=== PATIENT | female | born 1990 | race African-American/Black ===

== ENCOUNTER 2017-08-05 19:23 | Emergency (ER) | payer OTHER, SELFPAY ==
--- OUTSIDE RECORDS SUMMARY | 2017-08-05 19:25 | XMS REPORT | Clinical Summary ---
:1990 Author Organization [facility] Address [address] [place] [address] Care Team Providers Name Role Phone Asked, No Pcp Primary Care Provider Unavailable Allergies Active Allergy Reactions Severity Noted Date Comments Citalopram Other (See Comments) 07/03/2017 migraine Risperidone Other (See Comments) 07/03/2017 "my body swell up" Current Medications Prescription Sig. Disp. Refills Start Date End Date Status OLANZapine (ZYPREXA) Take 1 tablet 30 tablet 0 07/08/2017 08/07/2017 Active 10 MG (10 mg total) by tabletIndications: mouth nightly Depression Treatment for 30 days. Adjunct FLUoxetine (PROzac) Take 1 capsule 30 capsule 0 07/09/2017 08/08/2017 Active 20 MG (20 mg total) by capsuleIndications: mouth daily for Post Traumatic Stress 30 days. Disorder nicotine (NICODERM Place 1 patch on 30 patch 0 07/08/2017 08/07/2017 Active CQ) 21 mg/24 the skin daily hrIndications: as needed Smoking Cessation (smoking cessation) for up to 30 days. 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, severe, dependence 07/03/2017 Severe protein-calorie malnutrition 07/03/2017 Encounters Date Type Specialty Care Team Description 07/02/2017 - Hospital Encounter Psychiatry Fidelia Montoya MD 07/08/2017 after 08/04/2016 Social History Tobacco Use Types Packs/Day Years Used Date Current Every Day Smoker Cigarettes 3 5 Smokeless Tobacco: Never Used Tobacco Cessation: Ready to Quit: No; Counseling Given: Yes Alcohol Use Drinks/Week oz/Week Comments Yes 4 Glasses of wine 10.2 "I binge drink" 10 Shots of liquor 3 Standard drinks or equivalent Sex Assigned at Date Recorded Not on file Last Filed Vital Signs Vital Sign Reading Time Taken Blood Pressure 105/62 07/08/2017 7:14 AM CDT Pulse 72 07/08/2017 7:14 AM CDT Temperature 36.6 C (97.9 F) 07/08/2017 7:14 AM CDT Respiratory Rate 18 07/08/2017 7:14 AM CDT Oxygen Saturation 100% 07/08/2017 7:14 AM CDT Inhaled Oxygen Concentration - - Weight 66.7 kg (147 lb 1.6 oz) 07/08/2017 7:14 AM CDT Height 166.4 cm (5' 5.5") 07/02/2017 11:41 PM CDT Body Mass Index 24.11 07/08/2017 7:14 AM CDT Plan of Treatment Health Maintenance Due Date Last Done Comments CERVICAL CANCER SCREENING 2010 INFLUENZA VACCINE 09/30/2017 Procedures Procedure Name Priority Date/Time Associated Diagnosis Comments EEG AWAKE/DROWSY Routine 07/05/2017 7:52 AM Results for this LESS THAN 41 MIN CDT procedure are in the results section. after 08/04/2016 Results Urinalysis screen and microscopy, with reflex to culture (07/06/2017 11:02 AM) Component Value Ref Range Specimen site Clean catch Color, UA Straw Appearance, UA Clear Specific gravity, UA 1.005 1.001 - 1.035 pH, UA 6.0 5.0 - 8.5 Protein, UA Negative Negative Glucose, UA Negative Negative Ketones, UA Negative Negative Bilirubin, UA Negative Negative Blood, UA Negative Negative Nitrite, UA Negative Negative Urobilinogen, UA <2.0 <2.0 Leukocyte esterase, UA Negative Negative Epithelial cells, UA 8 /HPF WBC, UA 1 0 - 4 /HPF RBC, UA 1 0 - 5 /HPF Bacteria, UA Few None seen Yeast, UA None seen Yeast with pseudohyphae, UA None seen Specimen Performing Laboratory Urine [facility] DEPARTMENT OF PATHOLOGY AND GENOMIC MEDICINE [address] [place] [id number] Urine culture (07/06/2017 11:02 AM) Component Value Ref Range Urine culture SEE COMMENTComment: Bacteriuria screen negative. Specimen Performing Laboratory [facility] DEPARTMENT OF PATHOLOGY AND GENOMIC MEDICINE [address] [place] [id number] Head Wo Contrast (07/06/2017 9:03 AM) Specimen Performing Laboratory [facility] [address] [place] [address] Narrative EXAMINATION: CT HEAD WO CONTRAST CLINICAL HISTORY: CONFUSION DELERIUMALTERED LOCUNEXPLAINED COMPARISON:None TECHNIQUE: Noncontrast enhanced images of the brain were obtained from the skull base to the vertex. Both soft tissue and bone reconstruction algorithms were performed.CT imaging was performed with iterative reconstruction technique and/or automated exposure control to reduce radiation dose. FINDINGS: No evidence of acute intracranial hemorrhage, mass, mass effect, midline shift or focal extra-axial collection. The richardson-white matter differentiation appears preserved. No evidence of a confluent area of acute transcortical ischemia. No discretely hyperdense vessel is noted. The ventricles are mildly prominent bilaterally. A variant of a cavum septum pellucidum et vergae is noted. No evidence of acute hydrocephalus. Beam hardening artifact obscures details at the level of the skull base, including portions of the supraorbital frontal lobes, inferior temporal lobes, brainstem and cerebellum. No acute soft tissue hematoma or laceration. Paranasal sinuses shows no acute air-fluid levels.Right maxillary mucosal thickening. Mastoid air cells are clear.No skull fractures or aggressive bony lesions. IMPRESSION: 1. No acute intracranial abnormality identified. 2. The ventricles are mildly prominent bilaterally. [id number] Procedure Note Interface, Radiology Results Incoming - 07/06/2017 9:19 AM CDT EXAMINATION: CT HEAD WO CONTRAST CLINICAL HISTORY: CONFUSION DELERIUM ALTERED LOC UNEXPLAINED COMPARISON: None TECHNIQUE: Noncontrast enhanced images of the brain were obtained from the skull base to the vertex. Both soft tissue and bone reconstruction algorithms were performed. CT imaging was performed with iterative reconstruction technique and/or automated exposure control to reduce radiation dose. FINDINGS: No evidence of acute intracranial hemorrhage, mass, mass effect, midline shift or focal extra-axial collection. The richardson-white matter differentiation appears preserved. No evidence of a confluent area of acute transcortical ischemia. No discretely hyperdense vessel is noted. The ventricles are mildly prominent bilaterally. A variant of a cavum septum pellucidum et vergae is noted. No evidence of acute hydrocephalus. Beam hardening artifact obscures details at the level of the skull base, including portions of the supraorbital frontal lobes, inferior temporal lobes, brainstem and cerebellum. No acute soft tissue hematoma or laceration. Paranasal sinuses shows no acute air-fluid levels. Right maxillary mucosal thickening. Mastoid air cells are clear. No skull fractures or aggressive bony lesions. IMPRESSION: 1. No acute intracranial abnormality identified. 2. The ventricles are mildly prominent bilaterally. [id number] EEG (routine) (07/05/2017 7:52 AM) Narrative EEG AWAKE AND DROWSY Date of Service: 07/05/17 Awake Recordings: The occipital dominant rhythm is 6-8 Hz and is poorly sustained. 4-5 Hz and 1.5-3 Hz activity is present in all regions. 18-22 Hz activity was present in all regions. Sleep Recording: No sleep was recorded. Hyperventilation: Was not performed. Photic Stimulation: No abnormalities elicited. Impression: The findings are consistent with a diffuse disturbance in brain function. No seizures occurred. ICD-10 Code: R569 Syphilis treponemal IgG (07/04/2017 4:00 AM) Component Value Ref Range Syphilis treponemal IgG Non-reactiveComment: Non-reactive: No Non-reactive serological evidence of Syphilis infection Specimen Performing Laboratory Serum [facility] DEPARTMENT OF PATHOLOGY AND GENOMIC MEDICINE [address] [place] [address]395 Chlamydia Ab panel, IgG and IgM (07/04/2017 4:00 AM) Component Value Ref Range Chlamydia pneumo IgM 1:20 (H) <1:20 Chlamydia trachomatis IgM <1:20 <1:20 Chlamydia psittaci IgM <1:20 <1:20 Chlamydia pneumo IgG 1:128 (H) <1:64 Chlamydia trachomatis IgG <1:64 <1:64 Chlamydia psittaci IgG <1:64 <1:64 Comment: INTERPRETIVE INFORMATION: C. psittaci IgG Titer The Chlamydia antibody test contains both species- and genus- specific antigens, and serological cross-reactions may be seen in both acute and convalescent samples (less than 1:128). A C. pneumoniae-specific reaction will exhibit titers twofold or greater than titers observed with the C. trachomatis or C. psittaci serology. Any IgG titer may indicate past exposure to that particular species. IgG titers in recently infected individuals are typically greater than or equal 1:512. The Chlamydia microimmunofluorescent assay slides utilize C. psittaci, C. pneumoniae, and nine serotypes of C. trachomatis. The LGV strains of C. trachomatis are not included in this assay. Test developed and characteristics determined by [facility]. See Compliance Statement A: [employer] Performed by [facility], [address] [place] [address] www.[employer], Rafy Maguire MD - Lab. Director Specimen Performing Laboratory Serum [facility] [address] [place] [address] Hepatitis acute panel (07/04/2017 4:00 AM) Component Value Ref Range Hepatitis A IgM Non-reactive Non-reactive Hepatitis B core IgM Non-reactive Non-reactive Hepatitis B surface Ag Non-reactive Non-reactive Hepatitis C Ab Non-reactive Non-reactive Specimen Performing Laboratory Serum [facility] DEPARTMENT OF PATHOLOGY AND GENOMIC MEDICINE [address] [place] [address] 18795 HIV 1, 2 antibody (07/04/2017 4:00 AM) Component Value Ref Range HIV 1, 2 antibody Non-reactive Non-reactive Comment: Starting from May 29 2015, 4th generation HIV screening and confirmation assays are in use at [facility], consistent with the CDC-recommended algorithm. The screening test detects antibodies to HIV-1, HIV-2 and the p24 antigen. Positive screening results will be automatically reflexed to a HIV-1/HIV-2 differentiation assay. Indeterminant HIV-1 results will be further automatically reflexed to a nucleic acid test for detection of acute infection. Western blot will no longer be performed as a confirmation test. For a quick reference guide on the testing algorithm, please refer to: http://stacks.cdc.gov/view/cdc/84784. Specimen Performing Laboratory Serum [facility] DEPARTMENT OF PATHOLOGY AND GENOMIC MEDICINE [address] [place] [id number] Thyroid stimulating hormone (07/04/2017 4:00 AM) Component Value Ref Range TSH 0.12 (L) 0.27 - 4.20 uIU/mL Specimen Performing Laboratory Plasma specimen [facility] DEPARTMENT OF PATHOLOGY AND GENOMIC MEDICINE [address] [place] [address] 35150 T4, free (07/04/2017 4:00 AM) Component Value Ref Range T4, free 1.0 0.9 - 1.7 ng/dL Specimen Performing Laboratory Plasma specimen [facility] DEPARTMENT OF PATHOLOGY AND GENOMIC MEDICINE [address] [place] [address] 36858 ECG 12 lead (07/03/2017 9:14 AM) Component Value Ref Range Ventricular rate 76 Atrial rate 76 LA interval 122 QRSD interval 102 QT interval 374 QTC interval 420 P axis 1 26 QRS axis 1 59 T wave axis 51 EKG impression Normal sinus rhythm-Normal ECG-No previous ECGs available- Specimen Performing Laboratory [facility] M[facility] [address] [place] [address] 14121 Estimated GFR (07/03/2017 5:38 AM) Component Value Ref Range GFR Non Af Amer >90 mL/min/1.73 m2 GFR Af Amer >90 mL/min/1.73 m2 Comment: Chronic kidney disease: <60 mL/min/1.73m2 Kidney failure: <15 mL/min/1.73m2 The estimated GFR is calculated from the IDMS-traceable Modification of Diet in Renal Disease Equation. The accuracy of the calculation is poor when the creatinine is normal. Calculated values >90 mL/min/1.73m2 are not reported. This equation has not been validated in children (<18 years), women, the elderly (>70 years), or ethnic groups other than Caucasians and Americans. Specimen Performing Laboratory Plasma specimen [facility] DEPARTMENT OF PATHOLOGY AND GENOMIC MEDICINE [address] [place] [address]489 CBC with platelet and differential (07/03/2017 5:38 AM) Component Value Ref Range WBC 5.34 4.50 - 11.00 k/uL RBC 3.95 (L) 4.20 - 5.50 m/uL HGB 12.0 12.0 - 16.0 g/dL HCT 36.6 (L) 37.0 - 47.0 % MCV 92.7 82.0 - 100.0 fL MCH 30.4 27.0 - 34.0 pg MCHC 32.8 31.0 - 37.0 g/dL RDW - SD 43.6 37.0 - 55.0 fL MPV 10.4 8.8 - 13.2 fL Platelet count 297 150 - 400 k/uL Nucleated RBC 0.00 /100 WBC Neutrophils 58.7 39.0 - 69.0 % Lymphocytes 31.3 25.0 - 45.0 % Monocytes 6.2 0.0 - 10.0 % Eosinophils 3.0 0.0 - 5.0 % Basophils 0.6 0.0 - 1.0 % Immature granulocytes 0.2Comment: "Immature granulocytes" 0.0 - 1.0 % (promyelocytes, myelocytes, metamyelocytes) Specimen Performing Laboratory Blood [facility] DEPARTMENT OF PATHOLOGY AND GENOMIC MEDICINE [address] [place] [address] [id number] Hemoglobin A1c (07/03/2017 5:38 AM) Component Value Ref Range Hemoglobin A1C 5.4 4.0 - 5.6 % Comment: HbA1c cutoffs for diagnosing diabetes: 4.0% - 5.6%=normal 5.7% - 6.4%=increased risk for diabetes (prediabetes) >=6.5%=diabetes Goals for glycemic control (ADA 2016) < 7.0%Target for non adults with diabetes. More or less stringent targets may be appropriate for individual patients. <7.5% Target for Children and adolescents with type 1 diabetes. Specimen Performing Laboratory Blood [facility] [address] [place] [address] 80646 Lipid panel (07/03/2017 5:38 AM) Component Value Ref Range Cholesterol 122 <200 mg/dL Triglycerides 77 <150 mg/dL HDL cholesterol 41 >40 mg/dL LDL cholesterol 72Comment: Result obtained by direct LDL <100 mg/dL measurement Lipid panel interpretation SeeBelow Comment: Total Cholesterol (mg/dL) <200 Desirable [phone]-vtyg >=240High Triglycerides (mg/dL) <150 Normal [id number] 200-499High >=500Very high HDL Cholesterol (mg/dL) <40Low (male) <40Low (female) LDL Cholesterol (mg/dL) <100 Optimal 100-129Near or above optimal [phone]-dzak 160-189High >=190Very high Risk Catergories that modify LDL goals. Risk CatergoriesLDL goal (mg/dL) CHD and CHD risk equivalent<100 (10-year risk >20%) Multiple (2+) risk factors <130 (10-year risk=<20%) 0-1 risk factors <160 (<10-year risk) Defining levels of lipids in metabolic syndrome Triglycerides>=150 mg/dL HDL Cholesterol Men<40 mg/dL Women<40 mg/dL Non-HDL cholesterol is a second target for therapy in persons with high triglycerides (>=200 mg/dL) Specimen Performing Laboratory Plasma specimen [facility] DEPARTMENT OF PATHOLOGY AND GENOMIC MEDICINE [address] [place] [address]04 Comprehensive metabolic panel (07/03/2017 5:38 AM) Component Value Ref Range Sodium 138 135 - 148 mEq/L Potassium 3.8 3.5 - 5.0 mEq/L Chloride 102 98 - 112 mEq/L CO2 24 24 - 31 mEq/L Anion gap 12 7 - 15 mEq/L Comment: Starting from May , anion gap calculation no longer incorporates potassium. Please note the change. BUN 11 6 - 20 mg/dL Creatinine 0.7 0.5 - 0.9 mg/dL Glucose 91 65 - 99 mg/dL Calcium 9.0 8.3 - 10.2 mg/dL Protein 6.7 6.3 - 8.3 g/dL Comment: 4.6-7.0 g/dL 1 week 4.4-7.6 g/dL 7 months-1year5.1-7.3 g/dL 1-2 years5.6-7.5 g/dL >3 years6.0-8.0 g/dL 18-150 6.3-8.3 g/dL Albumin 3.3 (L) 3.5 - 5.0 g/dL A/G ratio 1.0 0.7 - 3.8 Alkaline phosphatase 44 35 - 104 U/L AST 25 10 - 35 U/L ALT 16 5 - 50 U/L Total bilirubin 0.3 0.0 - 1.2 mg/dL Specimen Performing Laboratory Plasma specimen [facility] DEPARTMENT OF PATHOLOGY AND GENOMIC MEDICINE [address] [place] [address] after 08/04/2016
[2017-08-05 22:55] LABS: Absolute Lymphocytes (CBC) 2.4 K/uL (0.7-4.9); Absolute Monocytes 0.4 K/uL (0.1-1.3); Absolute Neutrophil 2.1 K/uL (1.8-8.0); Basophils % 0.7 % (0-1.3); Eosinophils % 3.9 % (0-4.4); Hematocrit 34.3 % (36.0-45.0); Lymphocytes % 46.3 % (15.3-44.8); MCH 30.6 pg (27.0-35.0); MCV 92.3 fL (80-100); MPV 8.5 fL (7.6-11.3); Monocytes % 7.7 % (3.3-12.3); RBC Red Blood Cell Count 3.72 M/uL (3.86-4.86)
[2017-08-05 23:01] LABS: Bicarbonate 26 mEq/L (21-31); Glucose Level 87 mg/dL (65-120); Potassium 3.3 mEq/L (3.6-5.0); Sodium Level 136 mEq/L (135-145)
[2017-08-05 23:07] LABS: ALT/SGPT 18 IU/L (10-60); AST/SGOT 22 IU/L (10-42); Albumin 3.8 g/dL (3.2-5.5); Alkaline Phosphatase 49 IU/L (42-121); BUN Blood Urea Nitrogen 12 mg/dL (6-20); Bilirubin Direct 0.1 mg/dL (0-0.2); Bilirubin Total 0.4 mg/dL (0.3-1.2); Creatine Phosphokinase 98 IU/L (22-269); Magnesium 2.1 mg/dL (1.8-2.5); Protein, Total 6.7 g/dL (6.0-8.3)
[2017-08-05 23:11] LABS: CKMB Creatine Kinase MB 0.9 ng/ml (0.3-4.0)
[2017-08-05 23:39] LABS: Urine Blood 2+ (NEG); Urine Glucose NEGATIVE (NEG); Urine Protein NEGATIVE (NEG); Urine pH 6.5 (5.0-7.0)
--- NOTE | 2017-08-06 00:27 | ER ---
Nurse's Notes [facility] Name: Jennifer Olivares Age: 27 yrs Sex: Female : 1990 Arrival Date: 08/05/2017 Time: 19:26 Bed 26 Private MD: Christopher Leal E Diagnosis: Pain in right hand;Pain in left hand;Other chest pain-non cardiac Presentation: 08/05 19:31 Presenting complaint: Patient states: Reports bilateral hand tingling and swelling for aj 2 days with chest pain. Also reports swelling to bilateral feet. No swelling noted in triage. Transition of care: patient was not received from another setting of care. Onset of symptoms was August 03, 2017. Risk Assessment: Do you want to hurt yourself or someone else? Patient reports no desire to harm self or others. Care prior to arrival: None. 19:31 Method Of Arrival: Ambulatory 19:31 Acuity: ANKIT 3 aj 08/06 00:51 Initial Sepsis Screen: Does the patient meet any 2 criteria? No. Patient's initial mb3 sepsis screen is negative. Does the patient have a suspected source of infection? No. Patient's initial sepsis screen is negative. Triage Assessment: 08/05 19:33 General: Appears in no apparent distress. comfortable, Behavior is calm, cooperative, aj appropriate for age. Pain: Complains of pain in chest, right hand, left hand, right foot and left foot. Cardiovascular: Reports chest pain, Capillary refill < 3 seconds in bilateral fingers Patient's skin is warm and dry. Respiratory: Airway is patent Respiratory effort is even, unlabored, Respiratory pattern is regular, symmetrical. Derm: Skin is intact, is healthy with good turgor, Skin is pink, warm \T\ dry. normal. Musculoskeletal: Reports pain in chest, right hand, left hand, right foot and left foot. 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 - Social history:: Smoking status: Patient uses tobacco products, smokes one-half pack cigarettes per day, Patient uses alcohol, street drugs, marijuana. - Ebola Screening: : Patient negative for fever greater than or equal to 101.5 degrees Fahrenheit, and additional compatible Ebola Virus Disease symptoms Patient denies exposure to infectious person Patient denies travel to an Ebola-affected area in the 21 days before illness onset No symptoms or risks identified at this time. Screenin:08 Abuse screen: Denies threats or abuse. Denies injuries from another. Nutritional kr2 screening: No deficits noted. Tuberculosis screening: No symptoms or risk factors identified. Fall Risk None identified. Assessment: 23:10 General: Appears in no apparent distress. comfortable, Behavior is calm, cooperative, mb3 appropriate for age. Pain: Complains of pain in right hand and left hand Pain does not radiate. Pain began 1 day ago. 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 Full function Weakness Gait is steady, Speech is normal, Facial symmetry appears normal, Pupils are PERRLA, Numbness in right hand and left hand. Cardiovascular: No deficits noted. Heart tones present Capillary refill < 3 seconds Patient's skin is warm and dry. Respiratory: No deficits noted. Airway is patent Respiratory effort is even, unlabored, Respiratory pattern is regular, symmetrical, Breath sounds are clear bilaterally. GI: No deficits noted. No signs and/or symptoms were reported involving the gastrointestinal system. : No deficits noted. No signs and/or symptoms were reported regarding the genitourinary system. Vital Signs: 19:33 BP 110 / 77; Pulse 92; Resp 16; Temp 98.3; Pulse Ox 99% on R/A; Weight 62.14 kg; Height aj 5 ft. 5 in. (165.10 cm); 08/06 00:49 BP 85 / 59; Pulse 59; Resp 14; Pulse Ox 99% on R/A; mb3 08/05 19:33 Body Mass Index 22.80 (62.14 kg, 165.10 cm) ED Course: 08/05 19:26 Patient arrived in ED. es 19:26 Christopher Leal MD is Private Physician. es 19:32 Triage completed. aj 19:33 Arm band placed on left wrist. Patient placed in waiting room, Patient notified of wait aj time. 20:50 engine monitor on. Pulse ox on. NIBP on. mb3 21:55 Asher Horton MD is Attending Physician. [facility] 22:28 Kris Ng, RN is Primary Nurse. mb3 22:35 Inserted saline lock: 20 gauge in right antecubital area, using aseptic technique. kr2 Blood collected. Patient maintains SpO2 saturation greater than 95% on room air. 22:41 X-ray completed. Portable x-ray completed in exam room. Patient tolerated procedure kc2 well. 22:42 XRAY Chest (1 view) In Process Unspecified. EDMS 08/06 00:26 Christopher Leal MD is Referral Physician. [facility] 00:51 Patient has correct armband on for positive identification. mb3 00:51 No provider procedures requiring assistance completed. IV discontinued, intact, mb3 bleeding controlled, No redness/swelling at site. Pressure dressing applied. Administered Medications: 08/05 23:06 Drug: NS 0.9% 1000 ml Route: IV; Rate: 1 bolus; Site: left antecubital; kr2 08/06 00:48 Follow up: Response: No adverse reaction; IV Status: Completed infusion; IV Intake: mb3 1000ml 00:40 Drug: Potassium Chloride 40 mEq Route: PO; mb3 00:48 Follow up: Response: No adverse reaction mb3 Intake: 00:48 IV: 1000ml; Total: 1000ml. mb3 Outcome: 00:26 Discharge ordered by . [facility] 00:52 Discharged to home ambulatory. mb3 00:52 Condition: stable 00:52 Discharge instructions given to patient, Instructed on discharge instructions, follow up and referral plans. medication usage, Demonstrated understanding of instructions, follow-up care, medications, Prescriptions given X 1. 00:53 Patient left the ED. mb3 Signatures: Dispatcher [employer] Susan Silveira RN RN aj Anderson, Corey, MD MD cha Salyer, Edna es Carr, Kelsie kc2 Karen Bryan RN RN kr2 Kris Ng, RN RN mb3
--- NOTE | 2017-08-06 00:27 | EDPHYS ---
Physician Documentation [facility] Name: Jennifer Olivares Age: 27 yrs Sex: Female : 1990 Arrival Date: 08/05/2017 Time: 19:26 Bed 26 Private MD: Christopher Leal E ED Physician Asher Horton HPI: 08/05 22:30 This 27 yrs old Black Female presents to ER via Ambulatory with complaints of Chest ben Pain, Hand Swelling, Feet Swelling, Numbness Of Hand. 22:30 The patient or guardian reports chest pain that is located primarily in the anterior ben chest wall, bilaterally. The pain does not radiate. 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 - Social history:: Smoking status: Patient uses tobacco products, smokes one-half pack cigarettes per day, Patient uses alcohol, street drugs, marijuana. - Ebola Screening: : Patient negative for fever greater than or equal to 101.5 degrees Fahrenheit, and additional compatible Ebola Virus Disease symptoms Patient denies exposure to infectious person Patient denies travel to an Ebola-affected area in the 21 days before illness onset No symptoms or risks identified at this time. ROS: 22:32 Constitutional: Negative for fever, chills, and weight loss, Eyes: Negative for injury, ben pain, redness, and discharge, ENT: Negative for injury, pain, and discharge, Neck: Negative for injury, pain, and swelling, Respiratory: Negative for shortness of breath, cough, wheezing, and pleuritic chest pain, Abdomen/GI: Negative for abdominal pain, nausea, vomiting, diarrhea, and constipation, Back: Negative for injury and pain, : Negative for injury, bleeding, discharge, and swelling, MS/Extremity: Negative for injury and deformity, Skin: Negative for injury, rash, and discoloration, Neuro: Negative for headache, weakness, numbness, tingling, and seizure, Psych: Negative for depression, anxiety, suicide ideation, homicidal ideation, and hallucinations, Allergy/Immunology: Negative for hives, rash, and allergies, Endocrine: Negative for neck swelling, polydipsia, polyuria, polyphagia, and marked weight changes, Hematologic/Lymphatic: Negative for swollen nodes, abnormal bleeding, and unusual bruising. 22:32 Cardiovascular: Positive for chest pain, of the chest. 22:32 MS/extremity: Positive for laceration, tenderness, of the right hand and left hand. Exam: 22:32 Constitutional: This is a well developed, well nourished patient who is awake, alert, ben and in no acute distress. Head/Face: Normocephalic, atraumatic. Eyes: Pupils equal round and reactive to light, extra-ocular motions intact. Lids and lashes normal. Conjunctiva and sclera are non-icteric and not injected. Cornea within normal limits. Periorbital areas with no swelling, redness, or edema. ENT: Nares patent. No nasal discharge, no septal abnormalities noted. Tympanic membranes are normal and external auditory canals are clear. Oropharynx with no redness, swelling, or masses, exudates, or evidence of obstruction, uvula midline. Mucous membranes moist. Neck: Trachea midline, no thyromegaly or masses palpated, and no cervical lymphadenopathy. Supple, full range of motion without nuchal rigidity, or vertebral point tenderness. No Meningismus. Chest/axilla: Normal chest wall appearance and motion. Nontender with no deformity. No lesions are appreciated. Cardiovascular: Regular rate and rhythm with a normal S1 and S2. No gallops, murmurs, or rubs. Normal PMI, no JVD. No pulse deficits. Respiratory: Lungs have equal breath sounds bilaterally, clear to auscultation and percussion. No rales, rhonchi or wheezes noted. No increased work of breathing, no retractions or nasal flaring. Abdomen/GI: Soft, non-tender, with normal bowel sounds. No distension or tympany. No guarding or rebound. No evidence of tenderness throughout. Back: No spinal tenderness. No costovertebral tenderness. Full range of motion. Skin: Warm, dry with normal turgor. Normal color with no rashes, no lesions, and no evidence of cellulitis. MS/ Extremity: Pulses equal, no cyanosis. Neurovascular intact. Full, normal range of motion. Neuro: Awake and alert, GCS 15, oriented to person, place, time, and situation. Cranial nerves II-XII grossly intact. Motor strength 5/5 in all extremities. Sensory grossly intact. Cerebellar exam normal. Normal gait. Psych: Awake, alert, with orientation to person, place and time. Behavior, mood, and affect are within normal limits. 22:38 Musculoskeletal/extremity: DVT Exam: No signs of deep vein thrombosis. no pain, no ben swelling, no tenderness, negative Homans' sign noted on exam, no appreciated bluish discoloration, no erythema, no increased warmth. Vital Signs: 19:33 BP 110 / 77; Pulse 92; Resp 16; Temp 98.3; Pulse Ox 99% on R/A; Weight 62.14 kg; Height aj 5 ft. 5 in. (165.10 cm); 08/06 00:49 BP 85 / 59; Pulse 59; Resp 14; Pulse Ox 99% on R/A; mb3 08/05 19:33 Body Mass Index 22.80 (62.14 kg, 165.10 cm) MDM: 08/05 21:55 Patient medically screened. [facility] 22:33 Data reviewed: vital signs, lab test result(s), EKG, radiologic studies, plain films. [facility] 08/05 22:30 Order name: Basic Metabolic Panel; Complete Time: 00:23 [facility] 08/05 22:30 Order name: BNP; Complete Time: 00:23 [facility] 08/05 22:30 Order name: CBC with Diff; Complete Time: 00:23 [facility] 08/05 22:30 Order name: Ckmb; Complete Time: 00:23 [facility] 08/05 22:30 Order name: CPK; Complete Time: 00:23 [facility] 08/05 22:30 Order name: LFT's; Complete Time: 00:23 [facility] 08/05 22:30 Order name: Magnesium; Complete Time: 00:23 [facility] 08/05 22:30 Order name: Troponin (emerg Dept Use Only); Complete Time: 00:23 [facility] 08/05 22:30 Order name: XRAY Chest (1 view) [facility] 08/05 22:30 Order name: EKG; Complete Time: 22:31 [facility] 08/05 23:09 Order name: Urine Dipstick--Ancillary (enter results); Complete Time: 00:23 fl 08/05 23:09 Order name: Urine --Ancillary (enter results); Complete Time: 00:23 ms 08/05 22:30 Order name: Urine Test (obtain specimen); Complete Time: 23: [facility] 08/05 22:30 Order name: Cardiac monitoring; Complete Time: 22:38 [facility] 08/05 22:30 Order name: EKG - Nurse/Tech; Complete Time: 23:07 [facility] 08/05 22:30 Order name: IV Saline Lock; Complete Time: :38 [facility] 08/05 22:30 Order name: Labs collected and sent; Complete Time: : [facility] 08/05 22:30 Order name: O2 Per Protocol; Complete Time: :38 [facility] 08/05 22:30 Order name: O2 Sat Monitoring; Complete Time: : [facility] 08/05 22:30 Order name: Urine Dipstick-Ancillary (obtain specimen); Complete Time: 23:07 [facility] Administered Medications: 23:06 Drug: NS 0.9% 1000 ml Route: IV; Rate: 1 bolus; Site: left antecubital; kr2 08/06 00:48 Follow up: Response: No adverse reaction; IV Status: Completed infusion; IV Intake: mb3 1000ml 00:40 Drug: Potassium Chloride 40 mEq Route: PO; mb3 00:48 Follow up: Response: No adverse reaction mb3 Disposition: 08/06/17 00:26 Discharged to Home. Impression: Pain in right hand, Pain in left hand, Other chest pain - non cardiac. - Condition is Stable. - Discharge Instructions: Nonspecific Chest Pain, Chest Wall Pain, Musculoskeletal Pain, Nonspecific Chest Pain, [id number]. - Prescriptions for Naprosyn 500 mg Oral Tablet - take 1 tablet by ORAL route 2 times per day take with food; 14 tablet. - Medication Reconciliation Form, Thank You Letter, Antibiotic Education, Prescription Opioid Use form. - Follow up: Christopher Leal; When: 2 - 3 days; Reason: Recheck today's complaints, Continuance of care, Re-evaluation by your physician. - Problem is new. - Symptoms have improved. Signatures: Dispatcher [employer] EDSusan Kunz RN RN aj Anderson, Corey, MD MD cha Reaves, Karey RN RN kr2 Kris Ng RN RN mb3 Corrections: (The following items were deleted from the chart) 08/05 22:34 22:33 Data reviewed: vital signs, nurses notes, lab test result(s), EKG, radiologic [facility] studies, CT scan, plain films, [facility] 08/06 00:53 00:26 08/06/2017 00:26 Discharged to Home. Impression: Pain in right hand; Pain in left mb3 hand; Other chest pain - non cardiac. Condition is Stable. Discharge Instructions: Nonspecific Chest Pain, Chest Wall Pain, Musculoskeletal Pain, Nonspecific Chest Pain, [id number]. Prescriptions for Naprosyn 500 mg Oral Tablet - take 1 tablet by ORAL route 2 times per day take with food; 14 tablet. and Forms are Medication Reconciliation Form, Thank You Letter, Antibiotic Education, Prescription Opioid Use. Follow up: Christopher Leal; When: 2 - 3 days; Reason: Recheck today's complaints, Continuance of care, Re-evaluation by your physician. Problem is new. Symptoms have improved. [facility]
[2017-08-06] MEDS ORDERED: POTASSIUM CL SA 10 MEQ TAB PO ONE (00:42)
[2017-08-06 02:17] VITALS: TEMP 98.3; O2SAT 99
[2017-08-06 02:18] VITALS: BP 85/59
--- NOTE | 2017-08-06 08:31 | RAD REPORT ---
EXAM DESCRIPTION: RAD - Chest Single View - 08/05/2017 10:44 pm CLINICAL HISTORY: Cough COMPARISON: August 2009 TECHNIQUE: AP portable chest image was obtained 2232 hours . FINDINGS: Lungs are clear. Heart and vasculature are normal. No measurable pleural effusion and no p neumothorax. No gross bony abnormality seen. No acute aortic findings suspected. IMPRESSION: No acute cardiopulmonary process. No suspicious change from comparison.
--- NOTE | 2017-08-07 07:24 | EKG ---
Test Date: 2017-08-05 Test Time: 22:47:22 Pmo Consultant: HANNA MEASUREMENT RESULTS: Intervals: Rate: 62 DC: 148 QRSD: 100 QT: 432 QTc: 438 [place]: P: 42 DC: 148 QRS: 66 T: 62 INTERPRETIVE STATEMENTS: Normal sinus rhythm with sinus arrhythmia Normal ECG Compared to ECG 09/22/2009 19:47:57 T-wave abnormality no longer present Electronically Signed On 08-07-17 07:20:13 CDT by Prince Conner
== END 2017-08-06 00:53 | disposition home or self-care (01) ==
LOC: ER 19:23
DX: M79.642 Pain in left hand (principal); M79.641 Pain in right hand; F43.10 Post-traumatic stress disorder, unspecified; F17.210 Nicotine dependence, cigarettes, uncomplicated; Z88.8 Allergy status to other drugs, medicaments and biological substances
CPT/HCPCS: 36415; 71045; 80048; 80076; 81003; 81025; 82550; 82553; 83735; 83880; 84484; 85025; 93005; 96360; 96361; 99285

== ENCOUNTER 2018-10-25 11:14 | Emergency (ER) | payer SELFPAY ==
--- OUTSIDE RECORDS SUMMARY | 2018-10-25 11:28 | XMS REPORT | Clinical Summary ---
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 Last Filed Vital Signs Not on file Plan of Treatment Health Maintenance Due Date Last Done Comments CERVICAL CANCER SCREENING 2010 INFLUENZA VACCINE 09/30/2018 Results Not on fileafter 10/24/2017 Advance Directives For more information, please contact: [phone] Type Date Recorded Patient Application Systems Administrator Explanation Advance Directives, Living Will and Medical Power of Security Solutions Architect Code Status Date Activated Date Inactivated Comments Full Code 07/03/2017 2:12 AM 07/08/2017 5:15 PM Code Status decision reached by: Patient
--- OUTSIDE RECORDS SUMMARY | 2018-10-25 11:28 | XMS REPORT ---
:1990 [facility] Address [facility] [address] [place] [id number] Care Team Providers Name Role Phone Unavailable Unavailable Unavailable Problems This patient has no known problems. Allergies, Adverse Reactions, Alerts This patient has no known allergies or adverse reactions. Medications This patient has no known medications.
--- NOTE | 2018-10-25 11:56 | ER ---
Nurse's Notes [facility] Name: Jennifer Olivares Age: 28 yrs Sex: Female : 1990 Arrival Date: 10/25/2018 Time: 11:18 Bed 23 Private MD: Diagnosis: Other follicular cysts of the skin and subcutaneous tissue Presentation: 10/25 11:30 Presenting complaint: Patient states: LEFT BROW SWELLING. Transition of care: patient bp was not received from another setting of care. Onset of symptoms is unknown. Risk Assessment: Do you want to hurt yourself or someone else? Patient reports no desire to harm self or others. Initial Sepsis Screen: Does the patient meet any 2 criteria? HR > 90 bpm. No. Patient's initial sepsis screen is negative. Does the patient have a suspected source of infection? No. Patient's initial sepsis screen is negative. Note PT POOR HISTORIAN. Care prior to arrival: None. 11:30 Method Of Arrival: Ambulatory bp 11:30 Acuity: ANKIT 3 bp Triage Assessment: 11:32 General: Appears in no apparent distress. uncomfortable, Behavior is cooperative, bp appropriate for age, anxious. Pain: Complains of pain in left eye. EENT: No deficits noted. Neuro: No deficits noted. Cardiovascular: No deficits noted. Respiratory: No deficits noted. GI: No signs and/or symptoms were reported involving the gastrointestinal system. : No signs and/or symptoms were reported regarding the genitourinary system. Derm: No deficits noted. Musculoskeletal: No deficits noted. 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 - Social history:: Smoking status: Patient/guardian denies using tobacco. - Ebola Screening: : No symptoms or risks identified at this time. Screenin:34 Abuse screen: Denies threats or abuse. Denies injuries from another. Nutritional bp screening: No deficits noted. Tuberculosis screening: No symptoms or risk factors identified. Fall Risk None identified. Assessment: 11:34 General: SEE TRIAGE NOTE. bp 12:04 Reassessment: PT D/C HOME AMBULATORY WITH FAMILY, DX WITH FOLLICULAR CYST. bp Vital Signs: 11:32 BP 112 / 81; Pulse 114; Resp 16; Temp 98; Pulse Ox 100% ; Weight 58.97 kg; Height 5 ft. bp 5 in. (165.10 cm); 12:04 BP 106 / 77; Pulse 100; Resp 18; Temp 98; Pulse Ox 100% ; bp 11:32 Body Mass Index 21.63 (58.97 kg, 165.10 cm) bp ED Course: 11:18 Patient arrived in ED. mr 11:23 Flo Mcdonough MD is Attending Physician. gs 11:24 Lakhwinder Kapoor, RN is Primary Nurse. bp 11:31 Triage completed. bp 11:32 Arm band placed on. bp 11:34 Patient has correct armband on for positive identification. Bed in low position. Call bp light in reach. Side rails up X2. 11:52 Marvel Benedict MD is Referral Physician. gs 12:05 No provider procedures requiring assistance completed. Patient did not have IV access bp during this emergency room visit. Administered Medications: No medications were administered Outcome: 11:53 Discharge ordered by . gs 12:05 Discharged to home ambulatory, with family. bp 12:05 Condition: stable 12:05 Discharge instructions given to patient, Instructed on discharge instructions, follow up and referral plans. medication usage, Demonstrated understanding of instructions, follow-up care, medications, Prescriptions given X 1. 12:05 Patient left the ED. bp Signatures: Brielle Fuentes mr Flo Mcdonough MD MD Lakhwinder Kapoor, RN RN bp
--- NOTE | 2018-10-25 11:56 | EDPHYS ---
Physician Documentation [facility] Name: Jennifer Olivares Age: 28 yrs Sex: Female : 1990 Arrival Date: 10/25/2018 Time: 11:18 Bed 23 Private MD: ED Physician Flo Mcdonough HPI: 10/25 11:48 This 28 yrs old Black Female presents to ER via Ambulatory with complaints of Eye gs Swelling. 11:48 The patient is experiencing swelling over left eyebrow. Onset: The symptoms/episode gs began/occurred 3 week(s) ago, and became persistent. Duration: the symptoms are continuous. Aggravated by rubbing. Associated signs and symptoms: Pertinent negatives: fever. Severity of symptoms: At their worst the symptoms were moderate in the emergency department the symptoms are unchanged. yes had cyst removed a year ago, seems reaccumulation of cyst. 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 - Social history:: Smoking status: Patient/guardian denies using tobacco. - Ebola Screening: : No symptoms or risks identified at this time. ROS: 11:48 All other systems are negative. gs 11:48 ENT: Positive for allergy and sinus congestion. gs Exam: 11:48 ENT: Nares patent. No nasal discharge, no septal abnormalities noted. Tympanic gs membranes are normal and external auditory canals are clear. Oropharynx with no redness, swelling, or masses, exudates, or evidence of obstruction, uvula midline. Mucous membranes moist. Neck: Trachea midline, no thyromegaly or masses palpated, and no cervical lymphadenopathy. Supple, full range of motion without nuchal rigidity, or vertebral point tenderness. No Meningismus. Chest/axilla: Normal chest wall appearance and motion. Nontender with no deformity. No lesions are appreciated. Cardiovascular: Regular rate and rhythm with a normal S1 and S2. No gallops, murmurs, or rubs. Normal PMI, no JVD. No pulse deficits. Respiratory: Lungs have equal breath sounds bilaterally, clear to auscultation and percussion. No rales, rhonchi or wheezes noted. No increased work of breathing, no retractions or nasal flaring. Abdomen/GI: Soft, non-tender, with normal bowel sounds. No distension or tympany. No guarding or rebound. No evidence of tenderness throughout. Back: No spinal tenderness. No costovertebral tenderness. Full range of motion. Skin: Warm, dry with normal turgor. Normal color with no rashes, no lesions, and no evidence of cellulitis. MS/ Extremity: Pulses equal, no cyanosis. Neurovascular intact. Full, normal range of motion. Neuro: Awake and alert, GCS 15, oriented to person, place, time, and situation. Cranial nerves II-XII grossly intact. Motor strength 5/5 in all extremities. Sensory grossly intact. Cerebellar exam normal. Normal gait. 11:48 Constitutional: The patient appears awake, comfortable. 11:48 Head/face: Sinus tenderness, is not appreciated. 11:48 Eyes: Periorbital structures: swelling, that is mild, on the inner aspect of left eyebrow, middle aspect of left eyebrow and outer aspect of left eyebrow, small cyst v abscess no cellulitis or fluctuance. 11:48 Psych: Delusions/hallucinations are present and described as paranoid, word clang. Vital Signs: 11:32 BP 112 / 81; Pulse 114; Resp 16; Temp 98; Pulse Ox 100% ; Weight 58.97 kg; Height 5 ft. bp 5 in. (165.10 cm); 12:04 BP 106 / 77; Pulse 100; Resp 18; Temp 98; Pulse Ox 100% ; bp 11:32 Body Mass Index 21.63 (58.97 kg, 165.10 cm) bp MDM: 11:43 Patient medically screened. gs 11:48 Data reviewed: vital signs, nurses notes. ED course: says needs to make [facility] appt gs needs to be discharged. Administered Medications: No medications were administered Disposition: 10/25/18 11:53 Discharged to Home. Impression: Other follicular cysts of the skin and subcutaneous tissue. - Condition is Stable. - Discharge Instructions: Excision of Skin Lesions. - Prescriptions for Keflex 500 mg Oral Capsule - take 1 capsule by ORAL route every 12 hours for 7 days; 14 capsule. - Medication Reconciliation Form, Thank You Letter, Antibiotic Education, Prescription Opioid Use form. - Follow up: Marvel Benedict MD; When: 2 - 3 days; Reason: Re-evaluation by your physician. Signatures: Flo Mcdonough MD MD gs Peltier, Brian RN RN bp Corrections: (The following items were deleted from the chart) 12:05 11:53 10/25/2018 11:53 Discharged to Home. Impression: Other follicular cysts of the bp skin and subcutaneous tissue. Condition is Stable. Forms are Medication Reconciliation Form, Thank You Letter, Antibiotic Education, Prescription Opioid Use. Follow up: Marvel Benedict; When: 2 - 3 days; Reason: Re-evaluation by your physician. gs
[2018-10-25 12:50] VITALS: TEMP 98; O2SAT 100
[2018-10-25 12:52] VITALS: BP 106/77
== END 2018-10-25 12:05 | disposition home or self-care (01) ==
LOC: ER 11:14
DX: L72.8 Other follicular cysts of the skin and subcutaneous tissue (principal); F43.10 Post-traumatic stress disorder, unspecified; Z88.8 Allergy status to other drugs, medicaments and biological substances
CPT/HCPCS: 99282

== ENCOUNTER 2019-02-27 18:48 | Emergency (ER) | payer SELFPAY ==
--- OUTSIDE RECORDS SUMMARY | 2019-02-27 18:51 | XMS REPORT | Summary of Care ---
:1990 Author Organization [facility] - [facility] Address [address] [place] [id number] Care Team Providers Name Role Phone Pcp, Patient Does Not Have A Primary Care Provider Reason for Visit Reason Comments Other bump Auth/Cert Status Reason Specialty Diagnoses / Referred By Referred To Procedures Contact Contact [facility] [address] [place] [address] [place] [address] Encounter Details Date Type Department Care Team Description 10/27/2018 Emergency [facility]-Emergency Department Sarwat Giraldo MD [address] [place] [address] [address] [facility] [id number] [place] [address] [place], [place] [id number] Allergies Active Allergy Reactions Severity Noted Date Comments Citalopram Hydrobromide Other - See comments 04/24/2016 HEADACHE/MIGRAINE Risperidone Swelling 07/02/2017 Whole body Sertraline Hcl Other - See comments 09/30/2017 Suicidal ideation documented as of this encounter (statuses as of 10/27/2018) Medications Medication Sig Dispensed Refills Start Date End Date Status FLUoxetine Take 1 capsule by 30 capsule 3 01/31/2016 Active (PROZAC) 40 mg mouth daily. capsuleIndications : Psychological disorder during vit Take 1 Packet by 30 Each 11 01/31/2016 Active #[id number] mouth daily. (SELECT-OB + DHA) 29 mg iron-1 mg -250 mg combo pack ranitidine Take 1 capsule by 120 capsule 2 01/31/2016 Active (ZANTAC) 150 mg mouth 2 (two) capsule times daily. Iron Fum & Take 1 capsule by 60 capsule 5 03/05/2016 Active P-FA-Vit B & C mouth daily. No.9 (INTEGRA PLUS) 125-1 mg CapIndications: High-risk , third trimester vitamin Take 1 tablet by 100 tablet 3 04/25/2016 Active w/FA tablet mouth daily. docusate calcium Take 1 capsule by 60 capsule 1 04/25/2016 Active 240 mg capsule mouth once daily as needed for Constipation. ferrous sulfate Take 1 tablet by 60 tablet 2 04/25/2016 Active 325 mg (65 mg mouth 2 (two) iron) tablet times daily. acetaminophen-code Take 1-2 tablets 30 tablet 0 04/25/2016 Active ine 300-30 mg by mouth every 6 tablet (six) hours as needed for Pain (scale 1-3) or Pain (scale 4-6). For patients < 12 years recommend do not exceed 5 doses or 2.6 gm in 24 hours totals for all acetaminophen containing products. For adults with normal hepatic function recommend do not exceed 3 grams in 24 hours for all acetaminophen containing products. ibuprofen 600 mg Take 1 tablet by 60 tablet 1 04/25/2016 Active tablet mouth every 6 (six) hours as needed for Pain (scale 1-3) or Pain (scale 4-6). Take with food or milk. bisacodyl Insert 1 10 Suppository 1 04/28/2016 Active (DULCOLAX, Suppository into BISACODYL,) 10 mg rectum once daily suppository as needed (For Constipation). ciprofloxacin HCl Take 1 tablet by 14 tablet 0 07/02/2017 Active 500 mg tablet mouth 2 (two) times daily. Gentamycin 1.4% Place 1 Drop in 1 Bottle 0 09/30/2017 Active ophthalmic drops both eyes every 2 (two) hours. 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 Gastroesophageal reflux during in second trimester, antepartum 12/04 Epidermal cyst of face 12/05/2015 Custody issue 12/05/2015 Overview: 1 child with FOB; 3 children with mother of pt; pt desires to maintain custody of this child; reports she has been clean since 06/2014 History of intravenous drug use in remission 12/05/2015 Overview: Last use 06/2014 History of hyperthyroidism 12/05/2015 Overview: TSH drawn at NOB visit- normal; repeat @ 28w was normal High-risk in third trimester 12/05/2015 Rh negative status during in second trimester, antepartum 12/05/2015 Overview: Antibody screen neg at 28w, Rhogam given History of abnormal cervical Papanicolaou smear 12/05/2015 Overview: ASCUS (can't exclude HSIL) in 2014; repeat negative in 2015 History of 2 sections 12/05/2015 Overview: 12/16/2011 LTCS r/t to prior traumatic vaginal delivery. 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 (statuses as of 10/27/2018) Resolved Problems Problem Noted Date Resolved Date Papanicolaou smear of cervix with atypical squamous cells of 01/15/201512/04 undetermined significance (ASC-US) Overview: Will fu pp History of section complicating 10/23/2014 12/05/2015 Rh negative state in antepartum period, second trimester, fetus 09/12/2014 4 Supervision of high-risk of young multigravida 09/30/20082014 anemia 09/30/2008 10/05/2014 Overview: ICD10 Diagnosis 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 Group B Streptococcus carrier, +RV culture, currently 09/30/200807/2014 Normal delivery 09/29/2008 10/05/2014 Herpes 09/28/2008 12/05/2015 Overview: On suppressive therapy since 36 weeks Other threatened labor, antepartum 09/28/2008 10/05/2014 Overview: Active labor Supervision of other normal 10/16/2006 10/18/2006 Carrier or suspected carrier of group B Streptococcus 10/16/2006 10/18/2006 documented as of this encounter (statuses as of 10/27/2018) Immunizations Name Administration Dates Next Due Influenza Virus Vaccine Quad IM 3+ YRS 01/03/2016 Rho (d) Immune Globulin 04/25/2016, 01/15/2015 Tdap 01/31/2016 documented as of this encounter Social History Tobacco Use Types Packs/Day Years Used Date Current Every Day Smoker Cigarettes 0.3 Smokeless Tobacco: Never Used Alcohol Use Drinks/Week oz/Week Comments No 0 Standard drinks or equivalent 0.0 Sex Assigned at Date Recorded Not on file Job Start Date Occupation Industry Not on file Not on file Not on file Travel History Travel Start Travel End No recent travel history available. documented as of this encounter Last Filed Vital Signs Vital Sign Reading Time Taken Comments Blood Pressure 116/83 10/27/2018 2:00 AM CDT Pulse - - Temperature 36.6 C (97.9 F) 10/27/2018 2:02 AM CDT Respiratory Rate 18 10/27/2018 2:02 AM CDT Oxygen Saturation 99% 10/27/2018 2:02 AM CDT Inhaled Oxygen Concentration - - Weight 62.1 kg (137 lb) 10/27/2018 2:02 AM CDT Height 165.1 cm (5' 5") 10/27/2018 2:02 AM CDT Body Mass Index 22.8 10/27/2018 2:02 AM CDT documented in this encounter Plan of Treatment Health Maintenance Due Date Last Done Comments INFLUENZA VACCINE (#1) 2018 01/03/2016 PAP SMEAR 12/04/2018 12/05/2015, 09/08/2014, 06/11/2011, Additional history exists DTaP,Tdap,and Td Vaccines 01/30/2026 01/31/2016 (2 - Td) PNEUMOCOCCAL 0-64 YEARS Aged Out No longer eligible COMBINED SERIES based on patient's age to complete this topic documented as of this encounter Procedures Procedure Name Priority Date/Time Associated Diagnosis Comments NOTICE OF PRIVACY Routine 10/27/2018 1:48 AM CDT PRACTICES CONSENT/REFUSAL FOR Routine 10/27/2018 1:47 AM CDT DIAGNOSIS AND TREATMENT documented in this encounter Results Not on filedocumented in this encounter
--- OUTSIDE RECORDS SUMMARY | 2019-02-27 18:51 | XMS REPORT ---
:1990 Author Organization [facility] Address [address] [place] [address] Dr. Carroll [address] [place] [address] Care Team Providers Name Role Phone Unavailable Unavailable Unavailable Problems This patient has no known problems. Allergies, Adverse Reactions, Alerts This patient has no known allergies or adverse reactions. Medications This patient has no known medications.
--- OUTSIDE RECORDS SUMMARY | 2019-02-27 18:51 | XMS REPORT | Summary of Care ---
:1990 Author Organization [facility] - [facility] Address [address] [place] [id number] Care Team Providers Name Role Phone Pcp, Patient Does Not Have A Primary Care Provider Reason for Visit Reason Comments Cyst Auth/Cert Status Reason Specialty Diagnoses / Referred By Referred To Procedures Contact Contact Emergency Medicine Diagnoses CYST ON LT EYE [facility] Emergency Dept [address] [place] [address] [place] [address] Encounter Details Date Type Department Care Team Description 10/28/2018 Emergency ADC-Emergency Angelia Ventura, STEPHANY Infected cyst of skin Department [address] [place] [address] (Primary Dx) [address] [place] [address] [place] [address] [place], [place] [id number] Allergies Active Allergy Reactions Severity Noted Date Comments Citalopram Hydrobromide Other - See comments 04/24/2016 HEADACHE/MIGRAINE Risperidone Swelling 07/02/2017 Whole body Sertraline Hcl Other - See comments 09/30/2017 Suicidal ideation documented as of this encounter (statuses as of 10/28/2018) Medications Medication Sig Dispensed Refills Start Date End Date Status FLUoxetine Take 1 capsule by 30 capsule 3 01/31/2016 Active (PROZAC) 40 mg mouth daily. capsuleIndications : Psychological disorder during vit Take 1 Packet by 30 Each 11 01/31/2016 Active #[id number] mouth daily. (SELECT-OB + DHA) 29 mg [...] as of this encounter (statuses as of 10/28/2018) Active Problems Problem Noted Date 40 weeks [...] exclude HSIL) in 2014; repeat negative in 2016 History of 2 sections 12/05/2015 Overview: 12/16/2011 LTCS r/t to prior traumatic vaginal delivery. 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 documented as of this encounter (statuses as of 10/28/2018) Resolved Problems Problem Noted Date Resolved Date Papanicolaou smear of cervix with atypical squamous cells of 01/15/201512/04 undetermined significance (ASC-US) Overview: Will fu pp History of section complicating 10/23/2014 12/05/2015 Rh negative state in antepartum period, second trimester, fetus 09/12/2014 4 Supervision of high-risk of young multigravida 09/30/20082014 anemia 09/30/2008 10/05/2014 Overview: ICD10 Diagnosis 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 Group B Streptococcus carrier, +RV culture, currently 09/30/200807/2014 Normal delivery 09/29/2008 10/05/2014 Herpes 09/28/2008 12/05/2015 Overview: On suppressive therapy since 36 weeks Other threatened labor, antepartum 09/28/2008 10/05/2014 Overview: Active labor Supervision of other normal 10/16/2006 10/18/2006 Carrier or suspected carrier of group B Streptococcus 10/16/2006 10/18/2006 documented as of this encounter (statuses as of 10/28/2018) Immunizations Name Administration Dates Next Due Influenza [...] Sign Reading Time Taken Comments Blood Pressure 109/67 10/28/2018 11:40 AM CDT Pulse 102 10/28/2018 11:40 AM CDT Temperature 36.6 C (97.8 F) 10/28/2018 11:40 AM CDT Respiratory Rate 18 10/28/2018 11:40 AM CDT Oxygen Saturation 100% 10/28/2018 11:40 AM CDT Inhaled Oxygen Concentration - - Weight 63.5 kg (140 lb) 10/28/2018 11:40 AM CDT Height 165.1 cm (5' 5") 10/28/2018 11:40 AM CDT Body Mass Index 23.3 10/28/2018 11:40 AM CDT documented in this encounter Plan of Treatment Name Type Priority Associated Diagnoses Date/Time WOUND/ASPIRATE OR ABSCESS LAB MYKE Infected cyst of skin 10/28/2018 12:43 PM CDT CULTURE WOUND CULTURE LAB STAT Infected cyst of skin 10/28/2018 12:43 PM CDT Name Type Priority Associated Diagnoses Order Schedule WOUND/ASPIRATE OR LAB MYKE Infected cyst of skin ONCE for 1 Occurrences ABSCESS CULTURE starting 10/28/2018 until 10/28/2018 WOUND CULTURE LAB MYKE Infected cyst of skin Once for 1 Occurrences starting 10/28/2018 until 10/28/2018 Health Maintenance Due Date Last Done Comments [...] Associated Diagnosis Comments NOTICE OF PRIVACY Routine 10/28/2018 11:40 AM CDT PRACTICES documented in this encounter Results Not on filedocumented in this encounter Visit Diagnoses Diagnosis Infected cyst of skin - Primary Sebaceous cyst documented in this encounter
--- OUTSIDE RECORDS SUMMARY | 2019-02-27 18:51 | XMS REPORT | Summary of Care ---
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 Screen for STD (sexually transmitted disease); [address] BMI 22.0-22.9, adult; [place], [place] Delfino A S/P tubal ligation; [id number] [place] [address] History of intravenous drug use in remission; [phone] Psychiatric disorder; History of abnormal cervical Papanicolaou smear; Bacterial vaginosis; Candidiasis of vulva and vagina; Tobacco use disorder Allergies Active Allergy Reactions Severity Noted Date Comments Citalopram Hydrobromide Other - See comments 04/24/2016 HEADACHE/MIGRAINE Risperidone Swelling 07/02/2017 Whole body Sertraline Hcl Other - See comments 09/30/2017 Suicidal ideation documented as of this encounter (statuses as of 11/04/2018) Medications Medication Sig Dispensed Refills Start End Status Date Date metroNIDAZOLE Take 1 tablet by 14 tablet 0 11/05/19 Active (FLAGYL) 500 mg mouth 2 (two) 19 019 tabletIndications times daily for 7 : Bacterial days. vaginosis fluconazole Take 1 tablet by 1 tablet 0 11/05/19 Active (DIFLUCAN) 150 mg mouth once now 19 019 tabletIndications for 1 dose. : Candidiasis of vulva and vagina FLUoxetine Take 1 capsule by 30 capsule 3 01/31/20 Discontinued (PROZAC) 40 mg mouth daily. 16 019 capsuleIndication s: Psychological disorder during vit Take 1 Packet by 30 Each 11 01/31/20 Discontinued #[id number] mouth daily. 16 019 (SELECT-OB + DHA) 29 mg iron-1 mg -250 mg combo pack ranitidine Take 1 capsule by 120 capsule 2 01/31/20 Discontinued (ZANTAC) 150 mg mouth 2 (two) 16 019 capsule times daily. Iron Fum & Take 1 capsule by 60 capsule 5 03/05/19 Discontinued P-FA-Vit B & C mouth daily. 17 019 No.9 (INTEGRA PLUS) 125-1 mg CapIndications: High-risk , third trimester vitamin Take 1 tablet by 100 tablet 3 04/25/19 Discontinued w/FA tablet mouth daily. 17 019 docusate calcium Take 1 capsule by 60 capsule 1 04/25/19 Discontinued 240 mg capsule mouth once daily 17 019 as needed for Constipation. ferrous sulfate Take 1 tablet by 60 tablet 2 04/25/19 Discontinued 325 mg (65 mg mouth 2 (two) 17 019 iron) tablet times daily. acetaminophen-cod Take 1-2 tablets 30 tablet 0 04/25/19 Discontinued eine 300-30 mg by mouth every 6 17 019 tablet (six) hours as needed for Pain [...] Take 1 tablet by 60 tablet 1 04/25/19 Discontinued tablet mouth every 6 17 019 (six) hours as needed for Pain (scale 1-3) or Pain (scale 4-6). Take with food or milk. bisacodyl Insert 1 10 Suppository 1 04/28/19 Discontinued (DULCOLAX, Suppository into 17 019 BISACODYL,) 10 mg rectum once daily suppository as needed (For Constipation). ciprofloxacin HCl Take 1 tablet by 14 tablet 0 07/03/19 Discontinued 500 mg tablet mouth 2 (two) 18 019 times daily. Gentamycin 1.4% Place 1 Drop in 1 Bottle 0 10/01/19 Discontinued ophthalmic drops both eyes every 2 18 019 (two) hours. cephALEXin 500 mg TAKE 1 CAPSULE BY 0 10/26/19 Discontinued capsule MOUTH EVERY 12 19 019 HOURS FOR 7 DAYS documented as of this encounter (statuses as of 11/04/2018) Active Problems Problem Noted Date Psychiatric disorder 11/04/2018 S/P tubal ligation 04/24/2016 Epidermal cyst of face 12/05/2015 Custody issue 12/05/2015 Overview: 1 child with FOB; 3 children with mother of pt; pt desires to maintain custody of this child; reports she has been clean since 06/2014 History of intravenous drug use in remission 12/05/2015 Overview: Last use 06/2014 History of hyperthyroidism 12/05/2015 Overview: TSH drawn at NOB visit- normal; repeat @ 28w was normal History of abnormal cervical Papanicolaou smear 12/05/2015 Overview: ASCUS (can't exclude HSIL) in 2014; repeat negative in 2015 History of herpes genitalis 12/05/2015 Overweight (BMI 25.0-29.9) 10/23/2014 documented as of this encounter (statuses as of 11/04/2018) Resolved Problems Problem Noted Date Resolved Date 40 weeks gestation of 04/24/2016 11/04/2018 04/24/2016 11/04/2018 GBS (group B Streptococcus carrier), +RV culture, currently 04/24/20162018 Status post repeat low transverse section 04/24/2016 11/04/2018 Liveborn , of [place] , born in hospital by 04/24/201611/04 delivery Insufficient care in third trimester 04/22/2016 11/04/2018 Tubal ligation status 01/31/2016 11/04/2018 Overview: Consent 01/31/16 Psychological disorder during 01/31/2016 11/04/2018 Overview: Taking Prozac 40mg daily Gastroesophageal reflux during in second trimester, 12/05/201506/2018 antepartum High-risk in third trimester 12/05/2015 11/04/2018 Rh negative status during in second trimester, 12/05/20152018 antepartum Overview: Antibody screen neg at 28w, Rhogam given History of 2 sections 12/05/2015 11/04/2018 Overview: 12/16/2011 LTCS r/t to prior traumatic vaginal delivery. 03/12/2015 repeat LTCS Papanicolaou smear of cervix with atypical squamous cells of 01/15/201512/04 undetermined significance (ASC-US) Overview: Will fu pp History of section complicating 10/23/2014 12/05/2015 History of miscarriage, currently , second trimester 10/23/201411/04 Rh negative state in antepartum period, second trimester, fetus 09/12/2014 4 Supervision of high-risk of young multigravida 09/30/20082014 anemia 09/30/2008 10/05/2014 Overview: ICD10 Diagnosis Term [employer] B Streptococcus carrier, +RV culture, currently 09/30/200807/2014 Antepartum anemia 09/29/2008 11/04/2018 Overview: ICD10 Diagnosis Term [employer] Normal delivery 09/29/2008 10/05/2014 Herpes 09/28/2008 12/05/2015 Overview: On suppressive therapy since 36 weeks Other threatened labor, antepartum 09/28/2008 10/05/2014 Overview: Active labor Supervision of other normal 10/16/2006 10/18/2006 Carrier or suspected carrier of group B Streptococcus 10/16/2006 10/18/2006 documented as of this encounter (statuses as of 11/04/2018) Immunizations Name Administration Dates Next Due Influenza Virus Vaccine Quad IM 3+ YRS 01/03/2016 Rho (d) Immune Globulin 04/25/2016, 01/15/2015 Tdap 01/31/2016 documented as of this encounter Social History Tobacco Use Types Packs/Day Years Used Date Current Every Day Smoker Cigarettes Started: 11/04/2001 Smokeless Tobacco: Never Used Tobacco Cessation: Ready to Quit: Yes; Counseling Given: Yes Alcohol Use Drinks/Week oz/Week Comments Yes 0 Standard drinks or equivalent 0.0 occasional Sex Assigned at Date Recorded Not on file Job Start Date Occupation Industry Not on file Not on file Not on file Travel History Travel Start Travel End No recent travel history available. documented as of this encounter Last Filed Vital Signs Vital Sign Reading Time Taken Comments Blood Pressure 110/70 11/04/2018 1:56 PM CDT Pulse 102 11/04/2018 1:56 PM CDT Temperature 36.4 C (97.6 F) 11/04/2018 1:56 PM CDT Respiratory Rate 16 11/04/2018 1:56 PM CDT Oxygen Saturation - - Inhaled Oxygen Concentration - - Weight 61.5 kg (135 lb 8 oz) 11/04/2018 1:56 PM CDT Height 166.4 cm (5' 5.5") 11/04/2018 1:56 PM CDT Body Mass Index 22.21 11/04/2018 1:56 PM CDT documented in this encounter Patient Instructions Patient InstructionsJessica Peres LVN - 11/04/2018 3:45 PM CDT Clinical Breast Exam Many health organizations recommend a yearly clinical breast exam. This exam may be done by a farmer vegetable, family healthcare provider, nurse practitioner, nurse legal editor, or specially trained nurse. Yearly breast exams help tomake surethat breast conditions are found early. Your healthcare providers role A healthcare professional knows the tests and follow-up care needed if a problem is found. Your clinical exam is also a great time to ask questions about breast self-exams. You can find out if yourechecking your breasts in the best way. Or you may want to ask how , breast implants, or breast reduction surgery affect the way you should check your breasts. Diagnostic tests If a clinical exam reveals a breast change, you may have other tests to find out more. These tests may include: Mammography. A low-dose X-ray of your breast tissue. Ultrasound. An imaging test that uses sound waves to create images of your breast. Biopsy. A small amount of breast tissue is removed by needle or by a cut ( incision). The tissue is then checked under a microscope. Guidelines for having clinical breast exams The [employer] College of Obstetricians and Gynecologists recommends that starting at age 29, you should have a clinical breast exam every 1 to 3 years. After age 40, have a clinical breast exam each year. If youre at higher risk for breast cancer, you may need exams more often. Risk factors for breast cancer may include: Being over 50 or postmenopausal Having a family history of breast cancer Having the BRCA1 or BRCA2 gene mutation or certain other gene mutations Having more menstrual periods due to starting menstruation early(before age 12) or having a late menopause (after age 55) Having no pregnancies Having a first after age 30 Being obese Having a history of radiation treatment to your chest area Exposure to POOL during your mother's Not being active Drinking too much alcohol Having dense breast tissue Taking hormone therapy after menopause Other health organizations have different recommendations. Talk with your healthcare provider about what is best for you. Date Last Reviewed: 09/30/201619990120-[address] [employer] [place] [address]. All rights reserved. This information is not intended as a substitute for professional medical care. Always follow your healthcare professional's instructions. Breast Health: Breast Self-Awareness What is breast self-awareness? Breast self-awareness is knowing how your breasts normally look and feel. Your breasts change as yougo through different stages of your life. So its important to learn what is normal for your breasts. Breast self-awareness helps you notice any changes in your breasts right away. Report any changesto your healthcare provider. Why is breast self-awareness important? Many experts now say that women should focus on breast self-awareness instead of doing a breast self-examination (BSE). These experts include the [employer] Cancer Society, the U.S. Preventive Services Task Force, and the [place] [employer] of Obstetricians and Gynecologists. Some experts even advise notteaching women to do a BSE. Thats because research hasnt shown a clear benefit to doing BSEs. Breast self-awareness is different than a BSE. Breast self-awareness isnt about following a certain method and schedule. Its about knowing what's normal for your breasts. That way you can notice even small changes right away. If you see any changes, report them to your healthcare provider. Changes to look for Call your healthcare provider if you find any changes in your breasts that concern you. These changes may include: A lump Nipple discharge other than breastmilk, especially a bloody discharge Swelling A change in size or shape Skin irritation, such as redness, thickening, or dimpling of the skin Swollen lymph nodes in the armpit Nipple problems, such as pain or redness If you find a lump Contact your provider if you find lumpiness in one breast, feel something different in the tissue, or feel a definite lump. Sometimes lumpiness may be due to menstrual changes. But there may be reason for concern. Your provider may want to see you right away if you have: Nipple discharge that is bloody Skin changes on your breast, such as dimpling or puckering Its normal to be upset if you find a lump. But its important to contact your provider right away. Remember that most breast lumps are benign. This means they are not cancer. Date Last Reviewed: 09/30/201619997271-7131 [employer]. [address] [place] [address]. All rights reserved. This information is not intended as a substitute for professional medical care. Always follow your healthcare professional's instructions. Prevention Guidelines,Women Ages 18 to 39 Screening tests and vaccines are an important part of managing your health. A screening test is doneto find possible disorders or diseases in people who don' t have any symptoms. The goal is to find a disease early so lifestyle changes can be made and you can be watched more closely to reduce the riskof disease, or to detect it early enough to treat it most effectively. Screening tests are not considered diagnostic, but are used to determine if more testing is needed. Health counseling is essential, too. Below are guidelines for these, for women ages 18 to 39. Talk with your healthcare provider tomake sure youre up-to- date on what you need. Screening Who needs it How often Alcohol misuse All women in this age group At routine exams Blood pressure All women in this age group Yearly checkup if your blood pressure is normal Normal blood pressure is less than 120/80 mm Hg If your blood pressure reading is higher than normal, follow the advice of your healthcare provider Breast cancer All women in this age group should talk with their healthcare providers about the needfor clinical breast exams (CBE)1 Clinical breast exam every 3 years1 Cervical cancer Women ages 21 and older Women between ages 21 and 29 should have a Pap test every 3 years; women between ages 30 and 65 are advised to have a Pap test plus an HPV test every 5 years Chlamydia Sexually active women ages 25 and younger, and women at increased risk for infection (suchas having multiple sex partners) Every year if you're at risk or have symptoms Depression All women in this age group At routine exams Type 2 diabetes, prediabetes All women with no symptoms who are overweight or obese and have 1 or more other risk factors for diabetes At least every 3 years. Also, testing for diabetes during after the 24th week. Type 2 diabetes, prediabetes All women diagnosed with gestational diabetes Lifelong testing every 3 years Type 2 diabetes All women with prediabetes Every year Gonorrhea Sexually active women at increased risk for infection At routine exams Hepatitis C Anyone at increased risk At routine exams HIV All women should be tested at least once for HIV between the ages of 13 and 64 At routine exams.Those with risk factors for HIV should be tested at least annually. Obesity All women in this age group At routine exams Syphilis Women at increased risk for infection should talk with their healthcare provider At routineexams Tuberculosis Women at increased risk for infection should talk with their healthcare provider Ask your healthcare provider Vision All women in this age group At least 1 complete exam in your 20s, and 2 in your 30s Vaccine2 Who needs it How often Chickenpox (varicella) All women in this age group who have no record of this infection or vaccine 2doses; the second dose should be given 4 to 8 weeks after the first dose Hepatitis A Women at increased risk for infection should talk with their healthcare provider 2 dosesgiven at least 6 months apart Hepatitis B Women at increased risk for infection should talk with their healthcare provider 3 dosesover 6 months; second dose should be given 1 month after the first dose; the third dose should be given at least 2 months after the second dose and at least 4 months after the first dose Haemophilus influenzaeType B (HIB) Women at increased risk for infection should talk with their healthcare provider 1 to 3 doses Human papillomavirus (HPV) All women in this age group up to age 26 3 doses; the second dose should be given 1 to 2 months after the first dose and the third dose given 6 months after the first dose Influenza (flu) All women in this age group Once a year Measles, mumps, rubella (MMR) All women in this age group who have no record of these infections or vaccines 1 or 2 doses Meningococcal Women at increased risk for infection should talk with their healthcare provider 1 or more doses Pneumococcal conjugate vaccine (PCV13)and pneumococcal polysaccharide vaccine(PPSV23) Women at increased risk for infection should talk with their healthcare provider PCV13: 1 dose ages 19 to 65 (protects against 13 types of pneumococcal bacteria) PPSV23: 1 to2 doses through age 64, or 1 dose at 65 or older (protects against 23 types of pneumococcal bacteria) Tetanus/diphtheria/pertussis (Td/Tdap) booster All women in this age group Td every 10 years, or a one-time dose of Tdap instead of a Td booster after age 18 , then Td every 10 years Counseling Who needs it How often BRCA gene mutation testing for breast and ovarian cancer susceptibility Women with increased risk for having gene mutation When your risk is known Breast cancer and chemoprevention Women at high risk for breast cancer When your risk is known Diet and exercise Women who are overweight or obese When diagnosed, and then at routine exams Domestic violence Women at the age in which they are able to have children At routine exams Sexually transmitted infection prevention Women who are sexually active At routine exams Skin cancer Prevention of skin cancer in fair-skinned adults At routine exams Use of tobacco and the health effects it can cause All women in this age group Every visit 1 According to the ACS, women ages 20 to 39 years should have a clinical breast exam (CBE) as part of their routine health exam every 3 years. Breast self- exams are an option for women starting in their 20s.But the USPSTF does not recommend CBE. Date Last Reviewed: 11/30/201619991927-5[address] [employer] [address] [place] [address]. All rights reserved. This information is not intended as a substitute for professional medical care. Always follow your healthcare professional's instructions. Understanding STDs When it comes to sex, nothing is risk-free. Any sexual contact with the penis, vagina, anus, or mouth can spread a sexually transmitted disease (STD). The only sure way to prevent STDs is abstinence (not having sex). But there are ways to make sex safer. Use a latex condom each time you have sex. And choose your partner wisely. Use condoms for safer sex If you have sex, latex condoms provide the best protection against STDs. Latex condoms stop the exchange of body fluids that carry certain STDs. They also limit contact with affected skin. Be aware though, a condom doesnt cover all skin. So, affected skin that is not covered can still transfer disease. But you re safer with a condom than without one. Use a condom even if you use other control. While control methods like the pill or IUD help prevent , they do not protect against STDs. Choose the right condom Condoms made of latex prevent disease best. If youre allergic to latex, use polyurethane condoms instead. Male condoms fit over the penis. Female condoms line the vagina. Before buying a condom, read the label to be sure it prevents disease. Some novelty condoms dont. The right lubricant helps Buy lubricated condoms or use lubricant. This provides greater comfort and reduces the risk of condom breakage. Use only water-based lubricants. Dont use oil, lotion, or petroleum jelly. They can weaken the condom, causing breakage. Also, you may want to choose lubricants without nonoxynol-9. Its now known that this spermicide does not prevent disease and may cause irritation. Use condoms correctly For condoms to work, they must be used the right way. Keep these tips in mind: Use a new latex condom each time you have sex. Slip the condom on the penis before any contact ismade. When ready to withdraw, hold the rim of the condom as the penis pulls out. This prevents the condom from slipping off. Check the expiration date before using a condom. Dont store condoms in places that can get hot, such as a car or a wallet that is carried in a back pocket. Get to know your partner Safer sex is a process. It involves getting to know your partner and making informed choices. Ask each other how many partners you have had in the past, and how many you have now. Find out if either ofyou has an STD. If you decide to have sex, use a condom each time. Dont stop using condoms unlessyoure sure neither of you has other partners and youve both been tested to confirm you donthave STDs. Then stay free of disease by having sex only with each other (monogamy). Keep your cool Dont let alcohol or drugs cloud your judgment. They could lead you to have sex with someone you wouldnt have chosen if you were sober. Or, you might forget to use a condom. If you do plan to havesex, keep a latex condom with you. Dont wait until youre in the heat of passion to try to findone. Consider abstinence The only way to be sure you wont get an STD is to abstain from sex. Abstinence is a choice that many people make at some point in their lives. Maybe you want to wait until you are sure youre ready before you have sex. Maybe youd like a break from the responsibilities of sex for a while. Or maybe you just want to know your partner better before taking the next step. Abstinence is a choice youcan make now to protect your future. Date Last Reviewed: 01/31/201619993573-[address] [employer] [place] [address]. All rights reserved. This information is not intended as a substitute for professional medical care. Always follow your healthcare professional's instructions. Understanding HIV and AIDS If you know how HIV (human immunodeficiency virus) can get into your body and what happens once its there, youll be better prepared to protect yourself or others against this virus. A person withHIV can look and feel perfectly healthy. But that person can give HIV to others as soon as he or sheis infected with the virus. Note: Having unsafe or unprotected sex or sharing needles put you at risk for HIV. Talk with your healthcare provider about ways to protect yourself or a loved one from getting HIV. How HIV enters the body HIV is carried in semen, vaginal fluid, blood, and breast milk. During sex, HIV can enter the body through the fragile tissue that lines the vagina, penis, anus,and mouth. During drug use, tattooing, or body piercing, the virus can enter the bloodstream through a shared needle. A mother who has HIV can infect her child during childbirth and through . How HIV infection progresses After HIV enters the body, it attacks the immune system in stages. A person with HIV can infect others once the virus enters the bloodstream. HIV with no symptoms. A person with HIV may have no symptoms for years. A positive blood test for HIV antibodies 6 weeks to 6 months after HIV enters the body may be the only sign of infection. HIV with symptoms.Some people develop an illness similar to mononucleosis (or "mono") 2 to 4 weeksafter the virus enters the body. Symptoms may include swollen lymph glands, chills, fever, night sweats, weakness, weight loss, skin rashes, mouth ulcers, or sore throat. Symptoms may be mild at first and then slowly go away. In a very few individuals, symptoms may get progressively worse and last forlonger and longer periods. AIDS. AIDS is the last stage of HIV infection. Diseases and cancers begin to overcome the body. It is these diseases, not the virus itself, that cause . HIV may also attack the brain and nervous system, causing seizures and loss of memory and body movement. Date Last Reviewed: 01/01/201619999157-[address] [employer]. [address] [place] [address], [place] [address]. All rights reserved. This information is not intended as a substitute for professional medical care. Always follow your healthcare professional's instructions. Eating Heart-Healthy Foods Eating has a big impact on your heart health. In fact, eating healthier can improve several of your heart risks at once. For instance, it helps you manage weight, cholesterol, and blood pressure. Here are ideas to help you make heart- healthy changes without giving up allthe foods and flavors you love. Getting started Talk with your healthcare provider about eating plans, such as the DASH or Mediterranean diet. You may also be referred to a dietitian. Change a few things at a time. Give yourself time to get used to a few eating changes before adding more. Work to create a tasty,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
--- OUTSIDE RECORDS SUMMARY | 2019-02-27 18:52 | XMS REPORT | Summary of Care ---
:1990 Author Organization [facility] Address [address] [place] [address] Care Team Providers Name Role Phone Maricarmen Parry OFFICE HELPER Primary Care Provider Reason for Visit Reason Comments Well Woman Exam Encounter Details Date Type Department Care Team Description [facility]/04[facility], Well woman exam (Primary Dx); [facility] Screen for STD (sexually transmitted disease); [address] BMI 22.0-22.9, adult; [place], [place] Delfino A S/P tubal ligation; [id number] [place] [address] History of intravenous drug use in remission; [phone] Psychiatric disorder; History of abnormal cervical Papanicolaou [...] Packet by 30 Each 11 01/31/20 Discontinued #[id number] mouth daily. 16 019 (SELECT-OB + DHA) [...] anemia 09/30/2008 10/05/2014 Overview: ICD10 Diagnosis Term System Support Administrator Utility Group B Streptococcus carrier, +RV culture, currently 09/30/200807/2014 Antepartum anemia 09/29/2008 11/04/2018 Overview: ICD10 Diagnosis Term System Support Administrator Utility Normal delivery 09/29/2008 10/05/2014 Herpes 09/28/2008 [...] This exam may be done by a motorman/woman, family healthcare provider, nurse practitioner, nurse filler mixer, or specially trained nurse. Yearly breast exams [...] Guidelines for having clinical breast exams The [employer] recommends that [...] is best for you. Date Last Reviewed: 09/30/201619997441-[address] [employer] [place] [address]. All rights reserved. This information is not [...] breast self-examination (BSE). These experts include the [employer], the U.S. Preventive Services Task Force, and the [employer]. Some experts [...] they are not cancer. Date Last Reviewed: 09/30/201619996859-3670 The [employer]. [address] [place] [address]. All rights reserved. This information is not [...] does not recommend CBE. Date Last Reviewed: 11/30/201619997722-6052 [employer] [address] [place] [address]. All rights reserved. This information is not [...] to protect your future. Date Last Reviewed: 01/31/201619994554-9586 [employer]. [address] [place] [address]. All rights reserved. This information is not [...] memory and body movement. Date Last Reviewed: 01/01/201619997458-7898 [employer] [address] [place] [address], [place] [address]. All rights reserved. This information is not [...] cinnamon, pepper, and joe. Date Last Reviewed: 11/30/201619991206-9518 [employer] [address] [place] [address], [place] [address]. All rights reserved. This information is not [...] the food you eat. Date Last Reviewed: 09/30/201619990557-5541 [employer] [address] [place] [address]. All rights reserved. This information is not intended as a substitute for professional medical care. Always follow your healthcare professional's instructions. documented in this encounter Progress Notes Jessica Peres LVN - 11/04/2018 3:45 PM CDT28 year old presented to the clinic for WWE. 1) Previous BCM:BTL 2) Desired BCM:BTL 3) LMP:10/21/2018 4) Last [place]:10/14/2018 5) Last Pap: 12/05/2015 Results:negative 6) Tdap [...] Jaydon Perez; Location: Labor and Delivery - [place] HERNIA REPAIR 1995 TUBAL LIGATION Bilateral 04/24/2016 Surgeon: Jaydon Perez; Location: Labor and Delivery - [place] Social History Socioeconomic History Marital status: Single [...] file Gets together: Not on file Attends christian service: Not on file Active member of [...] Maricarmen Parry FNP [address] [place] [address] [phone] Name Type Priority Associated Diagnoses Date/Time HIV [...] Effective Phone Address Type / Group Dates [facility] xxxxxxxxx 2018-Brigid [phone] Medicaid WOMEN nt [address] [place] [address] documented as of this encounter
--- NOTE | 2019-02-27 19:37 | ER ---
Nurse's Notes [facility] Name: Jennifer Olivares Age: 28 yrs Sex: Female : 1990 Arrival Date: 02/27/2019 Time: 18:50 Bed Waiting Private MD: Diagnosis: ED Course: 02/27 18:50 Patient arrived in ED. as 19:24 Patient's name was called from ER lobby. No response. bb 19:36 Patient's name was called from ER lobby. No response. Unable to locate patient. Will bb disposition as left without being seen by a provider. Administered Medications: No medications were administered Outcome: 19:36 Patient left the ED. bb Signatures: Tasneem Craft Brenda, RN RN bb
== END 2019-02-27 19:36 | disposition left against medical advice (07) ==
LOC: ER 18:48
DX: Z53.21 Procedure and treatment not carried out due to patient leaving prior to being seen by health care provider (principal)

== ENCOUNTER 2019-02-28 05:48 | Emergency (ER) | payer SELFPAY ==
--- OUTSIDE RECORDS SUMMARY | 2019-02-28 05:50 | XMS REPORT ---
:1990 [facility] [address] [place] [address] Care Team Providers Name Role Phone Unavailable Unavailable Unavailable Problems This patient has no known problems. Allergies, Adverse Reactions, Alerts This patient has no known allergies or adverse reactions. Medications This patient has no known medications.
[2019-02-28] MEDS ORDERED: KETOROLAC 30 MG/ML INJ ONE (06:24)
--- NOTE | 2019-02-28 06:29 | ER ---
Nurse's Notes [facility] Name: Jennifer Olivares Age: 28 yrs Sex: Female : 1990 Arrival Date: 02/28/2019 Time: 05:49 Bed 17 Private MD: Diagnosis: Paresthesia of skin;Pain in left arm;Pain in right arm Presentation: 02/28 06:06 Presenting complaint: Patient states: soni arm pain and sores in mouth x 3-4 days. aa1 Transition of care: patient was not received from another setting of care. Onset of symptoms was February 24, 2019. Risk Assessment: Do you want to hurt yourself or someone else? Patient reports no desire to harm self or others. Initial Sepsis Screen: Does the patient meet any 2 criteria? No. Patient's initial sepsis screen is negative. Does the patient have a suspected source of infection? No. Patient's initial sepsis screen is negative. Care prior to arrival: None. 06:06 Method Of Arrival: Ambulatory aa1 06:06 Acuity: ANKIT 4 aa1 Triage Assessment: 06:13 General: Appears in no apparent distress. uncomfortable, Behavior is anxious, restless. 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 - Social history:: Smoking status: Patient uses tobacco products, smokes one-half pack cigarettes per day, Patient/guardian denies using alcohol, street drugs, IV drugs. - Ebola Screening: : No symptoms or risks identified at this time. Screenin:14 Abuse screen: Denies threats or abuse. Nutritional screening: No deficits noted. ea Tuberculosis screening: No symptoms or risk factors identified. Fall Risk None identified. Assessment: 05:56 General: Appears uncomfortable, Behavior is restless. Pain: Complains of pain in right ea arm. Neuro: Level of Consciousness is awake, alert, obeys commands, Oriented to person, place, time, situation. Cardiovascular: Patient's skin is warm and dry. Respiratory: Airway is patent Respiratory effort is even, unlabored, Respiratory pattern is regular, symmetrical. Derm: Skin is pink, warm \T\ dry. 06:45 Reassessment: Patient and/or family updated on plan of care and expected duration. Pain ea level reassessed. Patient is alert, oriented x 3, equal unlabored respirations, skin warm/dry/pink. Discharge instruction given to patient, verbalized the understanding of instruction . Pt left ED accompanied by family, pt tolerating well. Vital Signs: 06:13 BP 124 / 94; Pulse 81; Resp 16; Temp 97.6; Pulse Ox 100% on R/A; Weight 63.5 kg; Height aa1 5 ft. 5 in. (165.10 cm); Pain 10/10; 06:13 Body Mass Index 23.30 (63.50 kg, 165.10 cm) aa1 ED Course: 05:49 Patient arrived in ED. ds1 05:57 Samson Rosenthal PA is PHCP. jr8 05:57 Bhavin Hairston MD is Attending Physician. jr8 06:07 Triage completed. aa1 06:13 Arm band placed on right wrist. aa1 06:15 Patient has correct armband on for positive identification. Bed in low position. Call ea light in reach. Side rails up X 1. Adult w/ patient. 06:46 No provider procedures requiring assistance completed. Patient did not have IV access ea during this emergency room visit. Administered Medications: 06:26 Drug: TORadol 60 mg Route: IM; Site: left gluteus; ea 06:46 Follow up: Response: No adverse reaction ea Outcome: 06:29 Discharge ordered by . jr8 06:46 Discharged to home ambulatory. ea 06:46 Condition: stable 06:46 Discharge instructions given to patient, Instructed on discharge instructions, follow up and referral plans. medication usage, Demonstrated understanding of instructions, follow-up care, medications, Prescriptions given X 1. 06:46 Patient left the ED. ea Signatures: Wanda Fall RN RN aa1 Malena Castellanos ds1 Samson Rosenthal PA PA jr8 Manriquez, Luz Maria, RN RN ea
--- NOTE | 2019-02-28 06:30 | EDPHYS ---
Physician Documentation [facility] Name: Jennifer Olivares Age: 28 yrs Sex: Female : 1990 Arrival Date: 02/28/2019 Time: 05:49 Bed 17 Private MD: ED Physician Bhavin Hairston HPI: 02/28 06:22 This 28 yrs old Black Female presents to ER via Ambulatory with complaints of Arm Pain jr8 - Numbness. 06:22 The patient or guardian complains of pain. The complaints affect the right arm and left jr8 arm. Context: The problem was sustained at home, resulted from unknown cause. Onset: The symptoms/episode began/occurred gradually, 4 day(s) ago. Treatment prior to arrival includes: no previous treatment. Modifying factors: The symptoms are alleviated by nothing. the symptoms are aggravated by nothing. Associated signs and symptoms: The patient has no apparent associated signs or symptoms. Severity of symptoms: At their worst the symptoms were mild, in the emergency department the symptoms are unchanged. It is unknown whether or not the patient has had similar symptoms in the past. The patient has not recently seen a physician. Stated that she also has a sore in her mouth that she wants us to look at . 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 - Social history:: Smoking status: Patient uses tobacco products, smokes one-half pack cigarettes per day, Patient/guardian denies using alcohol, street drugs, IV drugs. - Ebola Screening: : No symptoms or risks identified at this time. ROS: 06:22 Eyes: Negative for injury, pain, redness, and discharge, Neck: Negative for injury, jr8 pain, and swelling, Cardiovascular: Negative for chest pain, palpitations, and edema, Respiratory: Negative for shortness of breath, cough, wheezing, and pleuritic chest pain, Abdomen/GI: Negative for abdominal pain, nausea, vomiting, diarrhea, and constipation, Back: Negative for injury and pain, Skin: Negative for injury, rash, and discoloration, Neuro: Negative for headache, weakness, numbness, tingling, and seizure. 06:22 ENT: Negative for drainage from ear(s), ear pain, Gum pain Teeth pain tinnitus, rhinorrhea, sinus congestion, sinus pain, sore throat, dental pain, difficulty swallowing, difficulty handling secretions, hoarseness. 06:22 MS/extremity: Positive for pain, tingling, Negative for injury or acute deformity, decreased range of motion, swelling, tenderness. Exam: 06:22 Eyes: Pupils equal round and reactive to light, extra-ocular motions intact. Lids and jr8 lashes normal. Conjunctiva and sclera are non-icteric and not injected. Cornea within normal limits. Periorbital areas with no swelling, redness, or edema. ENT: Nares patent. No nasal discharge, no septal abnormalities noted. Tympanic membranes are normal and external auditory canals are clear. Oropharynx with no redness, swelling, or masses, exudates, or evidence of obstruction, uvula midline. Mucous membranes moist. Singe 3mm ulcer noted to left lateral tongue without bleeding Neck: Trachea midline, no thyromegaly or masses palpated, and no cervical lymphadenopathy. Supple, full range of motion without nuchal rigidity, or vertebral point tenderness. No Meningismus. Cardiovascular: Regular rate and rhythm with a normal S1 and S2. No gallops, murmurs, or rubs. Normal PMI, no JVD. No pulse deficits. Respiratory: Lungs have equal breath sounds bilaterally, clear to auscultation and percussion. No rales, rhonchi or wheezes noted. No increased work of breathing, no retractions or nasal flaring. Abdomen/GI: Soft, non-tender, with normal bowel sounds. No distension or tympany. No guarding or rebound. No evidence of tenderness throughout. Back: No spinal tenderness. No costovertebral tenderness. Full range of motion. Skin: Warm, dry with normal turgor. Normal color with no rashes, no lesions, and no evidence of cellulitis. MS/ Extremity: Pulses equal, no cyanosis. Neurovascular intact. Full, normal range of motion. Neuro: Awake and alert, GCS 15, oriented to person, place, time, and situation. Cranial nerves II-XII grossly intact. Motor strength 5/5 in all extremities. Sensory grossly intact. Cerebellar exam normal. Normal gait. Vital Signs: 06:13 BP 124 / 94; Pulse 81; Resp 16; Temp 97.6; Pulse Ox 100% on R/A; Weight 63.5 kg; Height aa1 5 ft. 5 in. (165.10 cm); Pain 10/10; 06:13 Body Mass Index 23.30 (63.50 kg, 165.10 cm) aa1 MDM: 05:57 Patient medically screened. jr8 06:22 Differential diagnosis: Muscles spasm, trauma, cervical radicular pain, DVT, acute jr8 arterial occlusion, subclavian steel syndrome, myalgia, paresthesias, drug abuse, psychiatric disorders. Data reviewed: vital signs, nurses notes, and as a result, I will discharge patient. Data interpreted: Pulse oximetry: on room air is 100 %. Interpretation: normal. Counseling: I had a detailed discussion with the patient and/or guardian regarding: the historical points, exam findings, and any diagnostic results supporting the discharge/admit diagnosis, the need for outpatient follow up, a family practitioner, to return to the emergency department if symptoms worsen or persist or if there are any questions or concerns that arise at home. ED course: Patient denies any recent or remote trauma. Discussed with patient that she has a single aphthous ulcer to left tongue that will heal by itself. No acute findings to extremities that would explain her pain on physical exam. Hemodynamically stable. Will try generic antiinflammatory. Patient questioned about autoimmune or communicable disease processes as well but denies those. Told to f/u with PCP in next couple of days or to come back to ED if worse . Administered Medications: 06:26 Drug: TORadol 60 mg Route: IM; Site: left gluteus; ea 06:46 Follow up: Response: No adverse reaction magnus Disposition: 19:07 Co-signature as Attending Physician, Bhavin Hairston MD. pkl Disposition: 02/28/19 06:29 Discharged to Home. Impression: Paresthesia of skin, Pain in left arm, Pain in right arm. - Condition is Stable. - Discharge Instructions: Musculoskeletal Pain, Paresthesia, Peripheral Neuropathy. - Prescriptions for meloxicam 15 mg Oral tablet - take 1 tablet by ORAL route once daily As needed; 12 tablet. - Medication Reconciliation Form, Thank You Letter, Antibiotic Education, Prescription Opioid Use form. - Follow up: Private Physician; When: 2 - 3 days; Reason: Recheck today's complaints, Continuance of care, Re-evaluation by your physician. - Problem is new. - Symptoms have improved. Signatures: Wanda Fall RN RN aa1 Bhavin Hairston MD MD pkl Samson Rosenthal PA PA jr8 Luz Maria Manriquez RN RN ea Corrections: (The following items were deleted from the chart) 06:28 06:22 Eyes: Pupils equal round and reactive to light, extra-ocular motions intact. Lids jr8 and lashes normal. Conjunctiva and sclera are non-icteric and not injected. Cornea within normal limits. Periorbital areas with no swelling, redness, or edema. ENT: Nares patent. No nasal discharge, no septal abnormalities noted. Tympanic membranes are normal and external auditory canals are clear. Oropharynx with no redness, swelling, or masses, exudates, or evidence of obstruction, uvula midline. Mucous membranes moist. Neck: Trachea midline, no thyromegaly or masses palpated, and no cervical lymphadenopathy. Supple, full range of motion without nuchal rigidity, or vertebral point tenderness. No Meningismus. Cardiovascular: Regular rate and rhythm with a normal S1 and S2. No gallops, murmurs, or rubs. Normal PMI, no JVD. No pulse deficits. Respiratory: Lungs have equal breath sounds bilaterally, clear to auscultation and percussion. No rales, rhonchi or wheezes noted. No increased work of breathing, no retractions or nasal flaring. Abdomen/GI: Soft, non-tender, with normal bowel sounds. No distension or tympany. No guarding or rebound. No evidence of tenderness throughout. Back: No spinal tenderness. No costovertebral tenderness. Full range of motion. Skin: Warm, dry with normal turgor. Normal color with no rashes, no lesions, and no evidence of cellulitis. MS/ Extremity: Pulses equal, no cyanosis. Neurovascular intact. Full, normal range of motion. Neuro: Awake and alert, GCS 15, oriented to person, place, time, and situation. Cranial nerves II-XII grossly intact. Motor strength 5/5 in all extremities. Sensory grossly intact. Cerebellar exam normal. Normal gait. jr8 06:46 06:29 02/28/2019 06:29 Discharged to Home. Impression: Paresthesia of skin; Pain in ea left arm; Pain in right arm. Condition is Stable. Forms are Medication Reconciliation Form, Thank You Letter, Antibiotic Education, Prescription Opioid Use. Follow up: Private Physician; When: 2 - 3 days; Reason: Recheck today's complaints, Continuance of care, Re-evaluation by your physician. Problem is new. Symptoms have improved. jr8
[2019-02-28 07:08] VITALS: BP 124/94; TEMP 97.6; O2SAT 100
== END 2019-02-28 06:46 | disposition home or self-care (01) ==
LOC: ER 05:48
DX: M79.602 Pain in left arm (principal); M79.601 Pain in right arm; F17.210 Nicotine dependence, cigarettes, uncomplicated; F43.10 Post-traumatic stress disorder, unspecified; F31.9 Bipolar disorder, unspecified; Z88.8 Allergy status to other drugs, medicaments and biological substances
CPT/HCPCS: 96372; 99283

== ENCOUNTER 2019-03-20 09:35 | Emergency (ER) | payer SELFPAY ==
--- OUTSIDE RECORDS SUMMARY | 2019-03-20 09:37 | XMS REPORT ---
:1990 [facility] Address [address] [place] [address] Dr. Carroll [address] [place] [id number] Care Team Providers Name Role Phone Unavailable Unavailable Unavailable Problems This patient has no known problems. Allergies, Adverse Reactions, Alerts This patient has no known allergies or adverse reactions. Medications This patient has no known medications.
[2019-03-20] MEDS ORDERED: LORazepam 2 MG/ML VIAL ONE (10:13)
[2019-03-20 10:28] LABS: Barbiturates NEGATIVE (NEGATIVE); Benzodiazepines NEGATIVE (NEGATIVE); Cocaine NEGATIVE (NEGATIVE); METHAMPHETAM POSITIVE (NEGATIVE); Methadone NEGATIVE (NEGATIVE); Opiates NEGATIVE (NEGATIVE); Phencyclidine NEGATIVE (NEGATIVE); THC Cannibis NEGATIVE (NEGATIVE)
[2019-03-20 10:30] LABS: Urine Blood 3+ (NEG); Urine Glucose NEGATIVE (NEG); Urine Protein NEGATIVE (NEG); Urine pH 7.5 (5.0-7.0)
[2019-03-20 11:00] LABS: Hematocrit 38.4 % (36.0-45.0); RBC Red Blood Cell Count 4.18 M/uL (3.86-4.86)
[2019-03-20 11:01] LABS: Absolute Lymphocytes (CBC) 1.8 K/uL (0.7-4.9); Basophils % 1.1 % (0-1.3); Lymphocytes % 35.5 % (15.3-44.8)
[2019-03-20 11:03] LABS: Protime INR 1.05
[2019-03-20 11:13] LABS: ALT/SGPT 17 U/L (12-78); AST/SGOT 19 U/L (15-37); Albumin 4.4 g/dL (3.4-5.0); Alkaline Phosphatase 58 U/L (45-117); BUN Blood Urea Nitrogen 9 mg/dL (7-18); Bicarbonate 28 mmol/L (21-32); Bilirubin Direct 0.2 mg/dL (0-0.2); Bilirubin Total 0.6 mg/dL (0.2-1.0); Glucose Level 85 mg/dL (74-106); Potassium 4.1 mmol/L (3.5-5.1); Protein, Total 8.3 g/dL (6.4-8.2); Sodium Level 139 mmol/L (136-145)
[2019-03-20 11:35] LABS: Urine Bacteria <20 /HPF (<20); Urine Culture Reflex Order NOT NEEDED; Urine Mucus LIGHT /HPF (NONE SEEN); Urine RBC >50 /HPF (NONE SEEN)
--- NOTE | 2019-03-20 12:40 | ER ---
Nurse's Notes [facility] Name: Jennifer Olivares Age: 28 yrs Sex: Female : 1990 Arrival Date: 03/20/2019 Time: 09:36 Bed 14 Private MD: Diagnosis: Presentation: 03/20 09:40 Presenting complaint: Patient states: pt states she hears voices all the time but not iw right now, pt is jerking/twitching, pt states "i'm not crazy" then pt walked out of triage room and out the dept , boyfriend remains in triage , pt returns after a minute , pt states she will talk to the doctor. Transition of care: patient was not received from another setting of care. Onset of symptoms was March 20, 2019. Risk Assessment: Do you want to hurt yourself or someone else? Patient reports no desire to harm self or others. Initial Sepsis Screen: Does the patient meet any 2 criteria? No. Patient's initial sepsis screen is negative. Does the patient have a suspected source of infection? No. Patient's initial sepsis screen is negative. Care prior to arrival: None. 09:40 Method Of Arrival: Ambulatory iw 09:40 Acuity: ANKIT 3 iw Triage Assessment: 09:50 General: Appears distressed, slender, unkempt, Behavior is agitated, anxious, ae4 combative, crying, restless. Pain: Denies pain. EENT: No signs and/or symptoms were reported regarding the EENT system. Neuro: Level of Consciousness is awake, alert, Oriented to person, place. Cardiovascular: Heart tones S1 S2 present Patient's skin is warm and dry. Respiratory: Airway is patent Respiratory effort is even, unlabored. GI: No signs and/or symptoms were reported involving the gastrointestinal system. : Reports discharge, from vagina that is malodorous, white, vaginal itching. Derm: Skin is dry, Skin is pale. Musculoskeletal: No signs and/or symptoms reported regarding the musculoskeletal system. 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 - Social history:: Smoking status: Patient reports the use of cigarette tobacco products, smokes one-half pack cigarettes per day, Patient/guardian denies using street drugs. - Ebola Screening: : Patient negative for fever greater than or equal to 101.5 degrees Fahrenheit, and additional compatible Ebola Virus Disease symptoms Patient denies exposure to infectious person Patient denies travel to an Ebola-affected area in the 21 days before illness onset. Screenin:26 Abuse screen: Denies threats or abuse. Nutritional screening: No deficits noted. ae4 Tuberculosis screening: No symptoms or risk factors identified. Fall Risk None identified. Assessment: 10:19 Reassessment: Nurse and Tech entered room to obtain IV access and administer ae4 medication, patient became agitated stood up abruptly and stated " I have a yeast infection I've been saying that! I'm not gonna let you all fuck with me!" Patient left ED at this time. 10:38 Reassessment: Patient and male friend returned to ED, patient remains irritable but ae4 appears calmer, patient states she will allow an IV to be placed and medication to be administered. Patient asked to see medication bottle and to witness nurse withdraw medication. Nurse wasted medication that was already drawn up in presence of patient and TALENT DEVELOPMENT CONSULTANT and Charge Nurse, and jazmyne up medication in the presence of the patient. 11:22 Reassessment: Patient is requesting something for a "yeast infection" Patient reports ae4 odor, white discharge and itchiness to the vaginal area. Provider notified, new orders received. Pharmacy notified via telephone that a new order for urine microscope is ordered and nurse will send the label. 12:08 Reassessment: Patient removed IV. Nurse applied gauze and pressure dressing. Bleeding ae4 stopped. 12:16 Reassessment: Patient left ED, boyfriend states patient wants to leave. ae4 Psych: 10:15 Objective: Patient is uncooperative, belligerent, defensive, guarded, irritable, ae4 restless, suspicious, Speech is loud, rambling. Interventions: Removed personal items and placed in bag. Urine collected and sent for urine drug test. Safety Checks: Personal items have been removed. Door is open. Pt denies substance abuse. Commitment: Patient denies needing to "commit to anything". 10:40 Subjective: Patient's mood is sad, angry, irritable, Delusions are. Suicide Risk ae4 Assessment: Sad Person Scale: Sex of patient: Female: Score 0 points. Vital Signs: 09:53 BP 135 / 103; Pulse 84; Resp 16; Temp 97.8; Pulse Ox 98% ; iw 11:22 BP 128 / 107; Pulse 80; Resp 18; Pulse Ox 100% on R/A; Pain 0/10; ae4 ED Course: 09:36 Patient arrived in ED. rg4 09:46 Triage completed. iw 09:47 Jamie Hawkins [facility]NP-C [facility] la1 09:47 Floyd Love MD is Attending Physician. la1 09:47 Safety checks: Items removed: yes. Door open/sign placed on door: yes. Family/friend mh5 present: yes. Family/friends encouraged to stay with patient. Sitter present: Yes. Other: PT NERVOUS AND JUMPIY AND JITTERY. 09:47 Bed in low position. Adult w/ patient. ae4 09:50 Arm band placed on right wrist. ae4 10:19 Ed Ferreira, RN is Primary Nurse. ae4 10:21 Safety checks: Items removed: yes. Door open/sign placed on door: yes. Family/friend mh5 present: yes. Family/friends encouraged to stay with patient. Sitter present: Yes. Other: PT WENT AMA. 10:25 Safety checks: Items removed: yes. Door open/sign placed on door: yes. Family/friend mh5 present: yes. Family/friends encouraged to stay with patient. Sitter present: Yes. 10:30 Safety checks: Items removed: yes. Door open/sign placed on door: yes. Family/friend mh5 present: yes. Family/friends encouraged to stay with patient. Sitter present: Yes. 10:45 Safety checks: Items removed: yes. Door open/sign placed on door: yes. Family/friend mh5 present: yes. Family/friends encouraged to stay with patient. Sitter present: Yes. 10:45 Inserted saline lock: 22 gauge in right antecubital area, using aseptic technique. ae4 Blood collected. 10:51 Initial lab(s) drawn, by ED staff, sent to lab. Urine collected: clean catch specimen, mh5 binu colored. Inserted saline lock: 22 gauge. 11:00 Safety checks: Items removed: yes. Door open/sign placed on door: yes. Family/friend mh5 present: yes. Family/friends encouraged to stay with patient. Sitter present: Yes. 11:15 Safety checks: Items removed: yes. Door open/sign placed on door: yes. Family/friend mh5 present: yes. Family/friends encouraged to stay with patient. Sitter present: Yes. 11:30 Safety checks: Items removed: yes. Door open/sign placed on door: yes. Family/friend mh5 present: yes. Family/friends encouraged to stay with patient. Sitter present: Yes. Safety checks: Items removed: yes. Door open/sign placed on door: yes. Family/friend present: yes. Family/friends encouraged to stay with patient. Sitter present: Yes. 11:41 Diet: Patient given a regular meal tray. 5 12:01 called [place] for the [facility] to page out a screener/she will page out eb a screener to come evaluate the patient. 12:07 IV discontinued, intact, bleeding controlled, No redness/swelling at site. Pressure ae4 dressing applied, Patient pulled out IV and stated "I'm going" Patient allowed nurse to control bleeding and apply pressure dressing. 12:08 No provider procedures requiring assistance completed. ae4 Administered Medications: 10:44 Drug: Ativan 1 mg Route: IVP; Site: right antecubital; ae4 11:01 Follow up: Response: Anxiety decreased; Other; RASS: Restless (+1); Patient appears ae4 calmer, is still restless but is smiling and laughing with boyfriend. Intake: Outcome: 12:16 Eloped from patient exam room, after seeing physician ae4 12:16 Condition: unchanged 12:16 Instructed on Unable to give instructions or ordered medication due to patient leaving the ED. 12:45 Patient left the ED. eb Signatures: Bettie Parry, KATIE RN Jamie Napoles, PERIANESTHESIA MANAGER-C PERIANESTHESIA MANAGER-Daniela1 Danielle Chávez Maria Miranda Chao Ed Ferreira RN RN ae4
--- NOTE | 2019-03-20 12:40 | EDPHYS ---
Physician Documentation [facility] Name: Jennifer Olivares Age: 28 yrs Sex: Female : 1990 Arrival Date: 03/20/2019 Time: 09:36 Bed 14 Private MD: ED Physician Floyd Love HPI: 03/20 11:23 This 28 yrs old Black Female presents to ER via Ambulatory with complaints of Psych la1 Problem. 11:23 The patient presents to the emergency department with paranoia, psychosis, has la1 experienced auditory hallucinations, persecutory , a history of substance abuse. Onset: The symptoms/episode began/occurred 2 week(s) ago. Past psychiatric history: Prior diagnosis: bipolar disorder. Associated signs and symptoms: Pertinent positives; paranoia, substance abuse, Pertinent negatives: homicidal ideation, suicide ideation. Severity of symptoms: At their worst the symptoms were moderate in the emergency department the symptoms have improved. The patient has experienced similar episodes in the past. pt boyfriend states he believes she has schizophrenia and has been acting crazy for the last two weeks but has not been normal for a long time. Pt is alert, oriented x4, but very flighty, anxious, pressured rapid speech, denies HI/SI.. 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 - Social history:: Smoking status: Patient reports the use of cigarette tobacco products, smokes one-half pack cigarettes per day, Patient/guardian denies using street drugs. - Ebola Screening: : Patient negative for fever greater than or equal to 101.5 degrees Fahrenheit, and additional compatible Ebola Virus Disease symptoms Patient denies exposure to infectious person Patient denies travel to an Ebola-affected area in the 21 days before illness onset. ROS: 11:26 Constitutional: Negative for fever, chills, and weight loss, Eyes: Negative for injury, la1 pain, redness, and discharge, Neck: Negative for injury, pain, and swelling, Cardiovascular: Negative for chest pain, palpitations, and edema, Respiratory: Negative for shortness of breath, cough, wheezing, and pleuritic chest pain, Abdomen/GI: Negative for abdominal pain, nausea, vomiting, diarrhea, and constipation, Back: Negative for injury and pain, : Negative for injury, bleeding, discharge, and swelling, MS/Extremity: Negative for injury and deformity, Skin: Negative for injury, rash, and discoloration. 11:26 Neuro: Negative for altered mental status, dizziness, headache, numbness, seizure activity, speech changes, syncope, near syncope, tingling. 11:26 Psych: Positive for anxiety, auditory hallucinations, Negative for homicidal ideation, suicide gesture, suicidal ideation. Exam: 11:27 Constitutional: This is a well developed, well nourished patient who is awake, alert, la1 and in no acute distress. Head/Face: Normocephalic, atraumatic. Eyes: Pupils equal round and reactive to light, extra-ocular motions intact. Periorbital areas with no swelling, redness, or edema. ENT: Mucous membranes moist. Neck: Trachea midline Chest/axilla: Normal chest wall appearance and motion. Nontender with no deformity. No lesions are appreciated. Cardiovascular: Regular rate and rhythm with a normal S1 and S2. No gallops, murmurs, or rubs. Normal PMI, no JVD. No pulse deficits. Respiratory: Lungs have equal breath sounds bilaterally, clear to auscultation No rales, rhonchi or wheezes noted. No increased work of breathing, no retractions or nasal flaring. Abdomen/GI: Soft, non-tender, with normal bowel sounds. Back: No spinal tenderness. No costovertebral tenderness. Full range of motion. 11:27 Psych: Behavior/mood is anxious, uncooperative, Affect is animated, Oriented to person, place, time, Patient has no thoughts/intents to harm self or others. Delusions/hallucinations are present and described as boyfriend states she heres voices and they say mean things to her. Vital Signs: 09:53 BP 135 / 103; Pulse 84; Resp 16; Temp 97.8; Pulse Ox 98% ; iw 11:22 BP 128 / 107; Pulse 80; Resp 18; Pulse Ox 100% on R/A; Pain 0/10; ae4 MDM: 09:47 Patient medically screened. la1 10:23 ED course: Pt seen for short period of time in exam room, speech is rapid and la1 pressured. Pt is alert, oriented x 4, denies SI/HI, boyfriend states she has been like this for a few weeks and she needs new meds but cannot get her to cooperate. Although pt appears but be having a mental health issue I do not believe she is currently a risk to herself or others, she is a pt of [facility] and has an appointment coming up. Pt offered meds for sedation and a medical evaluation, pt agrees but after leaving the room she eloped. . 12:35 ED course: pt has eloped and returned to department multiple times. Boyfriend is la1 accompanying her. Attempted to call [facility] out and was waiting on return call when patient eloped. Unsure if patient will return or not, still do not believe pt is risk to herself or others. . 12:39 Data reviewed: vital signs, nurses notes. 03/20 10:08 Order name: Acetaminophen 03/20 10:08 Order name: Basic Metabolic Panel 03/20 10:08 Order name: CBC with Diff 03/20 10:08 Order name: ETOH Level 03/20 10:08 Order name: Hepatic Function 03/20 10:08 Order name: PT-INR 03/20 10:08 Order name: Ptt, Activated 03/20 10:08 Order name: Salicylate 03/20 10:08 Order name: Urine Drug Screen 03/20 10:22 Order name: Urine Dipstick--Ancillary (enter results) 03/20 10:22 Order name: Urine --Ancillary (enter results) 03/20 11:21 Order name: Urine Microscopic Only ae4 03/20 10:08 Order name: EKG; Complete Time: 10:09 03/20 10:08 Order name: EKG - Nurse/Tech; Complete Time: 11:21 03/20 10:08 Order name: IV Saline Lock; Complete Time: 10:47 03/20 10:08 Order name: Labs collected and sent; Complete Time: 10:47 03/20 10:08 Order name: Urine Dipstick-Ancillary (obtain specimen); Complete Time: 10:57 la1 03/20 11:03 Order name: Diet Regular; Complete Time: 11:04 5 Administered Medications: 10:44 Drug: Ativan 1 mg Route: IVP; Site: right antecubital; ae4 11:01 Follow up: Response: Anxiety decreased; Other; RASS: Restless (+1); Patient appears ae4 calmer, is still restless but is smiling and laughing with boyfriend. Disposition: 15:22 Co-signature as Attending Physician, Floyd Love MD. ma2 Disposition: 03/20/19 12:39 Patient left the facility after being seen by provider. - Patient left due to unknown. - Condition is Stable. Signatures: Dispatcher [employer] EDBettie Nuñez RN RN iw Jamie Hawkins, PIE BAKER-C PIE BAKER-Cla1 Lakhwinder Kapoor RN RN Floyd Love MD MD ma2 Miranda Bustamante Andrea RN RN ae4 Corrections: (The following items were deleted from the chart) 12:45 12:39 03/20/2019 12:39 Patient left the facility after being seen by provider. Reason eb stated they are leaving due to unknown. Condition is Stable. la1
[2019-03-20] MEDS ORDERED: FLUCONAZOLE 100 MG TAB PO ONE (13:00)
[2019-03-20 13:55] VITALS: TEMP 97.8
[2019-03-20 13:56] VITALS: BP 128/107; O2SAT 100
--- NOTE | 2019-03-21 08:49 | EKG ---
Test Date: 2019-03-20 Test Time: 11:12:59 Moving Picture Producer: PARUL MEASUREMENT RESULTS: Intervals: Rate: 79 MT: 118 QRSD: 88 QT: 362 QTc: 415 [place]: P: 42 MT: 118 QRS: 65 T: 57 INTERPRETIVE STATEMENTS: Normal sinus rhythm Normal ECG Compared to ECG 08/05/2017 22:47:22 Sinus arrhythmia no longer present Electronically Signed On 03-21-19 08:48:33 TREASURY ACCOUNTANT by Vincent Lewis
== END 2019-03-20 12:45 | disposition left against medical advice (07) ==
LOC: ER 09:35
DX: F22 Delusional disorders (principal); Z53.29 Procedure and treatment not carried out because of patient's decision for other reasons
CPT/HCPCS: 36415; 80048; 80076; 80307; 80320; 80329; 81003; 81015; 81025; 85025; 85610; 85730; 93005; 96374; 99284

== ENCOUNTER 2019-07-26 12:24 | Emergency (ER) | payer SELFPAY ==
--- OUTSIDE RECORDS SUMMARY | 2019-07-26 12:28 | XMS REPORT ---
:1990 Author Organization [facility] t Address [address] [place] [address] [address] [place] [address] Care Team Providers Name Role Phone Asked, Pcp Primary Care Physician Unavailable Thais Knight Attending Clinician Problems Condition Condition Condition Status Onset Resolution Last Treating Co mments Source Name Details Category Date Date Treatment Clinician Date Amphetamin Amphetamin Disease Active [place] e-induced e-induced 07-03 Meth kim psychotic psychotic 00:00: st disorder disorder 00 with with hallucinat hallucinat ions ions Amphetamin Amphetamin Disease Active [place] e use e use 07-03 Methodi disorder, disorder, 00:00: st severe, severe, 00 dependence dependence Severe Severe Disease Active [place] protein-ca protein-ca 07-03 Mo thodi caden caden 00:00: st malnutriti malnutriti 00 on on Allergies, Adverse Reactions, Alerts Allergy Allergy Status Severity Reaction(s) Onset Inactive Treating Comm ents Source Name Type Date Date Clinician Citalopr Propensi Active Other (See migraine Kelly am ty to Comments) 07-03 Methodi adverse 00:00: st reaction 00 s to drug Risperid Propensi Active Other (See "my body Kelly one ty to Comments) 07-03 swell up" Meth kim adverse 00:00: st reaction 00 s to drug Social History Social Habit Start Date Stop Date Quantity Comments Source History of tobacco Cigarette Smoker Van use [facility] Sex Assigned At Van [facility] Cigarettes smoked 2017-07-03 2017-07-03 Van current (pack per 00:00:00 00:00:00 Method) - Reported Cigarette 2017-07-03 2017-07-03 Van pack-years 00:00:00 00:00:00 [facility] Alcohol intake 2017-07-03 2017-07-03 Current drinker [place] 00:00:00 00:00:00 of alcohol [facility] (finding) Alcohol Comment 2017-07-03 2017-07-03 "I binge drink" [place] 00:00:00 00:00:00 [facility] Smoking Status Start Date Stop Date Source Current every day smoker 2017-07-03 00:00:00 Yareli roper [facility] Medications This patient has no known medications. Procedures This patient has no known procedures. Plan of Care Planned Activity Planned Date Details Comments Source Future Scheduled 2019-10-01 INFLUENZA VACCINE Yahaira n Adventist Test 00:00:00 [code = INFLUENZA VACCINE] Future Scheduled 2010 Screening for [facility] thodist Test 00:00:00 malignant neoplasm of cervix (procedure) [code = 514500280] Encounters Start End Encounter Admission Attending Care Care Encounter Source Date/Time Date/Time Type Type Clinicians Facility Department ID 2018-11-04 2018-11-04 Office BRENDAN Parry [id number] 13:47:40 14:48:23 Visit Maricarmen Plascencia RN DELIVERY [id number] [facility] [id number] MATERNAL [id number] & CHILD [address] [place] [address] Results This patient has no known results.
--- OUTSIDE RECORDS SUMMARY | 2019-07-26 12:28 | XMS REPORT | Clinical Summary ---
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, severe, dependence 8 Severe protein-calorie malnutrition 07/03/2017 Social History Tobacco Use Types Packs/Day Years Used Date Current Every Day Smoker Cigarettes 3 5 Smokeless Tobacco: Never Used Tobacco Cessation: Ready to Quit: No; Co unseling Given: Yes Alcohol Use Drinks/Week oz/Week Comments [...] Comments CERVICAL CANCER SCREENING 2010 INFLUENZA VACCINE 10/01/2019 Results Not on fileafter 07/25/2018 Advance Directives For more information, please contact: [phone] Type Date Recorded Patient Cyberathlete Explanati on Advance Directives, Living Will and Medical Power of Filling Hauler Code Status Date Activated Date Inactivated Comments Full Code 07/03/2017 2:12 AM 07/08/2017 5:15 PM Code Status decision reached by: Patient
[2019-07-26] MEDS ORDERED: ZIPRASIDONE MESYLA 20 MG/VIAL IM ONE (15:40)
[2019-07-26] MEDS ORDERED: WATER FOR INJ,STERILE 10 ML ONE (15:40)
[2019-07-26 17:21] VITALS: BP 127/64; O2SAT 100
--- NOTE | 2019-08-01 13:27 | ER ---
Nurse's Notes [facility] Name: Jennifer Olivares Age: 29 yrs Sex: Female : 1990 Arrival Date: 07/26/2019 Time: 12:25 Bed 19 Private MD: Diagnosis: Schizophrenia Presentation: 07/25 12:30 Chief complaint: Chief complaint: pt appears anxious, face twitching, hx of schizophrenia, pt is oriented X 3 , pt fearful, refuses to walk to triage room without significant verbal encouragement, pt is fearful of the sounds of air vent in [facility], pt agrees to be seated in triage, states "I'm very afraid, every person has been lying to me", "I'm afraid my family is " , "I thought someone was hurting them", " I'm just afraid and I haven't taken my meds and I'm not taking care of myself" . Pt has no thought of killing herself, is seen by [facility]. 12:50 Initial Sepsis Screen: Does the patient meet any 2 criteria? No. Patient's initial rb1 sepsis screen is negative. Does the patient have a suspected source of infection? No. Patient's initial sepsis screen is negative. 12:50 Onset of symptoms is unknown. rb1 12:51 Chief complaint: pt refuses to move past triage room into ER bed, pt walks back to [facility] with boyfriend, refuses to be seen by ER provider at this time. 13:04 Coronavirus screen: Proceed with normal triage. Patient denies a cough. Patient denies iw shortness of breath or difficulty breathing. Patient denies measured and/or subjective temperature greater than 100.4F prior to today's visit. Patient denies travel on a cruise ship or to a country the [facility] currently lists as an affected area. Patient denies contact with known and/or suspected case of COVID-19. Ebola Screen: Patient negative for fever greater than or equal to 101.5 degrees Fahrenheit, and additional compatible Ebola Virus Disease symptoms Patient denies exposure to infectious person. Patient denies travel to an Ebola-affected area in the 21 days before illness onset. No symptoms or risks identified at this time. Risk Assessment: Do you want to hurt yourself or someone else? Patient reports no desire to harm self or others. 13:04 Method Of Arrival: Ambulatory iw 13:04 Acuity: ANKIT 3 iw Triage Assessment: 12:50 General: Appears distressed, Behavior is anxious. Pain: Denies pain. Neuro: Level of rb1 Consciousness is awake, confused, Pt. reports hearing voices and feeling like she is going crazy. She has not been on her medications for quite some time per Luis Carlos's report, a friend at the bedside... Oriented to person. Cardiovascular: Capillary refill < 3 seconds. Respiratory: Airway is patent Respiratory effort is even, unlabored, Respiratory pattern is regular, symmetrical. GI: No signs and/or symptoms were reported involving the gastrointestinal system. : No signs and/or symptoms were reported regarding the genitourinary system. Derm: Skin is pink, warm \\T\\ dry. Musculoskeletal: Range of motion: intact in all extremities. 12:50 Neuro: Facial twitching. rb1 Historical: - Allergies: 12:50 Celexa; rb1 - Home Meds: 12:50 gabapentin oral oral [Active]; benztropine Oral [Active]; trilafon [Active]; rb1 - PMHx: 12:50 Anxiety; Bipolar disorder; Depression; Paranoid Delusions; PTSD; rb1 - PSHx: 12:50 ; rb1 Screenin:50 Abuse screen: Denies threats or abuse. Nutritional screening: No deficits noted. rb1 Tuberculosis screening: No symptoms or risk factors identified. Fall Risk None identified. Assessment: 12:50 General: See triage assessment. rb1 13:21 Reassessment: Spent time talking with the pt about the POC, but she is anxious and does rb1 not want us to do or give her anything. Provider notified. 13:44 Reassessment: Pt. refused all care and wants to leave. Provider notified. rb1 13:45 Reassessment: Pt. left the ED and went to the lobby. Continues to refuse care at this rb1 time. 14:30 Reassessment: Convinced pt to come back to the room to let us help her after pt spent dm5 approximately 30 minutes in the lobby pacing and anxious. Pt's significant other on the phone with patient's mother. pt knows who she is and that she is at the hospital to get help. Pt states that she would like help and agreed come back to the room if I was with her.. 15:45 Reassessment: pt knows who she is and where she is. Pt initially agreed to let me start dm5 and IV but then did not want anyone to try again after I missed. Pt agreed to let me give her a shot but jerked when I tried to give it. Pt has been given numerous opportunities to work with the staff to get the help that she needs. Pt given the choice to stay in the room and let us help her by giving her medication or refusing care by leaving the room and leaving the ED. Pt left the ED. Pt's significant other with patient. He thanked us for trying to help patient but understands our limitation.. Psych: 12:50 Subjective: Patient's mood is sad, Delusions are reports that she feels like she is rb1 going crazy and can't think clear Hallucinations are auditory, Having thoughts of denies suicidal/homicidal thoughts. Objective: Patient is uncooperative, defensive, Speech is normal, rambling, Affect is inappropriate. Commitment: Patient will be a voluntary commitment. Vital Signs: 13:05 BP 127 / 64; Pulse 72; Resp 18; Pulse Ox 100% on R/A; rb1 14:00 rb1 15:00 rb1 14:00 Pt. is in the lobby rb1 15:00 Unable to get vital signs at this time due to the pt. anxiety. rb1 ED Course: 12:25 Patient arrived in ED. as 12:48 Bettie Parry, RN is Primary Nurse. iw 12:50 Patient has correct armband on for positive identification. Bed in low position. Call rb1 light in reach. Side rails up X 1. Pulse ox on. NIBP on. Warm blanket given. 12:50 Arm band placed on right wrist. rb1 13:04 Triage completed. iw 13:14 Samson Rosenthal PA is PHCP. jr8 13:14 Drew Whelan MD is Attending Physician. jr8 15:33 Stacie Giang, KATIE is Primary Nurse. rb1 17:02 PHCP role handed off by Samson Rosenthal PA rb1 Administered Medications: 15:53 Not Given (Patient Refused): ZyPREXA 20 mg PO once rb1 15:53 Not Given (Patient Refused): Geodon 20 mg IM once rb1 Outcome: 15:54 Patient left the ED. rb1 15:54 Eloped from patient exam room, after seeing physician rb1 15:54 Condition: stable Signatures: Lizabeth Clarke, RN RN Tasneem Monson Irene, RN RN Samson Rosenthal PA PA jr8 Stacie Giang RN RN rb1 Corrections: (The following items were deleted from the chart) 12:51 12:39 Chief complaint: iw iw 16:58 16:37 Patient left the ED. rb1 rb1 17:16 17:15 Patient left the ED. rb1 rb1
--- NOTE | 2019-08-01 13:27 | EDPHYS ---
Physician Documentation [facility] Name: Jennifer Olivares Age: 29 yrs Sex: Female : 1990 Arrival Date: 07/26/2019 Time: 12:25 Bed 19 Private MD: ED Physician Drew Whelan HPI: 07/25 13:54 This 29 yrs old Black Female presents to ER via Ambulatory with complaints of Psych jr8 Problem. 13:54 The patient presents to the emergency department with psychosis, has experienced jr8 auditory hallucinations, has experienced visual hallucinations. Onset: The symptoms/episode began/occurred gradually, 1 month(s) ago. Past psychiatric history: Prior diagnosis: schizophrenia. Associated signs and symptoms: The patient has no apparent associated signs or symptoms. Severity of symptoms: At their worst the symptoms were moderate in the emergency department the symptoms are unchanged. The patient has experienced similar episodes in the past, a few times. The patient has not recently seen a physician. Boyfriend of patient stated that him and patients family have been trying to get her to come to hospital for a while. Stated that she is in manic state and has been hearing and seeing things for some time. Medications that she is on is not helping. Has not been able to get her in to get help. Historical: - Allergies: 12:50 Celexa; rb1 - Home Meds: 12:50 gabapentin oral oral [Active]; benztropine Oral [Active]; trilafon [Active]; rb1 - PMHx: 12:50 Anxiety; Bipolar disorder; Depression; Paranoid Delusions; PTSD; rb1 - PSHx: 12:50 ; rb1 ROS: 13:54 Eyes: Negative for injury, pain, redness, and discharge, ENT: Negative for injury, jr8 pain, and discharge, Neck: Negative for injury, pain, and swelling, Cardiovascular: Negative for chest pain, palpitations, and edema, Respiratory: Negative for shortness of breath, cough, wheezing, and pleuritic chest pain, Abdomen/GI: Negative for abdominal pain, nausea, vomiting, diarrhea, and constipation, Back: Negative for injury and pain, MS/Extremity: Negative for injury and deformity, Skin: Negative for injury, rash, and discoloration, Neuro: Negative for headache, weakness, numbness, tingling, and seizure. 13:54 Psych: Positive for anxiety, auditory hallucinations, visual hallucinations, insomnia, Negative for suicide gesture, suicidal ideation. Exam: 13:54 Eyes: Pupils equal round and reactive to light, extra-ocular motions intact. Lids and jr8 lashes normal. Conjunctiva and sclera are non-icteric and not injected. Cornea within normal limits. Periorbital areas with no swelling, redness, or edema. ENT: Nares patent. No nasal discharge, no septal abnormalities noted. Tympanic membranes are normal and external auditory canals are clear. Oropharynx with no redness, swelling, or masses, exudates, or evidence of obstruction, uvula midline. Mucous membranes moist. Neck: Trachea midline, no thyromegaly or masses palpated, and no cervical lymphadenopathy. Supple, full range of motion without nuchal rigidity, or vertebral point tenderness. No Meningismus. Cardiovascular: Regular rate and rhythm with a normal S1 and S2. No gallops, murmurs, or rubs. Normal PMI, no JVD. No pulse deficits. Respiratory: Lungs have equal breath sounds bilaterally, clear to auscultation and percussion. No rales, rhonchi or wheezes noted. No increased work of breathing, no retractions or nasal flaring. Abdomen/GI: Soft, non-tender, with normal bowel sounds. No distension or tympany. No guarding or rebound. No evidence of tenderness throughout. Back: No spinal tenderness. No costovertebral tenderness. Full range of motion. Skin: Warm, dry with normal turgor. Normal color with no rashes, no lesions, and no evidence of cellulitis. MS/ Extremity: Pulses equal, no cyanosis. Neurovascular intact. Full, normal range of motion. Neuro: Awake and alert, GCS 15, oriented to person, place, time, and situation. Cranial nerves II-XII grossly intact. Motor strength 5/5 in all extremities. Sensory grossly intact. Cerebellar exam normal. Normal gait. 13:54 Psych: Behavior/mood is anxious, Affect is animated, Oriented to person, place, time, Patient has no thoughts/intents to harm self or others. Judgement / Insight is impaired. Memory is normal. Delusions/hallucinations are present and described as hearing random voices . Patient is very distracted and anxious. Hard to make her understand the current state she is in. Resting face and eye twitching noted. Can answer all questions appropriately but will hear voices from time to time during examination. Vital Signs: 13:05 BP 127 / 64; Pulse 72; Resp 18; Pulse Ox 100% on R/A; rb1 14:00 rb1 15:00 rb1 14:00 Pt. is in the lobby rb1 15:00 Unable to get vital signs at this time due to the pt. anxiety. rb1 MDM: 13:15 Patient medically screened. 8 13:54 ED course: Patient eloped during visit. Told boyfriend to call mental health deputy . jr8 15:32 ED course: We were able to talk patient down outside and get her to comply to be [facility] evaluated. 15:54 Data reviewed: vital signs, nurses notes. Data interpreted: Pulse oximetry: on room air jr8 is 100 %. Interpretation: normal. ED course: Nurses attempted to try and get another IV in patient and to give patient medications to help but keeps refusing. Eloped again from ED. 07/25 13:15 Order name: Acetaminophen [facility] 07/25 13:15 Order name: Basic Metabolic Panel [facility] 07/25 13:15 Order name: CBC with Diff [facility] 07/25 13:15 Order name: ETOH Level [facility] 07/25 13:15 Order name: Urine Test (obtain specimen) [facility] 07/25 13:15 Order name: IV Saline Lock [facility] 07/25 13:15 Order name: Labs collected and sent [facility] 07/25 13:15 Order name: Urine Dipstick-Ancillary (obtain specimen) [facility] Administered Medications: 15:53 Not Given (Patient Refused): ZyPREXA 20 mg PO once rb1 15:53 Not Given (Patient Refused): Geodon 20 mg IM once rb1 Disposition: 16:41 Co-signature as Attending Physician, Drew Whelan MD. rn Disposition: 07/26/19 15:56 Patient left the facility after being seen by provider. Preliminary diagnosis is Schizophrenia. - Patient left due to (see nurse's notes). - Condition is Stable. - Problem is new. - Symptoms are unchanged. Signatures: Dispatcher [employer] EDMS Drew Whelan MD MD rn Roszak, Josh, PA PA 8 Stacie Giang RN RN rb1 Corrections: (The following items were deleted from the chart) 16:11 13:16 Acetaminophen Level ordered. EDPA EDMS 16:11 13:16 Basic Metabolic Panel ordered. EDPA EDMS 16:11 13:16 CBC with Automated Diff ordered. EDPA EDMS 16:11 13:16 Alcohol Serum/Plasma ordered. EDPA EDMS 16:11 13:16 HEPATIC FUNCTION+C.LAB.BRZ ordered. EDPA EDMS 16:11 13:16 PROTIME (+INR)+COAG.LAB.BRZ ordered. EDPA EDMS 16:11 13:16 PTT, ACTIVATED+COAG.LAB.BRZ ordered. EDPA EDMS 16:11 13:16 SALICYLATE+C.LAB.BRZ ordered. EDPA EDMS 16:11 13:16 URINE DRUG SCREEN+CHEM UR.LAB.BRZ ordered. EDPA EDPA 16:37 15:56 07/26/2019 15:56 Patient left the facility after being seen by provider. rb1 Preliminary diagnosis is Schizophrenia. Reason stated they are leaving due to (see nurse's notes). Condition is Stable. Problem is new. Symptoms are unchanged. jr8 17:15 16:37 07/26/2019 15:56 Patient left the facility after being seen by provider. rb1 Preliminary diagnosis is Schizophrenia. Reason stated they are leaving due to (see nurse's notes). Condition is Stable. Problem is new. Symptoms are unchanged. rb1
== END 2019-07-26 17:15 | disposition left against medical advice (07) ==
LOC: ER 12:24
DX: F20.9 Schizophrenia, unspecified (principal); F31.9 Bipolar disorder, unspecified; Z88.8 Allergy status to other drugs, medicaments and biological substances
CPT/HCPCS: 99284; J3486

== ENCOUNTER 2019-07-26 18:50 | Emergency (ER) | payer SELFPAY ==
--- OUTSIDE RECORDS SUMMARY | 2019-07-26 18:52 | XMS REPORT | Clinical Summary ---
:1990 Author Organization [facility] Address [address] [place] [address] Care Team Providers Name Role Phone Asked, [...] Advance Directives For more information, please contact: [phone] Type Date Recorded Patient Applications Scientist Explanati on Advance Directives, Living Will and Medical Power of Continuous Wave Operator Code Status Date Activated Date Inactivated Comments Full Code 07/03/2017 2:12 AM 07/08/2017 5:15 PM Code Status decision reached by: Patient
--- OUTSIDE RECORDS SUMMARY | 2019-07-26 18:52 | XMS REPORT ---
:1990 Author Organization [facility] t Address [address] [place] [address] Care Team Providers Name Role Phone Asked, [...] 00 dependence dependence Severe Severe Disease Active [place] protein-ca protein-ca 07-03 Or thodi caden caden 00:00: st malnutriti malnutriti [...] Comments Source History of tobacco Cigarette Smoker [place] use Sikh Sex Assigned At [place] Sikh Cigarettes smoked 2017-07-03 2017-07-03 Robin current (pack per 00:00:00 00:00:[address] ) - Reported Cigarette 2017-07-03 2017-07-03 Robin pack-years 00:00:00 00:00:00 Sikh Alcohol intake 2017-07-03 2017-07-03 Current drinker [place] 00:00:00 00:00:00 of alcohol Sikh (finding) Alcohol Comment 2017-07-03 2017-07-03 "I binge drink" [place] 00:00:00 00:00:00 Sikh Smoking Status Start Date Stop Date Source Current every day smoker 2017-07-03 00:00:00 Yareli stothais Sikh Medications This patient has no known medications. Procedures This patient has no known procedures. Plan of Care Planned Activity Planned Date Details Comments Source Future Scheduled 2019-10-01 INFLUENZA VACCINE Yahaira n Sikh Test 00:00:00 [code = INFLUENZA VACCINE] Future Scheduled 2010 Screening for Robin Or thodist Test 00:00:00 malignant neoplasm of cervix (procedure) [code = 701780430] Encounters Start End Encounter Admission Attending Care Care Encounter Source Date/Time Date/Time Type Type Clinicians Facility Department ID 2018-11-04 2018-11-04 Office Sohan [facility] [id number] 13:47:40 14:48:23 Visit Maricarmen Plascencia TRADESHOW WORKER [id number] [facility] [id number] MATERNAL [id number] & CHILD [address] [place] [address] Results This patient has no known results.
[2019-07-26] MEDS ORDERED: DIPHENHYDRAMINE 25 MG TAB/CAP ONE (20:08)
[2019-07-26] MEDS ORDERED: LORAZEPAM 1 MG TABLET ONE (20:08)
[2019-07-26 20:15] LABS: Barbiturates NEGATIVE (NEGATIVE); Benzodiazepines NEGATIVE (NEGATIVE); Cocaine NEGATIVE (NEGATIVE); METHAMPHETAM POSITIVE (NEGATIVE); Methadone NEGATIVE (NEGATIVE); Opiates NEGATIVE (NEGATIVE); Phencyclidine NEGATIVE (NEGATIVE); THC Cannibis NEGATIVE (NEGATIVE)
[2019-07-26] MEDS ORDERED: HALOPERIDOL LACT 5 MG/ML INJ ONE (20:43)
[2019-07-26 20:46] LABS: Urine Blood NEGATIVE (NEG); Urine Glucose NEGATIVE (NEG); Urine Protein TRACE (NEG); Urine Specific Gravity 1.025 (1.005-1.030)
[2019-07-26 22:55] LABS: Absolute Lymphocytes (CBC) 1.5 K/uL (0.7-4.9); Basophils % 0.7 % (0-1.3); Hematocrit 36.9 % (36.0-45.0); Lymphocytes % 31.9 % (15.3-44.8); MPV 8.1 fL (7.6-11.3); RBC Red Blood Cell Count 4.11 M/uL (3.86-4.86)
[2019-07-26 22:59] LABS: Protime INR 1.2
[2019-07-27 00:01] LABS: ALT/SGPT 15 U/L (12-78); AST/SGOT 17 U/L (15-37); Albumin 3.9 g/dL (3.4-5.0); Alkaline Phosphatase 49 U/L (45-117); BUN Blood Urea Nitrogen 8 mg/dL (7-18); Bicarbonate 24 mmol/L (21-32); Bilirubin Direct 0.2 mg/dL (0-0.2); Bilirubin Total 0.5 mg/dL (0.2-1.0); Glucose Level 97 mg/dL (74-106); Potassium 3.7 mmol/L (3.5-5.1); Protein, Total 7.9 g/dL (6.4-8.2); Sodium Level 138 mmol/L (136-145)
--- NOTE | 2019-07-27 12:51 | EKG ---
Test Date: 2019-07-26 Test Time: 22:37:08 Inspector Plug Seam: STEFANY MEASUREMENT RESULTS: Intervals: Rate: 104 VT: 132 QRSD: 84 QT: 344 QTc: 452 [place]: P: 60 VT: 132 QRS: 58 T: 55 INTERPRETIVE STATEMENTS: Sinus tachycardia Otherwise normal ECG Compared to ECG 03/20/2019 11:12:59 Sinus rhythm no longer present Electronically Signed On 07-27-19 12:50:15 CDT by Prince Conner
[2019-07-28] MEDS ORDERED: FLUCONAZOLE 100 MG TAB ONE (08:19)
[2019-07-28] MEDS ORDERED: WATER FOR INJ,STERILE 10 ML ONE (16:12)
[2019-07-28] MEDS ORDERED: ZIPRASIDONE MESYLA 20 MG/VIAL IM ONE (16:12)
[2019-07-28] MEDS ORDERED: LORAZEPAM 1 MG TABLET ONE (16:16)
[2019-07-29 13:23] VITALS: BP 91/57; TEMP 98.2; O2SAT 99
--- NOTE | 2019-08-01 13:40 | EDPHYS ---
Physician Documentation [facility] Name: Jennifer Olivares Age: 29 yrs Sex: Female : 1990 Arrival Date: 07/26/2019 Time: 18:49 Bed 5 Private MD: ED Physician Asher Horton HPI: 07/25 19:30 This 29 yrs old Black Female presents to ER via Unassigned with complaints of Altered ma2 Mental Status. 19:30 The patient presents with confusion, disorientation. Onset: The symptoms/episode ma2 began/occurred gradually, 2 day(s) ago. Associated signs and symptoms: Pertinent negatives: ataxia, chest pain, confusion, dizziness. Current symptoms: In the emergency department the patient's symptoms are unchanged from the initial presentation. The patient has experienced similar episodes in the past. 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 - Social history:: Patient/guardian denies using alcohol, street drugs, The patient lives with family, Smoking status: unknown. - Family history:: not pertinent. ROS: 19:30 Constitutional: Negative for fever, chills, and weight loss. ma2 19:30 All other systems are negative. Exam: 19:30 Constitutional: This is a well developed, well nourished patient who is awake, alert, ma2 and in no acute distress. Chest/axilla: Normal chest wall appearance and motion. Nontender with no deformity. No lesions are appreciated. Cardiovascular: Regular rate and rhythm with a normal S1 and S2. No gallops, murmurs, or rubs. Normal PMI, no JVD. No pulse deficits. Respiratory: Lungs have equal breath sounds bilaterally, clear to auscultation and percussion. No rales, rhonchi or wheezes noted. No increased work of breathing, no retractions or nasal flaring. Abdomen/GI: Soft, non-tender, with normal bowel sounds. No distension or tympany. No guarding or rebound. No evidence of tenderness throughout. Skin: Warm, dry with normal turgor. Normal color with no rashes, no lesions, and no evidence of cellulitis. MS/ Extremity: Pulses equal, no cyanosis. Neurovascular intact. Full, normal range of motion. Neuro: Awake and alert, GCS 15, oriented to person, place, time, and situation. Cranial nerves II-XII grossly intact. Motor strength 5/5 in all extremities. Sensory grossly intact. Cerebellar exam normal. Normal gait. 19:30 Psych: Behavior/mood is anxious, delirious, Oriented to person, place, Delusions/hallucinations are present and described as she see hear voices, disorganized, unable to engage in conversation, see things that does not exist danger to her self. 07/28 07:43 ECG was reviewed by the Attending Physician. ben Vital Signs: 07/25 19:00 BP 136 / 70; Pulse 87; Resp 18; Temp 97.7; Pulse Ox 100% on R/A; sg 07/26 05:07 BP 116 / 75; Pulse 88; Resp 16; Pulse Ox 100% on R/A; jb4 07:18 Pulse 83; Resp 14 S; Pulse Ox 100% on R/A; jl7 12:00 BP 107 / 61; Pulse 91; Resp 15; Pulse Ox 100% ; ah 15:00 Pulse 80; Resp 14; Pulse Ox 100% ; ah 16:22 BP 108 / 74; Pulse 85; Resp 15; Pulse Ox 100% on R/A; mh5 17:00 BP 118 / 72; Pulse 78; Resp 16; Pulse Ox 100% ; ah 18:00 BP 115 / 71; Pulse 86; Resp 15; Pulse Ox 100% ; ah 19:00 BP 123 / 73; Pulse 86; Resp 14; Pulse Ox 100% ; ah 21:30 BP 113 / 76; Pulse 81; Resp 16; Pulse Ox 100% ; ll1 22:00 BP 112 / 64; Pulse 94; Resp 16; Pulse Ox 100% ; ll1 23:00 BP 105 / 63; Pulse 91; Resp 16; Pulse Ox 100% ; ll1 23:55 BP 105 / 62; Pulse 94; Resp 16; Pulse Ox 99% ; ll1 07/27 01:00 BP 100 / 57; Pulse 85; Resp 15; Temp 97.8(TE); Pulse Ox 99% on R/A; vc 08:00 BP 109 / 81; Pulse 98; Resp 16; Pulse Ox 98% ; sv 10:40 BP 102 / 71; Pulse 94; Resp 16; Pulse Ox 100% ; sv 20:20 BP 91 / 56; Pulse 81; Resp 14; Temp 98.1; Pulse Ox 95% ; rr5 07/28 00:30 BP 90 / 60; Pulse 80; Resp 16; Pulse Ox 98% ; rr5 04:23 BP 91 / 57; Pulse 94; Resp 14; Temp 98.2; Pulse Ox 99% ; rr5 07/26 15:00 pt resting ah MDM: 07/25 18:58 Patient medically screened. ma2 19:30 Differential Diagnosis: volume depletion, psychosis, delusional state, schezophrenia . ma2 Data reviewed: vital signs, nurses notes. Counseling: I had a detailed discussion with the patient and/or guardian regarding: the historical points, exam findings, and any diagnostic results supporting the discharge/admit diagnosis, the presence of at least one elevated blood pressure reading (>120/80) during this emergency department visit, the need to transfer to another facility. 07/27 08:46 ED course: The patient remains stable in the ED and has not required any recent kdr chemical sedation or retraint. 10:31 ED course: The patient bolted from the department. Was retrieved by the local police. kdr she is not able to have a coherent conversation. Sates that someone may have broken into her conversation with the therapist. Wants to speak to someone she trusts but refuses to give the name of anyone. Then she stated she was tired and just wants to rest. She will now have a sitter for her room. Have discussed with Selina Ingram and they are trying to get her placed at [facility]. ED course: The refused Claudine CAVAZOS at this time stating that, "it was rough.". 18:03 ED course: The patient became agitated about an hour ago and stated that she had kdr received Ativan on her last visit which seemed to calm her emotions. she was acting paranoid about her current circumstances. She is currently sleeping comfortably. 07/28 07:42 Data interpreted: hall monitor: rate is 94 beats/min, Pulse oximetry: on room air is ben 99 %. Test interpretation: by ED physician or midlevel provider: ECG. 07:53 ED course: denies suicidal ideations, wants to follow up [facility], will go home with ben family. return to er if symptoms worsen or persist. 07/25 19:27 Order name: Acetaminophen [facility] 07/25 19:27 Order name: Basic Metabolic Panel [facility] 07/25 19:27 Order name: CBC with Diff [facility] 07/25 19:27 Order name: ETOH Level; Complete Time: 06:52 [facility] 07/25 19:27 Order name: Hepatic Function; Complete Time: 20:18 [facility] 07/25 19:27 Order name: PT-INR; Complete Time: 06:52 [facility] 07/25 19:27 Order name: Ptt, Activated; Complete Time: 06:52 [facility] 07/25 19:27 Order name: Salicylate; Complete Time: 20:18 [facility] 07/25 19:27 Order name: Urine Drug Screen; Complete Time: 06:52 [facility] 07/25 19:28 Order name: Acetaminophen Level; Complete Time: 20:18 [facility] 07/25 19:28 Order name: Basic Metabolic Panel; Complete Time: 20:18 [facility] 07/25 19:28 Order name: CBC with Automated Diff; Complete Time: 06:52 [facility] 07/25 19:42 Order name: Urine Dipstick--Ancillary (enter results); Complete Time: 06:52 [facility] 07/25 19:42 Order name: Urine --Ancillary (enter results); Complete Time: 06:52 [facility] 07/25 19:27 Order name: EKG; Complete Time: 19:28 [facility] 07/25 19:27 Order name: Urine Test (obtain specimen); Complete Time: 20:05 [facility] 07/26 12:58 Order name: Finger Food; Complete Time: 16:16 [facility] 07/26 12:59 Order name: Finger Food; Complete Time: 16:16 [facility] 07/27 07:18 Order name: Diet Finger Food; Complete Time: 07:19 sv 07/27 10:38 Order name: Diet Finger Food; Complete Time: 10:38 sv 07/27 11:38 Order name: Diet Finger Food; Complete Time: 11:39 bd 07/27 16:17 Order name: Diet Finger Food; Complete Time: 16:17 sv 07/28 06:30 Order name: Diet Finger Food; Complete Time: 06:30 rr5 07/28 07:53 Order name: Diet Regular; Complete Time: 07:54 ben 07/25 19:27 Order name: EKG - Nurse/Tech; Complete Time: 22:46 ma2 07/25 19:27 Order name: IV Saline Lock; Complete Time: 22:46 ma2 07/25 19:27 Order name: Labs collected and sent; Complete Time: 22:46 ma2 07/25 19:27 Order name: Urine Dipstick-Ancillary (obtain specimen); Complete Time: 20:05 ma2 EC:43 Rate is 104 beats/min. Rhythm is regular. QRS Spray is Normal. VA interval is normal. ben QRS interval is normal. QT interval is normal. No Q waves. T waves are Normal. No ST changes noted. Clinical impression: Sinus tachycardia and No evidence of ischemia. Interpreted by me. Reviewed by me. Administered Medications: 07/25 20:03 CANCELLED (Physician Discretion): Benadryl 50 mg IM once 20:04 Drug: Ativan 2 mg Route: PO; 22:47 Follow up: Response: No adverse reaction; RASS: Alert and Calm (0) 20:04 Drug: Benadryl 50 mg Route: PO; 22:46 Follow up: Response: No adverse reaction 22:19 Drug: HALdol (as decanoate) 5 mg Route: IM; Site: left deltoid; 23:00 Follow up: Response: No adverse reaction; RASS: Alert and Calm (0) 07/27 08:14 Drug: DiFLUcan 200 mg Route: PO; sv 09:00 Follow up: Response: No adverse reaction sv 16:16 Drug: Ativan 2 mg Route: PO; sv 19:00 Follow up: Response: No adverse reaction rr5 Disposition: 07/29/19 07:56 Discharged to Home. Impression: Bipolar disorder, Adjustment disorder with depressed mood, Adverse effect of amphetamines. - Condition is Stable. - Discharge Instructions: Stimulant Use Disorder-Amphetamines, Bipolar Disorder, Substance Use Disorder, Stimulant Use Disorder-Methamphetamines, Major Depressive Disorder, [id number], Major Depressive Disorder. - Medication Reconciliation Form, Thank You Letter, Antibiotic Education, Prescription Opioid Use form. - Follow up: Private Physician; When: 2 - 3 days; Reason: Recheck today's complaints, Continuance of care, Re-evaluation by your physician. Follow up: Noel Dia MD; When: 2 - 3 days; Reason: Recheck today's complaints, Continuance of care, Re-evaluation by your physician. - Problem is new. - Symptoms have improved. Signatures: Dispatcher [employer] EDRosette Banks, RN RN Mil Penny RN RN sg Anderson, Corey, MD MD cha Rittger, Kevin, MD MD kdr Leal, Jahala, RN RN jl7 Veronika Brandt Floyd Love MD MD [facility] Rodrigo Strauss MD MD 7 Luis Currie RN rr5 Corrections: (The following items were deleted from the chart) 07/25 20:03 19:36 Benadryl 50 mg IM once ordered. [facility] 07/28 07:55 07/25 19:33 07/26/2019 19:33 Transfer ordered to [facility]. Diagnosis is ben Delusional disorders. Reason for transfer: Higher level of care. Accepting physician is [facility]. Condition is Stable. Problem is new. Symptoms are unchanged. [facility] 07/28 07:56 07:56 07/29/2019 07:56 Discharged to Home. Impression: Bipolar disorder; Adjustment ben disorder with depressed mood. Condition is Stable. Forms are Medication Reconciliation Form, Thank You Letter, Antibiotic Education, Prescription Opioid Use. Follow up: Private Physician; When: 2 - 3 days; Reason: Recheck today's complaints, Continuance of care, Re-evaluation by your physician. Follow up: Noel Dia; When: 2 - 3 days; Reason: Recheck today's complaints, Continuance of care, Re-evaluation by your physician. Problem is new. Symptoms have improved. ben 12:51 07:56 07/29/2019 07:56 Discharged to Home. Impression: Bipolar disorder; Adjustment jl7 disorder with depressed mood; Adverse effect of amphetamines. Condition is Stable. Forms are Medication Reconciliation Form, Thank You Letter, Antibiotic Education, Prescription Opioid Use. Follow up: Private Physician; When: 2 - 3 days; Reason: Recheck today's complaints, Continuance of care, Re-evaluation by your physician. Follow up: Noel Dia; When: 2 - 3 days; Reason: Recheck today's complaints, Continuance of care, Re-evaluation by your physician. Problem is new. Symptoms have improved. ben
--- NOTE | 2019-08-01 16:48 | ER ---
Nurse's Notes [facility] Name: Jennifer Olivares Age: 29 yrs Sex: Female : 1990 Arrival Date: 07/26/2019 Time: 18:49 Bed 5 Private MD: Diagnosis: Bipolar disorder;Adjustment disorder with depressed mood;Adverse effect of amphetamines Presentation: 07/25 19:00 Chief complaint: EMS states: pt was taken to the [place] [employer] department by bystanders who sg reported the pt climbed into their vehicle. pt is confused and altered per EMS. Coronavirus screen: Proceed with normal triage. 19:00 Method Of Arrival: EMS: [facility] sg 19:00 Ebola Screen: Patient negative for fever greater than or equal to 101.5 degrees sg Fahrenheit, and additional compatible Ebola Virus Disease symptoms Patient denies exposure to infectious person. Patient denies travel to an Ebola-affected area in the 21 days before illness onset. No symptoms or risks identified at this time. Initial Sepsis Screen: Does the patient meet any 2 criteria? No. Patient's initial sepsis screen is negative. Does the patient have a suspected source of infection? No. Patient's initial sepsis screen is negative. Risk Assessment: Do you want to hurt yourself or someone else? Patient reports no desire to harm self or others. Note Disorganized thoughts, ERP reports this patient to be a danger to herself. Onset of symptoms was July 26, 2019. Care prior to arrival: None. Transition of care: patient was not received from another setting of care. 19:00 Acuity: ANKIT 2 sg FISH ICER: 19:30 LMP N/A - Unknown wh Historical: - Allergies: 20:06 Celexa; sg - PMHx: 20:06 Anxiety; Bipolar disorder; Depression; Paranoid Delusions; PTSD; sg - PSHx: 20:06 ; sg - Immunization history:: Adult Immunizations up to date. - Social history:: Patient/guardian denies using alcohol, street drugs, The patient lives with family, Smoking status: unknown. - Family history:: not pertinent. Screenin:30 Abuse screen: Denies threats or abuse. Denies injuries from another. Nutritional wh screening: No deficits noted. Tuberculosis screening: No symptoms or risk factors identified. Fall Risk None identified. Assessment: 19:30 General: Appears in no apparent distress. Behavior is anxious. Pain: Unable to use pain wh scale. Patient is disoriented. Neuro: Level of Consciousness is awake, alert. Neuro: Oriented to Confused, AMS. Cardiovascular: Capillary refill < 3 seconds. Respiratory: Airway is patent Respiratory effort is even, unlabored, Respiratory pattern is regular, symmetrical. GI: Abdomen is flat, non-distended. : No signs and/or symptoms were reported regarding the genitourinary system. EENT: No signs and/or symptoms were reported regarding the EENT system. Derm: Skin is intact, is healthy with good turgor, Skin is pink, warm \\T\\ dry. normal. Musculoskeletal: Circulation, motion, and sensation intact. 20:30 Reassessment: Patient appears in no apparent distress at this time. No changes from previously documented assessment. Sitter at bedside. [facility] at bedside assessing Pt. 21:30 Reassessment: Patient appears in no apparent distress at this time. No changes from previously documented assessment. Sitter at bedside. 22:30 Reassessment: Patient appears in no apparent distress at this time. No changes from previously documented assessment. Sitter at bedside, Pt sleeping well no signs of distress noted. Pt belongings handed to Security for safekeeping. 07/26 00:15 Reassessment: Patient appears in no apparent distress at this time. No changes from previously documented assessment. Pt sleeping well no signs of distress noted. Per [facility] Lab machine for ASA and Tylenol down, will need to send specimen to [facility] for results will take a few hours, Charge Nurse notified. 02:13 Reassessment: Patient appears in no apparent distress at this time. patient sleeping. [facility] called and updated about the patient . [facility]- [id number]. 02:25 Reassessment: Patient appears in no apparent distress at this time. patient sleeping. mg2 04:00 Reassessment: Patient appears in no apparent distress at this time. Patient and/or jb4 family updated on plan of care and expected duration. Pain level reassessed. PT is resting in bed with eyes closed, respirations are even and unlabored, with no s/s of pain or distress noted. 05:10 Reassessment: Patient appears in no apparent distress at this time. Patient and/or jb4 family updated on plan of care and expected duration. Pain level reassessed. Patient is alert, oriented x 3, equal unlabored respirations, skin warm/dry/pink. 07:18 Reassessment: Pt laying in bed with eyes closed, respirations even and unlabored, no jl7 signs of distress noted. 09:54 Reassessment: Mario, ; significant other. jl7 10:12 Reassessment: Pt resting in bed with eyes closed and resp even and unlabored. No ah distress noted at this time. 10:17 Reassessment: Mom, Brielle OlivarseZdkzdecu-[phone]. 11:30 Reassessment: Pt resting with eyes closed and resp even and unlabored. No distress ah noted. 12:30 Reassessment: No changes from previously documented assessment. ah 13:30 Reassessment: Pt resting with eyes closed and resp even and unlabored. No needs voiced ah at this time. 14:30 Reassessment: No changes from previously documented assessment. ah 15:30 Reassessment: Pt resting with eyes closed and resp even and unlabored. No needs voiced ah at this time. Pt laying on left side at this time. 16:30 Reassessment: Pt continues to lay on L side. Resp even and unlabored. Eyes closed. No ah needs voiced. 17:30 Reassessment: Pt rolled to right side. Eyes closed and resp even and unlabored. NO ah needs voiced at this time. 18:30 Reassessment: Pt lying on right side. Eyes closed and resp even and unlabored. Tray not ah touched at this time. 19:30 Reassessment: Pt resting with eyes closed and resp even and unlabored.No needs voiced ah at this time. 20:45 Reassessment: Pt awake and ambulated to restroom. She requested bed linens to be ah changed and fresh clothes. Pt put on paper scurbs and a brief. She cleansed her self with wipes. Pt sat up in bed and ate a dinner tray at this time. Pt alert and oriented to person, place and time. Pt states that she still feels tired and just wants to go back to sleep after she eats. No distress noted. 21:45 Reassessment: Patient appears in no apparent distress at this time. No changes from 1 previously documented assessment. Patient and/or family updated on plan of care and expected duration. Pain level reassessed. Patient is alert, oriented x 3, equal unlabored respirations, skin warm/dry/pink. 22:45 Reassessment: Patient appears in no apparent distress at this time. No changes from ll1 previously documented assessment. Patient and/or family updated on plan of care and expected duration. Pain level reassessed. Patient is alert, oriented x 3, equal unlabored respirations, skin warm/dry/pink. 23:45 Reassessment: Patient appears in no apparent distress at this time. No changes from ll1 previously documented assessment. Patient and/or family updated on plan of care and expected duration. Pain level reassessed. Patient is alert, oriented x 3, equal unlabored respirations, skin warm/dry/pink. 23:57 Reassessment: Patient appears in no apparent distress at this time. No changes from ll1 previously documented assessment. Patient and/or family updated on plan of care and expected duration. Pain level reassessed. Patient is alert, oriented x 3, equal unlabored respirations, skin warm/dry/pink. Report given to Cass Vázquez RN. 07/27 01:00 Reassessment: Patient appears in no apparent distress at this time. Patient resting vc with eyes closed, chest rising and falling equally. 01:37 Reassessment: Patient appears in no apparent distress at this time. No changes from vc previously documented assessment. Patient and/or family updated on plan of care and expected duration. Pain level reassessed. 03:00 Reassessment: No changes from previously documented assessment. patient resting. mg2 04:00 Reassessment: Patient appears in no apparent distress at this time. patient sleeping. mg2 05:21 Reassessment: Patient appears in no apparent distress at this time. No changes from mg2 previously documented assessment. 07:55 General: Appears in no apparent distress. comfortable, Behavior is calm, cooperative, sv appropriate for age, Pt noted to be repeatedly blink her eyes in a fast manner.. Pain: Denies pain. Neuro: Level of Consciousness is awake, alert, obeys commands, Oriented to person, place, time, situation. Respiratory: Airway is patent Respiratory effort is even, unlabored, Respiratory pattern is regular, symmetrical. Derm: Skin is pink, warm \\T\\ dry. 08:00 Reassessment: Dr Wood and myself at the bedside. Dr Wood speaking with the pt and sv she states that she will speak to [facility] and see if she can possibly get an outpatient appt with them. Pt stated she would talk to them. 09:00 Reassessment: Pt requesting a pad and pullup. Pt given supplies. sv 09:50 Reassessment: pt speaking with [facility] staff members on ipad. em 10:06 Reassessment: Pt finished speaking with Pretty from [facility]. She stated she wants to send her inpatient to possibly [facility] but wanted to speak with Dr Wood as well. 10:12 Reassessment: Pt stated "I don't know what's happening now. Or what's going on." Pt sv informed that she just spoke with [facility] and they are going to try and get her placement at [facility] to get the help she needs. Pt stated that she wanted to go outside. Pt informed that it would be best to stay in her room. Pt continued to walk outside to the ambulance bay. Kadi zazueta called. DI called as well. Reassessment: Reported by Michelle charge nurse that she attempted to get into someone else's vehicle going down the road. 10:25 Reassessment: Pt brought back to the Ed by DI, ambulating on her own. pt stated to Dr eufemia Wood, myself and PD that she wants to talk to someone. She doesn't want to talk to someone different all the time on the phone or iPad. She stated that the people were different. Pt spoke with 1 person Pretty from [facility] on the iPad, pt does not have access to a phone. Pt repeatedly blinking her eyes in a fast manner, as she has all day. Pt informed by Dr Wood that we are trying to get her help and placement to get her on the right medications. Pt stated that she did not want everyone staring at her. Dr Wood asked the pt if she would be cooperative and calm and the 3 officers would leave. Pt stated that she was tired and just wants to rest for a little while. 10:30 Reassessment: Audrey townsend, is sitting at the bedside. sv 12:30 Reassessment: Patient appears in no apparent distress at this time. No changes from sv previously documented assessment. Pt given lunch tray. 14:00 Reassessment: Patient appears in no apparent distress at this time. Pt sleeping at this sv time. 15:12 Reassessment: Patient appears in no apparent distress at this time. No changes from sv previously documented assessment. 16:05 Reassessment: Pt walked out of the room appearing anxious. Pt stated that she needed to sv walk around and we couldn't keep her in the room. Pt started walking around in all of the other Pods. Kadi Zazueta called. Pt went back to her room and Dr Wood spoke with her and was able to calm her down. Pt agreeable to take some Ativan PO. Pt requesting something sweet and pt given fruit cup and called cafeteria for some rice krispie treats. 17:00 Reassessment: Patient appears in no apparent distress at this time. No changes from sv previously documented assessment. Pt given dinner tray. 18:12 Reassessment: Patient appears in no apparent distress at this time. Pt sleeping at this sv time. Sitter at the bedside. 19:30 General: Appears in no apparent distress. comfortable, Behavior is calm, quiet, for rr5 follow up for the ARUN order, will on 2129H. Neuro: Level of Consciousness is awake, alert, obeys commands, Oriented to person, place, time, situation. Cardiovascular: Capillary refill < 3 seconds Patient's skin is warm and dry. Respiratory: Airway is patent Respiratory effort is even, unlabored, Respiratory pattern is regular, symmetrical. GI: No signs and/or symptoms were reported involving the gastrointestinal system. Derm: Skin is intact, is healthy with good turgor, Skin is pink, warm \\T\\ dry. Musculoskeletal: Circulation, motion, and sensation intact. 21:36 Reassessment: Patient appears in no apparent distress at this time. No changes from rr5 previously documented assessment. resting eyes closed breathing spontaneously at room air. mother of the patient called and updated for the status of the patient. mental health officer said the ARUN still valid until tomorrow at 1600H. 23:00 Reassessment: Patient appears in no apparent distress at this time. No changes from rr5 previously documented assessment. lay on her right side. 07/28 00:30 Reassessment: Patient appears in no apparent distress at this time. No changes from rr5 previously documented assessment. 03:10 Reassessment: Patient appears in no apparent distress at this time. Patient is alert, rr5 oriented x 3, equal unlabored respirations, skin warm/dry/pink. went to restroom, calm, not aggressive assisted by sitter. 06:28 Reassessment: Patient appears in no apparent distress at this time. Patient is alert, rr5 oriented x 3, equal unlabored respirations, skin warm/dry/pink. resting eyes closed breathing spontaneously at room air. sitter at bedside. still for [facility] accpet[facility]. 07:00 Reassessment: RECD REPORT FROM LUIS WILSON. 29YO BF P/W AMS, INITIALLY ARRIVED ALTERED bp >72 HR AGO. ARUN ON FILE, TO THIS AFTERNOON. PT CURRENTLY RESTING. 07:36 Reassessment: Dr. Horton at bedside discussing POC with pt. jl7 07:48 Reassessment: Called pt's mom, pt's mom refused to come get pt at this time. jl7 07:53 Reassessment: ATTEMPT TO CONTACT S/O MARIO, NO ANSWER. bp 09:00 Reassessment: Pt laying in bed with eyes closed, respirations even and unlabored, no jl7 signs of distress noted at this time. 10:11 Reassessment: Contacted Mario, pt's robinance, reports he will be here soon to pick her jl7 up and make arrangements for [facility] out patient treatment. 11:56 Reassessment: Attempted to call Mario for update on arrival to ED. No answer. ss 12:46 Reassessment: PT STATES SHE IS LEAVING FOR A FRIEND'S HOUSE. STATES ADDRESS OFF [address]. bp STAFF COUNCILLED PT TO REMAIN FOR FAMILY P/U, BUT PT REFUSED. PT CONTINUES TO DENY SI AND HI, NOTED TO MOVE WITH STEADY GAIT, AOx4. Vital Signs: 07/25 19:00 BP 136 / 70; Pulse 87; Resp 18; Temp 97.7; Pulse Ox 100% on R/A; sg 07/26 05:07 BP 116 / 75; Pulse 88; Resp 16; Pulse Ox 100% on R/A; jb4 07:18 Pulse 83; Resp 14 S; Pulse Ox 100% on R/A; jl7 12:00 BP 107 / 61; Pulse 91; Resp 15; Pulse Ox 100% ; ah 15:00 Pulse 80; Resp 14; Pulse Ox 100% ; ah 16:22 BP 108 / 74; Pulse 85; Resp 15; Pulse Ox 100% on R/A; 5 17:00 BP 118 / 72; Pulse 78; Resp 16; Pulse Ox 100% ; 18:00 BP 115 / 71; Pulse 86; Resp 15; Pulse Ox 100% ; 19:00 BP 123 / 73; Pulse 86; Resp 14; Pulse Ox 100% ; 21:30 BP 113 / 76; Pulse 81; Resp 16; Pulse Ox 100% ; ll1 22:00 BP 112 / 64; Pulse 94; Resp 16; Pulse Ox 100% ; ll1 23:00 BP 105 / 63; Pulse 91; Resp 16; Pulse Ox 100% ; ll1 23:55 BP 105 / 62; Pulse 94; Resp 16; Pulse Ox 99% ; ll1 07/27 01:00 BP 100 / 57; Pulse 85; Resp 15; Temp 97.8(TE); Pulse Ox 99% on R/A; vc 08:00 BP 109 / 81; Pulse 98; Resp 16; Pulse Ox 98% ; sv 10:40 BP 102 / 71; Pulse 94; Resp 16; Pulse Ox 100% ; sv 20:20 BP 91 / 56; Pulse 81; Resp 14; Temp 98.1; Pulse Ox 95% ; rr5 07/28 00:30 BP 90 / 60; Pulse 80; Resp 16; Pulse Ox 98% ; rr5 04:23 BP 91 / 57; Pulse 94; Resp 14; Temp 98.2; Pulse Ox 99% ; rr5 07/26 15:00 pt resting ED Course: 07/25 18:49 Patient arrived in ED. sg 18:58 Floyd Love MD is Attending Physician. ma2 19:00 Arm band placed on. sg 19:30 Veronika Brandt is Primary Nurse. wh 19:30 Patient has correct armband on for positive identification. Bed in low position. Call light in reach. Side rails up X 1. Pulse ox on. NIBP on. 20:00 Sitter at bedside. 20:06 Triage completed. sg 22:00 Inserted saline lock: 22 gauge in left antecubital area, using aseptic technique. Blood collected. 22:59 No provider procedures requiring assistance completed. 07/26 03:27 Notified ED physician of other Acetaminophen of 0, and a Salicylate of 1.3. sg 10:12 Primary Nurse role handed off by Veronika Brandt 10:12 Negrita Lewis, RN is Primary Nurse. 21:30 Report received from Negrita Lewis RN. ll1 07/27 07:46 Attending Physician role handed off by Floyd Love MD kdr 07:46 Aaron Wood MD is Attending Physician. kdr 08:14 Primary Nurse role handed off by Negrita Lewis, RN sv 08:14 Rosette Buitrago, KATIE is Primary Nurse. sv 08:42 contacted [facility] to have screener evaluate pt. bd 08:45 contacted [place] at [facility], pt is on waiting list for a [facility] bed. bd 09:44 connected with Pretty from [facility],pt given i pad,evaluation in progress. bd 15:32 contacted [place] at [facility], pt is still on waiting list for [facility] bed. bd 18:59 Primary Nurse role handed off by Rosette Buitrago RN sv 18:59 Report given to Stone WILSON and Luis WILSON. sv 19:06 Luis Currie, KATIE is Primary Nurse. rr5 19:30 Patient did not have IV access during this emergency room visit. rr5 20:40 Called [facility] out for a new ARUN but was informed that due to the sd ARUN being done after 1600 on the 25 of July that it will be good until 1600 on 07/29/19. [facility] informed me that [facility] has beds available for psych patients and that she could take the patient there once we get a warrant approved by Judge Mae. [facility] Charge Nurse, Vincent, stated that they have beds available for adults and youth but they do not do hospital to hospital transfers due to them being an emergency psych facility. Vincent stated that our [facility] could bring them via warrant but the deputy would have to file for an A22. I contacted Judge Mae to see if he would sign a mental health warrant with the patient going to their ER Triage and he stated that we will only use [facility] as a last resort tomorrow if the ARUN is close to expiring. Judge Mae wants us to continue faxing the patient chart to facilities to see if we can get a hospital to hospital transfer instead. 07/28 07:41 Attending Physician role handed off by Aaron Wood MD [facility] 07:41 Asher Horton MD is Attending Physician. ben 07:55 Noel Dia MD is Referral Physician. ben 08:28 Diet: Patient given a regular meal tray. bd 09:59 contacted [facility], pt is still on waiting list for [facility]. no bd discharges expected today, per Carrie. Administered Medications: 07/25 20:03 CANCELLED (Physician Discretion): Benadryl 50 mg IM once 20:04 Drug: Ativan 2 mg Route: PO; 22:47 Follow up: Response: No adverse reaction; RASS: Alert and Calm (0) 20:04 Drug: Benadryl 50 mg Route: PO; 22:46 Follow up: Response: No adverse reaction 22:19 Drug: HALdol (as decanoate) 5 mg Route: IM; Site: left deltoid; 23:00 Follow up: Response: No adverse reaction; RASS: Alert and Calm (0) 07/27 08:14 Drug: DiFLUcan 200 mg Route: PO; sv 09:00 Follow up: Response: No adverse reaction sv 16:16 Drug: Ativan 2 mg Route: PO; sv 19:00 Follow up: Response: No adverse reaction rr5 Intake: 13:00 PO: 400ml (Juice); Total: 400ml. sv 18:48 PO: 300ml; Total: 700ml. sv 20:22 PO: 480ml (Juice); Total: 1180ml. rr5 07/28 03:10 voided freely rr5 Output: 03:10 Other: 1; Total: 0ml. rr5 03:10 voided freely rr5 Outcome: 07/25 19:33 ER care complete, transfer ordered by . ma2 07/28 07:56 Discharge ordered by . ben 12:50 Discharged to home ambulatory. jl7 12:50 Condition: stable 12:50 Discharge instructions given to patient, Instructed on discharge instructions, follow up and referral plans. Demonstrated understanding of instructions, follow-up care. 12:50 Discharged to Pt eloped to [facility] whilst awaiting for significant other to pick her up. ss 12:50 Condition: good 12:50 Instructed on discharge instructions, follow up and referral plans. 12:51 Patient left the ED. jl7 Signatures: Krista Cool Stephanie, RN RN Mil Langford, RN Asher Her MD MD cha Rittger, Kevin, MD MD kdr Munoz, Edgar, RN RN Mariaelena Potter, RN KATIE Vega Christian, RN KATIE Pita [facility] Rigoberto Mcfarlane RN RN jl7 [facility] Karly, [facility] Lakhwinder Kapoor, RN RN Floyd Love MD MD ma2 Farshad Santana, RN RN mg2 Luis Currie RN RN rr5 Cass Schultz RN Negrita Rascon vc, RN RN Stacey Sanford, RN RN ll1 Corrections: (The following items were deleted from the chart) 07/25 23:01 20:30 Reassessment: Patient appears in no apparent distress at this time. No changes wh from previously documented assessment. Sitter at bedside 23:01 22:30 Reassessment: Patient appears in no apparent distress at this time. No changes wh from previously documented assessment. Sitter at bedside, Pt sleeping well no signs of distress noted 07/26 04:20 04:19 Notified ED physician of other Acetaminophen of 0, and a Salicylate of 1.3 [facility] 07/27 10:58 10:25 Reassessment: Pt brought back to the Ed by LJ, ambulating on her own. sv sv 10:59 07:55 General: Appears in no apparent distress. comfortable, Behavior is calm, sv cooperative, appropriate for age, sv 07/28 07:54 07:36 Reassessment: Dr. Horton at bedside discussing POC of pt jl7 jl7
== END 2019-07-29 12:51 | disposition home or self-care (01) ==
LOC: ER 18:50
DX: F31.9 Bipolar disorder, unspecified (principal); F43.21 Adjustment disorder with depressed mood; T43.625A Adverse effect of amphetamines, initial encounter; Z88.8 Allergy status to other drugs, medicaments and biological substances
CPT/HCPCS: 36415; 80048; 80076; 80307; 80320; 80329; 81003; 81025; 85025; 85610; 85730; 93005; 96372; 99285; J1630

== ENCOUNTER 2019-09-02 12:12 | Emergency (ER) | payer SELFPAY ==
--- OUTSIDE RECORDS SUMMARY | 2019-09-02 12:36 | XMS REPORT | Clinical Summary ---
:1990 Author Organization [facility] Address [address] [place] [id number] Care Team Providers Name Role Phone Asked, [...] INFLUENZA VACCINE 10/01/2019 Results Not on fileafter 09/01/2018 Advance Directives For more information, please contact: [phone] Type Date Recorded Patient Business Center Representative Explanati on Advance Directives, Living Will and Medical Power of Database Designer Code Status Date Activated Date Inactivated Comments Full Code 07/03/2017 2:12 AM 07/08/2017 5:15 PM Code Status decision reached by: Patient
--- OUTSIDE RECORDS SUMMARY | 2019-09-02 12:36 | XMS REPORT | Continuity of Care Document ---
:1990 Author Organization [facility] t Address [address] [place] [address] Care Team Providers Name Role Phone Asked, Pcp Primary Care Physician Unavailable Adalberto PINZONP C Attending Clinician Sohan TRAVIS N Attending Clinician Problems Condition Condition Condition Status [...] 00 dependence dependence Severe Severe Disease Active [place] protein-ca protein-ca 07-03 Me thodi caden caden 00:00: st malnutriti malnutriti [...] Comments Source History of tobacco Cigarette Smoker [place] use [facility] Sex Assigned At [place] [facility] Cigarettes smoked 2017-07-03 2017-07-03 [place] current (pack per 00:00:00 00:00:[address] day) - Reported Cigarette 2017-07-03 2017-07-03 Kelly pack-years 00:00:00 00:00:00 [facility] Alcohol intake 2017-07-03 2017-07-03 Current drinker [place] 00:00:00 00:00:00 of alcohol Catholic (finding) Alcohol Comment 2017-07-03 2017-07-03 "I binge drink" [place] 00:00:00 00:00:00 [facility] Smoking Status Start Date Stop Date Source Current every day smoker 2017-07-03 00:00:00 Yareli roper [facility] Medications This patient has no known medications. Procedures This patient has no known procedures. Plan of Care Planned Activity Planned Date Details Comments Source Future Scheduled 2019-10-01 INFLUENZA VACCINE [place] [facility] Test 00:00:00 [code = INFLUENZA VACCINE] Future Scheduled 2010 Screening for [facility] thodist Test 00:00:00 malignant neoplasm of cervix (procedure) [code = 558045642] Encounters Start End Encounter Admission Attending Care Care Encounter Source Date/Time Date/Time Type Type Clinicians Facility Department ID 2019-08-12 2019-08-12 Telephone [place] [id number] 00:00:00 00:00:00 Joleen Zuniga FRAME POLISHER [id number] [facility] [id number] MATERNAL [id number] & CHILD 107 [facility] 2018-11-04 2018-11-04 Office [facility] [id number] 13:47:40 14:48:23 Visit Maricarmen Plascencia FRAME POLISHER [id number] [facility] [id number] MATERNAL [id number] & CHILD 107 [facility] Results This patient has no known results.
--- OUTSIDE RECORDS SUMMARY | 2019-09-02 12:36 | XMS REPORT | Summary of Care ---
:1990 Author Organization [facility] Address [address] [place] [id number] Care Team Providers Name Role Phone Thais Parry Primary Care Provider Reason for Visit Reason Comments Assessment Encounter Details Date Type Department Care Team Description 08/12/2019 Telephone [facility]- A Joleen Awad, Assessment [address] [place] [place] [address] [phone] [place], [place] [address] Allergies Active Allergy Reactions Severity Noted Date Comments Citalopram Hydrobromide Other - See comments 7 HEADACHE/MIGRAINE Risperidone Swelling 07/02/2017 Whole body Sertraline Hcl Other - See comments 09/30/2017 Suici lolis ideation documented as of this encounter (statuses as of 08/15/2019) Medications No known medicationsdocumented as of this encounter (statuses as of 08/15/2019) Active Problems Problem Noted Date Psychiatric disorder 11/04/2018 S/P tubal ligation 04/24/2016 Epidermal cyst of face 12/05/2015 Custody issue 12/05/2015 Overview: 1 child with FOB; 3 children with mother of pt; pt desires to maintain custody of this child; reports she has been clean since 06/2014 History of intravenous drug use in remission 6 Overview: Last use 06/2014 History of hyperthyroidism 12/05/2015 Overview: TSH drawn at NOB visit- normal; repeat @ 28w was normal History of abnormal cervical Papanicolaou smear 2015 Overview: ASCUS (can't exclude HSIL) in 2014; repe at negative in 2016 History of herpes genitalis 12/05/2015 Overweight (BMI 25.0-29.9) 10/23/2014 documented as of this encounter (statuses as of 08/15/2019) Resolved Problems Problem Noted Date Resolved Date 40 weeks gestation of 04/24/2016 11/05/19 19 04/24/2016 11/04/2018 GBS (group B Streptococcus carrier), +RV culture, currently 04/24/2016 11/04/2018 Status post repeat low transverse section 7 11/04/2018 Liveborn infant, of [place] , born in hospital by 04/24/2016 11/04/2018 delivery Insufficient care in third trimester 04/22/2016 11/04/2018 Tubal ligation status 01/31/2016 11/04/2018 Overview: Consent 01/31/16 Psychological disorder during 01/31/2016 11/04/2018 Overview: Taking Prozac 40mg daily Gastroesophageal reflux during in second trimester , 12/05/2015 11/04/2018 antepartum High-risk in third trimester 12/05/2015 0 11/04/2018 Rh negative status during in second trimester, 07/201511/04/2018 antepartum Overview: Antibody screen neg at 28w, Rhogam given History of 2 sections 12/05/2015 9 Overview: 12/16/2011 LTCS r/t to prior traumatic v aginal delivery. 03/12/2015 repeat LTCS Papanicolaou smear of cervix with atypical squamous cells of 01/15/2015 12/05/2015 undetermined significance (ASC-US) Overview: Will fu pp History of section complicating 5 12/05/2015 History of miscarriage, currently , second trimester 10/23/2014 11/04/2018 Rh negative state in antepartum period, second trimester, fe s 09/12/2014 12/05/2015 4 Supervision of high-risk of young multigravida 03/200810/05/2014 anemia 09/30/2008 10/05/2014 Overview: ICD10 Diagnosis Term Painter Barrel Utility Group B Streptococcus carrier, +RV culture, currently pregna nt 09/30/2008 10/05/2014 Antepartum anemia 09/29/2008 11/04/2018 Overview: ICD10 Diagnosis Term Painter Barrel Utility Normal delivery 09/29/2008 10/05/2014 Herpes 09/28/2008 12/05/2015 Overview: On suppressive therapy since 36 weeks Other threatened labor, antepartum 09/28/200810/05 Overview: Active labor Supervision of other normal 10/16/2006 Carrier or suspected carrier of group B Streptococcus 200610/18/2006 documented as of this encounter (statuses as of 08/15/2019) Immunizations Name Administration Dates Next Due Influenza Virus Vaccine Quad IM 3+ YRS 01/03/2016 Rho (d) Immune Globulin 04/25/2016, 01/15/2015 Tdap 01/31/2016 documented as of this encounter Social History Tobacco Use Types Packs/Day Years Used Date Current Every Day Smoker Cigarettes Sta rted: 11/04/2001 Smokeless Tobacco: Never Used Alcohol Use Drinks/Week oz/Week Comments Yes 0 Standard drinks or equivalent 0.0 occasional Sex Assigned at Date Recorded Not on file Job Start Date Occupation Industry Not on file Not on file Not on file Travel History Travel Start Travel End No recent travel history available. documented as of this encounter Last Filed Vital Signs Not on filedocumented in this encounter Plan of Treatment Health Maintenance Due Date Last Done Comments PAP SMEAR 12/04/2018 12/05/2015, 09/08/2014, 06/11/2011, Additional history exists INFLUENZA VACCINE (Season Ended) 2019 01/03/2016 Depression Screening 11/05/2019 11/04/2018 DTaP,Tdap,and Td Vaccines (2 - 01/30/2026 01/31/2016 Td) PNEUMOCOCCAL 0-64 YEARS COMBINED Discontinued SERIES documented as of this encounter Results Not on filedocumented in this encounter Insurance Payer Benefit Plan Subscriber ID Effective Phone Address Typ e / Group Dates [facility] xxxxxxxxx 2018-Prese [phone] [address] Medicaid WOMEN [address] [place] [address] [facility] 2019-Prese [phone] [address] Medicaid WOMEN nt [address] [place] [address] documented as of this encounter
[2019-09-02] MEDS ORDERED: LORAZEPAM 1 MG TABLET ONE (13:15)
[2019-09-02 14:19] LABS: Barbiturates NEGATIVE (NEGATIVE); Benzodiazepines NEGATIVE (NEGATIVE); Cocaine NEGATIVE (NEGATIVE); METHAMPHETAM POSITIVE (NEGATIVE); Methadone NEGATIVE (NEGATIVE); Opiates NEGATIVE (NEGATIVE); Phencyclidine NEGATIVE (NEGATIVE); THC Cannibis NEGATIVE (NEGATIVE)
--- NOTE | 2019-09-02 14:23 | ER ---
Nurse's Notes [facility] Name: Jennifer Olivares Age: 29 yrs Sex: Female : 1990 Arrival Date: 09/02/2019 Time: 12:13 Bed 6 Private MD: Diagnosis: Schizophrenia, unspecified Presentation: 09/01 12:25 Chief complaint: Laura reports that this has been ongoing for approximately 1 year, ss but is getting worse for the past 1.5 -2 weeks. Has been off of her meds for a while now and she is paranoid and having auditory and visual hallucinations and has no idea what is going on. Coronavirus screen: Proceed with normal triage. Patient denies a cough. Patient denies shortness of breath or difficulty breathing. Patient denies measured and/or subjective temperature greater than 100.4F prior to today's visit. Patient denies travel on a cruise ship or to a country the [facility] currently lists as an affected area. Patient denies contact with known and/or suspected case of COVID-19. Ebola Screen: Patient denies exposure to infectious person. Patient denies travel to an Ebola-affected area in the 21 days before illness onset. Initial Sepsis Screen: Does the patient meet any 2 criteria? HR > 90 bpm. Does the patient have a suspected source of infection? No. Patient's initial sepsis screen is negative. Risk Assessment: Do you want to hurt yourself or someone else? Patient reports no desire to harm self or others. Onset of symptoms is unknown. 12:25 Method Of Arrival: Ambulatory ss 12:25 Acuity: ANKIT 2 ss Historical: - Allergies: 12:29 Celexa; ss - PMHx: 12:29 Anxiety; Bipolar disorder; Depression; Paranoid Delusions; PTSD; ss - PSHx: 12:29 ; ss - Immunization history:: Adult Immunizations unknown. - Social history:: Smoking status: Patient reports the use of cigarette tobacco products, denies chronic smoking, but will smoke occasionally, Patient/guardian denies using alcohol, street drugs, The patient lives with family. - Family history:: not pertinent. Screenin:09 Abuse screen: Denies threats or abuse. Denies injuries from another. Nutritional ph screening: No deficits noted. Tuberculosis screening: No symptoms or risk factors identified. Fall Risk None identified. Assessment: 13:00 General: Appears in no apparent distress. comfortable, slender, well groomed, Behavior ph is anxious, restless. Pain: Denies pain. Neuro: Level of Consciousness is awake, alert, obeys commands, Oriented to person, place, time, situation. Cardiovascular: Capillary refill < 3 seconds in bilateral fingers Patient's skin is warm and dry. Derm: Skin is intact, is healthy with good turgor, Skin is pink, warm \\T\\ dry. Musculoskeletal: Circulation, motion, and sensation intact. Range of motion: intact in all extremities. 13:07 Reassessment: Patient appears in no apparent distress at this time. Pt anxious, ph attempting to leave ED room, ERP at bedside to speak w/ pt, verbal order received for PO Ativan 1 mg, see APR. 14:09 Reassessment: Patient appears in no apparent distress at this time. Patient and/or ph family updated on plan of care and expected duration. Pain level reassessed. Pt still appears anxious, standing up in room, SO at bedside, blood work cancelled by ERP, urine collected and sent to lab for UDS. 14:35 Reassessment: Patient appears in no apparent distress at this time. Attempting to d/c ph pt, pt at nurses station requesting to use phone, pt attempted to dial phone multiple times, then states, " What am I doing, I don't even know what is going on." Pt taken back to ED room 6 and given d/c paperwork and prescription for risperidone, pt then states, "I can't take that, it makes me swell up and retain fluid, I am allergic to it. Do you think I can get a prescription for whatever y'all gave me earlier? It helped me feel better." ERP notified. Psych: 13:00 Subjective: Patient's mood is anxious Delusions are paranoid Hallucinations are denied. ph Objective: Patient is cooperative, guarded, restless, Speech is normal, Affect is appropriate. Interventions: Patient placed in hospital gown. Urine collected and sent for urine drug test. Suicide Risk Assessment: Sad Person Scale: Sex of patient: Female: Score 0 points. Age of patient: Score 1 point if patient 15-34. Depression: Score 0 point if signs of depression are not present. Previous Attempt: Score 0 point if patient has not previously attempted suicide. Substance Abuse: Score 1 point if patient abuses alcohol or drugs. Rational Thinking: Score 1 point if patient is lacking rational thinking. Social Support: Score 0 if social support is present/available. Organized Plan: Score 0 if patient did not have an organized plan in place. Relationship: Score 0 point if patient has a spouse or domestic partner. Chronic Sickness: Score 0 point if patient does not have a chronic illness, debilitating, or severe disorder. TOTAL POINTS: If total points are 3-4, proposed clinical action is close follow-up/consider hospitalization. Safety Checks: Personal items have been removed. Door is open. Visitors are present. Patient uses methamphetamines. Vital Signs: 12:25 BP 133 / 84; Pulse 103; Resp 22; Temp 98.0(TE); Pulse Ox 98% on R/A; Weight 63.5 kg; ss 15:00 BP 127 / 86; Pulse 101; Resp 18; Temp 98.2; Pulse Ox 99% on R/A; ph ED Course: 12:13 Patient arrived in ED. mr 12:28 Triage completed. ss 12:29 Arm band placed on right wrist. ss 12:31 Floyd Love MD is Attending Physician. ma2 13:07 Rubia Diaz, RN is Primary Nurse. ph 14:00 Patient has correct armband on for positive identification. Placed in gown. Bed in low ph position. Call light in reach. Pulse ox on. NIBP on. 15:15 No provider procedures requiring assistance completed. Patient did not have IV access ph during this emergency room visit. Administered Medications: 13:09 Drug: Ativan 1 mg Route: PO; ph 13:56 Follow up: Response: No adverse reaction ph Outcome: 14:22 Discharge ordered by . ma2 15:15 Patient left the ED. ph 15:15 Discharged to home ambulatory, with significant other. ph 15:15 Condition: good 15:15 Discharge instructions given to patient, significant other, Instructed on discharge instructions, follow up and referral plans. medication usage, Demonstrated understanding of instructions, follow-up care, medications, Prescriptions given X 1. Signatures: FuentesBrielle prado mr SchumacherMariaelena RN RN Rubia Diaz RN RN Floyd Love MD MD ma2
--- NOTE | 2019-09-02 14:23 | EDPHYS ---
Physician Documentation [facility] Name: Jennifer Olivares Age: 29 yrs Sex: Female : 1990 Arrival Date: 09/02/2019 Time: 12:13 Bed 6 Private MD: ED Physician Floyd Love HPI: 09/01 13:22 This 29 yrs old Black Female presents to ER via Ambulatory with complaints of Psych ma2 Problem. 13:22 The patient presents to the emergency department with paranoia, paranoia. Onset: The ma2 symptoms/episode began/occurred acutely, 1 day(s) ago. Past psychiatric history: Prior diagnosis: addiction history, schizophrenia. Associated signs and symptoms: Pertinent negatives: anxiety, chills, fever. Severity of symptoms: At their worst the symptoms were moderate in the emergency department the symptoms are unchanged. The patient has experienced similar episodes in the past. hx of schizophrenia taking her meds uses meth.. no si or hi. Historical: - Allergies: 12:29 Celexa; ss - PMHx: 12:29 Anxiety; Bipolar disorder; Depression; Paranoid Delusions; PTSD; ss - PSHx: 12:29 ; ss - Immunization history:: Adult Immunizations unknown. - Social history:: Smoking status: Patient reports the use of cigarette tobacco products, denies chronic smoking, but will smoke occasionally, Patient/guardian denies using alcohol, street drugs, The patient lives with family. - Family history:: not pertinent. ROS: 13:22 Constitutional: Negative for fever, chills, and weight loss. ma2 13:22 All other systems are negative. Exam: 13:22 Constitutional: This is a well developed, well nourished patient who is awake, alert, ma2 and in no acute distress. Head/Face: Normocephalic, atraumatic. Eyes: Pupils equal round and reactive to light, extra-ocular motions intact. Lids and lashes normal. Conjunctiva and sclera are non-icteric and not injected. Cornea within normal limits. Periorbital areas with no swelling, redness, or edema. ENT: Nares patent. No nasal discharge, no septal abnormalities noted. Tympanic membranes are normal and external auditory canals are clear. Oropharynx with no redness, swelling, or masses, exudates, or evidence of obstruction, uvula midline. Mucous membranes moist. Neck: Trachea midline, no thyromegaly or masses palpated, and no cervical lymphadenopathy. Supple, full range of motion without nuchal rigidity, or vertebral point tenderness. No Meningismus. Chest/axilla: Normal chest wall appearance and motion. Nontender with no deformity. No lesions are appreciated. Cardiovascular: Regular rate and rhythm with a normal S1 and S2. No gallops, murmurs, or rubs. Normal PMI, no JVD. No pulse deficits. Respiratory: Lungs have equal breath sounds bilaterally, clear to auscultation and percussion. No rales, rhonchi or wheezes noted. No increased work of breathing, no retractions or nasal flaring. Abdomen/GI: Soft, non-tender, with normal bowel sounds. No distension or tympany. No guarding or rebound. No evidence of tenderness throughout. MS/ Extremity: Pulses equal, no cyanosis. Neurovascular intact. Full, normal range of motion. Neuro: Awake and alert, GCS 15, oriented to person, place, time, and situation. Cranial nerves II-XII grossly intact. Motor strength 5/5 in all extremities. Sensory grossly intact. Cerebellar exam normal. Normal gait. 13:22 Psych: Behavior/mood is anxious, Affect is Oriented to person, place, time, Patient has no thoughts/intents to harm self or others. Delusions/hallucinations are not present. has paranoia and hear voices. Vital Signs: 12:25 BP 133 / 84; Pulse 103; Resp 22; Temp 98.0(TE); Pulse Ox 98% on R/A; Weight 63.5 kg; ss 15:00 BP 127 / 86; Pulse 101; Resp 18; Temp 98.2; Pulse Ox 99% on R/A; ph MDM: 13:22 Differential diagnosis: acute psychotic break, depression, psychosis secondary to ma2 non-compliance. Data reviewed: vital signs, nurses notes. Counseling: I had a detailed discussion with the patient and/or guardian regarding: the historical points, exam findings, and any diagnostic results supporting the discharge/admit diagnosis, the presence of at least one elevated blood pressure reading (>120/80) during this emergency department visit, the need for outpatient follow up. Response to treatment: the patient's symptoms have markedly improved after treatment. 14:22 Patient medically screened. il2 09/01 12:33 Order name: Urine Test (obtain specimen); Complete Time: 13:56 il2 09/01 12:33 Order name: Urine Drug Screen; Complete Time: 14:22 il2 09/01 14:01 Order name: Urine Dipstick--Ancillary (enter results) 1 09/01 14:01 Order name: Urine --Ancillary (enter results) 1 09/01 12:33 Order name: Urine Dipstick-Ancillary (obtain specimen); Complete Time: 13:57 [facility] Administered Medications: 13:09 Drug: Ativan 1 mg Route: PO; ph 13:56 Follow up: Response: No adverse reaction ph Disposition: 09/02/19 14:22 Discharged to Home. Impression: Schizophrenia, unspecified. - Condition is Stable. - Discharge Instructions: Schizophrenia. - Prescriptions for Ativan 1 mg Oral Tablet - take 1 tablet by ORAL route every 8 hours As needed; 10 tablet. - Medication Reconciliation Form, Thank You Letter, Antibiotic Education, Prescription Opioid Use form. - Follow up: Private Physician; When: Tomorrow; Reason: Continuance of care. Signatures: Dispatcher [employer] EDMariaelena Diaz RN RN Rubia Diaz RN RN Floyd Love MD MD il2 Corrections: (The following items were deleted from the chart) 13:21 12:33 Labs collected and sent ordered. il2 il2 13:22 12:33 EKG - Nurse/Tech ordered. il2 [facility] 15:15 14:22 09/02/2019 14:22 Discharged to Home. Impression: Schizophrenia, unspecified. ph Condition is Stable. Forms are Medication Reconciliation Form, Thank You Letter, Antibiotic Education, Prescription Opioid Use. Follow up: Private Physician; When: Tomorrow; Reason: Continuance of care. ma2
[2019-09-02 15:20] VITALS: BP 133/84; TEMP 98; O2SAT 98
[2019-09-02 15:25] LABS: Urine Blood NEGATIVE (NEG); Urine Glucose NEGATIVE (NEG); Urine Protein 1+ (NEG); Urine Specific Gravity >1.030 (1.005-1.030)
== END 2019-09-02 15:15 | disposition home or self-care (01) ==
LOC: ER 12:12
DX: F20.0 Paranoid schizophrenia (principal); F17.210 Nicotine dependence, cigarettes, uncomplicated; Z88.8 Allergy status to other drugs, medicaments and biological substances
CPT/HCPCS: 80307; 81003; 81025; 99284

== ENCOUNTER 2019-12-21 20:38 | Emergency (ER) | payer OTHER, SELFPAY ==
--- OUTSIDE RECORDS SUMMARY | 2019-12-21 20:40 | XMS REPORT | Clinical Summary ---
:1990 Author Organization [facility] Address [address] [place] [id number] Care Team Providers Name Role Phone Asked, [...] severe, dependence 8 Severe protein-calorie malnutrition 07/03/2017 Medical History Medical History Date Comments Depression Alcohol abuse Disease of thyroid gland Social History Tobacco Use Types Packs/Day Years [...] Not on file Last Filed Vital Signs Not on file Plan of Treatment Health Maintenance Due Date Last Done Comments CERVICAL CANCER SCREENING 2010 INFLUENZA VACCINE 10/01/2019 Results Not on fileafter 12/20/2018 Advance Directives For more information, please contact: [phone] Type Date Recorded 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
--- OUTSIDE RECORDS SUMMARY | 2019-12-21 20:41 | XMS REPORT | Summary of Care ---
:1990 Author Organization [facility] Address [address] [place] [address] Care Team Providers Name Role Phone Thais Parry Primary Care Provider Reason for Visit Reason Comments BACTERIAL VAGINOSIS Encounter Details Date Type Department Care Team Description 09/26/2019 Telephone [facility]- Joleen Glover, BACTERIAL VAGINOSIS [facility] [address] [facility] [address] [place] [address] [address] [place] [address] [phone] Allergies Active Allergy Reactions Severity Noted Date Comments Citalopram Hydrobromide Other - See comments 7 HEADACHE/MIGRAINE Risperidone Swelling 07/02/2017 Whole body Sertraline Hcl Other - See comments 09/30/2017 Suici lolis ideation documented as of this encounter (statuses as of 09/26/2019) Medications Medication Sig Dispensed Refills Start Date End Date Status metroNIDAZOLE 500 mg Take 1 tablet by 14 tablet 0 09/26/2019 Active tabletIndications: BV mouth 2 (two) (bacterial vaginosis) times daily. documented as of this encounter (statuses as of 09/26/2019) Active Problems Problem Noted Date Other general counseling and advice for contraceptive management 09/21/2019 Psychiatric disorder 11/04/2018 History of tubal ligation 04/24/2016 Epidermal cyst of face [...] as of this encounter (statuses as of 09/26/2019) Resolved Problems Problem Noted Date Resolved Date [...] negative state in antepartum period, second trimester, 09/12/2014 12/05/2015 4 Supervision of high-risk of young multigravida 03/200810/05/2014 anemia 09/30/2008 10/05/2014 Overview: ICD10 Diagnosis Term Collect On Delivery Clerk Utility Group B Streptococcus carrier, +RV culture, currently pregna nt 09/30/2008 10/05/2014 Antepartum anemia 09/29/2008 11/04/2018 Overview: ICD10 Diagnosis Term Collect On Delivery Clerk Utility Normal delivery 09/29/2008 10/05/2014 Herpes 09/28/2008 12/05/2015 Overview: On suppressive therapy since 36 weeks Other threatened labor, antepartum 09/28/200810/05 Overview: Active labor Supervision of other normal 10/16/2006 Carrier or suspected carrier of group B Streptococcus 200610/18/2006 documented as of this encounter (statuses as of 09/26/2019) Immunizations Name Administration Dates Next Due Influenza Virus Vaccine Quad IM 3+ YRS 01/03/2016 Rho (d) Immune Globulin 04/25/2016, 01/15/2015 TDAP 01/31/2016 documented as of this encounter Social [...] Travel End No recent travel history available. COVID-19 Exposure Response Date Recorded In the last month, have you been in contact with No / Unsure 09/21/2019 10:27 AM CDT someone who was confirmed or suspected to have Coronavirus / COVID-19? documented as of this encounter Last Filed Vital Signs Not on filedocumented in this encounter Plan of Treatment Date Type Specialty Care Team Description 09/27/2019 Office Visit [facility] Arturo Glover, CNP [address] [place], [place] [address] [phone] Health Maintenance Due Date Last Done Comments PAP SMEAR 12/04/2018 12/05/2015, 09/08/2014, 06/11/2011, Additional history exists INFLUENZA VACCINE (#1) 2019 01/03/2016 Depression Screening 09/20/2020 09/21/2019 DTaP,Tdap,and Td Vaccines (2 - 01/30/2026 01/31/2016 Td) PNEUMOCOCCAL 0-64 YEARS COMBINED Discontinued SERIES documented as of this encounter Results Not on filedocumented in this encounter Visit Diagnoses Diagnosis BV (bacterial vaginosis) - Primary Vaginitis and vulvovaginitis, unspecifie d documented in this encounter Insurance Payer Benefit Plan Subscriber ID Effective Phone Address Typ e / Group Dates [facility] xxxxxxxxx 2018-Prese [phone] [address] Medicaid WOMEN nt [address] [place] [address] documented as of this encounter
--- OUTSIDE RECORDS SUMMARY | 2019-12-21 20:41 | XMS REPORT | Summary of Care ---
:1990 Author Organization [facility] Address [address] [place] [address] Care Team Providers Name Role Phone Thais Parry Primary Care Provider Reason for Visit Reason Comments BACTERIAL VAGINOSIS Encounter Details Date Type Department Care Team Description 09/26/2019 Telephone [facility]- Joleen Glover, BACTERIAL VAGINOSIS [facility] [address] [facility] [address] [place] [address] [address] [place] [address] [phone] Allergies Active Allergy Reactions Severity Noted Date [...] anemia 09/30/2008 10/05/2014 Overview: ICD10 Diagnosis 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
--- OUTSIDE RECORDS SUMMARY | 2019-12-21 20:41 | XMS REPORT | Continuity of Care Document ---
:1990 Author Organization [facility] t Address [address] [place] [address] Care Team Providers Name Role Phone Asked, Pcp Primary Care Physician Unavailable Stacy Tidwell Attending Clinician Kylie Parry DO Attending Clinician Yovanny ORTEGA, Mega Attending Clinician Akinsipe JEROMYP, C Attending Clinician Problems Condition Condition Condition Status [...] 00 dependence dependence Severe Severe Disease Active [place] protein-ca protein-ca 07-03 Me thodi caden caden 00:00: st malnutriti malnutriti 00 on on Allergies, Adverse Reactions, Alerts Allergy Allergy Status Severity Reaction(s) Onset Inactive Treating Comm ents Source Name Type Date Date Clinician Citalopr Propensi Active Other (See migraine Kelly am ty to Comments) 07-03 Methodi adverse 00:00: st reaction 00 s to drug Risperid Propensi Active Other (See 2018-0 "my body Kelly one ty to Comments) 5-04 swell up" Meth kim adverse 00:00: st reaction 00 s to drug Social History Social Habit Start Date Stop Date Quantity Comments Source History of tobacco Cigarette Smoker [place] use [facility] Sex Assigned At [facility] Cigarettes smoked 2017-07-03 2017-07-03 [place] current (pack per 00:00:00 00:00:[address] day) - Reported Cigarette 2017-07-03 2017-07-03 Dixie pack-years 00:00:00 00:00:00 Hinduism Tobacco use and 2017-07-03 2017-07-03 Never used Kelly exposure 00:00:00 00:00:00 Hinduism Alcohol intake 2017-07-03 2017-07-03 Current drinker [place] on 00:00:00 00:00:00 of alcohol Hinduism (finding) Alcohol Comment 2017-07-03 2017-07-03 "I binge drink" [place] 00:00:00 00:00:00 Hinduism Smoking Status Start Date Stop Date Source Current every day smoker 2017-07-03 00:00:00 Yareli roper Hinduism Medications This patient has no known medications. Procedures This patient has no known procedures. Plan of Care Planned Activity Planned Date Details Comments Source Future Scheduled 2019-10-01 INFLUENZA VACCINE [place] [facility] Test 00:00:00 [code = INFLUENZA VACCINE] Future Scheduled 2010 Screening for Dixie Me thodist Test 00:00:00 malignant neoplasm of cervix (procedure) [code = 081580163] Encounters Start End Encounter Admission Attending Care Care Encounter Source Date/Time Date/Time Type Type Clinicians Facility Department ID 2019-12-21 2019-12-21 Emergency [facility] [id number] 15:36:00 16:23:00 Christopher Mcdonald [id number] [place] [id number] [place] [id number] 2019-12-19 2019-12-19 Emergency [facility] [id number] 12:15:00 12:44:00 Isatu Mcdonald [id number] [place] [id number] [place] [id number] 2019-10-20 2019-10-20 Telephone Layne Hairston [facility] [id number] 00:00:00 00:00:00 Mega Mcdonald [id number] [place] [id number] [facility] [id number] [address] 2019-10-10 2019-10-10 Telephone Adalberto [facility] [id number] 00:00:00 00:00:00 Joleen Zuniga PHOTO CHECKER [id number] [facility] [id number] [facility] [id number] & CHILD [address] [place] [address] Results This patient has no known results.
--- OUTSIDE RECORDS SUMMARY | 2019-12-21 20:42 | XMS REPORT | Summary of Care ---
:1990 Author Organization [facility] Address [address] [place] [address] Care Team Providers Name Role Phone Thais Parry Primary Care Provider Reason for Visit Reason Comments Vaginal Discharge Encounter Details Date Type Department Care Team Description 10/06/2019 Office Visit [facility]- Joleen Glover Oth er general counseling and advice for contraceptive management (Primary Dx); TABBY Vale History of tubal ligation; [address] [place] [address] [facility] [address] [place], [place] [phone] Allergies Active Allergy Reactions Severity Noted Date Comments Citalopram Hydrobromide Other - See comments 7 HEADACHE/MIGRAINE Risperidone Swelling 07/02/2017 Whole body Sertraline Hcl Other - See comments 09/30/2017 Suici lolis ideation documented as of this encounter (statuses as of 10/06/2019) Medications Medication Sig Dispensed Refills Start Date End Date Status metroNIDAZOLE 500 mg Take 1 tablet by 14 tablet 0 09/26/2019 Active tabletIndications: BV mouth 2 (two) (bacterial vaginosis) times daily. documented as of this encounter (statuses as of 10/06/2019) Active Problems Problem Noted Date Other general [...] as of this encounter (statuses as of 10/06/2019) Resolved Problems Problem Noted Date Resolved Date 40 weeks gestation of 04/24/2016 11/05/19 19 04/24/2016 11/04/2018 GBS (group B Streptococcus carrier), +RV culture, currently 04/24/2016 11/04/2018 Status post repeat low transverse section 7 11/04/2018 Liveborn , of per[place] , born [...] state in antepartum period, second trimester, fe tus 09/12/2014 12/05/2015 4 Supervision of high-risk of young multigravida 03/200810/05/2014 anemia 09/30/2008 10/05/2014 Overview: ICD10 Diagnosis Term Marketing Traffic Coordinator Utility Group B Streptococcus carrier, +RV culture, currently pregna nt 09/30/2008 10/05/2014 Antepartum anemia 09/29/2008 11/04/2018 Overview: ICD10 Diagnosis Term Marketing Traffic Coordinator Utility Normal delivery 09/29/2008 10/05/2014 Herpes 09/28/2008 12/05/2015 Overview: On suppressive therapy since 36 weeks Other threatened labor, antepartum 09/28/200810/05 Overview: Active labor Supervision of other normal 10/16/2006 Carrier or suspected carrier of group B Streptococcus 200610/18/2006 documented as of this encounter (statuses as of 10/06/2019) Immunizations Name Administration Dates Next Due Influenza [...] Assigned at Date Recorded Not on file COVID-19 Exposure Response Date Recorded In the last month, have you been in contact with No / Unsure 10/06/2019 10:47 AM CDT someone who was confirmed or suspected to have Coronavirus / COVID-19? documented as of this encounter Last Filed Vital Signs Vital Sign Reading Time Taken Comments Blood Pressure 117/72 10/06/2019 10:48 AM CDT Pulse 84 10/06/2019 10:48 AM CDT Temperature 36.9 C (98.4 F) 10/06/2019 10:48 AM CDT Respiratory Rate 16 10/06/2019 10:48 AM CDT Oxygen Saturation - - Inhaled Oxygen Concentration - - Weight 65.1 kg (143 lb 8 oz) 10/06/2019 10:48 AM CDT Height 167.6 cm (5' 6") 10/06/2019 10:48 AM CDT Body Mass Index 23.16 10/06/2019 10:48 AM CDT documented in this encounter Progress Notes Joleen Glover, WHJESENIAP - 10/06/2019 10:30 AM CDT Chief complaint: Chief Complaint Patient presents with Vaginal Discharge HPI: the patient is here today with complaints of vaginal discharge that started on yesterday. She reports a foul odor and denies all other associated symptoms today.she reports she did use monistat onlast night to see if that will help allievate the symptoms, she reports she is unsure if it did since she just use the product on last night. She reports she is not sexual active at the moment and denies the need for sti testing since she had it done recently. Histories OB History Para Term AB Living [...] SEC Spinal N SHANI 5 12/2013 4 12/2012 3 Term 12/16/11 40w0d 6 lb 7 oz (2.92 kg) M SEC EPIDURAL N SHANI 2 Term 09/29/08 40w0d 8 lb 2 oz (3.685 kg) M NORMAL SPONT EPIDURAL N SHANI Complications: Preeclampsia in period 1 Term 10/16/06 40w0d 6 lb (2.722 kg) F NORMAL SPONT EPIDURAL N SHANI Complications: Preeclampsia in period Past Medical History: Diagnosis Date Anemia Anxiety 2009 ongoing, not currently taking medication, no PCP at this time. Bipolar disorder Depression 2009 ongoing, not currently taking medication, no PCP at this time. Hypertension 2007 no PCP at this time, not on medication at this time. Hypothyroidism Ovarian cyst left ovary Pap smear abnormality of cervix STD (sexually transmitted disease) gonorrhea and chlamydia Substance abuse Trauma Family History Problem Relation Age of Onset Hypertension Mother Heart Sister Diabetes Maternal Grandmother Cancer Father Alzheimers dementia Maternal Grandfather Alzheimers dementia Paternal Grandmother Alzheimers dementia Paternal Grandfather Arthritis NoFHx Asthma NoFHx defects NoFHx Breast Cancer NoFHx Colon Cancer NoFHx Ovarian Cancer NoFHx Uterine Cancer NoFHx Depression NoFHx Genetic NoFHx High cholesterol NoFHx Mental retardation NoFHx Neurological NoFHx Osteoporosis NoFHx Psychiatry NoFHx Other - see comments NoFHx Family Status Relation Name Status Mo Alive Sis Alive MGMo Fa Alive MGFa PGMo PGFa Alive NoFHx (Not Specified) Past Surgical History: Procedure Laterality Date SECTION 12/16/2011 SECTION N/A 04/24/2016 Surgeon: Jaydon Perez; Location: [facility] HERNIA REPAIR 1995 TUBAL LIGATION Bilateral 04/24/2016 Surgeon: Jaydon Perez; Location: [facility] Social History Socioeconomic History Marital status: Single Spouse name: Not on file Number of children: Not on file Years of education: Not on file Highest education level: Not on file Occupational History Not on file Social Needs Financial resource strain: Not on file Food insecurity Worry: Not on file Inability: Not on file Transportation needs Medical: Not on file Non-medical: Not on file Tobacco Use Smoking status: Current Every Day Smoker Types: Cigarettes Start date: 11/04/2001 Smokeless tobacco: Never Used Substance and Sexual Activity Alcohol use: Yes Alcohol/week: 0.0 standard drinks Comment: occasional Drug use: Not Currently Comment: hx of iv drug use, last used 06/2014. Sexual activity: Yes Partners: Male control/protection: Surgical Comment: last sexual intercourse 10/14/2018 Lifestyle Physical activity Days per week: Not on file Minutes per session: Not on file Stress: Not on file Relationships Social connections Talks on phone: Not on file Gets together: Not on file Attends jehovah's witness service: Not on file Active member of club or organization: Not on file Attends meetings of clubs or organizations: Not on file Relationship status: Not on file Intimate partner violence Fear of current or ex partner: Not on file Emotionally abused: Not on file Physically abused: Not on file Forced sexual activity: Not on file Other Topics Concern Not on file Social History Narrative Baptism preference is Non-d. Patient lives alone. Social History Substance and Sexual Activity Sexual Activity Yes Partners: Male control/protection: Surgical Comment: last sexual intercourse 10/14/2018 Labs Labs are pending. Radiology No new radiology. Allergies Jennifer is allergic to celexa [citalopram hydrobromide]; risperidone; and zoloft [sertraline hcl]. Medications Jennifer has a current medication list which includes the following prescription(s): metronidazole. Review of Systems Constitutional: Negative. HENT: Negative. Eyes: Negative. Respiratory: Negative. Breasts: Negative. Cardiovascular: Negative. Gastrointestinal: Negative. Genitourinary: Positive for vaginal discharge. Musculoskeletal: Negative. Skin: Negative. Neurological: Negative. Psychiatric/Behavioral: Negative. Endocrine: Endocrine negative BP 117/72 (BP Location: Right arm, Patient Position: Sitting, BP CUFF SIZE: Adult Medium) | Pulse 84 | Temp 36.9 C (98.4 F) (Oral) | Resp 16 | Ht 5' 6" (1.676 m) | Wt 143 lb 8 oz (65.1 kg) | LMP 09/20/2019 (Approximate) | BMI 23.16 kg/m Pregravid BMI: Could not be calculated Physical Exam Vitals reviewed. Constitutional: She is oriented to person, place, and time. She appears well- developed and well-nourished. Her body habitus is normal. Cardiovascular: Regular rate and rhythm. Pulmonary/Chest: Normal inspiratory effort. Neuro/Psychiatric: She has a normal mood and affect. She is oriented to person, place, and time. External genitalia: Normal external genitalia appropriate for age. Normal hair distribution. No labial lesion. Urethral meatus: Normal urethral meatus size, location and no lesion. No prolapse present. Normal urethral meatus Urethra: Normal urethra. No urethral tenderness, no mass and no urethral scarring palpated. Bladder: Bladder has no fullness, no mass palpated and no tenderness. Normal bladder Vagina:No lesion inspected. Normal estrogen effect. Normal support. Vaginal discharge found. No lesions in the vagina. , +vaginal discharge Cervix: Normal cervix. No lesion. No tenderness and no discharge present. Uterus: Uterus is normal size, normal contour, normal position and non-tender. Normal uterus Adnexa: Right adnexa without tenderness, ovary enlargement or mass. Left adnexa without tenderness, ovary enlargement or mass. Normal left adnexa and normal right adnexa Assessment/Plan Return to clinic in 11 months for WWE or sooner as needed Other general counseling and advice for contraceptive management (primary encounter diagnosis) History of tubal ligation Comment: pleased Plan: as needed mgmt Vaginal discharge Comment: reports Plan: [facility] ONLY - VAGINAL PATHOGENS BY NUCLEIC ACID TESTING This visit did not involve counseling and coordination that comprised more than 50% of the visit time. TABBY Chavez 10/06/2019 11:11 AM documented in this encounter Plan of Treatment Name Type Priority Associated Diagnoses Order S chedule [facility] ONLY - VAGINAL PATHOGENS LAB Routine Vaginal dis charge Ordered: 10/06/2019 BY NUCLEIC ACID TESTING Health Maintenance Due Date Last Done Comments INFLUENZA VACCINE (#1) 2019 01/03/2016 Depression Screening 09/20/2020 09/21/2019 PAP SMEAR 09/20/2022 09/21/2019, 12/05/2015, 09/08/2014, Additional history exists DTaP,Tdap,and Td Vaccines (2 - 01/30/2026 01/31/2016 Td) PNEUMOCOCCAL 0-64 YEARS COMBINED Discontinued SERIES documented as of this encounter Results Not on filedocumented in this encounter Visit Diagnoses Diagnosis Other general counseling and advice for contraceptive management - Primary History of tubal ligation Tubal ligation status Vaginal discharge Leukorrhea, not specified as infective documented in this encounter Insurance Payer Benefit Plan Subscriber ID Effective Phone Address Typ e / Group Dates [facility] [id number] 2018-Brigid [phone] [address] Medicaid [place]OM[place] [id number] [place] [address] documented as of this encounter
--- OUTSIDE RECORDS SUMMARY | 2019-12-21 20:42 | XMS REPORT | Summary of Care ---
:1990 Author Organization [facility] Address [address] [place] [address] Care Team Providers Name Role Phone Thais Parry Primary Care Provider Reason for Visit Reason Comments Results wants resutls from prev appt Encounter Details Date Type Department Care Team Description 09/26/2019 Telephone [facility]- Akinsipe, Joleen Res ults (wants resutls TABBY Vale from prev appt) [address] [facility] [address] [place], [place] [phone] Allergies Active Allergy Reactions Severity Noted Date Comments Citalopram Hydrobromide Other - See comments 7 HEADACHE/MIGRAINE Risperidone Swelling 07/02/2017 Whole body Sertraline Hcl Other - See comments 09/30/2017 Suici lolis ideation documented as of this encounter (statuses as of 09/27/2019) Medications Medication Sig Dispensed Refills Start Date End Date Status metroNIDAZOLE 500 mg Take 1 tablet by 14 tablet 0 09/26/2019 Active tabletIndications: BV mouth 2 (two) (bacterial vaginosis) times daily. documented as of this encounter (statuses as of 09/27/2019) Active Problems Problem Noted Date Other general [...] as of this encounter (statuses as of 09/27/2019) Resolved Problems Problem Noted Date Resolved Date [...] anemia 09/30/2008 10/05/2014 Overview: ICD10 Diagnosis Term Stretcher Helper Utility Group B Streptococcus carrier, +RV culture, currently pregna nt 09/30/2008 10/05/2014 Antepartum anemia 09/29/2008 11/04/2018 Overview: ICD10 Diagnosis Term Stretcher Helper Utility Normal delivery 09/29/2008 10/05/2014 Herpes 09/28/2008 12/05/2015 Overview: On suppressive therapy since 36 weeks Other threatened labor, antepartum 09/28/200810/05 Overview: Active labor Supervision of other normal 10/16/2006 Carrier or suspected carrier of group B Streptococcus 200610/18/2006 documented as of this encounter (statuses as of 09/27/2019) Immunizations Name Administration Dates Next Due Influenza [...] 09/27/2019 Office Visit [facility] Arturo Glover, WHCNP [address] [place], [place] [address] [phone] Health Maintenance Due Date Last Done Comments [...] Address Typ e / Group Dates [facility] xxxxxxxxx 2018-Prese [phone] [address] Medicaid WOMEN nt [id number] [place] [address] documented as of this encounter
--- OUTSIDE RECORDS SUMMARY | 2019-12-21 20:42 | XMS REPORT | Summary of Care ---
:1990 Author Organization [facility] Address [address] [place] [address] Care Team Providers Name Role Phone Thais Parry Primary Care Provider Reason for Visit Reason Comments BACTERIAL VAGINOSIS Encounter Details Date Type Department Care Team Description 09/26/2019 Telephone [facility]- Joleen Glover, BACTERIAL VAGINOSIS [facility] [address] [facility] [address] [place] [address]55 [place] [address] [phone] Allergies Active Allergy Reactions Severity Noted Date [...] anemia 09/30/2008 10/05/2014 Overview: ICD10 Diagnosis Term Wheel Lacer And Truer Utility Group B Streptococcus carrier, +RV culture, currently pregna nt 09/30/2008 10/05/2014 Antepartum anemia 09/29/2008 11/04/2018 Overview: ICD10 Diagnosis Term Wheel Lacer And Truer Utility Normal delivery 09/29/2008 10/05/2014 Herpes 09/28/2008 [...] Satellites Arturo Glover, CNP [address] [place], [place] [address] [phone] Health Maintenance Due Date Last Done Comments [...] Phone Address Typ e / Group Dates [facility] xxxxxxxxx 2018-Prese [phone] [address] Medicaid WOMEN nt [address] [place] [address] documented as of this encounter
--- OUTSIDE RECORDS SUMMARY | 2019-12-21 20:42 | XMS REPORT | Summary of Care ---
:1990 Author Organization [facility] Address [address] [place] [address] Care Team Providers Name Role Phone Thais Parry Primary Care Provider Reason for Visit Reason Comments Vaginal Discharge Encounter Details Date Type Department Care Team Description 10/06/2019 Office Visit [facility]- Joleen Glover Oth er general counseling and advice for contraceptive management (Primary Dx); TABBY Vale History of tubal ligation; [address] [facility] [place], [place] [phone] Allergies Active Allergy Reactions Severity Noted Date [...] anemia 09/30/2008 10/05/2014 Overview: ICD10 Diagnosis Term Curtain Stretcher Assembler Utility Group B Streptococcus carrier, +RV culture, currently pregna nt 09/30/2008 10/05/2014 Antepartum anemia 09/29/2008 11/04/2018 Overview: ICD10 Diagnosis Term Curtain Stretcher Assembler Utility Normal delivery 09/29/2008 10/05/2014 Herpes 09/28/2008 [...] Jaydon Perez; Location: Labor and Delivery - [place] HERNIA REPAIR 1995 TUBAL LIGATION Bilateral 04/24/2016 Surgeon: Jaydon Perez; Location: Labor and Delivery - [place] Social History Socioeconomic History Marital status: Single [...] file Gets together: Not on file Attends anabaptist service: Not on file Active member of [...] Concern Not on file Social History Narrative Caodaism preference is Non-d. Patient lives alone. Social [...] Address Typ e / Group Dates [facility] [id number] 2018-Brig[place] [phone] [address] Medicaid [place] [id number] [place] [address] documented as of this encounter
--- OUTSIDE RECORDS SUMMARY | 2019-12-21 20:43 | XMS REPORT | Summary of Care ---
:1990 Author Organization [facility] [employer] Address [address] [place] [address] Care Team Providers Name Role Phone Thais Parry Primary Care Provider Reason for Visit Reason Comments BACTERIAL VAGINOSIS Encounter Details Date Type Department Care Team Description 10/10/2019 Telephone [facility]- Joleen Glover, BACTERIAL VAGINOSIS [place] [facility] 110[address] [facility] [address] [place] [address]55 [place] [address] [phone] Allergies Active Allergy Reactions Severity Noted Date Comments Citalopram Hydrobromide Other - See comments 7 HEADACHE/MIGRAINE Risperidone Swelling 07/02/2017 Whole body Sertraline Hcl Other - See comments 09/30/2017 Suici lolis ideation documented as of this encounter (statuses as of 10/10/2019) Medications Medication Sig Dispensed Refills Start Date End Date Status metroNIDAZOLE 500 mg Take 1 tablet 14 tablet 0 09/26/2019 Active tabletIndications: BV by mouth 2 (bacterial vaginosis) (two) times daily. clindamycin 300 mg Take 1 capsule 14 capsule 0 10/10/201909/30 Active capsuleIndications: BV by mouth 2 (bacterial vaginosis) (two) times daily for 7 days. documented as of this encounter (statuses as of 10/10/2019) Active Problems Problem Noted Date Other general [...] as of this encounter (statuses as of 10/10/2019) Resolved Problems Problem Noted Date Resolved Date [...] anemia 09/30/2008 10/05/2014 Overview: ICD10 Diagnosis Term Sawmill Or Timber Yard Worker Utility Group B Streptococcus carrier, +RV culture, currently pregna nt 09/30/2008 10/05/2014 Antepartum anemia 09/29/2008 11/04/2018 Overview: ICD10 Diagnosis Term Sawmill Or Timber Yard Worker Utility Normal delivery 09/29/2008 10/05/2014 Herpes 09/28/2008 12/05/2015 Overview: On suppressive therapy since 36 weeks Other threatened labor, antepartum 09/28/200810/05 Overview: Active labor Supervision of other normal 10/16/2006 Carrier or suspected carrier of group B Streptococcus 200610/18/2006 documented as of this encounter (statuses as of 10/10/2019) Immunizations Name Administration Dates Next Due Influenza [...] Signs Not on filedocumented in this encounter Miscellaneous Notes Telephone Encounter - Jessica Peres LVN - 10/10/2019 2:05 PM CDTAllikatharina Ana Laura Olivares is a 29 year old female Attempted to call patient, no answer, left vm. elephone Encounter - Joleen Glover WHCNP - 10/10/2019 1:26 PM CDTPlease notify the patient her labs are indicative of BV, meds have been sent to her pharmacy on file. Please have her complete the entire course as prescribed. TABBY Chavez 10/10/2019 1:27 PM documented in this encounter Plan of Treatment [...] Phone Address Typ e / Group Dates [facility] [id number] 2018-[place] [phone] [address] Medicaid WOMEN nt [address] [place] [address] documented as of this encounter
--- OUTSIDE RECORDS SUMMARY | 2019-12-21 20:43 | XMS REPORT | Summary of Care ---
:1990 Author Organization [facility] [employer] Address [address] [place] [address] Care Team Providers Name Role Phone Thais Parry Primary Care Provider Reason for Visit Reason Comments BACTERIAL VAGINOSIS Encounter Details Date Type Department Care Team Description 10/10/2019 Telephone [facility]- Joleen Glover, BACTERIAL VAGINOSIS [facility] [address] [facility] [address] [place] [address] 955 [place] [address] [phone] Allergies Active Allergy Reactions Severity Noted Date [...] anemia 09/30/2008 10/05/2014 Overview: ICD10 Diagnosis Term Customer Marketing Manager Utility Group B Streptococcus carrier, +RV culture, currently pregna nt 09/30/2008 10/05/2014 Antepartum anemia 09/29/2008 11/04/2018 Overview: ICD10 Diagnosis Term Customer Marketing Manager Utility Normal delivery 09/29/2008 10/05/2014 Herpes 09/28/2008 [...] this encounter Miscellaneous Notes Telephone Encounter - Joleen Glover WHCNP - 10/10/2019 1:26 PM CDT Please notify the patient her labs are indicative [...] Typ e / Group Dates [facility] [id number] 2018-[place] [phone] [address] Medicaid WOMEN nt [address] [place] [address] documented as of this encounter
--- OUTSIDE RECORDS SUMMARY | 2019-12-21 20:43 | XMS REPORT | Summary of Care ---
:1990 Author Organization [facility] Address [address] [place] [address] Care Team Providers Name Role Phone Thais Parry Primary Care Provider Reason for Visit Reason Comments Vaginal Discharge Encounter Details Date Type Department Care Team Description 10/06/2019 Office Visit [facility]- Joleen Glover Oth er general counseling and advice for contraceptive management (Primary Dx); TABBY Vale History of tubal ligation; [address] [place] [address] [facility] [place], [place] [phone] Allergies Active Allergy Reactions Severity Noted Date [...] anemia 09/30/2008 10/05/2014 Overview: ICD10 Diagnosis Term 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 Machinery 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 Utility Group B Streptococcus carrier, +RV culture, currently pregna nt 09/30/2008 10/05/2014 Antepartum anemia 09/29/2008 11/04/2018 Overview: ICD10 Diagnosis Term Footwear Machinery Instructor Utility Normal delivery 09/29/2008 10/05/2014 Herpes 09/28/2008 [...] Jaydon Perez; Location: Labor and Delivery - [place] HERNIA REPAIR 1995 TUBAL LIGATION Bilateral 04/24/2016 Surgeon: Jaydon Perez; Location: Labor and Delivery - [place] Social History Socioeconomic History Marital status: Single [...] file Gets together: Not on file Attends scientology service: Not on file Active member of [...] Concern Not on file Social History Narrative Congregation preference is Non-d. Patient lives alone. Social [...] of Treatment Name Type Priority Associated Diagnoses Date/Ti me GALV ONLY - VAGINAL LAB Routine Vaginal discharge 08/2019 2:10 PM CDT PATHOGENS BY NUCLEIC ACID TESTING Health Maintenance Due [...] Address Typ e / Group Dates [facility] [id number] 2018-[place] [phone] [address] Medicaid WOMEN nt [address] [place] [address] documented as of this encounter
--- OUTSIDE RECORDS SUMMARY | 2019-12-21 20:44 | XMS REPORT | Summary of Care ---
:1990 Author Organization [facility] [employer] Address [address] [place] [address] Care Team Providers Name Role Phone Sohan Thais TRAVIS Primary Care Provider Reason for Visit Reason Comments TEST RESULTS pap negative with negative H PV Encounter Details Date Type Department Care Team Description 10/20/2019 Telephone [facility] HairstonLayne MD TEST RESULTS ([facility]- [address] negative with negative [address] [place] [address], [address] [phone] Allergies Active Allergy Reactions Severity Noted Date Comments Citalopram Hydrobromide Other - See comments 7 HEADACHE/MIGRAINE Risperidone Swelling 07/02/2017 Whole body Sertraline Hcl Other - See comments 09/30/2017 Suici lolis ideation documented as of this encounter (statuses as of 10/20/2019) Medications Medication Sig Dispensed Refills Start Date End Date Status metroNIDAZOLE 500 mg Take 1 tablet by 14 tablet 0 09/26/2019 Active tabletIndications: BV mouth 2 (two) (bacterial vaginosis) times daily. documented as of this encounter (statuses as of 10/20/2019) Active Problems Problem Noted Date Other general [...] as of this encounter (statuses as of 10/20/2019) Resolved Problems Problem Noted Date Resolved Date 40 weeks gestation of 04/24/2016 11/05/19 19 04/24/2016 11/04/2018 GBS (group B Streptococcus carrier), +RV culture, currently 04/24/2016 11/04/2018 Status post repeat low transverse section 7 11/04/2018 Liveborn , of prery , born in hospital by 04/24/2016 11/04/2018 [...] anemia 09/30/2008 10/05/2014 Overview: ICD10 Diagnosis Term Web Portal Developer Utility Group B Streptococcus carrier, +RV culture, currently pregna nt 09/30/2008 10/05/2014 Antepartum anemia 09/29/2008 11/04/2018 Overview: ICD10 Diagnosis Term Web Portal Developer Utility Normal delivery 09/29/2008 10/05/2014 Herpes 09/28/2008 12/05/2015 Overview: On suppressive therapy since 36 weeks Other threatened labor, antepartum 09/28/200810/05 Overview: Active labor Supervision of other normal 10/16/2006 Carrier or suspected carrier of group B Streptococcus 200610/18/2006 documented as of this encounter (statuses as of 10/20/2019) Immunizations Name Administration Dates Next Due Influenza [...] this encounter Miscellaneous Notes Telephone Encounter - Prisca Pierce RN - 10/20/2019 3:31 PM CDTRN advised patient that pap and HPV were negative in 08/2019. Patient verbalized understanding. Prisca Pierce RN 10/20/2019 3:32 PM documented in this encounter Plan of [...] Phone Address Typ e / Group Dates [facility] [id number] 2018-[address] [phone] [address] Medicaid WOMEN nt [address] [place] [address] documented as of this encounter
--- OUTSIDE RECORDS SUMMARY | 2019-12-21 20:44 | XMS REPORT | Summary of Care ---
:1990 Author Organization [facility] [employer] Address [address] [place] [address] Care Team Providers Name Role Phone Thais Parry Primary Care Provider Reason for Visit Reason Comments BACTERIAL VAGINOSIS Encounter Details Date Type Department Care Team Description 10/10/2019 Telephone [facility]- Joleen Glover, BACTERIAL VAGINOSIS [facility] 1108 [facility] [address] [place] [address] 955 [place] [address] [phone] Allergies Active Allergy Reactions Severity Noted Date Comments Citalopram Hydrobromide Other - See comments 7 HEADACHE/MIGRAINE Risperidone Swelling 07/02/2017 Whole body Sertraline Hcl Other - See comments 09/30/2017 Suici lolis ideation documented as of this encounter (statuses as of 10/11/2019) Medications Medication Sig Dispensed Refills Start Date End Date Status metroNIDAZOLE 500 mg Take 1 tablet 14 tablet 0 09/26/2019 Active tabletIndications: BV by mouth 2 (bacterial vaginosis) (two) times daily. clindamycin 300 mg Take 1 capsule 14 capsule 0 10/10/201909/30 Active capsuleIndications: BV by mouth 2 (bacterial vaginosis) (two) times daily for 7 days. documented as of this encounter (statuses as of 10/11/2019) Active Problems Problem Noted Date Other general [...] as of this encounter (statuses as of 10/11/2019) Resolved Problems Problem Noted Date Resolved Date [...] anemia 09/30/2008 10/05/2014 Overview: ICD10 Diagnosis Term Pallet Stone Positioner Utility Group B Streptococcus carrier, +RV culture, currently pregna nt 09/30/2008 10/05/2014 Antepartum anemia 09/29/2008 11/04/2018 Overview: ICD10 Diagnosis Term Pallet Stone Positioner Utility Normal delivery 09/29/2008 10/05/2014 Herpes 09/28/2008 12/05/2015 Overview: On suppressive therapy since 36 weeks Other threatened labor, antepartum 09/28/200810/05 Overview: Active labor Supervision of other normal 10/16/2006 Carrier or suspected carrier of group B Streptococcus 200610/18/2006 documented as of this encounter (statuses as of 10/11/2019) Immunizations Name Administration Dates Next Due Influenza [...] Telephone Encounter - Jessica Peres LVN - 10/11/2019 8:27 AM CDTAllikatharina Ana Laura Olivares is a 29 year old female Attempted to call patient, no answer, left vm. elephone Encounter - Jessica Peres LVN - 10/10/2019 2:05 PM Stephanie Ana Laura Olivares is a 29 year [...] Phone Address Typ e / Group Dates [facility] [id number] 2018-Brig[place] [phone] [address] Medicaid WOMEN nt [address] [place] [address] documented as of this encounter
--- OUTSIDE RECORDS SUMMARY | 2019-12-21 20:44 | XMS REPORT | Summary of Care ---
:1990 Author Organization [facility] Address [address] [place] [address] Care Team Providers Name Role Phone Thais Parry [facility] Primary Care Provider Reason for Visit Reason Comments Erroneous encounter-disregard Encounter Details Date Type Department Care Team Description 10/18/2019 Telephone [facility] Maricarmen Parry, [facility]disregard [address] [place] [address] [address] [facility], [address] [facility] [place], [place] [phone] Allergies Active Allergy Reactions Severity Noted Date Comments Citalopram Hydrobromide Other - See comments 7 HEADACHE/MIGRAINE Risperidone Swelling 07/02/2017 Whole body Sertraline Hcl Other - See comments 09/30/2017 Suici lolis ideation documented as of this encounter (statuses as of 10/18/2019) Medications Medication Sig Dispensed Refills Start Date End Date Status metroNIDAZOLE 500 mg Take 1 tablet by 14 tablet 0 09/26/2019 Active tabletIndications: BV mouth 2 (two) (bacterial vaginosis) times daily. documented as of this encounter (statuses as of 10/18/2019) Active Problems Problem Noted Date Other general [...] as of this encounter (statuses as of 10/18/2019) Resolved Problems Problem Noted Date Resolved Date [...] anemia 09/30/2008 10/05/2014 Overview: ICD10 Diagnosis Term Dynamo Tender Utility Group B Streptococcus carrier, +RV culture, currently pregna nt 09/30/2008 10/05/2014 Antepartum anemia 09/29/2008 11/04/2018 Overview: ICD10 Diagnosis Term Dynamo Tender Utility Normal delivery 09/29/2008 10/05/2014 Herpes 09/28/2008 12/05/2015 Overview: On suppressive therapy since 36 weeks Other threatened labor, antepartum 09/28/200810/05 Overview: Active labor Supervision of other normal 10/16/2006 Carrier or suspected carrier of group B Streptococcus 200610/18/2006 documented as of this encounter (statuses as of 10/18/2019) Immunizations Name Administration Dates Next Due Influenza [...] this encounter Miscellaneous Notes Telephone Encounter - Eduardo Myles - 10/18/2019 2:44 PM CDTPt calling to hear PAP smear results. Please advise. documented in this encounter Plan of Treatment [...] Phone Address Typ e / Group Dates [facility] [id number] 2018-[place] [phone] [address] Medicaid WOMEN nt [address] [place] [address] documented as of this encounter
--- OUTSIDE RECORDS SUMMARY | 2019-12-21 20:44 | XMS REPORT | Summary of Care ---
:1990 Author Organization [facility] Address [address] [place] [address] Care Team Providers Name Role Phone Thais Parry Primary Care Provider Reason for Visit Reason Comments BACTERIAL VAGINOSIS Encounter Details Date Type Department Care Team Description 10/10/2019 Telephone [facility]- Joleen Glover, BACTERIAL VAGINOSIS [facility] 1108 [facility] [address] [place] [address] 955 [place] [address] [phone] Allergies Active Allergy Reactions Severity Noted Date [...] Take 1 capsule 14 capsule 0 10/10/201909/30 capsuleIndications: by mouth 2 BV (bacterial (two) times vaginosis) daily for 7 days. documented as of [...] anemia 09/30/2008 10/05/2014 Overview: ICD10 Diagnosis Term Ward Assistant Utility Group B Streptococcus carrier, +RV culture, currently pregna nt 09/30/2008 10/05/2014 Antepartum anemia 09/29/2008 11/04/2018 Overview: ICD10 Diagnosis Term Ward Assistant Utility Normal delivery 09/29/2008 10/05/2014 Herpes 09/28/2008 [...] this encounter Miscellaneous Notes Telephone Encounter - Bello Myles RN - 10/18/2019 2:54 PM CDTNotified patient of lab results +BV. Discussed medication instructions. Pt verbalized understanding.BELLO MYLES RN 10/18/2019 2:55 PM Telephone Encounter - Jessica Peres LVN - 10/12/2019 10:51 AM REESEBaomarlyn Olivares is a 29 year old female 3rd attempt to call patient, no answer, left vm, letter sent to patient. Telephone Encounter - Jessica Peres LVN - 10/11/2019 8:27 AM REESEBaomarlyn Olivares is a 29 year old female Attempted to call patient, no answer, left vm. elephone Encounter - Jessica Peres LVN - 10/10/2019 2:05 PM REESEBaomarlyn Olivares is a 29 year old female [...] Phone Address Typ e / Group Dates [facility] [id number] 2018-Prese [phone] [address] Medicaid WOMEN nt [address] [place] [address] documented as of this encounter
--- OUTSIDE RECORDS SUMMARY | 2019-12-21 20:45 | XMS REPORT | Summary of Care ---
:1990 Author Organization [facility] Address [address] [place] [address] Care Team Providers Name Role Phone Thais Parry Primary Care Provider Reason for Visit Reason Comments Ear Pain Eye Problem Auth/Cert Status Reason Specialty Diagnoses / Referred By Referred To Procedures Contact Contact Emergency Medicine [facility] Em ergency Dept [address] [place] [address] Fax: Encounter Details Date Type Department Care Team Description 12/19/2019 Emergency ADC-Emergency Depart ment Isatu Parry, DO [address] [facility] [address] taylor [address] [place] [address] [place] [address] [phone] Allergies Active Allergy Reactions Severity Noted Date Comments Citalopram Hydrobromide Other - See comments 7 HEADACHE/MIGRAINE Risperidone Swelling 07/02/2017 Whole body Sertraline Hcl Other - See comments 09/30/2017 Suici lolis ideation documented as of this encounter (statuses as of 12/19/2019) Medications Medication Sig Dispensed Refills Start Date End Date Status metroNIDAZOLE 500 mg Take 1 tablet by 14 tablet 0 09/26/2019 Active tabletIndications: BV mouth 2 (two) (bacterial vaginosis) times daily. documented as of this encounter (statuses as of 12/19/2019) Active Problems Problem Noted Date Other general [...] as of this encounter (statuses as of 12/19/2019) Resolved Problems Problem Noted Date Resolved Date [...] anemia 09/30/2008 10/05/2014 Overview: ICD10 Diagnosis Term Spinning Frame Cleaner Utility Group B Streptococcus carrier, +RV culture, currently pregna nt 09/30/2008 10/05/2014 Antepartum anemia 09/29/2008 11/04/2018 Overview: ICD10 Diagnosis Term Spinning Frame Cleaner Utility Normal delivery 09/29/2008 10/05/2014 Herpes 09/28/2008 12/05/2015 Overview: On suppressive therapy since 36 weeks Other threatened labor, antepartum 09/28/200810/05 Overview: Active labor Supervision of other normal 10/16/2006 Carrier or suspected carrier of group B Streptococcus 200610/18/2006 documented as of this encounter (statuses as of 12/19/2019) Immunizations Name Administration Dates Next Due Influenza [...] been in contact with No / Unsure 12/19/2019 12:07 PM CDT someone who was confirmed or suspected to have Coronavirus / COVID-19? documented as of this encounter Last Filed Vital Signs Vital Sign Reading Time Taken Comments Blood Pressure 118/76 12/19/2019 12:11 PM CDT Pulse 78 12/19/2019 12:11 PM CDT Temperature 37.4 C (99.3 F) 12/19/2019 12:11 PM CDT Respiratory Rate 20 12/19/2019 12:11 PM CDT Oxygen Saturation 100% 12/19/2019 12:11 PM CDT Inhaled Oxygen Concentration - - Weight 68 kg (150 lb) 12/19/2019 12:11 PM CDT Height - - Body Mass Index 24.21 10/06/2019 10:48 AM CDT documented in this encounter ED Notes Eneida Jean Baptiste RN - 12/19/2019 12:07 PM CDTPatient c/o left eye and ear pain for "awhile". Patient was brought in by EMS for a possible hematoma to her left forehead that patient states has been there for "awhile". Patient is crying in triage. EMS reports that patient has a history of psych issues. documented in this encounter Miscellaneous Notes ED Nurse Note - Eneida Jean Baptiste RN - 12/19/2019 12:43 PM CDTPatient MSE, demanding a CT scan and refusing to leave until she receives one. [place] police talkingto the patient. D Provider Screening Note - Isatu Parry DO - 12/19/2019 12:05 PM CDTPatient c/o b/l ear and eye pain for unknown time. Denies injury or trauma. States she has h/o anxiety and depression but not schizophrenia. No cough. BP 118/76 | Pulse 78 | Temp 37.4 C (99.3 F) (Oral) | Resp 20 | Wt 68 kg (150 lb) | SpO2 100% | BMI 24.21 kg/m Lungs clear. TMs pearly richardson b/l. No tenderness to pinna b/l. Pharynx pink without exudates. Denies SI and HI. No emergent medical condition exists. Can f/u with PCP. documented in this encounter Plan of Treatment [...]
--- OUTSIDE RECORDS SUMMARY | 2019-12-21 20:45 | XMS REPORT | Summary of Care ---
:1990 Author Organization [facility] Address [address] [place] [address] Care Team Providers Name Role Phone Thais Parry Primary Care Provider Reason for Referral (Routine) Status Reason Specialty Diagnoses / Referred By Referred To Procedures Contact Contact New Request [facility] Diagnoses Cyst, dermoid, face [place], Christopher B, Procedures Discharge Follow-Up: Specialty Service [facility]; 1 Week [facility] [address] [place] [address] Reason for Visit Reason Comments Abscess Auth/Cert Status Reason Specialty Diagnoses / Referred By Referred To Procedures Contact Contact Emergency Medicine [facility] Em ergency Dept [address] [place] [address] Fax: Encounter Details Date Type Department Care Team Description 12/21/2019 Emergency [facility]-Emergency Harry, Christopher B , BARREL COOPER Cyst, dermoid, face Department [address] [place] [address] (Primary Dx) [address] [place] [place] [address] [address] [place] [id number] Allergies Active Allergy Reactions Severity Noted Date Comments Citalopram Hydrobromide Other - See comments 7 HEADACHE/MIGRAINE Risperidone Swelling 07/02/2017 Whole body Sertraline Hcl Other - See comments 09/30/2017 Suici lolis ideation documented as of this encounter (statuses as of 12/21/2019) Medications Medication Sig Dispensed Refills Start Date End Date Status metroNIDAZOLE 500 mg Take 1 tablet by 14 tablet 0 09/26/2019 Active tabletIndications: BV mouth 2 (two) (bacterial vaginosis) times daily. documented as of this encounter (statuses as of 12/21/2019) Active Problems Problem Noted Date Other general [...] as of this encounter (statuses as of 12/21/2019) Resolved Problems Problem Noted Date Resolved Date [...] anemia 09/30/2008 10/05/2014 Overview: ICD10 Diagnosis Term Loader Engineer Utility Group B Streptococcus carrier, +RV culture, currently pregna nt 09/30/2008 10/05/2014 Antepartum anemia 09/29/2008 11/04/2018 Overview: ICD10 Diagnosis Term Loader Engineer Utility Normal delivery 09/29/2008 10/05/2014 Herpes 09/28/2008 12/05/2015 Overview: On suppressive therapy since 36 weeks Other threatened labor, antepartum 09/28/200810/05 Overview: Active labor Supervision of other normal 10/16/2006 Carrier or suspected carrier of group B Streptococcus 200610/18/2006 documented as of this encounter (statuses as of 12/21/2019) Immunizations Name Administration Dates Next Due Influenza [...] been in contact with No / Unsure 12/21/2019 3:30 PM CDT someone who was confirmed or suspected to have Coronavirus / COVID-19? documented as of this encounter Last Filed Vital Signs Vital Sign Reading Time Taken Comments Blood Pressure 121/82 12/21/2019 3:34 PM CDT Pulse 112 12/21/2019 3:34 PM CDT Temperature 37.2 C (98.9 F) 12/21/2019 3:34 PM CDT Respiratory Rate 16 12/21/2019 3:34 PM CDT Oxygen Saturation 100% 12/21/2019 3:34 PM CDT Inhaled Oxygen Concentration - - Weight 63.5 kg (140 lb) 12/21/2019 3:34 PM CDT Height 165.1 cm (5' 5") 12/21/2019 3:34 PM CDT Body Mass Index 23.3 12/21/2019 3:34 PM CDT documented in this encounter ED Notes Maricarmen Mcdonald RN - 12/21/2019 3:31 PM CDTPatient states: "I came in before but it's infected. I had a cut there before but I don't know why it got infected. I had a boil there before and they squeezed the stuff out." Noted: elevated round wound to left eye brow. Reports the abscess has been present for a few days and that she tried to cut into it with a razor. Pmhx: none documented in this encounter Miscellaneous Notes ED Nurse Note - Charmaine Enciso RN - 12/21/2019 4:22 PM CDTPt seen by practitioner and deemed non-emergent. Medical screening completed. Pt declined to stay. VSS, A&Ox4, No ataxia noted. documented in this encounter Plan of Treatment Health Maintenance Due Date Last Done Comments INFLUENZA VACCINE (#1) 2019 01/03/2016 Depression Screening 09/20/2020 09/21/2019 PAP SMEAR 09/20/2022 09/21/2019, 12/05/2015, 09/08/2014, Additional history exists DTaP,Tdap,and Td Vaccines (2 - 01/30/2026 01/31/2016 Td) PNEUMOCOCCAL 0-64 YEARS COMBINED Discontinued SERIES documented as of this encounter Procedures Procedure Name Priority Date/Time Associated Diagnosis Comme nts NOTICE OF PRIVACY Routine 12/21/2019 3:22 PM CDT PRACTICES documented in this encounter Results Not on filedocumented in this encounter Visit Diagnoses Diagnosis Cyst, dermoid, face - Primary Benign neoplasm of skin of other and uns pecified parts of face documented in this encounter
[2019-12-21] MEDS ORDERED: LIDOCAINE 1% MPF 5 ML VIAL ONE (21:06)
[2019-12-21] MEDS ORDERED: DIAZEPAM 5 MG TABLET ONE (21:07)
--- NOTE | 2019-12-21 22:03 | EDPHYS ---
Physician Documentation [facility] Name: Jennifer Olivares Age: 29 yrs Sex: Female : 1990 Arrival Date: 12/21/2019 Time: 20:40 Bed 14 Private MD: ED Physician Drew Whelan HPI: 12/20 21:59 This 29 yrs old Black Female presents to ER via Ambulatory with complaints of Facial rn Swelling - left eyebrow, Cyst. 21:59 The patient presents with an abscess of the outer aspect of left eyebrow. Onset: The rn symptoms/episode began/occurred 4 day(s) ago. Associated signs and symptoms: Pertinent positives: swelling, Pertinent negatives: fever. Modifying factors: the symptoms are alleviated by nothing, the symptoms are aggravated by touching. Severity of symptoms: At their worst the symptoms were mild, in the emergency department the symptoms are unchanged. The patient has experienced a previous episode. 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 - Social history:: Smoking status: Patient denies any tobacco usage or history of. - Family history:: not pertinent. - Hospitalizations: : No recent hospitalization is reported. ROS: 21:59 Constitutional: Negative for fever, chills, and weight loss, Eyes: Negative for injury, rn pain, redness, and discharge, Skin: + redness and swelling to left outer brow Exam: 21:59 Constitutional: This is a well developed, well nourished patient who is awake, alert, rn and in no acute distress. Head/Face: atraumatic, left outer brow with 2 cm diameter swollen and tende area with fluctuance, + tender Eyes: Pupils equal round and reactive to light, extra-ocular motions intact. Lids and lashes normal. Conjunctiva and sclera are non-icteric and not injected. Cornea within normal limits. Vital Signs: 20:48 BP 128 / 92; Pulse 107; Resp 16 S; Temp 99.3(TE); Pulse Ox 97% on R/A; ca1 20:48 BP 128 / 92; Pulse 110; Resp 18; Pulse Ox 99% ; ea 21:34 BP 128 / 78; Pulse 101; Resp 17 S; Pulse Ox 97% on R/A; jd3 Procedures: 21:53 I \T\ D: Incision and drainage was performed for an abscess of the outer aspect of left jmm eyebrow Prepped with Betadine, Anesthetized with 2 ml's 1% Lidocaine. Incised with #11 blade. Drained moderate amount purulent fluid. the patient tolerated the procedure well. MDM: 20:43 Patient medically screened. rn 21:59 Differential diagnosis: abscess. Data reviewed: vital signs, nurses notes, and as a rn result, I will discharge patient. Counseling: I had a detailed discussion with the patient and/or guardian regarding: the historical points, exam findings, and any diagnostic results supporting the discharge/admit diagnosis, the need for outpatient follow up, to return to the emergency department if symptoms worsen or persist or if there are any questions or concerns that arise at home. Response to treatment: the patient's symptoms have markedly improved after treatment, and as a result, I will discharge patient. Special discussion: I discussed with the patient/guardian in detail that at this point there is no indication for admission to the hospital. It is understood, however, that if the symptoms persist or worsen the patient needs to return immediately for re-evaluation. 12/20 20:51 Order name: Incision \T\ Drainage Setup; Complete Time: 20:58 rn Administered Medications: 21:02 Drug: Valium 5 mg Route: PO; ca1 22:00 Follow up: Response: No adverse reaction jd3 21:31 Drug: Lidocaine (1 %) 1 vials Volume: 5 ml; Route: Infiltration; jd3 22:19 Follow up: Response: No adverse reaction jd3 22:18 Drug: Alpine 5 mg-325 mg 1 tabs Route: PO; jd3 22:19 Follow up: Response: Medication administered at discharge. jd3 22:18 Drug: Clindamycin 300 mg Route: PO; jd3 22:18 Follow up: Response: Medication administered at discharge. jd3 Disposition: 12/21 03:19 Co-signature as Attending Physician, Drew Whelan MD. rn Disposition: 12/21/19 22:02 Discharged to Home. Impression: Cutaneous abscess of face. - Condition is Stable. - Discharge Instructions: Skin Abscess, Incision and Drainage, Care After. - Prescriptions for Clindamycin HCl 300 mg Oral Capsule - take 1 capsule by ORAL route every 6 hours for 10 days; 40 capsule. Tylenol- Codeine #3 300-30 mg Oral Tablet - take 1 tablet by ORAL route every 6 hours As needed; 12 tablet. - Medication Reconciliation Form, Thank You Letter, Antibiotic Education, Prescription Opioid Use form. - Follow up: Private Physician; When: As needed; Reason: Recheck today's complaints, Re-evaluation by your physician. - Problem is new. - Symptoms have improved. Signatures: Anthony Zepeda PA PA jmm Nieto, Roman, MD MD rn Antunez, Elena RN Stone Moran ea, RN RN jd3 Acchristiano, Taylor RN KATIE ca1 Corrections: (The following items were deleted from the chart) 12/20 22: 22:02 12/21/2019 22:02 Discharged to Home. Impression: Cutaneous abscess of face. jd3 Condition is Stable. Forms are Medication Reconciliation Form, Thank You Letter, Antibiotic Education, Prescription Opioid Use. Follow up: Private Physician; When: As needed; Reason: Recheck today's complaints, Re-evaluation by your physician. Problem is new. Symptoms have improved. rn
--- NOTE | 2019-12-21 22:03 | ER ---
Nurse's Notes [facility] Name: Jennifer Olivares Age: 29 yrs Sex: Female : 1990 Arrival Date: 12/21/2019 Time: 20:40 Bed 14 Private MD: Diagnosis: Cutaneous abscess of face Presentation: 12/20 20:43 Chief complaint: Patient states: Swelling on L upper eyebrow x 4-5 days, worse last 2 ca1 days. Reports pain on both ears and swollen glands on neck. HX of abscess on the L eyebrow lanced by pt. Denies fever. Coronavirus screen:. 20:43 Method Of Arrival: Ambulatory ca1 20:47 Chief complaint: Patient states: Reports abscess to left eye brow that started four ea days ago, pt complaining of left ear pain. 20:47 Method Of Arrival: Ambulatory ea 20:47 Coronavirus screen: At this time, the client does not indicate any symptoms associated ea with coronavirus-19. Ebola Screen: No symptoms or risks identified at this time. Initial Sepsis Screen: Does the patient meet any 2 criteria? No. Patient's initial sepsis screen is negative. Does the patient have a suspected source of infection? No. Patient's initial sepsis screen is negative. Risk Assessment: Do you want to hurt yourself or someone else? Patient reports no desire to harm self or others. 20:47 Acuity: ANKIT 3 ea 20:48 Onset of symptoms was December 21, 2019. 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 - Social history:: Smoking status: Patient denies any tobacco usage or history of. - Family history:: not pertinent. - Hospitalizations: : No recent hospitalization is reported. Screenin:46 Abuse screen: Denies threats or abuse. Nutritional screening: No deficits noted. ea Tuberculosis screening: No symptoms or risk factors identified. Fall Risk None identified. Assessment: 20:44 General: Appears uncomfortable, Behavior is appropriate for age. Pain: Complains of jd3 pain in outer aspect of left eyebrow. Neuro: Level of Consciousness is awake, alert, obeys commands, Oriented to person, place, time. Respiratory: Airway is patent Respiratory effort is even, unlabored, Respiratory pattern is regular, symmetrical. Derm: Abscess located on outer aspect of left eyebrow is half dollar sized, has no drainage, is raised. 21:33 Reassessment: Patient appears in no apparent distress at this time. Patient and/or jd3 family updated on plan of care and expected duration. Pain level reassessed. Patient is alert, oriented x 3, equal unlabored respirations, skin warm/dry/pink. Anthony CROWELL at bedside to preform I\T\D. 22:20 Reassessment: Patient appears in no apparent distress at this time. Patient and/or jd3 family updated on plan of care and expected duration. Pain level reassessed. Patient is alert, oriented x 3, equal unlabored respirations, skin warm/dry/pink. Patient states feeling better. Vital Signs: 20:48 BP 128 / 92; Pulse 107; Resp 16 S; Temp 99.3(TE); Pulse Ox 97% on R/A; ca1 20:48 BP 128 / 92; Pulse 110; Resp 18; Pulse Ox 99% ; ea 21:34 BP 128 / 78; Pulse 101; Resp 17 S; Pulse Ox 97% on R/A; jd3 ED Course: 20:40 Patient arrived in ED. am2 20:43 Drew Whelan MD is Attending Physician. rn 20:48 Triage completed. ea 20:48 Arm band placed on right wrist. Patient placed in an exam room, on a stretcher, on ea pulse oximetry. 20:48 Patient has correct armband on for positive identification. Bed in low position. Call ea light in reach. Side rails up X2. 21:04 Luz Maria Manriquez RN is Primary Nurse. ea 21:04 Primary Nurse role handed off by Luz Maria Manriquez RN jd3 21:04 Stone Clarke RN is Primary Nurse. jd3 21:34 Assist provider with I \T\ D: Set up I\T\D tray. Performed by Anthony Mickail PA Dressing with bubba 3 ABD pad, Patient tolerated well. Patient did not have IV access during this emergency room visit. Administered Medications: 21:02 Drug: Valium 5 mg Route: PO; ca1 22:00 Follow up: Response: No adverse reaction jd3 21:31 Drug: Lidocaine (1 %) 1 vials Volume: 5 ml; Route: Infiltration; jd3 22:19 Follow up: Response: No adverse reaction jd3 22:18 Drug: [place] 5 mg-325 mg 1 tabs Route: PO; jd3 22:19 Follow up: Response: Medication administered at discharge. jd3 22:18 Drug: Clindamycin 300 mg Route: PO; jd3 22:18 Follow up: Response: Medication administered at discharge. jd3 Outcome: 22:02 Discharge ordered by . rn 22:20 Discharged to home ambulatory, with family. jd3 22:20 Condition: stable 22:20 Discharge instructions given to patient, family, Instructed on discharge instructions, follow up and referral plans. medication usage, Demonstrated understanding of instructions, follow-up care, medications, Prescriptions given X 2. 22:20 Patient left the ED. jd3 Signatures: Drew Whelan MD MD rn Moreno, Amanda am2 Antunez, Elena, RN RN ea Davies, Jonathon, RN RN jd3 Acob, Cheryl RN RN ca1
[2019-12-21] MEDS ORDERED: HYDROCODONE/APAP 5/325 MG TAB ONE (22:18)
[2019-12-21 22:31] VITALS: TEMP 99.3; O2SAT 97
[2019-12-21 22:36] VITALS: BP 128/78
== END 2019-12-21 22:20 | disposition home or self-care (01) ==
LOC: ER 20:38
PROC: 0J910ZZ Drainage of Face Subcutaneous Tissue and Fascia, Open Approach (ICD-10-PCS; principal; 2019-12-21)
DX: L02.01 Cutaneous abscess of face (principal); Z88.8 Allergy status to other drugs, medicaments and biological substances
CPT/HCPCS: 99284

== ENCOUNTER 2020-01-04 21:15 | Emergency (ER) | payer OTHER ==
--- OUTSIDE RECORDS SUMMARY | 2020-01-04 21:16 | XMS REPORT | Clinical Summary ---
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
--- OUTSIDE RECORDS SUMMARY | 2020-01-04 21:17 | XMS REPORT | Continuity of Care Document ---
:1990 Author Organization [facility] t Address [address] [place] [address] Care Team Providers Name Role Phone Asked, Pcp Primary Care Physician Unavailable Problems Condition Condition Condition Status Onset Resolution [...] 00 dependence dependence Severe Severe Disease Active [place] protein-ca protein-ca 07-03 Me thodi caden caden [...] Comments Source History of tobacco Cigarette Smoker [place] use Gnosticism Sex Assigned At [place] Gnosticism Cigarettes smoked 2017-07-03 2017-07-03 [place] current (pack per 00:00:00 00:00:[address] day) - Reported Cigarette 2017-07-03 2017-07-03 [place] pack-years 00:00:00 00:00:00 Gnosticism Tobacco use and 2017-07-03 2017-07-03 Never used Kelly exposure 00:00:00 00:00:00 Gnosticism Alcohol intake 2017-07-03 2017-07-03 Current drinker [place] on 00:00:00 00:00:00 of alcohol Gnosticism (finding) Alcohol Comment 2017-07-03 2017-07-03 "I binge drink" [place] 00:00:00 00:00:00 Gnosticism Smoking Status Start Date Stop Date Source Current every day smoker 2017-07-03 00:00:00 Yareli roper Gnosticism Medications This patient has no known medications. Procedures This patient has no known procedures. Plan of Care Planned Activity Planned Date Details Comments Source Future Scheduled 2019-10-01 INFLUENZA VACCINE Yahaira contreras Gnosticism Test 00:00:00 [code = INFLUENZA VACCINE] Future Scheduled 2010 Screening for Kelly Me thodist Test 00:00:00 malignant neoplasm of cervix (procedure) [code = 028571083] Results This patient has no known results.
--- OUTSIDE RECORDS SUMMARY | 2020-01-04 21:18 | XMS REPORT | Summary of Care ---
:1990 Author Organization [facility] Address [address] [place] [address] Care Team Providers Name Role Phone Thais Parry Primary Care Provider Reason for Visit Reason Comments BACTERIAL VAGINOSIS Encounter Details Date Type Department Care Team Description 10/10/2019 Telephone [facility]- Joleen Glover, BACTERIAL VAGINOSIS [facility] [address] [facility] [address] [place] [address] [address] [place] [address] [phone] Allergies Active Allergy Reactions Severity Noted Date [...] anemia 09/30/2008 10/05/2014 Overview: ICD10 Diagnosis Term Sec Reporting Consultant Utility Group B Streptococcus carrier, +RV culture, currently pregna nt 09/30/2008 10/05/2014 Antepartum anemia 09/29/2008 11/04/2018 Overview: ICD10 Diagnosis Term Sec Reporting Consultant Utility Normal delivery 09/29/2008 10/05/2014 Herpes 09/28/2008 [...] Phone Address Typ e / Group Dates [facility] [id number] 2018-[place] [phone] Medicaid WOMEN nt [address] [place] [address] documented as of this encounter
--- OUTSIDE RECORDS SUMMARY | 2020-01-04 21:18 | XMS REPORT | Summary of Care ---
:1990 Author Organization [facility] Address [address] [place] [address] Care Team Providers Name Role Phone Thais Parry Primary Care Provider Reason for Visit Reason Comments BACTERIAL VAGINOSIS Encounter Details Date Type Department Care Team Description 10/10/2019 Telephone [facility]- Joleen Glover, BACTERIAL VAGINOSIS [facility] [address] [facility] [address] [place] [address] [address] [place] [address] [phone] Allergies Active Allergy Reactions Severity Noted Date [...] anemia 09/30/2008 10/05/2014 Overview: ICD10 Diagnosis Term Gear Technician Utility Group B Streptococcus carrier, +RV culture, currently pregna nt 09/30/2008 10/05/2014 Antepartum anemia 09/29/2008 11/04/2018 Overview: ICD10 Diagnosis Term Gear Technician Utility Normal delivery 09/29/2008 10/05/2014 Herpes 09/28/2008 [...] Typ e / Group Dates [facility] [id number] 2018-[place] [phone] Medicaid WOMEN nt [address] [place] [address] documented as of this encounter
--- OUTSIDE RECORDS SUMMARY | 2020-01-04 21:18 | XMS REPORT | Summary of Care ---
:1990 Author Organization [facility] [employer] Address [address] [place] [address] Care Team Providers Name Role Phone Thais Parry Primary Care Provider Reason for Visit Reason Comments BACTERIAL VAGINOSIS Encounter Details Date Type Department Care Team Description 10/10/2019 Telephone [facility]- Joleen Glover, BACTERIAL VAGINOSIS [facility] [address] [facility] [address] [place] [address] [address] [place] [address] [phone] Allergies Active Allergy Reactions Severity Noted Date [...] 09/30/2008 10/05/2014 Overview: ICD10 Diagnosis Term Web Specialist Utility Group B Streptococcus carrier, +RV culture, currently pregna nt 09/30/2008 10/05/2014 Antepartum anemia 09/29/2008 11/04/2018 Overview: ICD10 Diagnosis Term Web Specialist Utility Normal delivery 09/29/2008 10/05/2014 Herpes 09/28/2008 [...] Typ e / Group Dates [facility] [id number] 2018-[place] [phone] Medicaid WOMEN nt [address] [place] [address] documented as of this encounter
--- OUTSIDE RECORDS SUMMARY | 2020-01-04 21:18 | XMS REPORT | Summary of Care ---
:1990 Author Organization [facility] Address [address] [place] [address] Care Team Providers Name Role Phone Thais Parry [facility] Primary Care Provider Reason for Visit Reason Comments Erroneous encounter-disregard Encounter Details Date Type Department Care Team Description 10/18/[address] [facility] [address] [place] [address] [address] [facility], [address] [facility] [place], [place] [phone] Allergies Active Allergy Reactions Severity Noted Date [...] anemia 09/30/2008 10/05/2014 Overview: ICD10 Diagnosis Term Extractive Metallurgist Utility Group B Streptococcus carrier, +RV culture, currently pregna nt 09/30/2008 10/05/2014 Antepartum anemia 09/29/2008 11/04/2018 Overview: ICD10 Diagnosis Term Extractive Metallurgist Utility Normal delivery 09/29/2008 10/05/2014 Herpes 09/28/2008 [...] Address Typ e / Group Dates [facility] [id number] 2018-[place] [phone] Medicaid WOMEN nt [address] [place] [address] documented as of this encounter
--- OUTSIDE RECORDS SUMMARY | 2020-01-04 21:18 | XMS REPORT | Summary of Care ---
:1990 Author Organization [facility] Address [address] [place] [address] Care Team Providers Name Role Phone Thais Parry Primary Care Provider Reason for Visit Reason Comments BACTERIAL VAGINOSIS Encounter Details Date Type Department Care Team Description 10/10/2019 Telephone [facility]- Joleen Glover, BACTERIAL VAGINOSIS [facility] [address] [facility] [address] [place] [address] [address] [place] [address] [phone] Allergies Active Allergy Reactions Severity Noted Date [...] anemia 09/30/2008 10/05/2014 Overview: ICD10 Diagnosis Term Product Management Specialist Utility Group B Streptococcus carrier, +RV culture, currently pregna nt 09/30/2008 10/05/2014 Antepartum anemia 09/29/2008 11/04/2018 Overview: ICD10 Diagnosis Term Product Management Specialist Utility Normal delivery 09/29/2008 10/05/2014 Herpes [...] Phone Address Typ e / Group Dates [facility] [id number] 2018-[place] [phone] Medicaid WOMEN nt [address] [place] [address] documented as of this encounter
--- OUTSIDE RECORDS SUMMARY | 2020-01-04 21:19 | XMS REPORT | Summary of Care ---
:1990 Author Organization [facility] [employer] Address [address] [place] [id number] Care Team Providers Name Role Phone Sohan Thais TRAVIS Primary Care Provider Reason for Visit Reason Comments TEST RESULTS pap negative with negative H PV Encounter Details Date Type Department Care Team Description 10/20/2019 Telephone [facility] Women's HairstonLayne MD TEST RESULTS ([facility]- [address] negative with negative [address] [place] [address] [address], [address] [phone] Allergies Active Allergy Reactions Severity Noted Date [...] anemia 09/30/2008 10/05/2014 Overview: ICD10 Diagnosis Term Realtime Captioner Utility Group B Streptococcus carrier, +RV culture, currently pregna nt 09/30/2008 10/05/2014 Antepartum anemia 09/29/2008 11/04/2018 Overview: ICD10 Diagnosis Term Realtime Captioner Utility Normal delivery 09/29/2008 10/05/2014 Herpes 09/28/2008 [...] Address Typ e / Group Dates [facility] [id number] 2018-Prese [phone] [address] Medicaid WOMEN nt [address] [place] [address] documented as of this encounter
--- OUTSIDE RECORDS SUMMARY | 2020-01-04 21:19 | XMS REPORT | Summary of Care ---
:1990 Author Organization [facility] Address [address] [place] [address] Care Team Providers Name Role Phone Thais Parry Primary Care Provider Reason for Visit Reason Comments Ear Pain Eye Problem Auth/Cert Status Reason Specialty Diagnoses / Referred By Referred To Procedures Contact Contact Emergency Medicine Adc Em ergency Dept [address] [place] [address] Fax: Encounter Details Date Type Department Care Team Description 12/19/2019 Emergency ADC-Emergency Depart ment Isatu Parry, DO [address] [facility] Dr taylor [address] [place] [id number] [place] [address] [phone] Allergies Active Allergy Reactions Severity Noted Date [...] anemia 09/30/2008 10/05/2014 Overview: ICD10 Diagnosis Term Dielectric Tester Utility Group B Streptococcus carrier, +RV culture, currently pregna nt 09/30/2008 10/05/2014 Antepartum anemia 09/29/2008 11/04/2018 Overview: ICD10 Diagnosis Term Dielectric Tester Utility Normal delivery 09/29/2008 10/05/2014 Herpes 09/28/2008 [...] encounter Miscellaneous Notes ED Nurse Note - Enedia Jean Baptiste RN - 12/19/2019 12:43 PM CDTPatient MSE, demanding a CT scan and refusing to leave until she receives one. [place] police talkingto the patient. D Provider Screening [...]
--- OUTSIDE RECORDS SUMMARY | 2020-01-04 21:19 | XMS REPORT | Summary of Care ---
:1990 Author Organization [facility] Address [address] [place] [address] Care Team Providers Name Role Phone Thais Parry Primary Care Provider Reason for Referral (Routine) Status Reason Specialty Diagnoses / Referred By Referred To Procedures Contact Contact New Request [facility] Diagnoses Cyst, dermoid, face [place], Christopher B, Procedures Discharge Follow-Up: Specialty Service MILAD-DERMATOLOGY; 1 Week CELL STRIPPER FINAL [address] [place] [address] Reason for Visit Reason Comments Abscess Auth/Cert Status Reason Specialty Diagnoses / Referred By Referred To Procedures Contact Contact Emergency Medicine Adc Em ergency Dept [address] [place] [address] Fax: Encounter Details Date Type Department Care Team Description 12/21/2019 Emergency ADC-Emergency Harry, Christopher B , CELL STRIPPER FINAL Cyst, dermoid, face Department [address] [place] [address] (Primary Dx) [address] [place] [address] [phone] [place] [phone] Allergies Active Allergy Reactions Severity Noted Date [...] anemia 09/30/2008 10/05/2014 Overview: ICD10 Diagnosis Term Architectural Project Captain Utility Group B Streptococcus carrier, +RV culture, currently pregna nt 09/30/2008 10/05/2014 Antepartum anemia 09/29/2008 11/04/2018 Overview: ICD10 Diagnosis Term Architectural Project Captain Utility Normal delivery 09/29/2008 10/05/2014 Herpes 09/28/2008 [...]
[2020-01-04 22:11] LABS: Basophils % 0.9 % (0-1.3); Hematocrit 39.1 % (36.0-45.0); Lymphocytes % 42.5 % (15.3-44.8); MPV 8.6 fL (7.6-11.3)
[2020-01-04] MEDS ORDERED: LORazepam 2 MG/ML VIAL ONE ×2 (22:15→23:15)
[2020-01-04 22:16] LABS: Protime INR 1.2
[2020-01-04] MEDS ORDERED: DIPHENHYDRAMINE 50 MG/ML VIAL ONE ×2 (22:16→23:49)
[2020-01-04] MEDS ORDERED: HALOPERIDOL LACT 5 MG/ML INJ ONE ×2 (22:16→23:48)
[2020-01-04 22:32] LABS: ALT/SGPT 16 U/L (12-78); AST/SGOT 20 U/L (15-37); Albumin 4.2 g/dL (3.4-5.0); Alkaline Phosphatase 44 U/L (45-117); BUN Blood Urea Nitrogen 7 mg/dL (7-18); Bicarbonate 27 mmol/L (21-32); Bilirubin Direct 0.2 mg/dL (0-0.2); Bilirubin Total 0.7 mg/dL (0.2-1.0); Glucose Level 99 mg/dL (74-106); Potassium 3.4 mmol/L (3.5-5.1); Protein, Total 8.1 g/dL (6.4-8.2); Sodium Level 140 mmol/L (136-145)
[2020-01-05 02:47] LABS: Barbiturates NEGATIVE (NEGATIVE); Benzodiazepines NEGATIVE (NEGATIVE); Cocaine NEGATIVE (NEGATIVE); METHAMPHETAM POSITIVE (NEGATIVE); Methadone NEGATIVE (NEGATIVE); Opiates NEGATIVE (NEGATIVE); Phencyclidine NEGATIVE (NEGATIVE); THC Cannibis NEGATIVE (NEGATIVE)
[2020-01-05 02:52] LABS: Urine Blood NEGATIVE (NEG); Urine Glucose NEGATIVE (NEG); Urine Protein NEGATIVE (NEG); Urine pH 7.5 (5.0-7.0)
--- NOTE | 2020-01-05 06:21 | ER ---
Nurse's Notes [facility] Name: Jennifer Olivares Age: 29 yrs Sex: Female : 1990 Arrival Date: 01/04/2020 Time: 21:15 Bed 5 Private MD: Diagnosis: Methamphetamine Abuse;Psychosis Presentation: 01/03 21:30 Chief complaint: EMS states: patient is in PD, the patient daughters' friend bring her rr5 there because she noticed she is not acting right. she is concerned she might hit by a car in the road. she is known case of anxiety, depression. she is anxious,frigid, her pupils is pinpoint, she is not suicidal or homicidal. 21:30 Coronavirus screen: Client denies travel out of the [place] in the last 14 days. At this rr5 time, the client does not indicate any symptoms associated with coronavirus-19. Ebola Screen: Patient negative for fever greater than or equal to 101.5 degrees Fahrenheit, and additional compatible Ebola Virus Disease symptoms Patient denies exposure to infectious person. Patient denies travel to an Ebola-affected area in the 21 days before illness onset. Initial Sepsis Screen: Does the patient meet any 2 criteria? No. Patient's initial sepsis screen is negative. Does the patient have a suspected source of infection? No. Patient's initial sepsis screen is negative. Risk Assessment: Do you want to hurt yourself or someone else? Patient reports no desire to harm self or others. Other: denies suicidal or homicidal. Onset of symptoms was January 04, 2020. 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 - Social history:: Smoking status: Patient reports the use of cigarette tobacco products, smokes one-half pack cigarettes per day, Patient uses street drugs, Methamphetamine (Meth) Patient/guardian denies using alcohol. Screenin:44 Abuse screen: Denies threats or abuse. Denies injuries from another. Nutritional rr5 screening: No deficits noted. Tuberculosis screening: No symptoms or risk factors identified. Fall Risk IV access (20 points). Total Whitney Fall Scale indicates No Risk (0-24 pts). Assessment: 21:30 General: Appears uncomfortable, Behavior is agitated, anxious. Pain: Denies pain. rr5 Neuro: Level of Consciousness is awake, alert, Oriented to person, place, time. Cardiovascular: Capillary refill < 3 seconds Patient's skin is warm and dry. Respiratory: Airway is patent Respiratory effort is even, unlabored, Respiratory pattern is regular, symmetrical. GI: No signs and/or symptoms were reported involving the gastrointestinal system. : No signs and/or symptoms were reported regarding the genitourinary system. EENT: No signs and/or symptoms were reported regarding the EENT system. Derm: Skin is intact, is healthy with good turgor, Skin temperature is warm. Musculoskeletal: Capillary refill < 3 seconds. 22:10 Reassessment: patient shouting on herself " get out of me" no eye contact, looks rr5 anxious. ED provider aware with order made and carried out. 22:51 Reassessment: Patient appears in no apparent distress at this time. eyes closed rr5 breathing spontaneously at room air. General: Behavior is calm. 23:08 General: Behavior is anxious, crying, wakes up,walk out the room verbalized "I know my rr5 aunt is in the other room can I see her?" ED provider aware with order made and carried out. 01/04 00:29 Reassessment: Patient appears in no apparent distress at this time. back from CT scan rr5 patient resting eyes closed breathing spontaneously at room air. 02:30 Reassessment: Patient appears in no apparent distress at this time. awaiting for the rr5 patient to be awake for referral to [facility]. valuables surrendered to security. 04:30 Reassessment: Patient appears in no apparent distress at this time. No changes from rr5 previously documented assessment. 06:20 Reassessment: Patient appears in no apparent distress at this time. Patient is alert, rr5 oriented x 3, equal unlabored respirations, skin warm/dry/pink. patient respond correctly to questions, she is calm, cooperative. ED provider reassess the patient ordered for discharge. snacks given with good appetite. patient denies suicidal thought/homicidal and denies hallucination. 06:32 Reassessment: spoke to patricia (mother) [phone] she stated " I cannot come I don't have rr5 car. I don't have anyone to pick her up." spoke to rg cochran (sister) [phone] she stated " I can't come my car does not have gas, I don't have anyone who can pick her up". 07:00 Reassessment: RECD REPORT FROM RACHEL WILSON. 29 YO BF P/W AMS 2/2 USE OF CONTROLLED bp SUBSTANCE. H/O SAME. PT SLEEPING, TBDC ON SOBRIETY. 07:58 Reassessment: PT REMAINS SOMNOLENT. NO FAMILY AVAILABLE. bp 09:05 Reassessment: PT REMAINS SOMNOLENT. FAMILY OR SOBRIETY PENDING FOR D/C. bp 11:00 Reassessment: PT FED LUNCH. AOx3, BUT DECLINING TO AMBULATE. MD AND CHARGE INFORMED. bp Psych: 01/03 21:45 Subjective: Patient's mood is anxious. Objective: Patient is guarded, using poor eye rr5 contact, suspicious, Speech is delayed in response Affect is flat. Interventions: Removed personal items and placed in bag. Patient placed in hospital gown. Searched person for dangerous items. Urine collected and sent for urine drug test. Belonging list filled out. Suicide Risk Assessment: Sad Person Scale: Sex of patient: Female: Score 0 points. Age of patient: Score 1 point if patient 15-34. Depression: Score 1 point if signs of depression are present. Previous Attempt: Score 0 point if patient has not previously attempted suicide. Substance Abuse: Score 1 point if patient abuses alcohol or drugs. Rational Thinking: Score 0 point if patient has rational thinking. Social Support: Score 1 point if social support is lacking and/or unavailable. Organized Plan: Score 0 if patient did not have an organized plan in place. Relationship: Score 1 point if patient is , , , or for a single male Chronic Sickness: Score 1 point if patient has illness, chronic, debilitating, or severe. TOTAL POINTS: If total points are 5-6, proposed clinical action is to strongly consider hospitalization, depending upon confidence in the follow-up arrangement. Implement suicide precautions. Safety Checks: Personal items have been removed. Door is open. No visitors are present at this time. Patient uses methamphetamines Last use was yesterday. Commitment: Patient will be an involuntary commitment. Vital Signs: 21:30 BP 124 / 84; Pulse 85; Resp 16; Temp 98.5; Pulse Ox 99% ; Weight 63.5 kg; Height 5 ft. rr5 5 in. (165.10 cm); Pain 0/10; 01/04 00:00 BP 116 / 80; Pulse 80; Resp 19; Pulse Ox 99% ; rr5 06:00 BP 122 / 75; Pulse 75; Resp 16; Temp 98; Pulse Ox 99% ; rr5 07:58 BP 97 / 69; Pulse 75; Resp 16; Temp 97.6; Pulse Ox 97% ; bp 10:40 BP 97 / 69; Pulse 72; Resp 19; Pulse Ox 99% on R/A; mh5 01/03 21:30 Body Mass Index 23.30 (63.50 kg, 165.10 cm) rr5 ED Course: 01/03 21:15 Patient arrived in ED. cl3 21:16 Rodrigo Strauss MD is Attending Physician. mh7 21:36 Rachel Currie RN is Primary Nurse. rr5 21:44 Triage completed. rr5 21:44 Arm band placed on right wrist. rr5 21:44 Patient has correct armband on for positive identification. Placed in gown. Bed in low rr5 position. Side rails up X2. 21:50 Inserted saline lock: 22 gauge in right forearm, using aseptic technique. ,using rr5 aseptic technique. inserted by moshe shop service technician Blood collected. 01/04 00:32 CT Head Brain wo Cont In Process Unspecified. EDMS 02:15 Straight cath inserted, using sterile technique, 16 Fr. Specimen obtained. Returned ds4 clear yellow urine. Patient tolerated well. 02:30 Valuables inventory done. Locked in safe. See valuables checklist. rr5 06:20 Noel Dia MD is Referral Physician. mh7 06:33 No provider procedures requiring assistance completed. rr5 07:16 IV discontinued, intact, bleeding controlled, No redness/swelling at site. Pressure sg dressing applied. 10:41 Warm blanket given. Pulse ox on. NIBP on. mh5 Administered Medications: 01/03 22:10 Drug: Ativan 1 mg Route: IVP; Site: right forearm; rr5 23:10 Follow up: Response: No adverse reaction rr5 23:11 Drug: Ativan 1 mg Route: IVP; Site: right forearm; rr5 23:40 Follow up: Response: No adverse reaction rr5 23:42 Drug: Benadryl 50 mg Route: IM; Site: left deltoid; rr5 01/04 00:39 Follow up: Response: No adverse reaction rr5 01/03 23:43 CANCELLED (Other Intervention Used): HALdol (as decanoate) 10 mg IM once rr5 23:43 Drug: HALdol (as decanoate) 5 mg Route: IM; Site: right deltoid; rr5 01/04 00:39 Follow up: Response: No adverse reaction rr5 Outcome: 06:21 Discharge ordered by . 7 11:43 Discharged to home ambulatory. iw 11:43 Condition: good 11:43 Discharge instructions given to patient, Instructed on discharge instructions, follow up and referral plans. Demonstrated understanding of instructions, follow-up care. 11:44 Patient left the ED. iw Signatures: Dispatcher [employer] EDMS Mil Langford RN RN sg Bettie Parry RN RN iw Moshe Ruiz ds4 Pita Craft mh5 Lakhwinder Kapoor RN Rachel Martinez RN RN rr5 Rajani Milan cl3 Rodrigo Strauss MD MD 7 Corrections: (The following items were deleted from the chart) 06:34 06:20 Reassessment: Patient appears in no apparent distress at this time. Patient is rr5 alert, oriented x 3, equal unlabored respirations, skin warm/dry/pink. patient respond correctly to questions, she is calm, cooperative. ED provider reassess the patient ordered for discharge. snacks given with good appetite. rr5
--- NOTE | 2020-01-05 06:21 | EDPHYS ---
Physician Documentation [facility] Name: Jennifer Olivares Age: 29 yrs Sex: Female : 1990 Arrival Date: 01/04/2020 Time: 21:15 Bed 5 Private MD: ED Physician Rodrigo Strauss HPI: 01/03 22:55 This 29 yrs old Black Female presents to ER via EMS with complaints of Psych Problem. mh7 22:56 The patient presents to the emergency department with psychosis, has experienced mh7 auditory hallucinations, has experienced visual hallucinations, . Onset: The symptoms/episode began/occurred today. Past psychiatric history: Prior diagnosis: bipolar disorder, depression, schizophrenia, Anxiety, Psychiatric medications include:. Associated signs and symptoms: Pertinent positives; anxiety, hallucinations. Severity of symptoms: At their worst the symptoms were moderate today, in the emergency department the symptoms are unchanged. Per EMS patient's family stated that she started acting strange tonight. She has been talking fast and appeared to scratching herself and talking to herself. they told EMS that patient has been walking in the street.. 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 - Social history:: Smoking status: Patient reports the use of cigarette tobacco products, smokes one-half pack cigarettes per day, Patient uses street drugs, Methamphetamine (Meth) Patient/guardian denies using alcohol. ROS: 23:04 Constitutional: Negative for fever, chills, and weight loss, Eyes: Negative for injury, mh7 pain, redness, and discharge, ENT: Negative for injury, pain, and discharge, Neck: Negative for injury, pain, and swelling, Cardiovascular: Negative for chest pain, palpitations, and edema, Respiratory: Negative for shortness of breath, cough, wheezing, and pleuritic chest pain, Abdomen/GI: Negative for abdominal pain, nausea, vomiting, diarrhea, and constipation, Back: Negative for injury and pain, : Negative for injury, bleeding, discharge, and swelling, MS/Extremity: Negative for injury and deformity, Skin: Negative for injury, rash, and discoloration, Neuro: Negative for headache, weakness, numbness, tingling, and seizure, Allergy/Immunology: Negative for hives, rash, and allergies, Endocrine: Negative for neck swelling, polydipsia, polyuria, polyphagia, and marked weight changes, Hematologic/Lymphatic: Negative for swollen nodes, abnormal bleeding, and unusual bruising. Exam: 23:04 Head/Face: Normocephalic, atraumatic. Neck: Trachea midline, no thyromegaly or masses mh7 palpated, and no cervical lymphadenopathy. Supple, full range of motion without nuchal rigidity, or vertebral point tenderness. No Meningismus. Chest/axilla: Normal chest wall appearance and motion. Nontender with no deformity. No lesions are appreciated. Cardiovascular: Regular rate and rhythm with a normal S1 and S2. No gallops, murmurs, or rubs. Normal PMI, no JVD. No pulse deficits. Respiratory: Lungs have equal breath sounds bilaterally, clear to auscultation and percussion. No rales, rhonchi or wheezes noted. No increased work of breathing, no retractions or nasal flaring. Abdomen/GI: Soft, non-tender, with normal bowel sounds. No distension or tympany. No guarding or rebound. No evidence of tenderness throughout. Back: No spinal tenderness. No costovertebral tenderness. Full range of motion. Skin: Warm, dry with normal turgor. Normal color with no rashes, no lesions, and no evidence of cellulitis. MS/ Extremity: Pulses equal, no cyanosis. Neurovascular intact. Full, normal range of motion. Neuro: Awake and alert, GCS 15, oriented to person, place, time, and situation. Cranial nerves II-XII grossly intact. Motor strength 5/5 in all extremities. Sensory grossly intact. Cerebellar exam normal. Normal gait. 23:04 Constitutional: The patient appears in no acute distress, alert, awake, agitated, anxious. 23:04 Psych: Behavior/mood is anxious, Affect is animated, Oriented to person, place, time, Patient has no thoughts/intents to harm self or others. Judgement / Insight is normal. Memory is normal. Delusions/hallucinations are present and described as Talking to herself. Vital Signs: 21:30 BP 124 / 84; Pulse 85; Resp 16; Temp 98.5; Pulse Ox 99% ; Weight 63.5 kg; Height 5 ft. rr5 5 in. (165.10 cm); Pain 0/10; 01/04 00:00 BP 116 / 80; Pulse 80; Resp 19; Pulse Ox 99% ; rr5 06:00 BP 122 / 75; Pulse 75; Resp 16; Temp 98; Pulse Ox 99% ; rr5 07:58 BP 97 / 69; Pulse 75; Resp 16; Temp 97.6; Pulse Ox 97% ; bp 10:40 BP 97 / 69; Pulse 72; Resp 19; Pulse Ox 99% on R/A; mh5 01/03 21:30 Body Mass Index 23.30 (63.50 kg, 165.10 cm) rr5 MDM: 01/03 22:27 Patient medically screened. mh7 01/04 06:18 Differential diagnosis: acute psychotic break, depression, psychosis secondary to mh7 non-compliance, Substance Abuse. Data reviewed: vital signs, nurses notes, EMS record, old medical records, lab test result(s), CBC, drug level(s), electrolytes, urinalysis, urine drug screen, UPT: EKG, radiologic studies, CT scan. Data interpreted: Pulse oximetry: on room air is 99 %. Interpretation: normal. Counseling: I had a detailed discussion with the patient and/or guardian regarding: the historical points, exam findings, and any diagnostic results supporting the discharge/admit diagnosis, lab results, radiology results, the need for outpatient follow up, a psychiatrist, to return to the emergency department if symptoms worsen or persist or if there are any questions or concerns that arise at home. Response to treatment: the patient's symptoms have resolved after treatment, the patient's blood pressure is in an acceptable range, mental status has returned to baseline, the patient no longer shows bradycardia, the patient is not short of breath, the patient is not tachycardic, the patient's pain is gone, the patient's temperature has normalized. 01/03 21:37 Order name: Acetaminophen; Complete Time: 22:54 rr5 01/03 21:37 Order name: Basic Metabolic Panel; Complete Time: 22:54 rr5 01/03 21:37 Order name: CBC with Diff; Complete Time: 22:54 rr5 01/03 21:37 Order name: ETOH Level; Complete Time: 22:54 5 01/03 21:37 Order name: Hepatic Function; Complete Time: 22:54 rr5 01/03 21:37 Order name: PT-INR; Complete Time: 22:54 rr5 01/03 21:37 Order name: Ptt, Activated; Complete Time: 22:54 5 01/03 21:37 Order name: Salicylate; Complete Time: 22:54 rr5 01/03 21:37 Order name: Urine Drug Screen; Complete Time: 04:38 rr5 01/03 22:55 Order name: CT Head Brain wo Cont mh7 01/04 02:15 Order name: Urine --Ancillary (enter results); Complete Time: 04:38 ds4 01/04 02:15 Order name: Urine Dipstick--Ancillary (enter results); Complete Time: 04:38 4 01/03 21:37 Order name: EKG; Complete Time: 21:37 5 01/03 21:37 Order name: EKG - Nurse/Tech; Complete Time: 22:11 5 01/03 21:37 Order name: IV Saline Lock; Complete Time: 22:11 5 01/03 21:37 Order name: Labs collected and sent; Complete Time: 22:11 5 01/03 21:37 Order name: Urine Dipstick-Ancillary (obtain specimen); Complete Time: 02:13 5 01/03 21:37 Order name: Urine Test (obtain specimen); Complete Time: 02:13 5 Administered Medications: 01/03 22:10 Drug: Ativan 1 mg Route: IVP; Site: right forearm; rr5 23:10 Follow up: Response: No adverse reaction rr5 23:11 Drug: Ativan 1 mg Route: IVP; Site: right forearm; rr5 23:40 Follow up: Response: No adverse reaction rr5 23:42 Drug: Benadryl 50 mg Route: IM; Site: left deltoid; rr5 01/04 00:39 Follow up: Response: No adverse reaction rr5 01/03 23:43 CANCELLED (Other Intervention Used): HALdol (as decanoate) 10 mg IM once rr5 23:43 Drug: HALdol (as decanoate) 5 mg Route: IM; Site: right deltoid; rr5 01/04 00:39 Follow up: Response: No adverse reaction rr5 Disposition: 01/05/20 06:21 Discharged to Home. Impression: Methamphetamine Abuse, Psychosis. - Condition is Stable. - Medication Reconciliation Form, Thank You Letter, Antibiotic Education, Prescription Opioid Use form. - Follow up: Private Physician; When: 1 - 2 days; Reason: Worsening of condition, Recheck today's complaints, Continuance of care, Re-evaluation by your physician. Follow up: Noel Dia MD; When: 1 - 2 days; Reason: Worsening of condition, Recheck today's complaints. - Problem is an acute exacerbation. - Symptoms have improved. Signatures: Dispatcher [employer] EDMS Mil Langford RN RN sg Bettie Parry RN RN iw Luis Currie RN RN rr5 Rodrigo Strauss MD MD mh7 Corrections: (The following items were deleted from the chart) 01/03 23:43 23:43 HALdol (as decanoate) 10 mg IM once ordered. rr5 rr5 01/04 11:44 06:21 01/05/2020 06:21 Discharged to Home. Impression: Methamphetamine Abuse; iw Psychosis. Condition is Stable. Forms are Medication Reconciliation Form, Thank You Letter, Antibiotic Education, Prescription Opioid Use. Follow up: Private Physician; When: 1 - 2 days; Reason: Worsening of condition, Recheck today's complaints, Continuance of care, Re-evaluation by your physician. Follow up: Noel Dia; When: 1 - 2 days; Reason: Worsening of condition, Recheck today's complaints. Problem is an acute exacerbation. Symptoms have improved. mh7
--- NOTE | 2020-01-05 07:32 | EKG ---
Test Date: 2020-01-04 Test Time: 22:07:34 Multi Media Specialist: RR MEASUREMENT RESULTS: Intervals: Rate: 84 [place]: 136 QRSD: 92 QT: 358 QTc: 423 [place]: P: 73 [place]: 136 QRS: 72 T: 66 INTERPRETIVE STATEMENTS: Normal sinus rhythm with sinus arrhythmia Normal ECG Compared to ECG 07/26/2019 22:37:08 Sinus tachycardia no longer present Electronically Signed On 01-05-20 07:32:18 SPONGE DIVER by Prince Conner
--- NOTE | 2020-01-05 11:29 | RAD REPORT ---
EXAM DESCRIPTION: CT - Head Brain Wo Cont - 01/05/2020 6:22 am CLINICAL HISTORY: AMS TECHNIQUE: Contiguous axial CT images obtained through the brain without IV contrast. Coronal and sa gittal reformatted images were provided. This exam was performed according to our departmental dose-optimization program, which includes autom ated exposure control, adjustment of the mA and/or kV according to patient size and/or use of iterati ve reconstruction technique. COMPARISON: None available for comparison FINDINGS: Brain: No significant white matter changes. No focal mass effect. Tadeo-white matter differ entiation is within normal limits. No hemorrhage. Ventricles: No ventriculomegaly or midline shift. Extra-axial spaces: No extra-axial collection or hemorrhage. Paranasal sinuses and mastoid air cells: Minimal right maxillary sinus mucosal thickening. Vessels: Unremarkable Bones: Unremarkable Soft tissues: Mild left periorbital soft tissue swelling. IMPRESSION: No acute intracranial or extra-axial abnormality. Electronically signed by: Claritza Jose MD 01/05/2020 12:45 AM [employer] Due to temporary technical issues with the PACS/Fluency reporting system, reports are being signed by the in house radiologists without review as a courtesy to insure prompt reporting. The interpreting radiologist is fully responsible for the content of the report.
[2020-01-05 12:22] VITALS: BP 97/69; TEMP 97.6
[2020-01-05 12:23] VITALS: O2SAT 99
== END 2020-01-05 11:44 | disposition home or self-care (01) ==
LOC: ER 21:15
DX: F15.10 Other stimulant abuse, uncomplicated (principal); F17.210 Nicotine dependence, cigarettes, uncomplicated; F31.9 Bipolar disorder, unspecified; Z88.8 Allergy status to other drugs, medicaments and biological substances
CPT/HCPCS: 93005; 85025; 80048; 36415; 80320; 80329 ×2; 81025; 85610; 80076; 80307 ×8; 85730; 81003; 70450; 51702; 96372; 96374; 99285; J1630; J1200

== ENCOUNTER 2020-03-30 23:28 | Emergency (ER) | payer OTHER, SELFPAY ==
--- OUTSIDE RECORDS SUMMARY | 2020-03-30 23:30 | XMS REPORT | Continuity of Care Document ---
:1990 Author Organization [facility] t Address [address] [place] [address] Care Team Providers Name Role Phone Asked, Pcp Primary Care Physician Unavailable Stacy Tidwell Attending Clinician Kylie Parry DO Attending Clinician Mega Hairston MD Attending Clinician Akinsipe JEROMYP, C Attending Clinician [...] 00 dependence dependence Severe Severe Disease Active [place] protein-ca protein-ca 07-03 Ut thodi caden caden 00:00: st malnutriti malnutriti [...] Comments Source History of tobacco Cigarette Smoker [place] use [facility] Sex Assigned At [place] [facility] Cigarettes smoked 2017-07-03 2017-07-03 [place] current (pack per 00:00:00 00:00:[address] day) - Reported Cigarette 2017-07-03 2017-07-03 [place] pack-years 00:00:00 00:00:00 Y[facility] Tobacco use and 2017-07-03 2017-07-03 Never used [place] exposure 00:00:00 00:00:00 Y[place] Alcohol intake 2017-07-03 2017-07-03 Current drinker [place] 00:00:00 00:00:00 of alcohol Yazidi (finding) Alcohol Comment 2017-07-03 2017-07-03 "I binge drink" [place] 00:00:00 00:00:00 [place] Smoking Status Start Date Stop Date Source Current every day smoker 2017-07-03 00:00:00 Y[place] roper Y[facility] Medications This patient has no known medications. Procedures This patient has no known procedures. Plan of Care Planned Activity Planned Date Details Comments Source Future Scheduled 2019-10-01 INFLUENZA VACCINE [place] [facility] Test 00:00:00 [code = INFLUENZA VACCINE] Future Scheduled 2010 Screening for [place] [facility] Test 00:00:00 malignant neoplasm of cervix (procedure) [code = 905785486] Future Scheduled 2005 COVID-19 VACCINE (1 [place] [facility] Test 00:00:00 of 2) [code = COVID-19 VACCINE (1 of 2)] Encounters Start End Encounter Admission Attending Care Care Encounter Source Date/Time Date/Time Type Type Clinicians Facility Department ID 2019-12-21 2019-12-21 Emergency [facility] [id number] 15:36:00 16:23:00 Christopher Mcdonald [id number] [place] [id number] [place] [id number] 2019-12-19 2019-12-19 Emergency [facility] [id number] 12:15:00 12:44:00 Isatu Mcdonald [id number] [place] [id number] [place] [id number] 2019-10-20 2019-10-20 Telephone Layne Hairston [facility] [id number] 00:00:00 00:00:00 Mega Mcdonald [id number] [place] [id number] Profess [phone] [address] 2019-10-10 2019-10-10 Telephone Adalberto [facility] [id number] 00:00:00 00:00:00 Joleen Zuniga [employer] [id number] [facility] [id number] MATERNAL [phone] & CHILD [address] [place] [address] Results This patient has no known results.
--- OUTSIDE RECORDS SUMMARY | 2020-03-30 23:30 | XMS REPORT | Clinical Summary ---
:1990 Author Organization [facility] Address [address] [place] [id number] Care Team Providers Name Role Phone Asked, [...] Health Maintenance Due Date Last Done Comments COVID-19 VACCINE (1 of 2) 2005 CERVICAL CANCER SCREENING 2010 INFLUENZA VACCINE 10/01/2019 Results Not on fileafter 03/30/2019 Advance Directives For more information, please contact: [phone] Type Date Recorded Patient Medical Technologist Clinical Explanati on Advance Directives, Living Will and Medical Power of Plumbing Designer Code Status Date Activated Date Inactivated Comments Full Code 07/03/2017 2:12 AM 07/08/2017 5:15 PM Code Status decision reached by: Patient
[2020-03-31] MEDS ORDERED: LIDOCAINE 1% MPF 30 ML VIAL ONE ×2 (00:20→00:22)
[2020-03-31] MEDS ORDERED: MUPIROCIN 2% OINT 22GM TUBE TOP ONE (00:46)
--- NOTE | 2020-03-31 00:55 | EDPHYS ---
Physician Documentation [facility] Name: Jennifer Olivares Age: 29 yrs Sex: Female : 1990 Arrival Date: 03/30/2020 Time: 23:33 Bed 5 Private MD: ED Physician Asher Horton HPI: 03/31 00:21 This 29 yrs old Black Female presents to ER via Ambulatory with complaints of Abscess. ben 00:21 The patient presents with an abscess of the outer aspect of left eyebrow, the patient ben presents with a swollen area of the outer aspect of left eyebrow. Description: The affected area is small, confluent. Onset: The symptoms/episode began/occurred 2 day(s) ago. Associated signs and symptoms: The patient has no apparent associated signs or symptoms. Severity of symptoms: At their worst the symptoms were mild, in the emergency department the symptoms are unchanged. The patient has not experienced similar symptoms in the past. Historical: - Allergies: 03/30 23:49 Celexa; dm5 - Home Meds: 23:49 Abilify oral oral [Active]; dm5 - PMHx: 23:49 Anxiety; Bipolar disorder; Depression; Paranoid Delusions; PTSD; dm5 - PSHx: 23:49 ; dm5 - Family history:: not pertinent. ROS: 03/31 00:21 Constitutional: Negative for fever, chills, and weight loss, Eyes: Negative for injury, ben pain, redness, and discharge, Neck: Negative for injury, pain, and swelling, Cardiovascular: Negative for chest pain, palpitations, and edema, Respiratory: Negative for shortness of breath, cough, wheezing, and pleuritic chest pain, Abdomen/GI: Negative for abdominal pain, nausea, vomiting, diarrhea, and constipation, Back: Negative for injury and pain, : Negative for injury, bleeding, discharge, and swelling, MS/Extremity: Negative for injury and deformity, Skin: Negative for injury, rash, and discoloration, Neuro: Negative for headache, weakness, numbness, tingling, and seizure, Psych: Negative for depression, anxiety, suicide ideation, homicidal ideation, and hallucinations, Allergy/Immunology: Negative for hives, rash, and allergies, Endocrine: Negative for neck swelling, polydipsia, polyuria, polyphagia, and marked weight changes, Hematologic/Lymphatic: Negative for swollen nodes, abnormal bleeding, and unusual bruising. ENT: Positive for left brow abscess. Exam: 00:21 Constitutional: This is a well developed, well nourished patient who is awake, alert, ben and in no acute distress. Eyes: Pupils equal round and reactive to light, extra-ocular motions intact. Lids and lashes normal. Conjunctiva and sclera are non-icteric and not injected. Cornea within normal limits. Periorbital areas with no swelling, redness, or edema. ENT: Nares patent. No nasal discharge, no septal abnormalities noted. Tympanic membranes are normal and external auditory canals are clear. Oropharynx with no redness, swelling, or masses, exudates, or evidence of obstruction, uvula midline. Mucous membranes moist. Neck: Trachea midline, no thyromegaly or masses palpated, and no cervical lymphadenopathy. Supple, full range of motion without nuchal rigidity, or vertebral point tenderness. No Meningismus. Chest/axilla: Normal chest wall appearance and motion. Nontender with no deformity. No lesions are appreciated. Cardiovascular: Regular rate and rhythm with a normal S1 and S2. No gallops, murmurs, or rubs. Normal PMI, no JVD. No pulse deficits. Respiratory: Lungs have equal breath sounds bilaterally, clear to auscultation and percussion. No rales, rhonchi or wheezes noted. No increased work of breathing, no retractions or nasal flaring. Abdomen/GI: Soft, non-tender, with normal bowel sounds. No distension or tympany. No guarding or rebound. No evidence of tenderness throughout. Back: No spinal tenderness. No costovertebral tenderness. Full range of motion. Skin: Warm, dry with normal turgor. Normal color with no rashes, no lesions, and no evidence of cellulitis. MS/ Extremity: Pulses equal, no cyanosis. Neurovascular intact. Full, normal range of motion. Neuro: Awake and alert, GCS 15, oriented to person, place, time, and situation. Cranial nerves II-XII grossly intact. Motor strength 5/5 in all extremities. Sensory grossly intact. Cerebellar exam normal. Normal gait. Psych: Awake, alert, with orientation to person, place and time. Behavior, mood, and affect are within normal limits. 00:21 Head/face: Noted is swelling, that is moderate, of the left eye. 00:21 Eyes: Periorbital structures: appear normal, cellulitis, that is mild, erythema, that is mild, swelling, that is mild. Vital Signs: 03/30 23:47 Temp 97.9; Weight 65.77 kg; Height 5 ft. 5 in. (165.10 cm); dm5 23:50 BP 107 / 75; Pulse 120; Resp 18; Pulse Ox 96% on R/A; oe 03/31 01:00 BP 108 / 77; Pulse 94; Resp 16; Pulse Ox 100% on R/A; jb4 03/30 23:47 Body Mass Index 24.13 (65.77 kg, 165.10 cm) dm5 Procedures: 00:52 I \T\ D: Incision and drainage was performed for an abscess of the left outer aspect of ben left eyebrow and face Prepped with Betadine, Anesthetized with 8 ml's 1% Lidocaine. Incised with #11 blade. Drained moderate amount purulent fluid. bloody fluid. Packed with iodoform gauze, Dressing: non-Adherent dressing, the patient tolerated the procedure well. MDM: 03/30 23:49 Patient medically screened. [facility] 03/31 00:24 Differential diagnosis: abscess, cellulitis, insect bite. Data reviewed: vital signs, [facility] nurses notes. Data interpreted: front desk monitor: rate is 120 beats/min, rhythm is regular, Pulse oximetry: on room air is 96 %. Test interpretation: by ED physician or midlevel provider: ECG, plain radiologic studies. Counseling: I had a detailed discussion with the patient and/or guardian regarding: the historical points, exam findings, and any diagnostic results supporting the discharge/admit diagnosis, lab results, radiology results. 03/31 00:50 Order name: Wound Culture ea 03/31 01:10 Order name: Glucose, Ancillary Testing [facility] 03/31 00:21 Order name: Urine Dipstick-Ancillary (obtain specimen) [facility] 03/31 00:21 Order name: Urine Test (obtain specimen) [facility] 03/31 00:21 Order name: Dressing - Wound; Complete Time: 00:50 [facility] 03/31 00:21 Order name: Gloves, Sterile; Complete Time: 00:50 [facility] 03/31 00:21 Order name: Setup Suture Tray; Complete Time: 00:50 [facility] 03/31 00:21 Order name: Blood Glucose Level; Complete Time: 00:59 ben Administered Medications: 00:30 Drug: Lidocaine-Epinephrine -1%: (1:100,000) 6 ml {Note: Administered by ER provider.} jb4 Volume: 20 ml; Route: Infiltration; 00:59 Drug: Bactroban Ointment 2 % 1 application Route: Topical; Site: affected area; ea 01:07 Drug: Bactrim (160 mg-800 mg (DS) 1 tablet Route: PO; ea 01:07 Drug: [place] 10 mg-325 mg 1 tabs Route: PO; ea 01:07 Drug: Motrin 600 mg Route: PO; ea 01:08 Drug: Doxycycline 200 mg Route: PO; ea Disposition: 03/31/20 00:54 Discharged to Home. Impression: Cutaneous abscess of face - left brow. - Condition is Stable. - Discharge Instructions: Skin Abscess, Incision and Drainage, Skin Abscess, [id number], Incision and Drainage, Care After. - Prescriptions for Ibuprofen 600 mg Oral Tablet - take 1 tablet by ORAL route every 6 hours As needed take with food; 21 tablet. Doxycycline Hyclate 100 mg Oral Tablet - take 1 tablet by ORAL route every 12 hours; 20 tablet. Bactrim DS 800- 160 mg Oral Tablet - take 1 tablet by ORAL route every 12 hours for 10 days; 20 tablet. - Medication Reconciliation Form, Thank You Letter, Antibiotic Education, Prescription Opioid Use form. - Follow up: Private Physician; When: 2 - 3 days; Reason: Recheck today's complaints, Continuance of care, Re-evaluation by your physician. Follow up: Rosette Jensen MD; When: 2 - 3 days; Reason: Recheck today's complaints, Re-evaluation by your physician. - Problem is new. - Symptoms have improved. Signatures: Dispatcher [employer] Lizabeth Dasilva RN RN Asher Lopez MD MD cha Bryson, James, RN RN jb4 Luz Maria Manriquez RN RN ea Corrections: (The following items were deleted from the chart) 00:55 00:54 03/31/2020 00:54 Discharged to Home. Impression: Cutaneous abscess of face - left ben brow. Condition is Stable. Forms are Medication Reconciliation Form, Thank You Letter, Antibiotic Education, Prescription Opioid Use. Follow up: Private Physician; When: 2 - 3 days; Reason: Recheck today's complaints, Continuance of care, Re-evaluation by your physician. Problem is new. Symptoms have improved. ben 01:16 00:55 03/31/2020 00:54 Discharged to Home. Impression: Cutaneous abscess of face - left ea brow. Condition is Stable. Forms are Medication Reconciliation Form, Thank You Letter, Antibiotic Education, Prescription Opioid Use. Follow up: Private Physician; When: 2 - 3 days; Reason: Recheck today's complaints, Continuance of care, Re-evaluation by your physician. Follow up: Rosette Jensen; When: 2 - 3 days; Reason: Recheck today's complaints, Re-evaluation by your physician. Problem is new. Symptoms have improved. ben
--- NOTE | 2020-03-31 00:55 | ER ---
Nurse's Notes [facility] Name: Jennifer Olivares Age: 29 yrs Sex: Female : 1990 Arrival Date: 03/30/2020 Time: 23:33 Bed 5 Private MD: Diagnosis: Cutaneous abscess of face-left brow Presentation: 03/30 23:47 Chief complaint: Patient states: abscess to left eyebrow, started yesterday and dm5 worsened today. Coronavirus screen: Client denies travel out of the [place] in the last 14 days. At this time, the client does not indicate any symptoms associated with coronavirus-19. Ebola Screen: Patient negative for fever greater than or equal to 101.5 degrees Fahrenheit, and additional compatible Ebola Virus Disease symptoms Patient denies exposure to infectious person. Patient denies travel to an Ebola-affected area in the 21 days before illness onset. No symptoms or risks identified at this time. Initial Sepsis Screen: Does the patient meet any 2 criteria? No. Patient's initial sepsis screen is negative. Does the patient have a suspected source of infection? Yes: Skin breakdown/wound. Risk Assessment: Do you want to hurt yourself or someone else? Patient reports no desire to harm self or others. Onset of symptoms was March 29, 2020. 23:47 Method Of Arrival: Ambulatory dm5 23:47 Acuity: ANKIT 3 dm5 Triage Assessment: 23:49 General: Appears in no apparent distress. Behavior is cooperative, anxious. Pain: dm5 Complains of pain in left side of forehead. Neuro: No deficits noted. Cardiovascular: No deficits noted. Respiratory: No deficits noted. GI: No deficits noted. : No deficits noted. Derm: Abscess located on outer aspect of left eyebrow and left side of forehead. Historical: - Allergies: 23:49 Celexa; dm5 - Home Meds: 23:49 Abilify oral oral [Active]; dm5 - PMHx: 23:49 Anxiety; Bipolar disorder; Depression; Paranoid Delusions; PTSD; dm5 - PSHx: 23:49 ; dm5 - Family history:: not pertinent. Screenin:45 Abuse screen: Denies threats or abuse. Nutritional screening: No deficits noted. jb4 Tuberculosis screening: No symptoms or risk factors identified. Fall Risk None identified. Assessment: 23:45 General: Appears in no apparent distress. uncomfortable, Behavior is calm, cooperative, jb4 appropriate for age. Pain: Complains of pain in outer aspect of left eyebrow Pain does not radiate. Pain currently is 6 out of 10 on a pain scale. Neuro: Level of Consciousness is awake, alert, obeys commands, Oriented to person, place, time, situation. Cardiovascular: Patient's skin is warm and dry. Respiratory: Airway is patent Respiratory effort is even, unlabored, Respiratory pattern is regular, symmetrical. GI: No signs and/or symptoms were reported involving the gastrointestinal system. : No signs and/or symptoms were reported regarding the genitourinary system. EENT: No signs and/or symptoms were reported regarding the EENT system. Derm: Skin Skin is pink, warm \T\ dry. Musculoskeletal: Circulation, motion, and sensation intact. Range of motion:. 03/31 01:15 Reassessment: Patient appears in no apparent distress at this time. Patient and/or jb4 family updated on plan of care and expected duration. Pain level reassessed. Patient is alert, oriented x 3, equal unlabored respirations, skin warm/dry/pink. Vital Signs: 03/30 23:47 Temp 97.9; Weight 65.77 kg; Height 5 ft. 5 in. (165.10 cm); dm5 23:50 BP 107 / 75; Pulse 120; Resp 18; Pulse Ox 96% on R/A; oe 03/31 01:00 BP 108 / 77; Pulse 94; Resp 16; Pulse Ox 100% on R/A; jb4 03/30 23:47 Body Mass Index 24.13 (65.77 kg, 165.10 cm) dm5 ED Course: 03/30 23:33 Patient arrived in ED. cf2 23:45 Patient has correct armband on for positive identification. Bed in low position. Call jb4 light in reach. Side rails up X 1. Pulse ox on. NIBP on. 23:45 No provider procedures requiring assistance completed. Patient did not have IV access jb4 during this emergency room visit. 23:48 Triage completed. dm5 23:49 Asher Horton MD is Attending Physician. ben 23:49 Luz Maria Manriquez RN is Primary Nurse. ea 23:49 Arm band placed on Patient placed in an exam room, on a stretcher. dm5 03/31 00:54 Rosette Jensen MD is Referral Physician. ben Administered Medications: 00:30 Drug: Lidocaine-Epinephrine -1%: (1:100,000) 6 ml {Note: Administered by ER provider.} jb4 Volume: 20 ml; Route: Infiltration; 00:59 Drug: Bactroban Ointment 2 % 1 application Route: Topical; Site: affected area; ea 01:07 Drug: Bactrim (160 mg-800 mg (DS) 1 tablet Route: PO; ea 01:07 Drug: [place] 10 mg-325 mg 1 tabs Route: PO; ea 01:07 Drug: Motrin 600 mg Route: PO; ea 01:08 Drug: Doxycycline 200 mg Route: PO; ea Outcome: 00:54 Discharge ordered by MD. ben 01:15 Discharged to home ambulatory. jb4 01:15 Condition: stable 01:15 Discharge instructions given to patient, Instructed on discharge instructions, follow up and referral plans. medication usage, Demonstrated understanding of instructions, follow-up care, medications, Prescriptions given X 3. 01:16 Patient left the ED. ea Signatures: Lizabeth Clarke, RN RN Asher Lopez MD MD cha Bryson, James, RN RN [email or web address] Andrea Patrick Elena, RN RN Sudeep Ovied[place]
[2020-03-31] MEDS ORDERED: IBUPROFEN 200 MG TAB PO ONE (01:20)
[2020-03-31] MEDS ORDERED: SMZ./TMP. 800/160 MG TABLET ONE (01:20)
[2020-03-31] MEDS ORDERED: HYDROCODONE/APAP 10/325 TAB ONE (01:20)
[2020-03-31] MEDS ORDERED: DOXYCYCLINE 100 MG CAP PO ONE (01:21)
[2020-03-31] MEDS ORDERED: IBUPROFEN 400 MG TAB ONE (01:21)
[2020-03-31 02:09] VITALS: TEMP 97.9
[2020-03-31 02:11] VITALS: BP 108/77; O2SAT 100
== END 2020-03-31 01:16 | disposition home or self-care (01) ==
LOC: ER 23:28
PROC: 0H91XZZ Drainage of Face Skin, External Approach (ICD-10-PCS; principal; 2020-03-30)
DX: L02.01 Cutaneous abscess of face (principal); F31.9 Bipolar disorder, unspecified; F41.9 Anxiety disorder, unspecified; F43.10 Post-traumatic stress disorder, unspecified
CPT/HCPCS: 82947; 87070; 87205; 99283

== ENCOUNTER 2020-11-11 18:01 | Emergency (ER) | payer SELFPAY ==
[2020-11-11 18:48] LABS: Urine Blood Negative (Negative); Urine Glucose Negative (Negative); Urine Protein 1+ (Negative); Urine Specific Gravity 1.025 (1.005-1.030)
--- NOTE | 2020-11-11 19:09 | ER ---
Nurse's Notes [facility] Name: Jennifer Olivares Age: 30 yrs Sex: Female : 1990 Arrival Date: 11/11/2020 Time: 18:04 Bed 24 Private MD: Diagnosis: Chest pain, unspecified;Rib Contusion Presentation: 11/11 18:08 Chief complaint: Fell onto coffee table while wrestling with boyfriend 2 days ago, c/o hb sternal and left sided chest wall pain 10/09. Coronavirus screen: At this time, the client does not indicate any symptoms associated with coronavirus-19. Ebola Screen: No symptoms or risks identified at this time. Risk Assessment: Do you want to hurt yourself or someone else? Patient reports no desire to harm self or others. Onset of symptoms was November 09, 2020. 18:08 Method Of Arrival: Ambulatory hb 18:08 Acuity: ANKIT 4 hb 18:42 Initial Sepsis Screen: Does the patient meet any 2 criteria? No. Patient's initial kg sepsis screen is negative. Does the patient have a suspected source of infection? No. Patient's initial sepsis screen is negative. 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 - Social history:: Smoking status: Reported history of juuling and/or vaping. - Family history:: not pertinent. - Hospitalizations: : No recent hospitalization is reported. Screenin:41 Abuse screen: Denies threats or abuse. Denies injuries from another. Nutritional kg screening: No deficits noted. Tuberculosis screening: No symptoms or risk factors identified. Fall Risk None identified. Assessment: 18:40 General: Appears in no apparent distress. Behavior is calm, cooperative, appropriate kg for age, quiet. Pain: Complains of pain in epigastric area and left upper quadrant Pain radiates to xiphoid area and mid-sternal area Pain currently is 7 out of 10 on a pain scale. level that patient reports is acceptable is 3 out of 10 on a pain scale. Quality of pain is described as aching, sharp. Neuro: No deficits noted. EENT: No deficits noted. Cardiovascular: No deficits noted. Respiratory: No deficits noted. GI: No deficits noted. : No deficits noted. Derm: No deficits noted. 19:37 Reassessment: Patient appears in no apparent distress at this time. No changes from vg1 previously documented assessment. Patient and/or family updated on plan of care and expected duration. Pain level reassessed. Patient is alert, oriented x 3, equal unlabored respirations, skin warm/dry/pink. Vital Signs: 18:08 BP 123 / 76; Pulse 106; Resp 16; Temp 98.2; Pulse Ox 100% on R/A; Weight 73.48 kg; hb Height 5 ft. 5 in. (165.10 cm); Pain 8/10; 18:30 BP 115 / 79; Pulse 87; Resp 18; Pulse Ox 100% ; kg 19:37 BP 114 / 82; Pulse 98; Resp 16; Pulse Ox 100% ; vg1 18:08 Body Mass Index 26.96 (73.48 kg, 165.10 cm) hb ED Course: 18:04 Patient arrived in ED. rg4 18:10 Triage completed. hb 18:10 Arm band placed on. hb 18:15 Drew Whelan MD is Attending Physician. rn 18:32 Yumiko Dowling, KATIE is Primary Nurse. kg 18:41 Patient has correct armband on for positive identification. kg 18:41 No provider procedures requiring assistance completed. kg 18:59 XRAY Chest Pa And Lat (2 Views) In Process Unspecified. EDMS 19:37 Patient did not have IV access during this emergency room visit. vg1 Administered Medications: No medications were administered Outcome: 19:08 Discharge ordered by . rn 19:37 Discharged to home ambulatory. vg1 19:37 Condition: stable 19:37 Discharge instructions given to patient, Instructed on discharge instructions, follow up and referral plans. Demonstrated understanding of instructions, follow-up care. 19:38 Patient left the ED. vg1 Signatures: Dispatcher [employer] EDMS Drew Whelan MD MD rn Baxter, Heather, RN RN Danielle Chávez rg4 Prisca Chávez RN RN vg1 Yumiko Dowling RN RN kg
--- NOTE | 2020-11-11 19:09 | EDPHYS ---
Physician Documentation [facility] Name: Jennifer Olivares Age: 30 yrs Sex: Female : 1990 Arrival Date: 11/11/2020 Time: 18:04 Bed 24 Private MD: ED Physician Drew Whelan HPI: 11/11 18:25 This 30 yrs old Black Female presents to ER via Ambulatory with complaints of Fall rn Injury. 18:35 Details of fall: The patient fell from an upright position, while standing. Onset: The rn symptoms/episode began/occurred 2 day(s) ago. Associated injuries: The patient sustained injury to the chest, pain with movement. Severity of symptoms: At their worst the symptoms were mild, in the emergency department the symptoms are unchanged. The patient has not experienced similar symptoms in the past. The patient has not recently seen a physician. Patient reports was messing around and fell onto a coffee table 2 days ago. Reports pain to lower sternum and along left inferior ribs and under her breasts. Hurts to move and touch. Denies shortness of breath. Hurt immediately but was not too bad, slowly getting worse now. Does not take any blood thinners. Denies abdominal pain or back pain.. 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 - Social history:: Smoking status: Reported history of juuling and/or vaping. - Family history:: not pertinent. - Hospitalizations: : No recent hospitalization is reported. ROS: 18:35 Constitutional: Negative for fever, chills, and weight loss, Eyes: Negative for injury, rn pain, redness, and discharge, Neck: Negative for injury, pain, and swelling, Cardiovascular: Positive for anterior chest pain Respiratory: Negative for shortness of breath, cough, wheezing Abdomen/GI: Negative for abdominal pain, nausea, vomiting, diarrhea, and constipation, Back: Negative for injury and pain, : Negative for injury, bleeding, discharge, and swelling, MS/Extremity: Negative for injury and deformity, Skin: Negative for injury, rash, and discoloration, Neuro: Negative for headache, weakness, numbness, tingling, and seizure. Exam: 18:35 Constitutional: This is a well developed, well nourished patient who is awake, alert, rn and in no acute distress. Chest/axilla: Mild tenderness inferior sternum and along anterior lateral inferior ribs. No crepitus. No mobile segments. Cardiovascular: Regular rate and rhythm. No pulse deficits. Respiratory: Speaking full sentences, unlabored. Abdomen/GI: Soft, nontender. Vital Signs: 18:08 BP 123 / 76; Pulse 106; Resp 16; Temp 98.2; Pulse Ox 100% on R/A; Weight 73.48 kg; hb Height 5 ft. 5 in. (165.10 cm); Pain 8/10; 18:30 BP 115 / 79; Pulse 87; Resp 18; Pulse Ox 100% ; kg 19:37 BP 114 / 82; Pulse 98; Resp 16; Pulse Ox 100% ; vg1 18:08 Body Mass Index 26.96 (73.48 kg, 165.10 cm) hb MDM: 18:15 Patient medically screened. rn 19:07 Differential diagnosis: contusion, fracture. Data reviewed: vital signs, nurses notes, rn radiologic studies, plain films, and as a result, I will discharge patient. Data interpreted: Pulse oximetry: on room air is 100 %. Interpretation: normal. Test interpretation: by ED physician or midlevel provider: plain radiologic studies, CXR neg for pneumothorax or displaced rib fracture. Counseling: I had a detailed discussion with the patient and/or guardian regarding: the historical points, exam findings, and any diagnostic results supporting the discharge/admit diagnosis, radiology results, the need for outpatient follow up, to return to the emergency department if symptoms worsen or persist or if there are any questions or concerns that arise at home. Special discussion: Based on the patient's history, exam, and Dx evaluation, there is no indication for emergent intervention or inpatient Tx. It is understood by the patient/guardian that if the Sx's persist or worsen they need to return immediately for re-evaluation. I discussed with the patient/guardian in detail that at this point there is no indication for admission to the hospital. It is understood, however, that if the symptoms persist or worsen the patient needs to return immediately for re-evaluation. 11/11 18:47 Order name: Urine Dipstick-Ancillary; Complete Time: 19:04 EDMS 11/11 18:47 Order name: Urine --Ancillary (enter results); Complete Time: 07:14 tt3 11/11 18:12 Order name: XRAY Chest Pa And Lat (2 Views); Complete Time: 07:14 rn 11/11 18:47 Order name: Urine Test (obtain specimen); Complete Time: 18:48 tt3 Administered Medications: No medications were administered Disposition Summary: 11/11/20 19:08 Discharge Ordered Location: Home rn Problem: new rn Symptoms: have improved rn Condition: Stable rn Diagnosis - Chest pain, unspecified rn - Rib Contusion rn Followup: rn - With: Private Physician - When: As needed - Reason: Recheck today's complaints, Re-evaluation by your physician Discharge Instructions: - Discharge Summary Sheet rn - Rib Contusion rn - Nonspecific Chest Pain, Adult rn - Chest Wall Pain rn Forms: - Medication Reconciliation Form rn - Thank You Letter rn - Antibiotic care director rn - Prescription Opioid Use rn Signatures: Dispatcher [employer] EDDrew Grande MD MD rn Baxter, Heather RN RN Marcelo Rock tt3 Yumiko Dowling RN RN kg
[2020-11-11 19:21] LABS: Urine Specific Gravity/Preg 1.025 (1.005-1.030)
--- NOTE | 2020-11-11 19:32 | RAD REPORT ---
EXAM DESCRIPTION: RAD - Chest Pa And Lat (2 Views) - 11/11/2020 7:00 pm CLINICAL HISTORY: BLUNT CHEST TRAUMA Chest pain. COMPARISON: Chest Single View dated 08/05/2017; CHEST SINGLE VIEW dated 09/22/2009; CHEST SINGLE VIEW d ated 10/04/2008 FINDINGS: The lungs are clear. The heart is normal in size. No displaced fractures. IMPRESSION: No acute or concerning finding suspected.
[2020-11-11 19:50] VITALS: BP 115/79; O2SAT 100
== END 2020-11-11 19:38 | disposition home or self-care (01) ==
LOC: ER 18:01
DX: S20.20XA Contusion of thorax, unspecified, initial encounter (principal); W19.XXXA Unspecified fall, initial encounter; F31.9 Bipolar disorder, unspecified; Z88.8 Allergy status to other drugs, medicaments and biological substances
CPT/HCPCS: 71046; 81003; 81025; 99283

== ENCOUNTER 2021-01-29 16:41 | Emergency (ER) | payer SELFPAY ==
--- OUTSIDE RECORDS SUMMARY | 2021-01-29 16:46 | XMS REPORT | Continuity of Care Document ---
:1990 Author Organization [facility] t Address [address] [place] [address] Care Team Providers Name Role Phone Aliyah KIRBY Attending Clinician Unavailable Thais SAAVEDRA Attending Clinician Unavailable Harry GIRALDOP, B Attending Clinician Kylie Saavedra DO Attending Clinician Yovanny ORTEGA, Mega Attending Clinician Adalberto JESENIAP, C Attending Clinician ADALBERTO C Attending Clinician Unavailable Payers Payer Name Policy Type Policy Number Effective Date Expiration Date Zuhair alexandre [id number] 2018 00:00:00 Problems This patient has no known problems. Allergies, Adverse Reactions, Alerts Allergy Allergy Status Severity Reaction(s) Onset Inactive Treating Comm ents Source Name Type Date Date Clinician SERTRALI DRUG Active Other-Cmnt Univ ers [place] HCL INGREDI 8-01 ity of 00:00: [facility] RISPERID DRUG Active Swelling 2017-0 Univer s ONE INGREDI 5-03 ity of 00:00: [facility] CITALOPR DRUG Active Other-Cmnt 2016- Univ ers AM INGREDI 2-23 ity of HYDROBRO 00:00: [facility] Medications This patient has no known medications. Procedures This patient has no known procedures. Encounters Start End Encounter Admission Attending Care Care Encounter Source Date/Time Date/Time Type Type Clinicians Facility Department ID 2020-12-29 Emergency [facility] [id number] Univers 00:18:42 ity of [facility] 2020-12-28 Emergency [facility] [id number] Univers 23:43:11 ity [facility] 2020-12-28 Emergency [facility] [id number] Univers 05:38:46 ity [facility] 2020-09-25 2020-09-25 Outpatient Aliyah KIRBY [facility] [id number] Univers 10:30:00 10:30:00 JACK [id number] ity o f [facility] 2020-09-25 2020-09-25 Outpatient Aliyah KIRBY [facility] [id number] Univers 10:30:00 10:30:00 ANETADAVID ity o f [facility] 2020-07-18 2020-07-18 Outpatient Aliyah KIRBY [facility] [id number] Univers 10:30:00 10:30:00 JACK [id number] ity o f [facility] 2020-07-18 2020-07-18 Outpatient Aliyah KIRBY [facility] [id number] Univers 10:30:00 10:30:00 ANETADAVID ity o f [facility] 2020-07-12 2020-07-12 Outpatient KERI [facility] [id number] Univers 08:15:00 08:15:00 TERESA [id number] [facility] 2019-12-21 2019-12-21 [facility] [id number] 15:36:00 16:23:00 Christopher Mcdonald [id number] [place] [id number] [place] [id number] 2019-12-19 2019-12-19 [facility] [id number] 12:15:00 12:44:00 Isatu Mcdonald [id number] [place] [id number] [place] [id number] 2019-10-20 2019-10-20 Layne King [facility] [id number] 00:00:00 00:00:00 Mega Mcdonald [id number] [place] [id number] Professio [id number] [address] 2019-10-10 2019-10-10 Telephone Adalberto, [facility] [id number] 00:00:00 00:00:00 Joleen Zuniga [employer] [id number] [facility] [id number] MATERNAL [id number] & CHILD [address] [place] [address] 2019-10-06 2019-10-06 Outpatient R AKINSIPE, [facility] [id number] Univers 10:30:00 10:30:00 JOLEEN sydneey [facility] 2019-10-06 2019-10-06 Outpatient R AKINSIPE, [facility] [id number] Univers 10:30:00 10:30:00 [facility]-09[facility] 2019-09-27 Outpatient R AKINSIPE, [facility] [id number] Univers 14:15:00 14:15:00 [facility] [id number] [facility] 2019-09-[facility] 2019-09-27 Outpatient R AKINSIPE, [facility] [id number] Univers 14:15:00 14:15:00 [facility] 2019-09[facility]21 2019-09-21 Outpatient AKINSIPE, [facility] [id number] Univers 10:15:00 10:15:00 [facility] [id number] [facility] 2019-09[facility] 2019-09-21 Outpatient R AKINSIPE, [facility] [id number] Univers 10:15:00 10:15:00 JOLEEN [facility] Results This patient has no known results.
[2021-01-29] MEDS ORDERED: LIDOCAINE 1% W/EPI 1:100,000 MDV 50 ML VIAL ONE (17:52)
[2021-01-29] MEDS ORDERED: SMZ./TMP. 800/160 MG TABLET ONE (17:58)
[2021-01-29] MEDS ORDERED: DOXYCYCLINE 100 MG CAP PO ONE (17:58)
[2021-01-29] MEDS ORDERED: BACI/NEOMYCIN/POLY OINT 15GM TOP ONE (18:00)
--- NOTE | 2021-01-29 18:20 | EDPHYS ---
Physician Documentation [facility] Name: Jennifer Olivares Age: 30 yrs Sex: Female : 1990 Arrival Date: 01/29/2021 Time: 16:42 Bed Treatment Private MD: ED Physician Asher Horton HPI: 01/29 17:32 This 30 yrs old Black Female presents to ER via Ambulatory with complaints of left ben eyebrow swelling. 17:32 The patient presents with an abscess of the outer aspect of left eyebrow. Description: ben fluctuant, swollen. Onset: The symptoms/episode began/occurred 3 day(s) ago. Possible cause(s): unknown. Associated signs and symptoms: The patient has no apparent associated signs or symptoms. Modifying factors: the symptoms are alleviated by remaining still. Severity of symptoms: At their worst the symptoms were mild, in the emergency department the symptoms are unchanged. The patient has not experienced similar symptoms in the past. SOURCER: 17:27 LMP N/A - Tubal ligation ld1 Historical: - Allergies: 17:27 Celexa; ld1 - Home Meds: 17:27 Abilify Oral [Active]; ld1 - PMHx: 17:27 Bipolar disorder; Anxiety; Depression; Paranoid Delusions; PTSD; ld1 - PSHx: 17:27 None; ld1 - Immunization history:: Adult Immunizations not up to date, Client reports having NOT received the Covid vaccine. - Social history:: Smoking status: Patient denies any tobacco usage or history of. Patient/guardian denies using alcohol. - Family history:: not pertinent. ROS: 17:32 Constitutional: Negative for fever, chills, and weight loss, ENT: Negative for injury, ben pain, and discharge, Neck: Negative for injury, pain, and swelling, Cardiovascular: Negative for chest pain, palpitations, and edema, Respiratory: Negative for shortness of breath, cough, wheezing, and pleuritic chest pain, Abdomen/GI: Negative for abdominal pain, nausea, vomiting, diarrhea, and constipation, Back: Negative for injury and pain, : Negative for injury, bleeding, discharge, and swelling, MS/Extremity: Negative for injury and deformity, Skin: Negative for injury, rash, and discoloration, Neuro: Negative for headache, weakness, numbness, tingling, and seizure, Psych: Negative for depression, anxiety, suicide ideation, homicidal ideation, and hallucinations, Allergy/Immunology: Negative for hives, rash, and allergies, Endocrine: Negative for neck swelling, polydipsia, polyuria, polyphagia, and marked weight changes, Hematologic/Lymphatic: Negative for swollen nodes, abnormal bleeding, and unusual bruising. 17:32 Eyes: Positive for pain, swelling. Exam: 17:32 Constitutional: This is a well developed, well nourished patient who is awake, alert, ben and in no acute distress. Head/Face: Normocephalic, atraumatic. Eyes: Pupils equal round and reactive to light, extra-ocular motions intact. Lids and lashes normal. Conjunctiva and sclera are non-icteric and not injected. Cornea within normal limits. Periorbital areas with no swelling, redness, or edema. ENT: Nares patent. No nasal discharge, no septal abnormalities noted. Tympanic membranes are normal and external auditory canals are clear. Oropharynx with no redness, swelling, or masses, exudates, or evidence of obstruction, uvula midline. Mucous membranes moist. Neck: Trachea midline, no thyromegaly or masses palpated, and no cervical lymphadenopathy. Supple, full range of motion without nuchal rigidity, or vertebral point tenderness. No Meningismus. Chest/axilla: Normal chest wall appearance and motion. Nontender with no deformity. No lesions are appreciated. Cardiovascular: Regular rate and rhythm with a normal S1 and S2. No gallops, murmurs, or rubs. Normal PMI, no JVD. No pulse deficits. Respiratory: Lungs have equal breath sounds bilaterally, clear to auscultation and percussion. No rales, rhonchi or wheezes noted. No increased work of breathing, no retractions or nasal flaring. Abdomen/GI: Soft, non-tender, with normal bowel sounds. No distension or tympany. No guarding or rebound. No evidence of tenderness throughout. Back: No spinal tenderness. No costovertebral tenderness. Full range of motion. MS/ Extremity: Pulses equal, no cyanosis. Neurovascular intact. Full, normal range of motion. Neuro: Awake and alert, GCS 15, oriented to person, place, time, and situation. Cranial nerves II-XII grossly intact. Motor strength 5/5 in all extremities. Sensory grossly intact. Cerebellar exam normal. Normal gait. Psych: Awake, alert, with orientation to person, place and time. Behavior, mood, and affect are within normal limits. 17:32 Skin: abscess, that is small, cellulitis, that is minimal, induration, that is mild is noted, injury, is not appreciated. 17:32 Neuro: Orientation: appropriate for stated age, Mentation: appropriate for stated age, Memory: is normal, Cranial nerves: is grossly normal based on the patient's age, Cerebellar function: is grossly normal, Motor: is normal, Gait: is steady, appropriate for age. Vital Signs: 17:24 BP 104 / 73; Pulse 104; Resp 18; Temp 97.9(TE); Pulse Ox 100% on R/A; Weight 79.38 kg; ld1 Height 5 ft. 6 in. (167.64 cm); Pain 8/10; 18:01 BP 111 / 70; Pulse 102; Resp 18; Pulse Ox 100% ; ss 17:24 Body Mass Index 28.25 (79.38 kg, 167.64 cm) ld1 Procedures: 17:32 I \T\ D: Incision and drainage was performed for an abscess of the left Prepped with [facility] Betadine, Anesthetized with 10 ml's 1% Lidocaine w/ Epi. Incised with #11 blade. Drained moderate amount purulent fluid. MDM: 17:32 Differential diagnosis: abscess. Data reviewed: vital signs, nurses notes. Data ben interpreted: vehicle monitor technician: not applicable for this patient encounter. rate is 104 beats/min, Pulse oximetry: on room air. Counseling: I had a detailed discussion with the patient and/or guardian regarding: the historical points, exam findings, and any diagnostic results supporting the discharge/admit diagnosis, lab results. 17:48 Patient medically screened. [facility] 01/29 18:14 Order name: Wound Culture 01/29 17:32 Order name: Dressing - Wound; Complete Time: 17:58 [facility] 01/29 17:32 Order name: Gloves, Sterile; Complete Time: 17:58 [facility] 01/29 17:32 Order name: Setup Suture Tray; Complete Time: 17:58 [facility] 01/29 17:32 Order name: Wound Care; Complete Time: 17:57 [facility] Administered Medications: 17:57 Drug: Bactroban (mupirocin) Ointment 2 % 1 application Route: Topical; Site: affected ss area; 18:01 Drug: Doxycycline 200 mg Route: PO; ss 18:01 Drug: Bactrim (trimethoprim-sulfamethoxazole) (160 mg-800 mg (DS) 1 tablet Route: PO; ss 18:03 Drug: Lidocaine-Epinephrine -1%: (1:100,000) 10 ml {Note: Administered by Asher Horton.} Volume: 20 ml; Route: Infiltration; Disposition Summary: 01/29/21 18:19 Discharge Ordered Location: Home [facility] Problem: new ben Symptoms: have improved ben Condition: Stable ben Diagnosis - Cutaneous abscess of face ben Followup: ben - With: Private Physician - When: 2 - 3 days - Reason: Recheck today's complaints, Re-evaluation by your physician Followup: ben - With: - When: 2 - 3 days - Reason: Recheck today's complaints, Re-evaluation by your physician Discharge Instructions: - Discharge Summary Sheet ben - Skin Abscess ben - Incision and Drainage ben - Skin Abscess, Aaxn-je-Zlre ben - Incision and Drainage, Care After ben Forms: - Medication Reconciliation Form [facility] - Thank You Letter [facility] - Antibiotic Education [facility] - Prescription Opioid Use [facility] Prescriptions: - Doxycycline Hyclate 100 mg Oral Tablet - take 1 tablet by ORAL route every 12 hours; 20 tablet; Refills: 0, Product [facility] Selection Permitted - Bactrim DS 800-160 mg Oral Tablet - take 1 tablet by ORAL route every 12 hours for 10 days; 20 tablet; Refills: 0, [facility] Product Selection Permitted - Tylenol-Codeine #3 300 mg-30 mg Oral - take 2 tablet by ORAL route every 4-6 hours; 15 tablet; Refills: 0, Product [facility] Selection Permitted Signatures: Dispatcher [employer] Asher Norman MD MD cha Smirch, Shelby RN RN ss Kelly Kimble RN RN ld1
--- NOTE | 2021-01-29 18:20 | ER ---
Nurse's Notes [facility] Name: Jennifer Olivares Age: 30 yrs Sex: Female : 1990 Arrival Date: 01/29/2021 Time: 16:42 Bed Treatment Private MD: Diagnosis: Cutaneous abscess of face Presentation: 01/29 17:24 Chief complaint: Patient states: Knot on left eye brow. Pt reports this has happened ld1 3-4 times before and it has had to be drained. It happens out of nowhere. Coronavirus screen: At this time, the client does not indicate any symptoms associated with coronavirus-19. Ebola Screen: No symptoms or risks identified at this time. Initial Sepsis Screen: Does the patient meet any 2 criteria? No. Patient's initial sepsis screen is negative. Does the patient have a suspected source of infection? No. Patient's initial sepsis screen is negative. Risk Assessment: Do you want to hurt yourself or someone else? Patient reports no desire to harm self or others. Onset of symptoms was January 29, 2021. 17:24 Method Of Arrival: Ambulatory ld1 17:24 Acuity: ANKIT 4 ld1 Triage Assessment: 17:27 General: Appears in no apparent distress. comfortable, Behavior is calm, cooperative, ld1 appropriate for age. Pain: Complains of pain in outer aspect of left eyebrow Pain does not radiate. Pain currently is 8 out of 10 on a pain scale. Quality of pain is described as sharp, Pain began suddenly, Is continuous. EENT: No signs and/or symptoms were reported regarding the EENT system. Neuro: Level of Consciousness is awake, alert, obeys commands, Oriented to person, place, time, situation, Appropriate for age. Cardiovascular: Capillary refill < 3 seconds Patient's skin is warm and dry. Respiratory: Airway is patent Respiratory effort is even, unlabored, Respiratory pattern is regular, symmetrical. GI: Abdomen is flat, non-distended. : No signs and/or symptoms were reported regarding the genitourinary system. Derm: Abscess located on outer aspect of left eyebrow. Musculoskeletal: No signs and/or symptoms reported regarding the musculoskeletal system. 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 - Social history:: Smoking status: Patient denies any tobacco usage or history of. Patient/guardian denies using alcohol. - Family history:: not pertinent. Screenin:01 Abuse screen: Denies threats or abuse. Denies injuries from another. Nutritional ss screening: No deficits noted. Tuberculosis screening: No symptoms or risk factors identified. Fall Risk None identified. Assessment: 18:01 Reassessment: See triage assessment. ss 18:01 Reassessment: ERP at bedside providing care. ss Vital Signs: 17:24 BP 104 / 73; Pulse 104; Resp 18; Temp 97.9(TE); Pulse Ox 100% on R/A; Weight 79.38 kg; ld1 Height 5 ft. 6 in. (167.64 cm); Pain 8/10; 18:01 BP 111 / 70; Pulse 102; Resp 18; Pulse Ox 100% ; ss 17:24 Body Mass Index 28.25 (79.38 kg, 167.64 cm) ld1 ED Course: 16:42 Patient arrived in ED. am2 17:27 Triage completed. ld1 17:27 Arm band placed on. ld1 17:29 Arm band placed on right wrist. ld1 17:30 Asher Horton MD is Attending Physician. [facility] 18:01 Patient has correct armband on for positive identification. Bed in low position. Call ss light in reach. Side rails up X 1. Pulse ox on. NIBP on. Door closed. Noise minimized. Warm blanket given. 18:01 Assist provider with I \T\ D: of an abscess on left eye brow Set up I\T\D tray. Performed ss by Asher Horton MD Wound packed. iodoform gauze, Patient tolerated well. Patient did not have IV access during this emergency room visit. 18:19 Devonte Craft MD is Referral Physician. [facility] Administered Medications: 17:57 Drug: Bactroban (mupirocin) Ointment 2 % 1 application Route: Topical; Site: affected ss area; 18:01 Drug: Doxycycline 200 mg Route: PO; ss 18:01 Drug: Bactrim (trimethoprim-sulfamethoxazole) (160 mg-800 mg (DS) 1 tablet Route: PO; ss 18:03 Drug: Lidocaine-Epinephrine -1%: (1:100,000) 10 ml {Note: Administered by Asher Horton.} Volume: 20 ml; Route: Infiltration; Outcome: 18:19 Discharge ordered by MD. contreras 18:28 Discharged to home ambulatory. 18:28 Condition: stable 18:28 Discharge instructions given to patient, Instructed on discharge instructions, follow up and referral plans. medication usage, Demonstrated understanding of instructions, follow-up care, medications. 18:29 Patient left the ED. Signatures: Asher Horton MD MD cha Smirch, Shelby RN RN Susan Sawant am2 Kelly Kimble RN RN ld1
[2021-01-29 18:32] VITALS: TEMP 97.9; O2SAT 100
[2021-01-29 18:34] VITALS: BP 111/70
== END 2021-01-29 18:29 | disposition home or self-care (01) ==
LOC: ER 16:41
PROC: 0H91XZZ Drainage of Face Skin, External Approach (ICD-10-PCS; principal; 2021-01-29)
DX: F41.8 Other specified anxiety disorders (principal); L02.01 Cutaneous abscess of face
CPT/HCPCS: 87070; 87205; 99283

== ENCOUNTER 2022-03-30 12:15 | Emergency (ER) | payer OTHER, SELFPAY ==
--- OUTSIDE RECORDS SUMMARY | 2022-03-30 12:18 | XMS REPORT | Continuity of Care Document ---
:1990 Author Organization [facility] t Address [address] [place] [address] Care Team Providers Name Role Phone Maricarmen Knight Primary Care Physician Joleen Heller Attending Clinician [phone] JOLEEN RAINEY Attending Clinician Unavailable JACK KIRBY Attending Clinician Unavailable MALINA RODRIGUEZ Attending Clinician Unavailable Maricarmen Knight Attending Clinician Christopher Tidwell Attending Clinician Isatu Parry DO Attending Clinician Layne Hairston MD Attending Clinician Mehran Barber Attending Clinician Unavailable Mehran Barber Attending Clinician Unavailable Mehran Barber Admitting Clinician Unavailable Payers Payer Name Policy Type Policy Number Effective Date Expiration Date S ource Problems Condition Condition Condition Status Onset Resolution Last Treating Co mments Source Name Details Category Date Date Treatment Clinician Date Well woman Well woman Disease Active U nivers exam exam 1-25 ity of 00:00: [place] 00 [facility] Other Other Disease Active Univers general general 7-22 [place] and advice 00 Me dical for for Branch contracept contracept brandon brandon management management Psychiatri Psychiatri Disease Active U nivers c disorder c disorder 9-05 it y of 00:00: [place] 00 [facility] 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 00:00: Hosp [facility] disorder disorder 00 l with with hallucinat hallucinat ions ions 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-03 st disorder, disorder, 00:00: Hosp maryann severe, severe, 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 1 child with FOB; 3 children with mother of pt; pt desires to maintain custody of this child; reports she has been clean since 06/2014 History of History of Disease Active 2015-03 Overview : Univers intravenou intravenou 0-05 Formattin ity of s drug use s drug use 00:00: g of this [place] in in 00 note Medical remission remission might be Br anch different from the original. Last use 06/2014 History of History of Disease Active 2015-03 Overview : Univers hyperthyro hyperthyro 0-05 Formattin ity of idism idism 00:00: g of this [place] 00 note Medical might be Branch different from the original. TSH drawn at NOB visit- normal; repeat @ 28w was normal History of History of Disease Active 2015-03 Overview : Univers abnormal abnormal 0-05 Formattin ity of cervical cervical 00:00: g of this Osei as Papanicola Papanicola 00 note Me dical ou smear ou smear might be Bran ch different from the original. ASCUS (can't exclude HSIL) in 2014; repeat negative in 2016 History of History of Disease Active 2015- U nivers herpes herpes 0-05 it[place] genital[place] Overweight Overweight Disease Active U nivers (BMI (BMI 8-24 ity of 25.0-29.9) 25.0-29.9[place] [facility] [place] Allergies, Adverse Reactions, Alerts Allergy Allergy Status Severity Reaction(s) Onset Inactive Treating Comm ents Source Name Type Date Date Clinician Sertrali Propensi Active Other - See Suicidal Univers ne Hcl ty to comments 8 ideation ity of adverse 00:00: [place] reaction Medical s Branch Citalopr Propensi Active Other (See migraine Methodi am ty to Comments) 5 st adverse 00:00: Hospita reaction 00 l s to drug Risperid Propensi Active Other (See "my body Methodi one ty to Comments) 5 swell up" [address] adverse 00:00: Hospita reaction 00 l s to drug Risperid Propensi Active Swelling Whole Univ ers one ty to 5- body ity of adverse 00:00: [place] reaction Medical s Branch Citalopr Propensi Active Other - See HEADACHE / Univers am ty to comments 2- MIGRAINE ity of Hydrobro adverse 00:00: [place] mide reaction Medical s Branch Social History Social Habit Start Date Stop Date Quantity Comments Source History of tobacco 2001-11-04 Cigarette Smoker University of use 00:00:00 [place] [facility] History SDNM University o f Alcohol Frequency [facility] edical [facility]bot History [facility] University o f Alcohol Std Drinks [place] [facility] History [facility] University o f Alcohol Binge [facility] al Branch Exposure to 2021-07-02 2021-07-12 Not sure University of SARS-CoV-2 (event) 00:00:00 09:10:00 [facility] Tobacco use and 2021-03-26 2021-03-26 Never used Universit y of exposure 00:00:00 00:00:00 [facility] Alcohol intake 2017-07-03 2017-07-03 Current drinker Metho dist 00:00:00 00:00:00 of [facility] (finding) Alcohol Comment 2017-07-03 2017-07-03 "I binge drink" Meth odist 00:00:00 00:00:00 Hospital Cigarettes smoked 2017-07-03 2017-07-03 [facility] current (pack per 00:00:00 00:00:00 Hospita l ) - Reported Cigarette 2017-07-03 2017-07-03 [facility] pack-years 00:00:00 00:00:00 Hospital Sex Assigned At [birth year] [facility] 00:00:00 00:00:00 Hospital Smoking Status Start Date Stop Date Source Former smoker 2021-03-26 00:00:00 2021-03-26 00:00:00 [facility] ty [facility] Smokes tobacco daily 2017-07-03 00:00:00 [facility] Medications Ordered Filled Start Stop Current Ordering Indication Dosage Frequency Signature Comments Components Source Medication Medication Date Date Medication? Clinician (SIG) Name Name metroNIDAZO Yes [id number] 500mg Take 1 Univers LE 500 mg 5-17 tablet by ity o f tablet 00:00: mouth [address] [place] [address] (two) Medical times Branch daily. aripiprazol Yes by Univer s e (ABILIFY 1-25 Intramuscu ity of IM) 10:35: lar route. [address] Immunizations Ordered Filled Immunization Date Status Comments Sourc e Immunization Name Name HPV9 2021-03-26 Completed University of 00:00:00 [facility] Rho (d) Immune 2016-04-25 Completed University of Globulin 00:00:00 [facility] TDAP 2016-01-31 Completed University of 00:00:00 [facility] Influenza Virus 2016-01-03 Completed Universit y of Vaccine Quad IM 3+ 00:00:[address] [facility] Rho (d) Immune 2015-01-15 Completed University of Globulin 00:00:00 [facility] Procedures This patient has no known procedures. Plan of Care Planned Activity Planned Date Details Comments Source Future Scheduled 2022-03-30 COVID-[address] [facility] Test 12:17:56 (#1) [code = COVID-19 VACCINE (#1)] Future Scheduled 2022-03-30 Screening for [facility] Test 12:17:56 malignant neoplasm of cervix (procedure) [code = 473348102] Future Scheduled 2022-03-30 INFLUENZA VACCINE Method ist Hospital Test 12:17:56 [code = INFLUENZA VACCINE] Encounters Start End Encounter Admission Attending Care Care Encounter Source Date/Time Date/Time Type Type Clinicians Facility Department ID 2020-12-29 Emergency [facility] [id number] Univers 00:18:42 ity of [facility] 2020-12-28 Emergency [facility] [id number] Univers 23:43:11 ity of [facility] 2020-12-28 Emergency [facility] [id number] Univers 05:38:46 ity of [facility] 2021-07-16 2021-07-16 [facility] [id number] Univers 00:00:00 00:00:00 Joleen Zuniga HEARING INSTRUMENT SPECIALIST [id number] ity of [facility] [id number] Osei [address] [id number] [facility] & [address] 2021-07-12 2021-07-12 Outpatient R ADALBERTO [facility] [id number] Univers 09:15:00 11:22:36 JOLEEN armendariz o f [facility] 2021-07-12 2021-07-12 [facility] [id number] Univers 09:15:00 11:22:36 Visit Joleen Zuniga HEARING INSTRUMENT SPECIALIST [id number] ity of [facility] [id number] Osei as MATERNAL [id number] [facility] & [address] 2021-07-11 2021-07-11 [facility] [id number] Univers 00:00:00 00:00:00 Joleen Zuniga HEARING INSTRUMENT SPECIALIST [id number] ity of REGION[facility] [id number] Osei as MATERNAL [id number] [facility] & [address] 2021-05-24 2021-05-24 Outpatient R MIRTA [facility] [id number] Univers 09:30:00 09:30:00 OMIDNDA ity o f [facility] 2021-05-24 2021-05-24 Outpatient R [facility] [id number] Univers 09:30:00 09:30:00 ity [facility] 2021-04-12 2021-04-12 Outpatient R JENNIFER [facility] [id number] Univers 11:00:00 11:00:00 MALINA ity [facility] 2021-03-26 2021-03-26 Outpatient R ANURAGLANI, [facility] [id number] Univers 10:00:00 11:05: JOLEEN belle kostas [facility] 2021-03-26 2021-03-26 [facility] [id number] Univers 10:00:00 11:: Visit Joleen Zuniga HEARING INSTRUMENT SPECIALIST [id number] ity [facility] [id number] Osei as MATERNAL [phone] Med ical & CHILD [address] [place] [address] 2021-03-26 2021-03-26 Outpatient R ADALBERTO, [facility] [id number] Univers 10:00:00 10:00:00 JOLEEN belle kostas [facility] 2021-03-25 2021-03-25 Telephone [facility] [id number] Univers 00:00:00 00:00:00 Maricarmen Plascencia HEARING INSTRUMENT SPECIALIST [id number] it [facility] [id number] Osei as MATERNAL [id number] [facility] & CHILD [address] [place] [address] 2020-09-25 2020-09-25 Outpatient Aliyah KIRBY [facility] [id number] Univers 10:30:00 10:30:00 JACK kenyon [facility] 2020-07-18 2020-07-18 Outpatient R MIRTA [facility] [id number] Univers 10:30:00 10:30:00 JACK kenyon [facility] 2019-12-21 2019-12-21 Emergency [facility] [id number] 15:36:00 16:23:00 Christopher Mcdonald [id number] [place] [id number] [place] [id number] 2019-12-19 2019-12-19 Emergency Sohan, [facility] [id number] 12:15:00 12:44:00 Isatu Espinal [place] [id number] [place] [id number] [place] [id number] 2019-10-20 2019-10-20 Telephone Layne Hairston [facility] [id number] 00:00:00 00:00:00 Cam Harry [id number] [place] [id number] Professio [id number] [address] 2019-10-10 2019-10-10 Telephone Adalberto, [facility] [id number] 00:00:00 00:00:00 Joleen Zuniga HEARING INSTRUMENT SPECIALIST [id number] [facility] [id number] MATERNAL [id number] & CHILD [address] [place] [address] 2019-10-06 2019-10-06 Outpatient R AKINSIPE, [facility] [id number] Univers 10:30:00 10:30:00 JOLEEN belle [facility] 2019-09-27 2019-09-27 Outpatient R AKINSIMELVINA, [facility] [id number] Univers 14:15:00 14:15:00 JOLEEN belle f [facility] 2019-09-21 2019-09-21 Outpatient R AKINSIPE, [facility] [id number] Univers 10:15:00 10:15:00 JOLEEN kenyon [facility] 2019-07-29 2019-07-29 Emergency Mehran Barber [facility] [address]EN [id number] 23:33:00 23:33:00 Mehran Barber Alex' [facility] Results This patient has no known results.
--- NOTE | 2022-03-30 13:38 | RAD REPORT ---
EXAM DESCRIPTION: RAD - Chest Single View - 03/30/2022 1:12 pm CLINICAL HISTORY: CHEST PAIN COMPARISON: Chest Pa And Lat (2 Views) dated 11/11/2020; Chest Single View dated 08/05/2017; CHEST SING LE VIEW dated 09/22/2009; CHEST SINGLE VIEW dated 10/04/2008 FINDINGS: Lines: None. Lungs: No evidence of edema or pneumonia. Pleural: No significant pleural effusions or pneumothorax. Cardiac: The heart size is within normal limits. Mediastinum: Within normal limits. Bones: No acute fractures. Other: None IMPRESSION: No acute cardiopulmonary disease.
--- NOTE | 2022-03-30 13:48 | ER ---
Nurse's Notes [facility] Name: Jennifer Olivares Age: 31 yrs Sex: Female : 1990 Arrival Date: 03/30/2022 Time: 12:17 Bed 7 Private MD: Diagnosis: Chest pain, unspecified;Dermatitis, unspecified Presentation: 03/30 12:24 Chief complaint: EMS states: patient began to have chest pain after being arrested. ko1 Coronavirus screen: cough unrelated to allergies. Ebola Screen: No symptoms or risks identified at this time. Initial Sepsis Screen: Does the patient meet any 2 criteria? No. Patient's initial sepsis screen is negative. Does the patient have a suspected source of infection? No. Patient's initial sepsis screen is negative. Risk Assessment: Do you want to hurt yourself or someone else? Patient reports no desire to harm self or others. Onset of symptoms was March 30, 2022. 12:24 Method Of Arrival: EMS: [facility] ko1 12:24 Acuity: ANKTI 3 ko1 Triage Assessment: 12:25 General: Appears in no apparent distress. Behavior is cooperative, appropriate for age, ko1 anxious. Pain: Complains of pain in chest Pain currently is 8 out of 10 on a pain scale. Cardiovascular: Reports chest pain. 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 - Family history:: not pertinent. - Social history:: Smoking status: Patient reports the use of cigarette tobacco products. Screenin:36 [facility] ED Fall Risk Assessment (Adult) History of falling in the last 3 months, ld1 including since admission No falls in past 3 months (0 pts). Abuse screen: Denies threats or abuse. Denies injuries from another. Nutritional screening: No deficits noted. Tuberculosis screening: No symptoms or risk factors identified. Assessment: 13:36 Reassessment: See triage assessment. ld1 13:45 Reassessment: Pt refusing bloodwork/urine. Dr Horton aware. hb Vital Signs: 12:24 BP 113 / 80; Pulse 108; Resp 16; Temp 98; Pulse Ox 100% ; Weight 73.48 kg; Height 5 ft. ko1 5 in. (165.10 cm); 13:21 BP 109 / 89; Pulse 90; Resp 17; Temp 98.7; Pulse Ox 99% ; Weight 73.48 kg; Height 5 ft. rs5 5 in. (165.10 cm); 13:36 BP 113 / 94; Pulse 91; Resp 18; Pulse Ox 99% on R/A; Pain 0/10; ld1 13:21 Body Mass Index 26.96 (73.48 kg, 165.10 cm) rs5 ED Course: 12:17 Patient arrived in ED. ss 12:25 Triage completed. ko1 12:25 Arm band placed on left wrist. ko1 12:32 Asher Horton MD is Attending Physician. [facility] 13:13 XRAY Chest (1 view) In Process Unspecified. EDMS 13:36 Patient has correct armband on for positive identification. Placed in gown. Bed in low ld1 position. Call light in reach. Side rails up X2. hospital monitor on. Pulse ox on. NIBP on. Door closed. Noise minimized. Warm blanket given. 13:36 No provider procedures requiring assistance completed. Patient maintains SpO2 ld1 saturation greater than 95% on room air. 13:48 Noel Dia MD is Referral Physician. ben 13:54 Patient did not have IV access during this emergency room visit. hb Administered Medications: 13:53 Not Given (Patient Refused): Aspirin 81 mg PO once hb Medication: 13:36 VIS not applicable for this client. ld1 Outcome: 13:48 Discharge ordered by . ben 13:54 Discharged to home ambulatory. hb 13:54 Condition: stable 13:54 Discharge instructions given to patient, Instructed on discharge instructions, follow up and referral plans. medication usage, Demonstrated understanding of instructions, follow-up care, medications, Prescriptions given X 1. 13:55 Patient left the ED. hb Signatures: Dispatcher [employer] EDHI Asher Horton MD MD cha Smirch, Shelby, RN RN Michelle Faith RN RN Kelly Kimble RN RN ld1 Josselyn Upton RN RN ko1 Jose Odom rs5 Corrections: (The following items were deleted from the chart) 13:30 12:25 Social history: Smoking status: Patient denies any tobacco usage or history of. ben ko1
--- NOTE | 2022-03-30 13:48 | EDPHYS ---
Physician Documentation [facility] Name: Jennifer Olivares Age: 31 yrs Sex: Female : 1990 Arrival Date: 03/30/2022 Time: 12:17 Bed 7 Private MD: ED Physician Asher Horton HPI: 03/30 13:20 This 31 yrs old Black Female presents to ER via EMS with complaints of Chest Pain. ben 13:42 This 31 yrs old Black Female presents to ER via EMS with complaints of Chest Pain. ben 13:42 This 31 yrs old Black Female presents to ER via EMS with complaints of Chest Pain. ben 13:42 The patient or guardian reports chest pain that is located primarily in the anterior ben chest wall, bilaterally. The pain does not radiate. Associated signs and symptoms: The patient has no apparent associated signs or symptoms. The chest pain is described as squeezing. Duration: The patient or guardian reports multiple episodes, with no pattern. Modifying factors: The symptoms are alleviated by nothing. the symptoms are aggravated by nothing. Severity of pain: At its worst the pain was mild in the emergency department the pain has resolved after treatment by EMS personnel. EMS care prior to arrival includes: NONE. The patient has experienced similar episodes in the past, several times. 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 - Family history:: not pertinent. - Social history:: Smoking status: Patient reports the use of cigarette tobacco products. ROS: 13:44 Constitutional: Negative for fever, chills, and weight loss, Eyes: Negative for injury, ben pain, redness, and discharge, ENT: Negative for injury, pain, and discharge, Neck: Negative for injury, pain, and swelling, Respiratory: Negative for shortness of breath, cough, wheezing, and pleuritic chest pain, Abdomen/GI: Negative for abdominal pain, nausea, vomiting, diarrhea, and constipation, Back: Negative for injury and pain, : Negative for injury, bleeding, discharge, and swelling, MS/Extremity: Negative for injury and deformity, Skin: Negative for injury, rash, and discoloration, Neuro: Negative for headache, weakness, numbness, tingling, and seizure, Psych: Negative for depression, anxiety, suicide ideation, homicidal ideation, and hallucinations, Allergy/Immunology: Negative for hives, rash, and allergies, Endocrine: Negative for neck swelling, polydipsia, polyuria, polyphagia, and marked weight changes, Hematologic/Lymphatic: Negative for swollen nodes, abnormal bleeding, and unusual bruising. 13:44 Cardiovascular: Positive for chest pain, of the chest. Exam: 13:20 ECG was reviewed by the Attending Physician. ben 13:44 Constitutional: This is a well developed, well nourished patient who is awake, alert, ben and in no acute distress. Head/Face: Normocephalic, atraumatic. Eyes: Pupils equal round and reactive to light, extra-ocular motions intact. Lids and lashes normal. Conjunctiva and sclera are non-icteric and not injected. Cornea within normal limits. Periorbital areas with no swelling, redness, or edema. ENT: Nares patent. No nasal discharge, no septal abnormalities noted. Tympanic membranes are normal and external auditory canals are clear. Oropharynx with no redness, swelling, or masses, exudates, or evidence of obstruction, uvula midline. Mucous membranes moist. Neck: Trachea midline, no thyromegaly or masses palpated, and no cervical lymphadenopathy. Supple, full range of motion without nuchal rigidity, or vertebral point tenderness. No Meningismus. Chest/axilla: Normal chest wall appearance and motion. Nontender with no deformity. No lesions are appreciated. Cardiovascular: Regular rate and rhythm with a normal S1 and S2. No gallops, murmurs, or rubs. Normal PMI, no JVD. No pulse deficits. Respiratory: Lungs have equal breath sounds bilaterally, clear to auscultation and percussion. No rales, rhonchi or wheezes noted. No increased work of breathing, no retractions or nasal flaring. Abdomen/GI: Soft, non-tender, with normal bowel sounds. No distension or tympany. No guarding or rebound. No evidence of tenderness throughout. Back: No spinal tenderness. No costovertebral tenderness. Full range of motion. Skin: Warm, dry with normal turgor. Normal color with no rashes, no lesions, and no evidence of cellulitis. MS/ Extremity: Pulses equal, no cyanosis. Neurovascular intact. Full, normal range of motion. Neuro: Awake and alert, GCS 15, oriented to person, place, time, and situation. Cranial nerves II-XII grossly intact. Motor strength 5/5 in all extremities. Sensory grossly intact. Cerebellar exam normal. Normal gait. Psych: Awake, alert, with orientation to person, place and time. Behavior, mood, and affect are within normal limits. 13:44 Musculoskeletal/extremity: Circulation is intact in all extremities. Sensation intact. Compartment Syndrome exam of affected extremity: is normal. DVT Exam: No signs of deep vein thrombosis. no pain, no swelling, no tenderness, negative Homans' sign noted on exam, no appreciated bluish discoloration, no erythema, no increased warmth. Vital Signs: 12:24 BP 113 / 80; Pulse 108; Resp 16; Temp 98; Pulse Ox 100% ; Weight 73.48 kg; Height 5 ft. ko1 5 in. (165.10 cm); 13:21 BP 109 / 89; Pulse 90; Resp 17; Temp 98.7; Pulse Ox 99% ; Weight 73.48 kg; Height 5 ft. rs5 5 in. (165.10 cm); 13:36 BP 113 / 94; Pulse 91; Resp 18; Pulse Ox 99% on R/A; Pain 0/10; ld1 13:21 Body Mass Index 26.96 (73.48 kg, 165.10 cm) rs5 MDM: 12:32 Patient medically screened. [facility] 13:23 HEART Score:. Data reviewed: vital signs, nurses notes, lab test result(s), EKG, [facility] radiologic studies, CT scan, plain films. 03/30 12:34 Order name: XRAY Chest (1 view); Complete Time: 13:44 [facility] 03/30 12:34 Order name: EKG; Complete Time: 12:35 [facility] 03/30 12:34 Order name: EKG - Nurse/Tech; Complete Time: 13:25 [facility] 03/30 12:34 Order name: O2 Per Protocol; Complete Time: 13:26 [facility] 03/30 12:34 Order name: O2 Sat Monitoring; Complete Time: 13:26 [facility] EC:45 Rate is 91 beats/min. Rhythm is regular. QRS [place] is Normal. [place] interval is normal. QRS ben interval is normal. QT interval is normal. No Q waves. T waves are Normal. No ST changes noted. Clinical impression: NSR w/ Non-specific ST/T Changes and No evidence of ischemia. Interpreted by me. Reviewed by me. Administered Medications: 13:53 Not Given (Patient Refused): Aspirin 81 mg PO once hb Disposition Summary: 03/30/22 13:48 Discharge Ordered Location: Home ben Problem: new ben Symptoms: have improved ben Condition: Stable ben Diagnosis - Chest pain, unspecified ben - Dermatitis, unspecified ben Followup: ben - With: Private Physician - When: 2 - 3 days - Reason: Recheck today's complaints, Continuance of care, Re-evaluation by your physician Followup: ben - With: Noel Dia MD - When: 2 - 3 days - Reason: Recheck today's complaints, Re-evaluation by your physician Discharge Instructions: - Discharge Summary Sheet ben - Nonspecific Chest Pain, Adult ben - Rash, Adult ben - Nonspecific Chest Pain, Adult, [id number]-fi-[id number] ben - Aspirin and Your Heart ben Forms: - Medication Reconciliation Form ben - Thank You Letter ben - Antibiotic Education ben - Prescription Opioid Use [facility] Prescriptions: - Nystatin-Triamcinolone 100,000-0.1 unit/g-% Topical Cream - apply 1 application by TOPICAL route 2 times per day; 30 gram; Refills: 0, ben Product Selection Permitted Signatures: Dispatcher [employer] EDMS Asher Horton MD MD cha Baxter, Heather, RN RN Josselyn Upton RN RN ko1 Corrections: (The following items were deleted from the chart) 13:30 12:25 Social history: Smoking status: Patient denies any tobacco usage or history of. ben ko1 13:30 13:20 Constitutional: This is a well developed, well nourished patient who is awake, ben alert, and in no acute distress. Head/Face: Normocephalic, atraumatic. Eyes: Pupils equal round and reactive to light, extra-ocular motions intact. Lids and lashes normal. Conjunctiva and sclera are non-icteric and not injected. Cornea within normal limits. Periorbital areas with no swelling, redness, or edema. ENT: Nares patent. No nasal discharge, no septal abnormalities noted. Tympanic membranes are normal and external auditory canals are clear. Oropharynx with no redness, swelling, or masses, exudates, or evidence of obstruction, uvula midline. Mucous membranes moist. Neck: Trachea midline, no thyromegaly or masses palpated, and no cervical lymphadenopathy. Supple, full range of motion without nuchal rigidity, or vertebral point tenderness. No Meningismus. Chest/axilla: Normal chest wall appearance and motion. Nontender with no deformity. No lesions are appreciated. Cardiovascular: Regular rate and rhythm with a normal S1 and S2. No gallops, murmurs, or rubs. Normal PMI, no JVD. No pulse deficits. Respiratory: Lungs have equal breath sounds bilaterally, clear to auscultation and percussion. No rales, rhonchi or wheezes noted. No increased work of breathing, no retractions or nasal flaring. Abdomen/GI: Soft, non-tender, with normal bowel sounds. No distension or tympany. No guarding or rebound. No evidence of tenderness throughout. Back: No spinal tenderness. No costovertebral tenderness. Full range of motion. Skin: Warm, dry with normal turgor. Normal color with no rashes, no lesions, and no evidence of cellulitis. MS/ Extremity: Pulses equal, no cyanosis. Neurovascular intact. Full, normal range of motion. Neuro: Awake and alert, GCS 15, oriented to person, place, time, and situation. Cranial nerves II-XII grossly intact. Motor strength 5/5 in all extremities. Sensory grossly intact. Cerebellar exam normal. Normal gait. Psych: Awake, alert, with orientation to person, place and time. Behavior, mood, and affect are within normal limits. [facility] 13:30 13:20 Rate is 89 beats/min. Rhythm is regular. QRS [place] is Normal. [place] interval is ben normal. QRS interval is normal. QT interval is normal. No Q waves. T waves are Normal. No ST changes noted. Clinical impression: Abnormal EKG without significant change and No evidence of ischemia. Interpreted by me. Reviewed by me. [facility] 13:31 13:20 Constitutional: Negative for fever, chills, and weight loss, Eyes: Negative for ben injury, pain, redness, and discharge, ENT: Negative for injury, pain, and discharge, Neck: Negative for injury, pain, and swelling, Respiratory: Negative for shortness of breath, cough, wheezing, and pleuritic chest pain, Abdomen/GI: Negative for abdominal pain, nausea, vomiting, diarrhea, and constipation, Back: Negative for injury and pain, : Negative for injury, bleeding, discharge, and swelling, MS/Extremity: Negative for injury and deformity, Skin: Negative for injury, rash, and discoloration, Neuro: Negative for headache, weakness, numbness, tingling, and seizure, Psych: Negative for depression, anxiety, suicide ideation, homicidal ideation, and hallucinations, Allergy/Immunology: Negative for hives, rash, and allergies, Endocrine: Negative for neck swelling, polydipsia, polyuria, polyphagia, and marked weight changes, Hematologic/Lymphatic: Negative for swollen nodes, abnormal bleeding, and unusual bruising, [facility] 13:31 13:20 Cardiovascular: Positive for chest pain, orthopnea, [facility] :44 13:20 The patient or guardian reports chest pain that is located primarily in the [facility] substernal area, [facility] :44 13:20 The pain radiates to the left arm, the left shoulder, [facility] : 13:20 Associated signs and symptoms: Pertinent positives: shortness of breath, [facility] : 13:20 The chest pain is described as a heaviness, causing indigestion, a pressure, [facility] :44 13:20 Duration: The patient or guardian reports a single episode, that is still ben ongoing, [facility] :44 13:20 Modifying factors: The symptoms are alleviated by nothing. the symptoms are ben aggravated by nothing. [facility] 13:44 13:20 Severity of pain: At its worst the pain was moderate in the emergency department ben the pain is unchanged [facility] : 13:20 The patient has not experienced similar symptoms in the past, ben ben
[2022-03-30 14:34] VITALS: BP 113/94; O2SAT 99
[2022-03-30 14:35] VITALS: TEMP 98.7
--- NOTE | 2022-04-01 17:02 | EKG ---
Test Date: 2022-03-30 Test Time: 13:17:55 Manager Pediatric: MEAGAN MEASUREMENT RESULTS: Intervals: Rate: 91 ID: [id number] QRSD: 86 QT: 354 QTc: 435 [place]: P: 24 ID: [id number] QRS: 52 T: 46 INTERPRETIVE STATEMENTS: Normal sinus rhythm Nonspecific T wave abnormality Abnormal ECG Compared to ECG 01/04/2020 22:07:34 T-wave abnormality now present Sinus arrhythmia no longer present Electronically Signed On 04-01-22 16:57:49 SADDLE CUTTER by Amari London
== END 2022-03-30 13:55 | disposition home or self-care (01) ==
LOC: ER 12:15
DX: R07.89 Other chest pain (principal); L30.9 Dermatitis, unspecified; F31.9 Bipolar disorder, unspecified; Z88.8 Allergy status to other drugs, medicaments and biological substances; Z72.0 Tobacco use
CPT/HCPCS: 71045; 93005; 99285

== ENCOUNTER 2022-04-30 13:09 | Emergency (ER) | payer OTHER ==
--- OUTSIDE RECORDS SUMMARY | 2022-04-30 13:13 | XMS REPORT | Continuity of Care Document ---
:1990 Author Organization [facility] t Address [address] [place] [address] [place] [id number] Care Team Providers Name Role Phone Maricarmen Knight Primary Care Physician Joleen Heller Attending Clinician [phone] JOLEEN RAINEY Attending Clinician Unavailable JACK [...] [place] and advice and advice 00 [place] dical for for Branch contracept contracept brandon [...] Disease Recurre Methodi protein-ca protein-ca nce 07-03 st caden cdaen 00:00: Hospita malnutriti malnutriti 00 l on on History of History of Disease Active U nivers tubal tubal 2-23 ity of ligation ligation 00:00: [place] 00 [facility] Epidermal Epidermal Disease Active 2015-03 Uni vers cyst of cyst of 0-05 ity of face face 00:00: [place] [facility] Custody Custody Disease Active 2015-03 [...] 2014; repeat negative in 2015 History of History of Disease Active 2015- U nivcharles herpes herpes 0-05 [place] genital[place] Overweight Overweight Disease Active U [...] "my body Methodi one ty to Comments) 07-03 swell up" st adverse 00:00: Hospita reaction 00 l s to drug Risperid Propensi Active Swelling Whole Univ ers one ty to 5- body ity of adverse 00:00: [place] reaction 00 Medical s Branch Citalopr Propensi Active Other - See HEADACHE / Univers am ty to comments 2- MIGRAINE ity of Hydrobro adverse 00:00: [place] mide reaction Medical s Branch Social History Social Habit Start Date Stop Date Quantity Comments Source History of tobacco 2001-11-04 Cigarette Smoker University of use 00:00:00 [place] [facility] [place] History [facility] University o f Alcohol Frequency [facility] edical Branch History [facility] University o f Alcohol Std Drinks [place] [facility] [place] History [facility] University o f Alcohol Binge [place] [facility] Exposure to 2021-07-02 2021-07-12 Not sure University of SARS-CoV-2 (event) 00:00:00 09:10:00 [facility] Tobacco use and 2021-03-26 2021-03-26 Never used Universit y of exposure 00:00:00 00:00:00 [facility] Alcohol intake 2017-07-03 2017-07-03 Current drinker Metho dist 00:00:00 00:00:00 of [facility] (finding) Alcohol Comment 2017-07-03 2017-07-03 "I binge drink" Meth odist 00:00:00 00:00:00 Hospital Cigarettes smoked 2017-07-03 2017-07-03 [facility] current (pack per 00:00:00 00:00:00 Hospita l day) - Reported Cigarette 2017-07-03 2017-07-03 [facility] pack-years 00:00:00 00:00:00 Hospital Sex Assigned At [birth year] [facility] 00:00:00 00:00:00 Hospital Smoking Status Start Date Stop Date Source Former smoker 2021-03-26 00:00:00 2021-03-26 00:00:00 [facility] ty [facility] Smokes tobacco daily 2017-07-03 00:00:00 [facility] Medications Ordered Filled Start Stop Current Ordering Indication Dosage Frequency Signature Comments Components Source Medication Medication Date Date Medication? Clinician (SIG) Name Name metroNIDAZO Yes [id number] 500mg Take 1 Univers LE 500 mg 5-17 tablet by ity o f tablet 00:00: mouth [address] [place] [address] (two) Medical times Branch daily. aripiprazol Yes by Univer s e (ABILIFY 1-25 Intramuscu ity of IM) 10:35: lar route. [address] Immunizations Ordered Filled Immunization Date Status Comments Sourc e Immunization Name Name HPV9 2021-03-26 Completed University of 00:00:00 [facility] Rho (d) Immune 2016-04-25 Completed University of Globulin 00:00:00 [facility] TDAP 2016-01-31 Completed University of 00:00:00 [facility] Influenza Virus 2016-01-03 Completed Universit y of Vaccine Quad IM 3+ 00:00:00 [facility] Rho (d) Immune 2015-01-15 Completed University of Globulin 00:00:00 [facility] Procedures This patient has no known procedures. Plan of Care Planned Activity Planned Date Details Comments Source Future Scheduled 2022-04-30 COVID-19 VACCINE [facility] Test 13:13:13 (#1) [code = COVID-19 VACCINE (#1)] Future Scheduled 2022-04-30 Screening for [facility] Test 13:13:13 malignant neoplasm of cervix (procedure) [code = 754712340] Future Scheduled 2022-04-30 [facility]ACCINE [facility] 13:13:13 [code = INFLUENZA VACCINE] Future Scheduled 2022-03-30 COVID-[address] [facility] Test 12:17:56 (#1) [code = COVID-19 VACCINE (#1)] Future Scheduled 2022-03-30 [facility]ening for [facility] Test 12:17:56 malignant neoplasm of cervix (procedure) [code = 008357319] Future Scheduled 2022-03-30 INFLUENZA VACCINE [facility] Test 12:17:56 [code = INFLUENZA VACCINE] Encounters Start End Encounter Admission Attending Care Care Encounter Source Date/Time Date/Time Type Type Clinicians Facility Department ID 2020-12-29 Emergency [facility] [id number] Univers 00:18:[address] [facility] 2020-12-28 Emergency [facility] [id number] Univers 23:43:[address] [facility] 2020-12-28 Emergency [facility] [id number] Univers 05:38:[address] [facility] 2021-07-16 2021-07-16 Telephone [facility] [id number] Univers 00:00:00 00:00:00 Joleen Zuniga MANAGER WATER [id number] ity [facility] [id number] Osei as MATERNAL [id number] [facility] & CHILD [address] [place] [address] 2021-07-12 2021-07-12 Outpatient R ADALBERTO, [facility] [id number] Univers 09:15:00 11:22:36 [address] o f [facility] 2021-07-12 2021-07-12 [facility] [[email or web address] [id number] Univers 09:15:00 11:22:36 Visit Joleen Zuniga MANAGER WATER [id number] ity [facility] [id number] Osei as MATERNAL [id number] [facility] & CHILD [address] [place] [address] 2021-07-11 2021-07-11 [facility] [[email or web address]] [id number] Univers 00:00:00 00:00:00 Joleen C MANAGER WATER [id number] ity of [facility] [id number] Osei as MATERNAL [id number] [facility] & CHILD [address] [place] [address] 2021-05-24 2021-05-24 Outpatient R MIRTA [facility] [id number] Univers 09:30:00 09:30:00 JACK [address] o f [facility] 2021-05-24 2021-05-24 Outpatient R [facility] [id number] Univers 09:30:00 09:30:00 ity [facility] 2021-04-12 2021-04-12 Outpatient R JENNIFER [facility] [id number] Univers 11:00:00 11:00:00 MALINA armendariz [facility] 2021-03-26 2021-03-26 [facility] [id number] Univers 10:00:00 11:05:[address] [facility] 2021-03-26 2021-03-26 [facility] [id number] Univers 10:00:00 11:05:25 Visit Joleen Zuniga MANAGER WATER [id number] ity [facility] [id number] Osei as MATERNAL [id number] [facility] & [address] 2021-03-26 2021-03-26 Outpatient R ADALBERTO [facility] [id number] Univers 10:00:00 10:00:[address] [facility] 2021-03-25 2021-03-25 Telephone [facility] [id number] Univers 00:00:00 00:00:00 Maricarmen Plascencia MANAGER WATER [id number] it y of REGIONAL [id number] Osei as MATERNAL [id number] [facility] & [address] 2020-09-25 2020-09-25 [facility] [id number] Univers 10:30:00 10:30:[address] [facility] 2020-07-18 2020-07-18 Outpatient R MIRTA, [facility] [id number] Univers 10:30:00 10:30:00 OMIDNDA ity o f [facility] 2019-12-21 2019-12-21 Emergency Harry, [facility] [[email or web address]] [id number] 15:36:00 16:23:00 Christopher [place] [id number] [place] [id number] [place] [id number] 2019-12-19 2019-12-19 [facility] [id number] 12:15:00 12:44:00 Isatu [place] [id number] [place] [id number] [place] [id number] 2019-10-20 2019-10-20 Telephone Layne Hairston [facility] [[email or web address]] [id number] 00:00:00 00:00:00 Cam Ubly [id number] [place] [id number] Professio [id number] [address] 2019-10-10 2019-10-10 Telephone Adalberto, [facility] [[email or web address]] [id number] 00:00:00 00:00:00 Joleen Zuniga MANAGER WATER [id number] [facility] [id number] MATERNAL [id number] & CHILD [address] [place] [address] 2019-10-06 2019-10-06 Outpatient R AKINSIPE, [facility] [id number] Univers 10:30:00 10:30:00 JOLEEN ity o f [facility] 2019-09-27 2019-09-27 Outpatient R AKINSIPE, [facility] [id number] Univers 14:15:00 14:15:00 JOLEEN ity o f [facility] 2019-09-21 2019-09-21 Outpatient R AKINSIPE, [facility] [id number] Univers 10:15:00 10:15:00 JOLEEN ity o f [facility] 2019-07-29 2019-07-29 Emergency Mehran Barber [facility] JEN [id number] 23:33:00 23:33:00 Rassoli, Amir [facility] Results This patient has no known results.
[2022-04-30] MEDS ORDERED: KETOROLAC 30 MG/ML INJ ONE (14:29)
[2022-04-30] MEDS ORDERED: NA CHLORIDE 0.9% 1,000 ML ONE (14:29)
[2022-04-30 14:34] LABS: Absolute Lymphocytes (CBC) 1.1 K/uL (0.7-4.9); Hematocrit 33.3 % (36.0-45.0); Lymphocytes % 16.6 % (15.3-44.8); MCV 81.2 fL (80-100); MPV 7.5 fL (7.6-11.3)
[2022-04-30 14:52] LABS: Potassium 3.6 mmol/L (3.5-5.1)
--- NOTE | 2022-04-30 15:21 | RAD REPORT ---
EXAM DESCRIPTION: CT - CTFBWCON CLINICAL HISTORY: Facial pain COMPARISON: Head Brain Wo Cont dated 01/05/2020 TECHNIQUE: Axial 2 mm thick images of the face were obtained with sagittal and coronal reconstructio n images. All CT scans are performed using dose optimization technique as appropriate and may include automated exposure control or mA/KV adjustment according to patient size. FINDINGS: No acute facial bone fracture is seen.The mandible is intact. The globes and orbital contents are grossly unremarkable.Mild paranasal thickening in both maxillary antra. No fluid collections seen suspicious for abscess. IMPRESSION: No acute process identified.
--- NOTE | 2022-04-30 15:37 | ER ---
Nurse's Notes [facility] Name: Jennifer Olivares Age: 31 yrs Sex: Female : 1990 Arrival Date: 04/30/2022 Time: 13:13 Bed 12 Private MD: Diagnosis: Contusion of the Face;Dental caries, unspecified Presentation: 04/30 13:42 Chief complaint: Patient states: Dental pain and facial swelling x 3-4 days. ss Coronavirus screen: Client denies travel out of the [place] in the last 14 days. Ebola Screen: Patient denies exposure to infectious person. Patient denies travel to an Ebola-affected area in the 21 days before illness onset. Initial Sepsis Screen: Does the patient meet any 2 criteria? No. Patient's initial sepsis screen is negative. Does the patient have a suspected source of infection? No. Patient's initial sepsis screen is negative. Risk Assessment: Do you want to hurt yourself or someone else? Patient reports no desire to harm self or others. Onset of symptoms was April 27, 2022. 13:42 Method Of Arrival: Ambulatory 13:42 Acuity: ANKIT 4 Historical: - Allergies: 13:43 Celexa; ss 13:43 Zyprexa; 13:43 Risperdal; ss - PMHx: 13:43 Anxiety; Bipolar disorder; Depression; Paranoid Delusions; PTSD; ss - Immunization history:: Client reports having NOT received the Covid vaccine. - Social history:: Smoking status: Patient reports the use of cigarette tobacco products, smokes one-half pack cigarettes per day. Vital Signs: 13:42 BP 139 / 90; Pulse 107; Resp 16; Temp 98.2(TE); Pulse Ox 100% on R/A; Weight 73.48 kg; ss Height 5 ft. 5 in. (165.10 cm); Pain 10/10; 13:42 Body Mass Index 26.96 (73.48 kg, 165.10 cm) ED Course: 13:13 Patient arrived in ED. rg4 13:18 [facility] Biggs FNP [facility] jh7 13:18 Asher Horton MD is Attending Physician. [facility] er 13:43 Triage completed. 13:43 Arm band placed on right wrist. 15:14 CT Facial Bones W/ Con \T\ Mpr In Process Unspecified. EDMS 15:48 IV discontinued, intact, bleeding controlled, No redness/swelling at site. Pressure 5 dressing applied. Administered Medications: 14:24 Drug: NS 0.9% 1000 ml Route: IV; Rate: 1 bolus; Site: right antecubital; jh5 14:24 Drug: Ketorolac 30 mg Route: IVP; Site: right antecubital; 5 15:48 Drug: Tylenol 650 mg Route: PO; 5 Outcome: 15:37 Discharge ordered by MD. jh7 15:48 Discharged to home ambulatory. jh5 15:48 Condition: good 15:48 Discharge instructions given to patient, Instructed on discharge instructions, follow up and referral plans. medication usage, safety practices, Demonstrated understanding of instructions, follow-up care, medications, Prescriptions given X 1. 15:48 Patient left the ED. 5 Signatures: Dispatcher [employer] EDMD Mariaelena Schumacher RN RN ss Garcia, Rubi 4 Elaine Koo RN RN 5 Antonia Biggs, US MARKETING DIRECTOR US MARKETING DIRECTOR 7
--- NOTE | 2022-04-30 15:37 | EDPHYS ---
Physician Documentation [facility] Name: Jennifer Olivares Age: 31 yrs Sex: Female : 1990 Arrival Date: 04/30/2022 Time: 13:13 Bed 12 Private MD: ED Physician Asher Horton HPI: 04/30 13:45 This 31 yrs old Black Female presents to ER via Ambulatory with complaints of Facial jh7 Swelling. 13:45 Onset: The symptoms/episode began/occurred 3 day(s) ago. Associated signs and symptoms: jh7 Pertinent positives: dental pain, Pertinent negatives: abdominal pain, chest pain, fever, headache. 13:45 31-year-old female complains of left facial swelling after falling in a ditch 3 days jh7 ago. Also reports left-sided dental pain and reports that she has not seen a dentist in a couple of years.. Historical: - Allergies: 13:43 Celexa; ss 13:43 Zyprexa; ss 13:43 Risperdal; ss - PMHx: 13:43 Anxiety; Bipolar disorder; Depression; Paranoid Delusions; PTSD; ss - Immunization history:: Client reports having NOT received the Covid vaccine. - Social history:: Smoking status: Patient reports the use of cigarette tobacco products, smokes one-half pack cigarettes per day. ROS: 13:45 Constitutional: Negative for fever, chills, and weight loss, Eyes: Negative for injury, jh7 pain, redness, and discharge, Neck: Negative for injury, pain, and swelling, Cardiovascular: Negative for chest pain, palpitations, and edema, Respiratory: Negative for shortness of breath, cough, wheezing, and pleuritic chest pain, Abdomen/GI: Negative for abdominal pain, nausea, vomiting, diarrhea, and constipation, Back: Negative for injury and pain, MS/Extremity: Negative for injury and deformity, Skin: Negative for injury, rash, and discoloration, Neuro: Negative for headache, weakness, numbness, tingling, and seizure. 13:45 ENT: Positive for dental pain. 13:45 Skin: Positive for of the left cheek, contusion. 13:45 All other systems are negative. Exam: 13:45 Constitutional: This is a well developed, well nourished patient who is awake, alert, jh7 and in no acute distress. Eyes: Pupils equal round and reactive to light, extra-ocular motions intact. Lids and lashes normal. Conjunctiva and sclera are non-icteric and not injected. Cornea within normal limits. Periorbital areas with no swelling, redness, or edema. Neck: Trachea midline, no thyromegaly or masses palpated, and no cervical lymphadenopathy. Supple, full range of motion without nuchal rigidity, or vertebral point tenderness. No Meningismus. Cardiovascular: Regular rate and rhythm with a normal S1 and S2. No gallops, murmurs, or rubs. Normal PMI, no JVD. No pulse deficits. Respiratory: Lungs have equal breath sounds bilaterally, clear to auscultation and percussion. No rales, rhonchi or wheezes noted. No increased work of breathing, no retractions or nasal flaring. Abdomen/GI: Soft, non-tender, with normal bowel sounds. No distension or tympany. No guarding or rebound. No evidence of tenderness throughout. Back: No spinal tenderness. No costovertebral tenderness. Full range of motion. Skin: Warm, dry with normal turgor. Normal color with no rashes, no lesions, and no evidence of cellulitis. MS/ Extremity: Pulses equal, no cyanosis. Neurovascular intact. Full, normal range of motion. Neuro: Awake and alert, GCS 15, oriented to person, place, time, and situation. Motor strength 5/5 in all extremities. Sensory grossly intact. Normal gait. 13:45 Head/face: Exam is negative for butler signs, raccoon eyes, Noted is contusion, that is superficial, of the left cheek. 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 Patient reports tenderness but there is no surrounding erythema or swelling noted., Dental exam: dental caries, that is moderate, specifically in the lower left second molar (#18), fractured teeth are noted, missing teeth, dental tenderness over the L lower gums. Vital Signs: 13:42 BP 139 / 90; Pulse 107; Resp 16; Temp 98.2(TE); Pulse Ox 100% on R/A; Weight 73.48 kg; ss Height 5 ft. 5 in. (165.10 cm); Pain 10/10; 13:42 Body Mass Index 26.96 (73.48 kg, 165.10 cm) ss MDM: 13:18 Patient medically screened. [facility] 15:55 Differential diagnosis: Dental abscess, zygomatic fracture, facial contusion, fractured jh7 teeth, dental caries. Data reviewed: vital signs, nurses notes, lab test result(s), radiologic studies, CT scan. I considered the following discharge prescriptions or medication management in the emergency department Medications were administered in the Emergency Department. See MAR. Care significantly affected by the following Social Determinants of Health: Poor access to healthcare and/or lack of insurance, Poor access to transportation, Inadequate housing, Misuse of alcohol and/or drugs. Counseling: I had a detailed discussion with the patient and/or guardian regarding: the historical points, exam findings, and any diagnostic results supporting the discharge/admit diagnosis, the need for outpatient follow up, a dentist, to return to the emergency department if symptoms worsen or persist or if there are any questions or concerns that arise at home. Response to treatment: the patient's symptoms have mildly improved after treatment. 04/30 13:32 Order name: CBC with Diff; Complete Time: 14:42 [facility] 04/30 13:32 Order name: BMP; Complete Time: 14:52 [facility] 04/30 13:32 Order name: CT Facial Bones W/ Con \T\ Mpr; Complete Time: 15:28 [facility] Administered Medications: 14:24 Drug: NS 0.9% 1000 ml Route: IV; Rate: 1 bolus; Site: right antecubital; [facility] 14:24 Drug: Ketorolac 30 mg Route: IVP; Site: right antecubital; [facility] 15:48 Drug: Tylenol 650 mg Route: PO; 5 Disposition Summary: 04/30/22 15:37 Discharge Ordered Location: Home [facility] Problem: new [facility] Symptoms: are unchanged [facility] Condition: Stable [facility] Diagnosis - Contusion of the Face jh7 - Dental caries, unspecified [facility] Followup: [facility] - With: Private Physician - When: 2 - 3 days - Reason: Recheck today's complaints Discharge Instructions: - Discharge Summary Sheet 7 - Dental Caries, Adult jh7 - Dental Pain [facility] Forms: - Medication Reconciliation Form [facility] - Thank You Letter [facility] Prescriptions: - penicillin V potassium 500 mg Oral tablet - take 1 tablet by ORAL route 4 times per day for 10 days; 40 tablet; Refills: 0, jh7 Product Selection Permitted Signatures: Dispatcher [employer] Mariaelena Steele, RN RN ss Elaine Koo RN RN jh5 Antonia Biggs, PRESSROOM FOREMAN PRESSROOM FOREMAN jh7
[2022-04-30] MEDS ORDERED: ACETAMINOPHEN 325 MG TABLET ONE (15:49)
[2022-04-30 15:53] VITALS: BP 139/90; TEMP 98.2; O2SAT 100
== END 2022-04-30 15:48 | disposition home or self-care (01) ==
LOC: ER 13:09
DX: K02.9 Dental caries, unspecified (principal); S00.83XA Contusion of other part of head, initial encounter; F17.210 Nicotine dependence, cigarettes, uncomplicated; Z88.8 Allergy status to other drugs, medicaments and biological substances
CPT/HCPCS: 85025; 80048; 36415; 70487; 76377; Q9967; J7030

== ENCOUNTER 2022-08-02 10:37 | Emergency (ER) | payer OTHER ==
--- OUTSIDE RECORDS SUMMARY | 2022-08-02 10:42 | XMS REPORT | Continuity of Care Document ---
:1990 Author Organization [facility] Address [address] [place] [address] Care Team Providers Name Role Phone Asked, No Pcp Primary Care Physician Unavailable KB HORAN Attending Clinician Unavailable Joleen Heller Attending Clinician [phone] JOLEEN RAINEY Attending Clinician Unavailable JACK KIRBY Attending Clinician Unavailable MALINA RODRIGUEZ Attending Clinician Unavailable Maricarmen Knight Attending Clinician Christopher Tidwell Attending Clinician Isatu Parry DO Attending Clinician Layne Hairston MD Attending Clinician Mehran Barber Attending Clinician Unavailable Mehran Braber Attending Clinician Unavailable Mehran Barber Admitting Clinician Unavailable Payers Payer Name Policy Type Policy Number Effective Date Expiration Date S baldomero HANNATAMANDEEP MP CVS 9 [id number] 2022 00:00:00 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 94 ON STAND Problems Condition Condition Condition Status Onset Resolution Last Treating Co mments Source Name Details Category Date Date Treatment Clinician Date 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 5-25 Seybold disorder, disorder, 00:00: - depressive depressive 00 Ex terna type type l Anxiety Anxiety Disease Active Mallory 5-25 Seybold 00:00: - 00 Externa l Bipolar 1 Bipolar 1 Disease Active Tal sey disorder disorder 07-24 Seybol d 00:00: - 00 Externa l PTSD PTSD Disease Active Mallory (post-trau (post-trau 07-24 Se ybold matic matic 00:00: - stress stress 00 Externa disorder) disorder) l Well woman Well woman Disease Active U nivers exam exam 1-25 ity of 00:00: [place] [facility] Other Other Disease Active Univers general general 7-22 [place] of counseling [place] advice and advice 00 Me dical for for Branch contracept contracept brandon brandon management management Psychiatri Psychiatri Disease Active U nivers c disorder c disorder 11-04 it y of 00:00: Medical Branch 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 00:00: [facility] disorder disorder 00 l with with hallucinat hallucinat ions ions 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-03 st disorder, disorder, 00:00: Hosp maryann severe, severe, 00 l dependence dependence Severe Severe Disease Recurre Methodi protein-ca protein-ca nce 07-03 st caden caden 00:00: Hospita malnutriti malnutriti 00 l on on History of History of Disease Active U nivers tubal tubal 2-23 ity of ligation ligation 00:00: [place] 00 [facility] Epidermal Epidermal Disease Active 2015-03 Uni vers cyst of cyst of 0-05 ity of face face 00:00: [place] [facility] Custody Custody Disease Active 2015-03 Overview: Univ ers issue issue 0-05 Formattin ity of 00:00: g of this [place] 00 note Medical might be Branch different [...] of idism idism 00:00: g of this [place] 00 note Medical might be Branch different [...] 2015 History of History of Disease Active 2015-03 U nivers herpes herpes 0-05 [place] genital[place] Overweight Overweight Disease Active U nivers (BMI (BMI 8-24 ity of 25.0-29.9) 25.0-29.9) [place] Allergies, Adverse Reactions, Alerts Allergy Allergy Status Severity Reaction(s) Onset Inactive Treating Comm ents Source Name Type Date Date Clinician Citalopr Propensi Active Other migraine Madhuri ey am ty to 07-23 Seybold adverse 00:00: - reaction 00 Externa s l Hydroxyz Propensi Active Other Starving, Tal sey ine ty to 07-23 bad RYAN, Seybold adverse 00:00: overmedic - reaction 00 ates Externa s l Risperid Propensi Active Other swelling Madhuri ey one ty to 07-23 Seybold adverse 00:00: - reaction 00 Externa s l Zyprexa Propensi Active Other Mallory ty to 07-23 Seybold adverse 00:00: - reaction 00 Externa s l Sertrali Propensi Active Other - See Suicidal Univers ne Hcl ty to comments 09-30 ideation ity of adverse 00:00: [place] reaction 00 Medical s Branch Citalopr Propensi Active Other (See migraine Methodi am ty to Comments) 07-03 st adverse 00:00: Hospita reaction 00 l s to drug Risperid Propensi Active Other (See "my body Methodi one ty to Comments) 5-04 swell up" st adverse 00:00: Hospita reaction 00 l s to drug Risperid Propensi Active Swelling 2017- Whole Univ ers one ty to 5- body ity of adverse 00:00: [place] reaction 00 Medical s Branch Citalopr Propensi Active Other - See HEADACHE / Univers am ty to comments - MIGRAINE ity of Hydrobro adverse 00:00: [place] mide reaction 00 Medical s Branch Social History Social Habit Start Date Stop Date Quantity Comments Source History SDOH University o f Alcohol Frequency [place] [facility] History SDOH University o f Alcohol Std Drinks [place] [facility] History SDUT University o f Alcohol Binge [place] [facility] Gender [facility] Sexual orientation [facility] History of tobacco Cigarette Smoker Mallory Phi - use External Tobacco use and 2022-07-24 2022-07-24 Smokeless Mallory duong - exposure 00:00:00 00:00:00 tobacco non-user External Education 2022-07-24 2022-07-24 14 Mallory Rammemolara - 00:00:00 00:00:00 External Exposure to 2021-07-02 2021-07-12 Not sure University of SARS-CoV-2 (event) 00:00:00 09:10:00 [place] [facility] [place] History of Social 2018-01-17 2018-01-[address] function 00:00:00 00:00:00 Hospital Alcohol intake 2017-07-03 2017-07-03 Current drinker Metho dist 00:00:00 00:00:00 of alcohol Hospital (finding) Alcohol Comment 2017-07-03 2017-07-03 "I binge drink" Meth odist 00:00:00 00:00:00 Hospital Cigarettes smoked 2017-07-03 2017-07-[address] current (pack per 00:00:00 00:00:00 Hospita l day) - Reported Cigarette 2017-07-03 2017-07-03 [facility] pack-years 00:00:00 00:00:00 Hospital Sex Assigned At [birth year] [facility] 00:00:00 00:00:00 Hospital Smoking Status Start Date Stop Date Source Smokes tobacco daily 2022-07-24 00:00:00 Mallory Seybold - External Former smoker 2021-03-26 00:00:00 2021-03-26 00:00:00 [facility] Medications Ordered Filled Start Stop Current Ordering Indication Dosage Frequency Signature Comments Components Source Medication Medication Date Date Medication? Clinician (SIG) Name Name ARIPiprazol Yes 300mg Inject 300 Mallory e ER 300 MG 5-25 mg into Seybo ld intramuscul 09:04: the muscle - ar 13 once Externa Prefilled l Syringe Fluoxetine Yes 20mg Take 1 Kelse y HCl 20 MG 5-25 capsule Seybold oral 09:04: (20 mg - Capsule 13 total) by Externa mouth l daily metroNIDAZO Yes [id number] 500mg Take 1 Univers LE 500 mg 5-17 tablet by ity o f tablet 00:00: mouth [address] [place] [address] (two) Medical times [place] daily. aripiprazol Yes by Wally rea e (ABILIFY 1-25 Intramuscu ity of IM) 10:35: lar route. [address] Immunizations Ordered Filled Immunization Date Status Comments Sour e Immunization Name Name HPV9 2021-03-26 Completed University of 00:00:00 [facility] Rho (d) Immune 2016-04-25 Completed University of Globulin 00:00:00 [facility] TDAP 2016-01-31 Completed University of 00:00:00 [facility] Influenza Virus 2016-01-03 Completed Universit y of Vaccine Quad IM 3+ 00:00:00 [facility] Rho (d) Immune 2015-01-15 Completed University of Globulin 00:00:00 [facility] Vital Signs Vital Name Observation Time Observation Value Comments Source Systolic blood 2022-07-24 14:00:00 104 mm[Hg] Mallory Seybold - pressure External Diastolic blood 2022-07-24 14:00:00 70 mm[Hg] Lexi y Seybold - pressure External Heart rate 2022-07-24 14:00:00 81 /min Mallory Rea eybold - External Body temperature 2022-07-24 14:00:00 36.44 Angelica Madhuri ey Seybold - External Respiratory rate 2022-07-24 14:00:00 20 /min Madhuri Yip - External Body height 2022-07-24 14:00:00 154.9 cm Mallory seay - External Body weight 2022-07-24 14:00:00 77.384 kg Mallory seay - External BMI 2022-07-24 14:00:00 32.23 kg/m2 Mallory seay - External Oxygen saturation in 2022-07-24 14:00:00 97 /min Mallory Yip - Arterial blood by External Pulse oximetry Procedures This patient has no known procedures. Plan of Care Planned Activity Planned Date Details Comments Source Future Scheduled 2022 COVID-[address] [facility] Test 20:29:04 (#1) [code = COVID-19 VACCINE (#1)] Future Scheduled 2022 [facility] Test 20:29:04 malignant neoplasm of cervix (procedure) [code = 730545381] Future Scheduled 2022 INFLUENZA VACCINE [facility] Test 20:29:04 [code = INFLUENZA VACCINE] Future Scheduled 2022-04-30 COVID-[address] [facility] Test 13:13:13 (#1) [code = COVID-19 VACCINE (#1)] Future Scheduled 2022-04-30 [facility] Test 13:13:13 malignant neoplasm of cervix (procedure) [code = 745586988] Future Scheduled 2022-04-30 INFLUENZA VACCINE [facility] Test 13:13:13 [code = INFLUENZA VACCINE] Future Scheduled 2022-03-30 [facility] 12:17:56 (#1) [code = COVID-19 VACCINE (#1)] Future Scheduled 2022-03-30 [facility] Test 12:17:56 malignant neoplasm of cervix (procedure) [code = 891029921] Future Scheduled 2022-03-30 INFLUENZA VACCINE [facility] Test 12:17:56 [code = INFLUENZA VACCINE] Encounters Start End Encounter Admission Attending Care Care Encounter Source Date/Time Date/Time Type Type Clinicians Facility Department ID 2020-12-29 Emergency [facility] [id number] Univers 00:18:42 [facility] 2020-12-28 Emergency [facility] [id number] Univers 23:43:11 ity of [facility] 2020-12-28 Emergency [facility] [id number] Univers 05:38:46 ity of [facility] 2022-08-07 2022-08-07 Outpatient MALLORY HORAN [id number] Mallory 11:45:00 11:45:00 KB weems 2022-07-24 2022-07-24 Outpatient MALLORY HORAN [id number] Mallory 09:00:00 09:00:00 KB Heatonol dank 2021-07-16 2021-07-16 Telephone [facility] [id number] Univers 00:00:00 00:00:00 Joleen C COLLEGE SPORTS ASSISTANT [id number] ity of [facility] [id number] Osei as MATERNAL [id number] [facility] & CHILD [address] [place] [address] 2021-07-12 2021-07-12 [facility] [id number] Univers 09:15:00 11:22:36 JOLEEN ity o f [facility] 2021-07-12 2021-07-12 [facility] [id number] Univers 09:15:00 11:22:36 Visit Joleen C COLLEGE SPORTS ASSISTANT [id number] ity of [facility] [id number] Osei as MATERNAL [id number] [facility] & CHILD [address] [place] [address] 2021-07-11 2021-07-11 [facility] [id number] Univers 00:00:00 00:00:00 Joleen C COLLEGE SPORTS ASSISTANT [id number] ity of REGION[facility] [id number] Osei as MATERNAL [id number] [facility] & CHILD [address] [place] [address] 2021-05-24 2021-05-24 Outpatient Aliyah KIRBY [facility] [id number] Univers 09:30:00 09:30:00 ROSWINGNDA ity o f [facility] 2021-05-24 2021-05-24 Outpatient R [facility] [id number] Univers 09:30:00 09:30:00 ity [facility] 2021-04-12 2021-04-12 Outpatient R FRANCISCOKin [facility] [id number] Univers 11:00:00 11:00:00 MALINA itdarnell [facility] 2021-03-26 2021-03-26 Outpatient R ADALBERTO [facility] [id number] Univers 10:00:00 11:05:25 JOLEEN armendariz o f [facility] 2021-03-26 2021-03-26 [facility] [id number] Univers 10:00:00 11:05: Visit Joleen Zuniga COLLEGE SPORTS ASSISTANT [id number] ity [facility] [id number] Osei as MATERNAL [id number] [facility] & CHILD [address] [place] [address] 2021-03-26 2021-03-26 Outpatient R ADALBERTO, [facility] [id number] Univers 10:00:00 10:00:00 JOLEEN armendariz o kostas [facility] 2021-03-25 2021-03-25 Telephone [facility] [id number] Univers 00:00:00 00:00:00 Maricarmen Plascencia COLLEGE SPORTS ASSISTANT [id number] it y [facility] [id number] Osei as MATERNAL [id number] [facility] & CHILD [address] [place] [address] 2020-09-25 2020-09-25 Outpatient R MIRTA [facility] [id number] Univers 10:30:00 10:30:00 JACK armendariz o f [facility] 2020-07-18 2020-07-18 Outpatient R MIRTA [facility] [id number] Univers 10:30:00 10:30:00 EMILEA sydneey o f [facility] 2019-12-21 2019-12-21 [facility] [id number] 15:36:00 16:23:00 Christopher Mcdonald [id number] [place] [id number] [place] [id number] 2019-12-19 2019-12-19 [facility] [id number] 12:15:00 12:44:00 Isatu Mcdonald [id number] [place] [id number] [place] [id number] 2019-10-20 2019-10-20 Telephone Layne Hairston [facility] [id number] 00:00:00 00:00:00 Cam Harry [id number] [place] [id number] Professio [id number] [address] 2019-10-10 2019-10-10 [facility] [id number] 00:00:00 00:00:00 Joleen Zuniga COLLEGE SPORTS ASSISTANT [id number] [facility] [id number] MATERNAL [id number] & CHILD [address] [place] [address] 2019-10-06 2019-10-06 Outpatient R AKINSIPE, [facility] [id number] Univers 10:30:00 10:30:00 JOLEEN ity o f [facility] 2019-09-27 2019-09-27 Outpatient R AKINSIPE, [facility] [id number] Univers 14:15:00 14:15:00 JOLEEN ity o f [facility] 2019-09-21 2019-09-21 Outpatient R AKINSIPE, [facility] [id number] Univers 10:15:00 10:15:00 JOLEEN ity o f [facility] 2019-07-29 2019-07-29 Emergency Mehran Barber [facility] JEN [id number] 23:33:00 23:33:00 Mehran Barber' [facility] Results This patient has no known results.
[2022-08-02] MEDS ORDERED: KETOROLAC 30 MG/ML INJ ONE (11:09)
[2022-08-02] MEDS ORDERED: LIDOCAINE 1% MPF 5 ML VIAL ONE (11:09)
--- NOTE | 2022-08-02 11:29 | ER ---
Nurse's Notes [facility] [place] Name: Jennifer Olivares Age: 32 yrs Sex: Female : 1990 Arrival Date: 08/02/2022 Time: 10:37 Bed 5 Private MD: Diagnosis: Cutaneous abscess of face Presentation: 08/02 10:48 Chief complaint: Patient states: Abscess to L eyebrow area since getting worse ll1 each day. Coronavirus screen: Client denies travel out of the [place] in the last 14 days. At this time, the client does not indicate any symptoms associated with coronavirus-19. Ebola Screen: Patient denies travel to an Ebola-affected area in the 21 days before illness onset. Initial Sepsis Screen: Does the patient meet any 2 criteria? No. Patient's initial sepsis screen is negative. Does the patient have a suspected source of infection? Yes: Skin breakdown/wound. Risk Assessment: Do you want to hurt yourself or someone else? Patient reports no desire to harm self or others. Onset of symptoms was July 31, 2022. 10:48 Method Of Arrival: Ambulatory ll1 10:48 Acuity: ANKIT 3 ll1 Triage Assessment: 10:50 General: Appears uncomfortable, Behavior is calm, cooperative, appropriate for age. ll1 Pain: Complains of pain in left eyebrow Pain currently is 7 out of 10 on a pain scale. Quality of pain is described as aching. Derm: Abscess located on left eyebrow is golf ball sized, has no drainage, is red, is raised, swelling. Historical: - Allergies: 10:49 Celexa; ll1 10:49 Risperdal; ll1 10:49 Zyprexa; ll1 - PMHx: 10:49 Anxiety; Bipolar disorder; Depression; Paranoid Delusions; PTSD; ll1 - PSHx: 10:49 section; "tubes tied"; ll1 - Immunization history:: Adult Immunizations up to date. - Social history:: Smoking status: Patient reports the use of cigarette tobacco products, smokes one-half pack cigarettes per day. Screenin:51 [facility] ED Fall Risk Assessment (Adult) History of falling in the last 3 months, kc6 including since admission No falls in past 3 months (0 pts) Confusion or Disorientation No (0 pts) Intoxicated or Sedated No (0 pts) Impaired Gait No (0 pts) Mobility Assist Device Used No (0 pt) Altered Elimination No (0 pt) Score/Fall Risk Level 0 - 2 = Low Risk Oriented to surroundings, Maintained a safe environment, Educated pt \\T\\ family on fall prevention, incl call for assistance when getting out of bed, Assessed \\T\\ reinforced patient's understanding of fall precautions, Hourly rounding (assess needs \\T\\ fall precautionary measures) done. Abuse screen: Denies threats or abuse. Denies injuries from another. Nutritional screening: No deficits noted. Tuberculosis screening: No symptoms or risk factors identified. Assessment: 10:51 Reassessment: Patient appears in no apparent distress at this time. No changes from [facility] previously documented assessment. Patient and/or family updated on plan of care and expected duration. Pain level reassessed. Patient is alert, oriented x 3, equal unlabored respirations, skin warm/dry/pink. Vital Signs: 10:48 BP 114 / 74; Pulse 88; Resp 16; Temp 98.7; Pulse Ox 100% ; Weight 77.11 kg; Height 5 ll1 ft. 5 in. ; Pain 7/10; 10:48 Body Mass Index 28.29 (77.11 kg, 165.1 cm) ll1 10:48 Pain Scale: Adult ll1 ED Course: 10:39 Patient arrived in ED. mr 10:41 [facility] Biggs FNP [facility]. jh7 10:41 Lionel Morales MD is Attending Physician. jh7 10:44 Kelly Boyd, RN is Primary Nurse. ld1 10:44 Dorita Kellogg, KATIE is Primary Nurse. kc6 10:49 Triage completed. ll1 10:50 Arm band placed on Patient placed in an exam room, on a stretcher. ll1 10:51 Patient has correct armband on for positive identification. Bed in low position. Call kc6 light in reach. Side rails up X 1. 11:36 No provider procedures requiring assistance completed. Patient did not have IV access kc6 during this emergency room visit. Administered Medications: 11:07 Drug: Ketorolac IM 30 mg Route: IM; Site: left deltoid; ld1 11:36 Follow up: Response: No adverse reaction; Pain is decreased kc6 11:07 Drug: Lidocaine Infiltration (1 %) 5 ml {Note: Administered By THADDEUS Gardner.} ld1 Volume: 5 ml; Route: Infiltration; 11:36 Follow up: Response: No adverse reaction; Pain is decreased kc6 Medication: 11:37 VIS not applicable for this client. kc6 Outcome: 11:29 Discharge ordered by . brett 11:36 Discharged to home ambulatory. kc6 11:36 Condition: stable 11:36 Discharge instructions given to patient, Instructed on discharge instructions, follow up and referral plans. medication usage, Demonstrated understanding of instructions, follow-up care, medications, wound care, Prescriptions given X 2. 11:37 Patient left the ED. kc6 Signatures: Brielle Fuentes mr Stacey Milan, RN RN 1 Kelly Boyd RN RN david1 Antonia Biggs FNP FNP jh7 Campbell, Kaitlyn RN RN kc6
--- NOTE | 2022-08-02 11:29 | EDPHYS ---
Physician Documentation [facility] Name: Jennifer Olivares Age: 32 yrs Sex: Female : 1990 Arrival Date: 08/02/2022 Time: 10:37 Bed 5 Private MD: ED Physician Lionel Morales HPI: 08/02 10:50 This 32 yrs old Black Female presents to ER via Ambulatory with complaints of Abscess. jh7 10:50 The patient presents with an abscess of the L eyebrow. Description: The affected area jh7 is moderate sized, localized, swollen, warm. Onset: The symptoms/episode began/occurred 2 day(s) ago. Associated signs and symptoms: Pertinent positives: swelling, Pertinent negatives: discharge, drainage, foreign body sensation, fever. 32-year-old female presents with reoccurring abscess to the left eyebrow. She reports that she has had an I\\T\\D in this exact same spot multiple times. Reports that she felt a small bump and that it became much larger this morning. Denies fever, but reports swelling and tenderness to the area.. Historical: - Allergies: 10:49 Celexa; ll1 10:49 Risperdal; ll1 10:49 Zyprexa; ll1 - PMHx: 10:49 Anxiety; Bipolar disorder; Depression; Paranoid Delusions; PTSD; ll1 - PSHx: 10:49 section; "tubes tied"; ll1 - Immunization history:: Adult Immunizations up to date. - Social history:: Smoking status: Patient reports the use of cigarette tobacco products, smokes one-half pack cigarettes per day. ROS: 10:50 Constitutional: Negative for fever, chills, and weight loss, Eyes: Negative for injury, jh7 pain, redness, and discharge, Neck: Negative for injury, pain, and swelling, Cardiovascular: Negative for chest pain, palpitations, and edema, Respiratory: Negative for shortness of breath, cough, wheezing, and pleuritic chest pain, Abdomen/GI: Negative for abdominal pain, nausea, vomiting, diarrhea, and constipation, MS/Extremity: Negative for injury and deformity, Neuro: Negative for headache, weakness, numbness, tingling, and seizure. 10:50 Skin: Positive for abscess, swelling, of the L eyebrow. 10:50 All other systems are negative. Exam: 10:50 Constitutional: This is a well developed, well nourished patient who is awake, alert, jh7 and in no acute distress. Head/Face: Normocephalic, atraumatic. Eyes: Pupils equal round and reactive to light, extra-ocular motions intact. Lids and lashes normal. Conjunctiva and sclera are non-icteric and not injected. Cornea within normal limits. Periorbital areas with no swelling, redness, or edema. Neck: Trachea midline, no thyromegaly or masses palpated, and no cervical lymphadenopathy. Supple, full range of motion without nuchal rigidity, or vertebral point tenderness. No Meningismus. Cardiovascular: Regular rate and rhythm with a normal S1 and S2. No gallops, murmurs, or rubs. Normal PMI, no JVD. No pulse deficits. Respiratory: Lungs have equal breath sounds bilaterally, clear to auscultation and percussion. No rales, rhonchi or wheezes noted. No increased work of breathing, no retractions or nasal flaring. Back: No spinal tenderness. No costovertebral tenderness. Full range of motion. MS/ Extremity: Pulses equal, no cyanosis. Neurovascular intact. Full, normal range of motion. Neuro: Awake and alert, GCS 15, oriented to person, place, time, and situation. Normal gait. 10:50 Skin: abscess, 3 cm tender area of phlegmom with mild erythema over the left eyebrow. Possible tiny amount of fluctuance in the center of the area. No induration or drainage present. . Vital Signs: 10:48 BP 114 / 74; Pulse 88; Resp 16; Temp 98.7; Pulse Ox 100% ; Weight 77.11 kg; Height 5 ll1 ft. 5 in. ; Pain 7/10; 10:48 Body Mass Index 28.29 (77.11 kg, 165.1 cm) ll1 10:48 Pain Scale: Adult ll1 Procedures: 10:50 I \\T\\ D: Incision and drainage was performed for an abscess of the left eyebrow Prepped [facility] with Betadine, Anesthetized with 4 ml's 1% Lidocaine. Incised with #15 blade. Drained small amount bloody fluid. Dressing: non-Adherent dressing, the patient tolerated the procedure well. MDM: 10:41 Patient medically screened. 7 11:15 Differential diagnosis: abscess, cellulitis. Data reviewed: vital signs, nurses notes. jh I considered the following discharge prescriptions or medication management in the emergency department Medications were administered in the Emergency Department. See MAR. 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 Special discussion: Informed the patient that the abscess was likely not ready to be drained but that we would do a small incision to see if any drainage could be expressed. Only bloody drainage present after the I\\T\\D. Advised her to warm compress to the area at home and take antibiotics as directed. Verified the patient's statement that this area had been lanced multiple times by reading her history. She states that she just got a primary care doctor and would follow-up with Derm. If she develops fever, spreading of redness, or increased swelling, she may return to the ER for further eval.. 03 10:57 Order name: I\\T\\D Setup; Complete Time: 10:59 [facility] Administered Medications: 11:07 Drug: Ketorolac IM 30 mg Route: IM; Site: left deltoid; ld1 11:36 Follow up: Response: No adverse reaction; Pain is decreased kc6 11:07 Drug: Lidocaine Infiltration (1 %) 5 ml {Note: Administered By THADDEUS Gardner.} ld1 Volume: 5 ml; Route: Infiltration; 11:36 Follow up: Response: No adverse reaction; Pain is decreased kc6 Disposition Summary: 08/02/22 11:29 Discharge Ordered Location: Home [facility] Problem: an ongoing problem [facility] Symptoms: are unchanged [facility] Condition: Stable [facility] Diagnosis - Cutaneous abscess of face 7 Followup: [facility] - With: Private Physician - When: 2 - 3 days - Reason: Recheck today's complaints Discharge Instructions: - Discharge Summary Sheet 7 - Skin Abscess jh7 - Incision and Drainage jh7 - Incision and Drainage, Care After 7 Forms: - Work release form eb - Medication Reconciliation Form [facility] - Thank You Letter 7 - Antibiotic Education [facility] Prescriptions: - mupirocin 2 % Topical ointment - apply 1 application by TOPICAL route 2 times per day for 7 days; 22 gram; [facility] Refills: 0, Product Selection Permitted - Cephalexin 500 mg Oral Capsule - take 1 capsule by ORAL route every 12 hours for 10 days; 20 capsule; Refills: [facility] 0, Product Selection Permitted - Bactrim DS 800-160 mg Oral Tablet - take 1 tablet by ORAL route every 12 hours for 10 days; 20 tablet; Refills: 0, [facility] Product Selection Permitted Signatures: Stacey Milan RN RN ll1 Kelly Boyd RN RN ld1 Antonia Biggs, DATABASE REPORTING CONSULTANT DATABASE REPORTING CONSULTANT [facility] Dorita Kellogg RN kc6
[2022-08-02 11:53] VITALS: BP 114/74; TEMP 98.7; O2SAT 100
== END 2022-08-02 11:37 | disposition home or self-care (01) ==
LOC: ER 10:37
PROC: 0H91XZZ Drainage of Face Skin, External Approach (ICD-10-PCS; principal; 2022-08-02)
DX: L02.01 Cutaneous abscess of face (principal); F17.210 Nicotine dependence, cigarettes, uncomplicated; Z88.8 Allergy status to other drugs, medicaments and biological substances
CPT/HCPCS: 96372; 99284; 10060; J2001

== ENCOUNTER 2022-08-03 14:19 | Emergency (ER) | payer OTHER ==
--- OUTSIDE RECORDS SUMMARY | 2022-08-03 14:23 | XMS REPORT | Continuity of Care Document ---
:[address] [facility] t Address [address] [place] [address] [place] [id number] Care Team Providers Name Role Phone Asked, No Pcp Primary Care Physician Unavailable KB HORAN Attending Clinician Unavailable Joleen Heller Attending Clinician [phone] JOLEEN RAINEY Attending Clinician Unavailable JACK KIRBY Attending Clinician Unavailable MALINA RODRIGUEZ Attending Clinician Unavailable Maricarmen Knight Attending Clinician Christopher Tidwell Attending Clinician Isatu Parry DO Attending Clinician Layne Hairston MD Attending Clinician Mehran Barber Attending Clinician Unavailable Mehran Barber Attending Clinician Unavailable Mehran Barber Admitting Clinician Unavailable Payers Payer Name Policy Type Policy Number Effective Date Expiration Date S baldomero LUNA [employer] 9 [id number] 2022 00:00:00 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 Problems Condition Condition Condition [...] 1 Disease Active Tal sey disorder disorder 25 Seybol d 00:00: - 00 Externa l PTSD PTSD Disease Active Mallory (post-trau (post-trau 07-24 Se ybold matic matic 00:00: - stress stress 00 Externa disorder) disorder) l Well woman Well woman Disease Active U rommel exam exam 1-25 ity of 00:00: [place] [facility] Other Other Disease Active Univers general general 7- ity of counseling [place] and advice 00 Me dical for for Branch contracept contracept brandon brandon management management Psychiatri Psychiatri Disease Active U rommel c disorder c disorder 11-04 it y [...] History of History of Disease Active U rommel tubal tubal 2-23 ity of ligation ligation 00:00: [place] [facility] Epidermal Epidermal Disease Active 2015-03 Uni vers cyst of cyst of 0-05 ity of face face 00:00: [place] [facility] Custody Custody Disease Active 2015-03 [...] HEADACHE / Univers am ty to comments 04-24 MIGRAINE ity of Hydrobro adverse 00:00: [place] mide reaction 00 Medical s Branch Social History Social Habit Start Date Stop Date Quantity Comments Source History of tobacco Cigarette Smoker Mallory Yip - use External History SDMO University o f Alcohol Frequency [facility] edical Branch History SDMO University o f Alcohol Std Drinks [place] [facility] History [facility] University o f Alcohol Binge [facility] al Branch Gender identity [facility] Sexual orientation [facility] Tobacco use and 2022-07-24 2022-07-24 Smokeless Mallory Ram yblara - exposure 00:00:00 00:00:00 tobacco non-user External Education 2022-07-24 2022-07-24 14 Mallory Florinaold - 00:00:00 00:00:00 External Exposure to 2021-07-02 2021-07-12 Not sure University of SARS-CoV-2 (event) 00:00:00 09:10:00 [facility] History of Social 2018-01-17 2018-01-[address] function 00:00:00 00:00:00 Hospital Alcohol intake 2017-07-03 2017-07-03 Current drinker Metho dist 00:00:00 00:00:00 of alcohol Hospital (finding) Alcohol Comment 2017-07-03 2017-07-03 "I binge drink" Meth odist 00:00:00 00:00:00 Hospital Cigarettes smoked 2017-07-03 2017-07-[address] current (pack per 00:00:00 00:00:00 Hospita l day) - Reported Cigarette 2017-07-03 2017-07-03 [facility] pack-years 00:00:00 00:00:00 Hospital Sex Assigned At [birth year] [facility] 00:00:00 00:00:00 Hospital Smoking Status Start Date Stop Date Source Smokes tobacco daily 2022-07-24 00:00:00 Mallory Ramybold - External Former smoker 2021-03-26 00:00:00 2021-03-26 00:00:00 [facility] of [facility] Medications Ordered Filled Start Stop Current Ordering [...] by Externa mouth l daily metroNIDAZO Yes [id number] 500mg Take 1 Univers LE 500 mg 5-17 tablet by ity o f tablet 00:00: mouth [address] [place] [address] (two) Medical times [facility] daily. aripiprazol Yes by Wally rea e (ABILIFY 1-25 Intramuscu ity of IM) 10:35: lar route. [address] Immunizations Ordered Filled Immunization Date Status Comments Sour e Immunization Name Name HPV9 2021-03-26 Completed University 00:00:00 [facility] Rho (d) Immune 2016-04-25 Completed University of Globulin 00:00:00 [facility] TDAP 2016-01-31 Completed University 00:00:00 [facility] Influenza Virus 2016-01-03 Completed Universit y of Vaccine Quad IM 3+ 00:00:[address] [facility] Rho (d) Immune 2015-01-15 Completed University of Globulin 00:00:00 [facility] Vital Signs Vital Name Observation Time Observation Value Comments Source Systolic blood 2022-07-24 14:00:00 104 mm[Hg] Mallory Seybold - pressure External Diastolic blood 2022-07-24 14:00:00 70 mm[Hg] Lexi patrick Seybold - pressure External Heart rate 2022-07-24 [...] Source Future Scheduled 2022 COVID-19 VACCINE [facility] Test 20:29:04 (#1) [code = COVID-19 VACCINE (#1)] Future Scheduled 2022 Screening for [facility] Test 20:29:04 malignant neoplasm of cervix (procedure) [code = 704295760] Future Scheduled 2022 INFLUENZA VACCINE Method [facility] Hospital Test 20:29:04 [code = INFLUENZA VACCINE] Future Scheduled 2022 COVID-19 VACCINE [facility] Test 20:29:04 (#1) [code = COVID-19 VACCINE (#1)] Future Scheduled 2022 Screening for [facility] Test 20:29:04 malignant neoplasm of cervix (procedure) [code = 586528305] Future Scheduled 2022 INFLUENZA VACCINE [facility] Test 20:29:04 [code = INFLUENZA VACCINE] Future Scheduled 2022-04-30 INFLUENZA VACCINE [facility] Test 13:13:13 [code = INFLUENZA VACCINE] Future Scheduled 2022-04-30 COVID-19 VACCINE [facility] Test 13:13:13 (#1) [code = COVID-19 VACCINE (#1)] Future Scheduled 2022-04-30 [facility] for [facility] Test 13:13:13 malignant neoplasm of cervix (procedure) [code = 852092599] Future Scheduled 2022-03-30 COVID-19 VACCINE [facility] Test 12:17:56 (#1) [code = COVID-19 VACCINE (#1)] Future Scheduled 2022-03-30 [facility] for [facility] Test 12:17:56 malignant neoplasm of cervix (procedure) [code = 492848347] Future Scheduled 2022-03-30 INFLUENZA VACCINE [facility] Test 12:17:56 [code = INFLUENZA VACCINE] Encounters Start End Encounter Admission Attending Care Care Encounter Source Date/Time Date/Time Type Type Clinicians Facility Department ID 2020-12-29 Emergency [facility] [id number] Univers 00:18:42 ity of [facility] 2020-12-28 Emergency [facility] [id number] Univers 23:43:11 ity of [facility] 2020-12-28 Emergency [facility] [id number] Univers 05:38:46 ity [facility] 2022-08-07 2022-08-07 Outpatient MALLORY HORAN [id number] Mallory 11:45:00 11:45:00 KB weems 2022-07-24 2022-07-24 Outpatient MALLORY HORAN [id number] Mallory 09:00:00 09:00:00 KB weems 2021-07-16 2021-07-16 [facility] [id number] Univers 00:00:00 00:00:00 Joleen Zuniga RESTAURANT ASSISTANT [id number] ity [facility] [id number] Osei as MATERNAL [id number] [facility] & CHILD [address] [place] [address] 2021-07-12 2021-07-12 Outpatient R ADALBERTO [facility] [id number] Univers 09:15:00 11:22:36 JOLEEN randhaway o f [facility] 2021-07-12 2021-07-12 Office Anuragteresa, [facility] [id number] Univers 09:15:00 11:22:36 Visit Joleen Zuniga RESTAURANT ASSISTANT [id number] ity [facility] [id number] Osei as MATERNAL [id number] [facility] & CHILD [address] [place] [address] 2021-07-11 2021-07-11 [facility]phone [facility] [id number] Univers 00:00:00 00:00:00 Joleen Zuniga RESTAURANT ASSISTANT [id number] ity of [facility] [id number] Osei as MATERNAL [id number] [address] 2021-05-24 2021-05-24 Outpatient R MIRTA [facility] [id number] Univers 09:30:00 09:30:00 JACK armendariz o kostas [facility] 2021-05-24 2021-05-24 Outpatient R [facility] [id number] Univers 09:30:00 09:30:00 ity [facility] 2021-04-12 2021-04-12 Outpatient R JENNIFER [facility] [id number] Univers 11:00:00 11:00:00 MALINA [facility] 2021-03-26 2021-03-26 [facility] [id number] Univers 10:00:00 11:05:25 JOLEEN belle [facility] 2021-03-26 2021-03-26 Office [facility] [id number] Univers 10:00:00 11:05:25 Visit Joleen Zuniga RESTAURANT ASSISTANT [id number] ity [facility] [id number] Osei as MATERNAL [id number] [address] 2021-03-26 2021-03-26 [facility] [id number] Univers 10:00:00 10:00:00 JOLEEN kenyon [facility] 2021-03-25 2021-03-25 Telephone [facility] [id number] Univers 00:00:00 00:00:00 Maricarmen Plascencia RESTAURANT ASSISTANT [id number] it y of REGIONAL [id number] Osei as MATERNAL [id number] [facility] & [address] 2020-09-25 2020-09-25 [facility] [id number] Univers 10:30:00 10:30:00 JACK kenyon [facility] 2020-07-18 2020-07-18 Outpatient R KIRBY, [facility] [id number] Univers 10:30:00 10:30:00 JACK armendariz o f [facility] 2019-12-21 2019-12-21 Emergency Harry, [facility] [id number] 15:36:00 16:23:00 Christopher Mcdonald [id number] [place] [id number] [place] [id number] 2019-12-19 2019-12-19 Emergency [facility] [id number] 12:15:00 12:44:00 Isatu Mcdonald [id number] [place] [id number] [place] [id number] 2019-10-20 2019-10-20 Telephone Layne Hairston [facility] [id number] 00:00:00 00:00:00 Cam Harry [id number] [place] [id number] Professio [id number] [address] 2019-10-10 2019-10-10 Telephone Adalberto, [facility] [id number] 00:00:00 00:00:00 Joleen Zuniga RESTAURANT ASSISTANT [id number] [facility] [id number] MATERNAL [id number] & CHILD [address] [place] [address] 2019-10-06 2019-10-06 Outpatient R ANURAGSIPE, [facility] [id number] Univers 10:30:00 10:30:00 JOLEEN armendariz o kostas [facility] 2019-09-27 2019-09-27 Outpatient R AKINSIPE, [facility] [id number] Univers 14:15:00 14:15:00 JOLEEN armendariz o f [facility] 2019-09-21 2019-09-21 Outpatient R AKINSIPE, [facility] [id number] Univers 10:15:00 10:15:00 JOLEEN armendariz o kostas [facility] 2019-07-29 2019-07-29 Emergency Mehran Barber [facility] JEN [id number] 23:33:00 23:33:00 [facility] Results This patient has no known results.
[2022-08-03] MEDS ORDERED: FENTANYL CITR 100 MCG/2 ML ONE ×2 (15:46→19:15)
[2022-08-03] MEDS ORDERED: NA CHLORIDE 0.9% 100 ML ONE (15:46)
[2022-08-03] MEDS ORDERED: AMPICILLIN/SULBACT 1.5GM VIAL ONE (15:46)
[2022-08-03] MEDS ORDERED: NA CHLORIDE 0.9% 1,000 ML ONE (15:46)
[2022-08-03 15:48] LABS: Absolute Lymphocytes (CBC) 1.6 K/uL (0.7-4.9); Hematocrit 35.1 % (36.0-45.0); Lymphocytes % 25.3 % (15.3-44.8); MCV 87.5 fL (80-100); MPV 7.1 fL (7.6-11.3); RBC Red Blood Cell Count 4.01 M/uL (3.86-4.86)
[2022-08-03 16:05] LABS: Albumin 4.2 g/dL (3.4-5.0); Bilirubin Total 0.2 mg/dL (0.2-1.0); Potassium 4.3 mEq/L (3.5-5.1); Protein, Total 8.2 g/dL (6.4-8.2)
--- NOTE | 2022-08-03 16:55 | RAD REPORT ---
EXAM DESCRIPTION: CT - Orbits W/Cont - 08/03/2022 4:11 pm CLINICAL HISTORY: Pain, swelling to left eyebrow. Evaluate cyst/abscess COMPARISON: Noncontrast head CT 05/01/2019. TECHNIQUE: Axial [address] images of the orbits, obtained following intravenous administration o f 60 mL Isovue-300. Multiplanar reformatted images were reviewed. All CT scans are performed using dose optimization technique as appropriate and may include automated exposure control or mA/KV adjustment according to patient size. FINDINGS: Ovoid marginally enhancing septated 3.1 x 1.5 x 1.8 cm collection along the lateral superi or margin of the orbit, with some edema/soft tissue thickening extending along the left preseptal spa ce, and laterally/posteriorly along the superficial soft tissues overlying the left temporalis fossa. The medial component of the collection abuts the periosteum of the frontal bone outer table, see sag ittal image 68/94. Evaluation of the orbits is unremarkable, with symmetric appearance of the globes and extraocular mus cles. No retro coronal inflammatory changes or collections, and no evidence of a subperiosteal collec tion with attention to the left orbit. Paranasal sinuses are clear. No scelerotic or expansile bony changes. No soft tissue masses are identified. Included intracranial structures are unremarkable. Mastoid air cells are clear. IMPRESSION: Left lateral superior orbital margin 3.1 centimeter septated marginally enhancing collec tion concerning for an abscess. The deepest medial component of the collection abuts the periosteum o f the supraorbital frontal bone outer table. No evidence of intraorbital extension or other complications. The findings were communicated to Elizabeth Hernandez on 08/03/2022 at 16:51 hours.
[2022-08-03] MEDS ORDERED: LIDOCAINE 1% W/EPI 1:100,000 50 ML MDV ONE (18:16)
--- NOTE | 2022-08-03 19:00 | ER ---
Nurse's Notes [facility] Name: Jennifer Olivares Age: 32 yrs Sex: Female : 1990 Arrival Date: 08/03/2022 Time: 14:19 Bed 11 Private MD: Diagnosis: Cutaneous abscess of face Presentation: 08/03 14:40 Chief complaint: Patient states: Was seen in ED yesterday for swelling of Left eyebrow, vg1 dx cellulitis and rx antibiotics. 14:40 Ebola Screen: Patient negative for fever greater than or equal to 101.5 degrees vg1 Fahrenheit, and additional compatible Ebola Virus Disease symptoms Patient denies exposure to infectious person. Patient denies travel to an Ebola-affected area in the 21 days before illness onset. Initial Sepsis Screen: Does the patient meet any 2 criteria? No. Patient's initial sepsis screen is negative. Does the patient have a suspected source of infection? No. Patient's initial sepsis screen is negative. Risk Assessment: Do you want to hurt yourself or someone else? Patient reports no desire to harm self or others. Onset of symptoms was August 02, 2022. 14:40 Method Of Arrival: Ambulatory vg1 14:40 Acuity: ANKIT 4 vg1 15:32 Coronavirus screen: Vaccine status: Patient reports being unvaccinated. [facility] Triage Assessment: 14:58 General: Appears uncomfortable, Behavior is cooperative. Pain: Complains of pain in vg1 left eye. Musculoskeletal: Swelling present in left eye. 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 - Social history:: Smoking status: Patient reports the use of cigarette tobacco products, smokes one-half pack cigarettes per day. Screenin:04 [facility] ED Fall Risk Assessment (Adult) History of falling in the last 3 months, [facility] including since admission No falls in past 3 months (0 pts) Confusion or Disorientation No (0 pts) Intoxicated or Sedated No (0 pts) Impaired Gait No (0 pts) Mobility Assist Device Used No (0 pt) Altered Elimination No (0 pt) Score/Fall Risk Level 0 - 2 = Low Risk Oriented to surroundings, Maintained a safe environment, Hourly rounding (assess needs \\T\\ fall precautionary measures) done. Abuse screen: Denies threats or abuse. Denies injuries from another. Nutritional screening: No deficits noted. Tuberculosis screening: No symptoms or risk factors identified. Assessment: 15:25 Reassessment: Patient appears in no apparent distress at this time. Patient and/or [facility] family updated on plan of care and expected duration. Pain level reassessed. Patient is alert, oriented x 3, equal unlabored respirations, skin warm/dry/pink. 16:20 Reassessment: Patient appears in no apparent distress at this time. Patient and/or ca1 family updated on plan of care and expected duration. Pain level reassessed. Patient is alert, oriented x 3, equal unlabored respirations, skin warm/dry/pink. 17:00 Reassessment: test cancelled by provider, Zuhair Hernandez ANTIQUE FURNITURE RESTORER>. [facility] Vital Signs: 14:40 BP 107 / 72; Pulse 90; Resp 16; Temp 98.9(TE); Pulse Ox 100% ; vg1 15:25 Pain 7/10; nj1 16:20 BP 109 / 74; Pulse 69; Resp 16; Pulse Ox 100% on R/A; Pain 6/10; nj1 15:25 Pain Scale: Adult [facility] 16:20 Pain Scale: Adult [facility] ED Course: 14:22 Patient arrived in ED. mr 14:23 Elizabeth Hernandez, GISELLE is PHCP. snw 14:23 Lionel Morales MD is Attending Physician. snw 14:57 Triage completed. vg1 14:58 Arm band placed on. vg1 15:00 Jennifer Wayne, KATIE is Primary Nurse. nj1 15:04 Patient has correct armband on for positive identification. Bed in low position. Call [facility] light in reach. 15:25 Inserted saline lock: 22 gauge in right antecubital area, using aseptic technique. [facility] Blood collected. 16:00 Second set of blood cultures drawn by me. nj1 16:13 Orbits W/Cont In Process Unspecified. EDMS 18:51 Assist provider with I \\T\\ D: of an abscess on Above left eye Set up I\\T\\D tray. Performed jl 7 by Elizabeth TRAVIS-C Wound packed. iodoform gauze, Patient tolerated well. 19:36 IV discontinued, intact, bleeding controlled, No redness/swelling at site. Pressure kd3 dressing applied. Administered Medications: 15:42 Drug: fentaNYL (PF) IVP 25 mcg Route: IVP; Site: right antecubital; nj1 16:23 Follow up: Response: No adverse reaction; Pain is decreased nj1 15:45 Drug: NS 0.9% IV 1000 ml Route: IV; Rate: 125 ml/hr; Site: right antecubital; nj1 16:23 Follow up: Response: No adverse reaction nj1 19:34 Follow up: Response: No adverse reaction; IV Status: Completed infusion; IV Intake: kd3 100ml 16:16 Drug: Ampicillin-Sulbactam Sodium IVPB 1.5 grams Route: IVPB; Infused Over: 30 mins; nj1 Site: right antecubital; 16:23 Follow up: Response: No adverse reaction nj1 16:46 Follow up: Response: No adverse reaction; IV Status: Completed infusion; IV Intake: nj1 100ml 18:50 Drug: Lidocaine-Epinephrine Infiltration -1%: (1:100,000) 1 vials {Note: Administered jl7 by JARVIS Johnson.} Volume: 20 ml; Route: Infiltration; 18:50 Follow up: Response: No adverse reaction jl7 19:11 Drug: fentaNYL (PF) IVP 25 mcg Route: IVP; Site: left antecubital; kd3 19:35 Follow up: Response: No adverse reaction; Pain is decreased kd3 Medication: 19:36 VIS not applicable for this client. kd3 Intake: 16:46 IV: 100ml; Total: 100ml. nj1 19:34 IV: 100ml; Total: 200ml. kd3 Outcome: 18:59 Discharge ordered by . snw 19:36 Discharged to home ambulatory. kd3 19:36 Condition: stable 19:36 Discharge instructions given to patient, Instructed on discharge instructions, follow up and referral plans. medication usage, Demonstrated understanding of instructions, follow-up care, medications, Prescriptions given X 1. 19:36 Patient left the ED. kd3 Signatures: Dispatcher [employer] EDElizabeth Roland, THADDEUS-C LOG HAUL OPERATOR-Csnw Brielle FuentesRigoberto, RN RN jl7 Prisca Chávez RN RN vg1 Mary Kay Grady, RN RN kd3 Jennifer Wayne RN RN nj1 Corrections: (The following items were deleted from the chart) 15:32 15:00 Reassessment: Patient appears in no apparent distress at this time. Patient nj1 and/or family updated on plan of care and expected duration. Pain level reassessed. Patient is alert, oriented x 3, equal unlabored respirations, skin warm/dry/pink. nj1
--- NOTE | 2022-08-03 19:00 | EDPHYS ---
Physician Documentation [facility] Name: Jennifer Olivares Age: 32 yrs Sex: Female : 1990 Arrival Date: 08/03/2022 Time: 14:19 Bed 11 Private MD: ED Physician Lionel Morales HPI: 08/03 15:10 This 32 yrs old Black Female presents to ER via Ambulatory with complaints of Abscess. snw 15:10 The patient presents with an abscess of the inner aspect of left eyebrow, middle aspect snw of left eyebrow and outer aspect of left eyebrow. Description: swollen. Onset: The symptoms/episode began/occurred acutely. The patient has experienced similar episodes in the past. The patient has been recently seen by a physician: The patient has been recently seen at the [facility] Emergency Department, yesterday, for similar complaints small incision and needle aspiration done, no purulent dc, pt given abx in ED and rx for abx. Keflex and Bactrim not picked up yesterday. 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 - Social history:: Smoking status: Patient reports the use of cigarette tobacco products, smokes one-half pack cigarettes per day. ROS: 15:10 Constitutional: Negative for fever, chills, and weight loss, ENT: Negative for injury, snw pain, and discharge, Neck: Negative for injury, pain, and swelling, Cardiovascular: Negative for chest pain, palpitations, and edema, Respiratory: Negative for shortness of breath, cough, wheezing, and pleuritic chest pain, Abdomen/GI: Negative for abdominal pain, nausea, vomiting, diarrhea, and constipation, Back: Negative for injury and pain, : Negative for injury, bleeding, discharge, and swelling, MS/Extremity: Negative for injury and deformity, Skin: Negative for injury, rash, and discoloration, Neuro: Negative for headache, weakness, numbness, tingling, and seizure, Psych: Negative for depression, anxiety, suicide ideation, homicidal ideation, and hallucinations. 15:10 Eyes: Positive for pain, swelling, of the left eyebrow, left outer canthus and left lower eyelid. Exam: 15:07 Constitutional: This is a well developed, well nourished patient who is awake, alert, snw and in no acute distress. Eyes: Pupils equal round and reactive to light, extra-ocular motions intact. Lids and lashes normal. Conjunctiva and sclera are non-icteric and not injected. Cornea within normal limits. Periorbital areas with no swelling, redness, or edema. ENT: Nares patent. No nasal discharge, no septal abnormalities noted. Tympanic membranes are normal and external auditory canals are clear. Oropharynx with no redness, swelling, or masses, exudates, or evidence of obstruction, uvula midline. Mucous membranes moist. Neck: Trachea midline, no thyromegaly or masses palpated, and no cervical lymphadenopathy. Supple, full range of motion without nuchal rigidity, or vertebral point tenderness. No Meningismus. Chest/axilla: Normal chest wall appearance and motion. Nontender with no deformity. No lesions are appreciated. Cardiovascular: Regular rate and rhythm with a normal S1 and S2. No gallops, murmurs, or rubs. Normal PMI, no JVD. No pulse deficits. Respiratory: Lungs have equal breath sounds bilaterally, clear to auscultation and percussion. No rales, rhonchi or wheezes noted. No increased work of breathing, no retractions or nasal flaring. Abdomen/GI: Soft, non-tender, with normal bowel sounds. No distension or tympany. No guarding or rebound. No evidence of tenderness throughout. Back: No spinal tenderness. No costovertebral tenderness. Full range of motion. Skin: Warm, dry with normal turgor. Normal color with no rashes, no lesions, and no evidence of cellulitis. MS/ Extremity: Pulses equal, no cyanosis. Neurovascular intact. Full, normal range of motion. Neuro: Awake and alert, GCS 15, oriented to person, place, time, and situation. Cranial nerves II-XII grossly intact. Motor strength 5/5 in all extremities. Sensory grossly intact. Cerebellar exam normal. Normal gait. Psych: Awake, alert, with orientation to person, place and time. Behavior, mood, and affect are within normal limits. 15:07 Head/face: Noted is no obvious of injury or deformity except swelling, that is moderate, that is severe, of the inner aspect of left eyebrow, middle aspect of left eyebrow, outer aspect of left eyebrow, left supraorbital ridge and left lower eyelid, of the . Vital Signs: 14:40 BP 107 / 72; Pulse 90; Resp 16; Temp 98.9(TE); Pulse Ox 100% ; vg1 15:25 Pain 7/10; nj1 16:20 BP 109 / 74; Pulse 69; Resp 16; Pulse Ox 100% on R/A; Pain 6/10; nj1 15:25 Pain Scale: Adult nj1 16:20 Pain Scale: Adult nj1 Procedures: 19:11 I \\T\\ D: Incision and drainage was performed for an abscess of the left left supraorbital snw ridge Prepped with Hibiclens. Anesthetized with 5 ml's 1% Lidocaine w/ Epi. Incised with #11 blade. Drained large amount purulent fluid. Loculations removed. Abscess cavity explored. Packed with iodoform gauze, Dressing: telfa, spandage the patient tolerated the procedure well. Ultrasound: performed by the emergency department physician, to locate large periorbital vessels. MDM: 14:23 Patient medically screened. snw 19:13 Differential diagnosis: abscess, insect bite. Data reviewed: vital signs, nurses notes. snw Counseling: I had a detailed discussion with the patient and/or guardian regarding: the historical points, exam findings, and any diagnostic results supporting the discharge/admit diagnosis, the need for outpatient follow up, to return to the emergency department if symptoms worsen or persist or if there are any questions or concerns that arise at home. Special discussion: I discussed in detail with the patient the higher chance of wound infection based on his presenting history. Based on the history and exam findings, there is no indication for further emergent testing or inpatient evaluation. I discussed with the patient/guardian the need to see the ENT specialist for further evaluation of the symptoms. I discussed with the patient/guardian the need to see the primary care provider for further evaluation of the symptoms. 08/03 15:13 Order name: CBC with Diff; Complete Time: 15:49 snw 08/03 15:13 Order name: Blood Culture Adult (2) snw 08/03 15:13 Order name: CMP; Complete Time: 16:11 snw 08/03 15:24 Order name: Orbits W/Cont; Complete Time: 16:56 EDMS Administered Medications: 15:42 Drug: fentaNYL (PF) IVP 25 mcg Route: IVP; Site: right antecubital; nj1 16:23 Follow up: Response: No adverse reaction; Pain is decreased nj1 15:45 Drug: NS 0.9% IV 1000 ml Route: IV; Rate: 125 ml/hr; Site: right antecubital; nj1 16:23 Follow up: Response: No adverse reaction nj1 19:34 Follow up: Response: No adverse reaction; IV Status: Completed infusion; IV Intake: kd3 100ml 16:16 Drug: Ampicillin-Sulbactam Sodium IVPB 1.5 grams Route: IVPB; Infused Over: 30 mins; nj1 Site: right antecubital; 16:23 Follow up: Response: No adverse reaction nj1 16:46 Follow up: Response: No adverse reaction; IV Status: Completed infusion; IV Intake: nj1 100ml 18:50 Drug: Lidocaine-Epinephrine Infiltration -1%: (1:100,000) 1 vials {Note: Administered jl7 by JARVIS Johnson.} Volume: 20 ml; Route: Infiltration; 18:50 Follow up: Response: No adverse reaction 7 19:11 Drug: fentaNYL (PF) IVP 25 mcg Route: IVP; Site: left antecubital; kd3 19:35 Follow up: Response: No adverse reaction; Pain is decreased kd3 Disposition Summary: 08/03/22 18:59 Discharge Ordered Location: Home snw Condition: Stable snw Diagnosis - Cutaneous abscess of face snw Followup: snw - With: Emergency Department - When: As needed - Reason: Worsening of condition Followup: snw - With: Private Physician - When: 2 - 3 days - Reason: Recheck today's complaints, Continuance of care, Re-evaluation by your physician Discharge Instructions: - Discharge Summary Sheet snw - Skin Abscess snw - Incision and Drainage snw - Incision and Drainage, Care After snw Forms: - Medication Reconciliation Form snw - Thank You Letter snw - Antibiotic Education snw - Prescription Opioid Use snw Prescriptions: - acetaminophen-codeine 300-15 mg Oral tablet - take 1 tablet by ORAL route every 6 hours as needed for pain; 16 tablet; snw Refills: 0, Product Selection Permitted Signatures: Dispatcher [employer] EDMS Elizabeth Hernandez, OUTSIDE SALES REPRESENTATIVE-C OUTSIDE SALES REPRESENTATIVE-Csnw Rigoberto Mcfarlane, RN RN jl7 Prisca Chávez RN RN vg1 Mary Kay Grady, RN RN kd3 Jennifer Wayne, RN RN nj1 Corrections: (The following items were deleted from the chart) 15:24 15:19 CT-ORBITS WITHOUT CONTRAST ordered. EDMS EDMS 19:35 15:18 TEST, SERUM+SC.LAB.BRZ ordered. EDMS EDMS
[2022-08-03 19:50] VITALS: TEMP 98.9; O2SAT 100
[2022-08-03 19:53] VITALS: BP 109/74
== END 2022-08-03 19:36 | disposition home or self-care (01) ==
LOC: ER 14:19
PROC: 0H91XZZ Drainage of Face Skin, External Approach (ICD-10-PCS; principal; 2022-08-03)
DX: L02.01 Cutaneous abscess of face (principal); F17.210 Nicotine dependence, cigarettes, uncomplicated; Z88.8 Allergy status to other drugs, medicaments and biological substances
CPT/HCPCS: 87040 ×2; 85025; 36415; 80053; 70481; 99284; 10060; Q9967; J3010 ×2; J0295; J7030

== ENCOUNTER 2023-01-25 12:14 | Emergency (ER) | payer OTHER ==
--- OUTSIDE RECORDS SUMMARY | 2023-01-25 12:17 | XMS REPORT | Continuity of Care Document ---
:1990 Author Organization [facility] t Address [address] [place] [address] [address] [place] [address] Care Team Providers Name Role Phone Asked, No Pcp Primary Care Physician Unavailable KB HORAN Attending Clinician Unavailable JOLEEN RAINEY Attending Clinician Unavailable REYES RG Attending Clinician Unavailable KARRIE NEGRON Attending Clinician Unavailable Joleen Heller Attending Clinician JACK KIRBY Attending Clinician Unavailable MALINA RODRIGUEZ Attending Clinician Unavailable Maricarmen Knight Attending Clinician Christopher Tidwell Attending Clinician Isatu Parry DO Attending Clinician Layne Hairston MD Attending Clinician Mehran Barber Attending Clinician Unavailable Mehran Barber Attending Clinician Unavailable Mehran Barber Admitting Clinician Unavailable Payers Payer Name Policy Type Policy Number Effective Date Expiration Date Rona baldomero CHERYL CVS 9 [id number] 2022 00:00:00 SILVER: 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 [address] [facility] [id number] 2018 00:00:00 Problems Condition Condition Condition Status Onset Resolution Last Treating Co mments Source Name Details Category Date Date Treatment Clinician Date 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 5-25 Seybold disorder, disorder, 00:00: - depressive depressive 00 Ex terna type type l (multi (multi HCC) HCC) Anxiety Anxiety Disease Active Mallory 5-25 Seybold 00:00: - 00 Externa l Bipolar 1 Bipolar 1 Disease Active Tal sey disorder disorder -25 Seybol d (multi (multi 00:00: - HCC) HCC) 00 Externa l PTSD PTSD Disease Active Mallory (post-trau (post-trau 07-24 Se ybold matic matic 00:00: - stress stress 00 Externa disorder) disorder) l Well woman Well woman Disease Active U nivers exam exam 1-25 ity of 00:00: [facility] Other Other Disease Active Univers general general 7-22 ity of counseling [place] and advice 00 Me dical [facility] contracept contracept brandon brandon management management Psychiatri Psychiatri Disease Active U nivers c disorder c disorder 9-05 it y of 00:00: [facility] Amphetamin Amphetamin Disease Active M [...] 2-23 ity of ligation ligation 00:00: [facility] Epidermal Epidermal Disease Active 2015-03 [...] Other migraine Madhuri ey am ty to 5-24 Seybold adverse 00:00: - reaction 00 Externa s l Hydroxyz Propensi Active Other Starving, Tal sey ine ty to 5 bad RYAN, Seybold adverse 00:00: overmedic - reaction 00 ates Externa s l Risperid Propensi Active Other swelling Madhuri ey one ty to 5-24 Seybold adverse 00:00: - reaction 00 Externa s l Zyprexa Propensi Active Other Mallory ty to 5-24 Seybold adverse 00:00: - reaction 00 Externa s l SERTRALI DRUG Active Other-Cmnt Univ ers [place] HCL INGREDI 09-30 ity of 00:00: [place] [facility] Sertrali Propensi Active Other - See Suicidal [...] Hospita reaction 00 l s to drug RISPERID DRUG Active Swelling Univer s ONE INGREDI 07-02 ity of 00:00: [place] 00 [facility] Risperid Propensi Active Swelling Whole Univ ers one ty to 07-02 body ity of adverse 00:00: [place] reaction 00 Medical s Branch CITALOPR DRUG Active Other-Cmnt Univ ers AM INGREDI 2- ity of HYDROBRO 00:00: [place] MIDE 00 Medical Branch Citalopr Propensi Active Other - See HEADACHE / Univers am ty to comments 04-24 MIGRAINE ity of Hydrobro adverse 00:00: [place] mide reaction 00 Medical s [place] Social History Social Habit Start Date Stop Date Quantity Comments Source Gender identity [facility] History [facility] o f Alcohol Frequency [facility] edical Branch History [facility] o f Alcohol Std Drinks [facility] History [facility] o f Alcohol Binge [place] [facility] History of tobacco Cigarette Smoker Mallory Yip - use External [facility] Tobacco use and 2022-07-24 2022-07-24 Smokeless tobacco Ke isamar Yip - exposure 00:00:00 00:00:00 non-user External Education - What is 2022-07-24 2022-07-24 GED or equivalent Mallory Yip - the highest level 00:00:00 00:00:00 Externa l of school you have completed or the highest degree you have received? Exposure to 2021-07-02 2021-07-12 Not sure University SARS-CoV-2 (event) 00:00:00 09:10:00 [facility] History of Social 2018-01-17 2018-01-[address] function 00:00:00 00:00:00 Hospital Alcohol intake 2017-07-03 2017-07-03 Current drinker [facility]o dist 00:00:00 00:00:00 of alcohol Hospital (finding) Alcohol Comment 2017-07-03 2017-07-03 "I binge drink" Meth odist 00:00:00 00:00:00 Hospital Cigarettes smoked 2017-07-03 2017-07-[address] current (pack per 00:00:00 00:00:00 Hospita l day) - Reported Cigarette 2017-07-03 2017-07-03 [facility] pack-years 00:00:00 00:00:00 Hospital Sex Assigned At [birth year] [facility] 00:00:00 00[facility]00:00 Hospital Smoking Status Start Date Stop Date Source Smokes tobacco daily 2022-07-24 00:00:00 Mallory Seybold - External Former smoker 2021-03-26 00:00:00 2021-03-26 00:00:00 [facility] Medications Ordered Filled Start Stop Current Ordering Indication Dosage Frequency Signature Comments Components Source Medication Medication Date Date Medication? Clinician (SIG) Name Name Fluoxetine 2022-03 Yes 20mg Take 1 Kelse y HCl 20 MG 1-20 capsule Seybold oral 14:44: (20 mg - Capsule 59 total) by Externa mouth l daily. Doxycycline 2022-03 Yes [id number] 100mg Take 1 Mallory Hyclate 100 1-20 tablet Seybol d MG oral 00:00: (100 mg - Tablet 00 total) by Externa mouth 2 l times daily. Clonazepam 2022-03 Yes [id number] .5mg Q.5D Take 1 K elsey (KlonoPIN) 1-20 tablet Seybold 0.5 MG oral 00:00: (0.5 mg - Tablet 00 total) by Externa mouth 2 l times daily as needed for anxiety. Clonazepam 2022-03- No [id number] .5mg Q.5D Take 1 Mallory (KlonoPIN) 0-23 11-20 tablet Seybol d 0.5 MG oral 00:00: 00:00 (0.5 mg - Tablet 00 :00 total) by Externa mouth 2 l times daily as needed for anxiety. ARIPiprazol 2022-0 2022- No 300mg Inject 300 Mallory e ER 300 MG 8-21 08-21 mg into Seyb old intramuscul 11:24: 00:00 the muscle - ar 52 :00 once Externa Prefilled l Syringe ARIPiprazol 2022-0 3- No Inject Tal sey e ER 300 MG 8-21 08-21 into the Sey bold intramuscul 11:23: 00:00 muscle - ar 34 :00 Externa Prefilled l Syringe ARIPiprazol 2022-0 Yes [id number] 300mg Inject 300 Mallory e ER 300 MG 8-21 mg into Seybo ld intramuscul 00:00: the muscle - ar 00 once a Externa Prefilled month. l Syringe Clonazepam 3-0 Yes [id number] .5mg Q.5D Take 1 K elsey (KlonoPIN) 8-21 tablet Seybold 0.5 MG oral 00:00: (0.5 mg - Tablet 00 total) by Externa mouth 2 l times daily as needed for anxiety. ARIPiprazol 2022-0 Yes [id number] 300mg Inject 300 Mallory e ER 300 MG 8-21 mg into Seybo ld intramuscul 00:00: the muscle - ar 00 once a Externa Prefilled month. l Syringe ARIPiprazol 2022-0 Yes 300mg Inject 300 Mallory e ER 300 MG 6-08 mg into Seybo ld intramuscul 11:33: the muscle - ar 21 once Externa Prefilled l Syringe Fluoxetine 3-0 Yes 20mg Take 1 Kelse y HCl 20 MG 6-08 capsule Seybold oral 11:33: (20 mg - Capsule 21 total) by Externa mouth l daily ARIPiprazol 2022-0 Yes Inject Madhuri ey e ER 300 MG 6-08 into the Seyb old intramuscul 11:33: muscle - ar 21 Externa Prefilled l Syringe Fluoxetine 3-0 Yes 20mg Take 1 Kelse y HCl 20 MG 6-08 capsule Seybold oral 11:33: (20 mg - Capsule 21 total) by Externa mouth l daily Clonazepam 3-0 Yes [id number] .5mg Q.5D Take 1 Mallory (KlonoPIN) 6-08 tablet Seybold 0.5 MG oral 00:00: (0.5 mg - Tablet 00 total) by Externa mouth 2 l times daily as needed for anxiety Clonazepam 2022-0 2022- No [id number] .5mg Q.5D Take 1 Mallory (KlonoPIN) 08-07 tablet Seybol d 0.5 MG oral 00:00: 00:00 (0.5 mg - Tablet 00 :00 total) by Externa mouth 2 l times daily as needed for anxiety Acetaminoph 2022-0 Yes 1{tbl} Q.25D Take 1 Addison mir en-Codeine -05 tablet by Florina old #2 300-15 00:00: mouth - MG oral 00 every 6 Externa Tablet hours as l needed FOR PAIN Acetaminoph 2022-2022- No 1{tbl} Q.25D Take 1 Mallory en-Codeine 08-04 tablet by Daisha bold #2 300-15 00:00: 00:00 mouth - MG oral 00 :00 every 6 Externa Tablet hours as l needed FOR PAIN Mupirocin 0 Yes APPLY TO Madhuri rodas (BACTROBAN) 08-02 AFFECTED Florina old 2 % apply 00:00: AREA 2 - externally 00 TIMES A Hr Leader a Ointment DAY FOR 7 l DAYS TRIMETHOPRI 0 Yes 1{tbl} Take 1 Mahendra penn M-SULFAMETH 08-02 tablet by Daisha bold OXAZOLE 00:00: mouth - (BACTRIM 00 every 12 Externa DS) 800-160 hours FOR l MG oral 10 DAYS Tablet Mupirocin 2022-0 2022- No APPLY TO Tal ashton (BACTROBAN) 08-02 AFFECTED Daisha bold 2 % apply 00:00: 00:00 AREA 2 - externally 00 :00 TIMES A Hr Leader a Ointment DAY FOR 7 l DAYS TRIMETHOPRI 2022-0 2022- No 1{tbl} Take 1 K elsey M-SULFAMETH 08-02 tablet by Se duong OXAZOLE 00:00: 00:00 mouth - (BACTRIM 00 :00 every 12 Externa DS) 800-160 hours FOR l MG oral 10 DAYS Tablet ARIPiprazol 0 Yes 300mg Inject 300 Mallory e ER 300 MG 5-25 mg into Seybo ld intramuscul 09:04: the muscle - ar 13 once Externa Prefilled l Syringe Fluoxetine Yes 20mg Take 1 Kelse y HCl 20 MG 5-25 capsule Seybold oral 09:04: (20 mg - Capsule 13 total) by Externa mouth l daily metroNIDAZO 2021- Yes [id number] 500mg Take 1 Univers LE 500 mg 5-17 tablet by ity o f tablet 00:00: mouth 2 [place] [id number] (two) Medical times [place] daily. aripiprazol Yes by Univer s e (ABILIFY 1-25 Intramuscu ity of IM) 10:35: lar route. [address] Immunizations Ordered Filled Date Status Comments Source Immunization Name Immunization Name HPV9 2021-03-26 Completed University of 00:00:00 [facility] HPV 9 (Human 2021-03-26 Completed Mallory hernandez - Papillomavirus) 00:00:00 External HPV 9 (Human 2021-03-26 Completed Mallory hernandez - Papillomavirus) 00:00:00 External Rho (d) Immune 2016-04-25 Completed University of Globulin 00:00:00 [facility] Rho D 2016-04-25 Completed Mallory Yip - 00:00:00 External Rho D 2016-04-25 Completed Mallory Yip - 00:00:00 External TDAP 2016-01-31 Completed University of 00:00:00 [facility] Tdap- (Boostrix, 2016-01-31 Completed Mallory Luna) 00:00:00 External Tdap- (Boostrix, 2016-01-31 Completed Mallory Luna) 00:00:00 External Influenza Virus 2016-01-03 Completed Tai y of Vaccine Quad IM 3+ 00:00:00 [facility] Influenza Virus 2016-01-03 Completed Mallory duong - Vaccine, No 00:00:00 External Preserv, age 6 months and up Influenza Virus 2016-01-03 Completed Mallory duong - Vaccine, No 00:00:00 External Preserv, age 6 months and up Rho (d) Immune 2015-01-15 Completed University of Globulin 00:00:00 [facility] Rho D 2015-01-15 Completed Mallory Yip - 00:00:00 External Rho D 2015-01-15 Completed Mallorydaisha Yip - 00:00:00 External Rho D Unknown Completed Mallory Yip - External Rho D Unknown Completed Mallory Yip - External HPV 9 (Human Unknown Completed Mallory Morfin ld - Papillomavirus) External Influenza Virus Unknown Completed Mallory duong - Vaccine, No External Preserv, age 6 months and up Tdap- (Boostrix, Unknown Completed Mallory seay - Adacel) External Vital Signs Vital Name Observation Time Observation Value Comments Source Systolic blood 2023-01-19 20:44:00 117 mm[Hg] Mallory Ramybold - pressure External Diastolic blood 2023-01-19 20:44:00 86 mm[Hg] Lexi patrick Seybold - pressure External Heart rate 2023-01-19 20:44:00 117 /min Mallorydaisha rodasbold - External Body temperature 2023-01-19 20:44:00 36.61 Angelica Madhuri rodas Seybold - External Respiratory rate 2023-01-19 20:44:00 15 /min Madhuri adrianna Seybold - External Body height 2023-01-19 20:44:00 165.1 cm Mallory Rona rodasbodavid - External Body weight 2023-01-19 20:44:00 68.04 kg Mallory Rona adriannabodavid - External BMI 2023-01-19 20:44:00 24.96 kg/m2 Mallory S adriannabodavid - External Oxygen saturation in 2023-01-19 20:44:00 99 /min Mallory Yip - Arterial blood by External Pulse oximetry Systolic blood 2022-10-20 16:17:00 123 mm[Hg] Mallory Ramybold - pressure External Diastolic blood 2022-10-20 16:17:00 91 mm[Hg] Lexi patrick Seybold - pressure External Heart rate 2022-10-20 16:17:00 98 /min Mallory Rona eybold - External Body temperature 2022-10-20 16:17:00 37.06 Angelica Madhuri rodas Seybold - External Respiratory rate 2022-10-20 16:17:00 15 /min Madhuri ey Seybold - External Body height 2022-10-20 16:17:00 165.1 cm Mallory Moffett eybold - External Body weight 2022-10-20 16:17:00 70.761 kg Mallory Moffett eybold - External BMI 2022-10-20 16:17:00 25.96 kg/m2 Mallory Moffett eybold - External Oxygen saturation in 2022-10-20 16:17:00 99 /min Mallory Seybold - Arterial blood by External Pulse oximetry Systolic blood 2022-08-07 16:32:00 112 mm[Hg] Mallory Seybold - pressure External Diastolic blood 2022-08-07 16:32:00 86 mm[Hg] Kelse y Seybold - pressure External Heart rate 2022-08-07 16:32:00 123 /min Mallory Moffett eybold - External Body temperature 2022-08-07 16:32:00 36.61 Angelica Madhuri ey Seybold - External Body height 2022-08-07 16:32:00 165.1 cm Mallory Moffett eybold - External Body weight 2022-08-07 16:32:00 76.658 kg Mallory Moffett eybold - External BMI 2022-08-07 16:32:00 28.12 kg/m2 Mallory Moffett eybold - External Systolic blood 2022-07-24 14:00:00 104 mm[Hg] Mallory Seybold - pressure External Diastolic blood 2022-07-24 14:00:00 70 mm[Hg] Talse y Seybold - pressure External Heart rate 2022-07-24 14:00:00 81 /min Mallory Moffett eybold - External Body temperature 2022-07-24 14:00:00 36.44 Angelica Madhuri ey Seybold - External Respiratory rate 2022-07-24 14:00:00 20 /min Madhuri ey Seybold - External Body height 2022-07-24 14:00:00 154.9 cm Mallory Moffett eybold - External Body weight 2022-07-24 14:00:00 77.384 kg Mallory Moffett eybold - External BMI 2022-07-24 14:00:00 32.23 kg/m2 Mallory Moffett eybold - External Oxygen saturation in 2022-07-24 14:00:00 97 /min Mallory Seybold - Arterial blood by External Pulse oximetry Procedures This patient has no known procedures. Plan of Care Planned Activity Planned Date Details Comments Source Future Scheduled 2022-12-26 COVID-19 VACCINE [facility] Test 17:33:17 (#1) [code = COVID-19 VACCINE (#1)] Future Scheduled 2022-12-26 Screening for [facility] Test 17:33:17 malignant neoplasm of cervix (procedure) [code = 635828566] Future Scheduled 2022-12-26 INFLUENZA VACCINE [facility] Test 17:33:17 (#1) [code = INFLUENZA VACCINE (#1)] Future Scheduled 2022 COVID-19 VACCINE [facility] Test 20:29:04 (#1) [code = COVID-19 VACCINE (#1)] Future Scheduled 2022 Screening for [facility] Test 20:29:04 malignant neoplasm of cervix (procedure) [code = 593741791] Future Scheduled 2022 INFLUENZA VACCINE [facility] Test 20:29:04 [code = INFLUENZA VACCINE] Future Scheduled 2022 COVID-19 VACCINE [facility] Test 20:29:04 (#1) [code = COVID-19 VACCINE (#1)] Future Scheduled 2022 Screening [facility] Test 20:29:04 malignant neoplasm of cervix (procedure) [code = 987632434] Future Scheduled 2022 INFLUENZA VACCINE [facility] Test 20:29:04 [code = INFLUENZA VACCINE] Future Scheduled 2022-04-30 [facility] 13:13:13 (#1) [code = COVID-19 VACCINE (#1)] Future Scheduled 2022-04-30 [facility] Test 13:13:13 malignant neoplasm of cervix (procedure) [code = 613116561] Future Scheduled 2022-04-30 INFLUENZA VACCINE [facility] Test 13:13:13 [code = INFLUENZA VACCINE] Future Scheduled 2022-03-30 COVID-19 VACCINE [facility] Test 12:17:56 (#1) [code = COVID-19 VACCINE (#1)] Future Scheduled 2022-03-30 [facility] Test 12:17:56 malignant neoplasm of cervix (procedure) [code = 539320422] Future Scheduled 2022-03-30 [facility]FL[facility]ENZA VACCINE [facility] Test 12:17:56 [code = INFLUENZA VACCINE] Encounters Start End Encounter Admission Attending Care Care Encounter Source Date/Time Date/Time Type Type Clinicians Facility Department ID 2020-12-[address] [facility] [id number] Univers 00:18:42 ity [facility] 2020-12-[address] [facility] [id number] Univers 23:43:11 ity [facility] 2020-12-[address] [facility] [id number] Univers 05:38:46 ity [facility] 2023-02-16 2023-02-16 Outpatient MALLORY HORAN [id number] Mallory 14:15:00 14:15:00 KB Seybol d 2023-01-27 2023-01-27 Outpatient R ADALBERTO, [facility] [id number] Univers 08:15:00 08:15:00 JOLEEN armendariz o f [facility] 2023-01-20 2023-01-20 Outpatient MALLORY HORAN [id number] Mallory 14:00:00 14:00:00 KB Seybol d 2023-01-19 2023-01-19 Outpatient M[place]ORY RG [id number] Mallory 14:30:00 14:30:00 REYES Seybol d 2023-01-19 2023-01-19 Outpatient MALLORY RG [id number] Mallory 00:00:00 00:00:00 REYES Seybol d 2023-01-16 2023-01-16 Outpatient MALLORY HORAN [id number] Mallory 16:15:00 16:15:00 KB Seybol d 2022-12-22 2022-12-22 Outpatient MALLORY HORAN [id number] Mallory 00:00:00 00:00:00 KB Seybol d 2022-11-24 2022-11-24 Outpatient MALLORY HORAN [id number] Mallory 00:00:00 00:00:00 KB Seybol d 2022-11-12 2022-11-12 Outpatient MALLORY NEGRON [id number] Mallory 15:00:00 15:00:00 KARRIE Seybol d 2022-10-24 2022-10-24 Outpatient PREZAS, MALLORY FELDMAN [id number] Mallory 10:30:00 10:30:00 KB Seybol d 2022-10-20 2022-10-20 Outpatient PREZAS, MALLORY FELDMAN [id number] Mallory 11:15:00 11:15:00 KB Seybol d 2022-10-20 2022-10-20 Outpatient PREZAS, MALLORY FELDMAN [id number] Mallory 00:00:00 00:00:00 KB Seybol d 2022-10-17 2022-10-17 Outpatient PREZAS, MALLORY FELDMAN [id number] Mallory 00:00:00 00:00:00 KB Seybol d 2022-09-08 2022-09-08 Outpatient PREZAS, MALLORY FELDMAN [id number] Mallory 11:15:00 11:15:00 KB Seybol d 2022-08-07 2022-08-07 Outpatient PREZAS, MALLORY FELDMAN [id number] Mallory 11:45:00 11:45:00 KB Seybol d 2022-07-24 2022-07-24 Outpatient PREZAS, MALLORY FELDMAN [id number] Mallory 09:00:00 09:00:00 KB Seybol d 2021-07-16 2021-07-16 [facility] [id number] Univers 00:00:00 00:00:00 Joleen Zuniga RN PALLIATIVE CARE [id number] ity [facility] [id number] Osei as MATERNAL [id number] Med [facility] & CHILD [address] [place] [address] 2021-07-12 2021-07-[address] [facility] [id number] Univers 09:15:00 11:22:36 JOLEEN belle [facility] 2021-07-12 2021-07-12 [facility] [id number] Univers 09:15:00 11:22:36 Visit Joleen C RN PALLIATIVE CARE [id number] ity of [facility] [id number] Osei as MATERNAL [id number] [facility] & CHILD [address] [place] [address] 2021-07-11 2021-07-11 [facility] [id number] Univers 00:00:00 00:00:00 Joleen Zuniga RN PALLIATIVE CARE [id number] ity of [facility] [id number] Osei as MATERNAL [id number] [facility] & CHILD [address] [place] [address] 2021-05-24 2021-05-[address] [facility] [id number] Univers 09:30:00 09:30:00 JACK armendariz o [facility] 2021-05-24 2021-05-[address] [facility] [id number] Univers 09:30:00 09:30:00 ity [facility] 2021-04-12 2021-04-12 [id number] Univers 11:00:00 11:00:00 MALINA armendariz [facility] 2021-03-26 2021-03-26 [facility] [id number] Univers 10:00:00 11:05:25 JOLEEN armendariz o [facility] 2021-03-26 2021-03-[address] [facility] [id number] Univers 10:00:00 11:05:25 Visit Joleen Zuniga RN PALLIATIVE CARE [id number] ity of [id number] Osei as MATERNAL [id number] [facility] & CHILD [address] [place] [address] 2021-03-26 2021-03-26 [facility] [id number] Univers 10:00:00 10:00:00 JOLEEN belle kostas [facility] 2021-03-25 2021-03-25 [facility]phone [facility] [id number] Univers 00:00:00 00:00:00 Maricarmen Plascencia RN PALLIATIVE CARE [id number] it y of [facility] [id number] Osei as MATERNAL [id number] Med ical & CHILD 107 [facility] 2020-09-25 2020-09-[address] [facility] [id number] Univers 10:30:00 10:30:00 JACK armendariz o f [facility] 2020-07-18 2020-07-[address] [facility] [id number] Univers 10:30:00 10:30:00 JACK armendariz o f [facility] 2019-12-21 2019-12-21 [facility] [id number] 15:36:00 16:23:00 Christopher Mcdonald [id number] [place] [id number] [place] [id number] 2019-12-19 2019-12-19 Emergency [facility] [id number] 12:15:00 12:44:00 Isatu Mcdonald [id number] [place] [id number] [place] [id number] 2019-10-20 2019-10-20 Telephone Layne Hairston [facility] [id number] 00:00:00 00:00:00 Mega Mcdonald [id number] [place] [id number] Professio [id number] [address] 2019-10-10 2019-10-10 [facility] [id number] 00:00:00 00:00:00 Joleen Zuniga RN PALLIATIVE CARE [id number] REGIONAL [id number] MATERNAL [id number] & CHILD 107 [facility] 2019-10-06 2019-10-[address] [facility] [id number] Univers 10:30:00 10:30:00 JOLEEN kenyon [facility] 2019-09-27 2019-09-[address] [facility] [id number] Univers 14:15:00 14:15:00 JOLEEN kenyon [facility] 2019-09-21 2019-09-21 Outpatient R ADALBERTO, [facility] [id number] Univers 10:15:00 10:15:00 JOLEEN kenyon [facility] 2019-07-29 2019-07-29 Emergency Mehran Barber [facility] JEN [id number] 23:33:00 23:33:00 Mehran Barber [facility] Results This patient has no known results.
[2023-01-25] MEDS ORDERED: LIDOCAINE 1% 20 ML MDV ONE (13:25)
[2023-01-25] MEDS ORDERED: clonazePAM 1 MG TAB ONE (13:27)
[2023-01-25] MEDS ORDERED: LIDOCAINE 1% MPF 2 ML AMPULE ONE (13:27)
[2023-01-25] MEDS ORDERED: SMZ./TMP. 800/160 MG TABLET ONE (13:27)
[2023-01-25] MEDS ORDERED: CEFTRIAXONE 1000 MG/VIAL ONE (13:27)
--- NOTE | 2023-01-25 13:35 | ER ---
Nurse's Notes [facility] Name: Jennifer Olivares Age: 32 yrs Sex: Female : 1990 Arrival Date: 01/25/2023 Time: 12:14 Bed 13 Private MD: Ernesto Hancock Diagnosis: Cutaneous abscess of face;Bipolar disorder, unspecified;Medication refill in the ED Presentation: 01/25 12:23 Chief complaint: Patient states: LEFT EYEBROW BOIL X 3 DAYS WITH SWELLING, REDNESS AND db PAIN. STATES IS ALSO OUT OF KLONOPIN X 1 WEEK. STATES TAKES 2MG DAILY. Coronavirus screen: Vaccine status: Patient reports being unvaccinated. Client denies travel out of the [place] in the last 14 days. At this time, the client does not indicate any symptoms associated with coronavirus-19. Ebola Screen: Patient negative for fever greater than or equal to 101.5 degrees Fahrenheit, and additional compatible Ebola Virus Disease symptoms Patient denies exposure to infectious person. Patient denies travel to an Ebola-affected area in the 21 days before illness onset. No symptoms or risks identified at this time. Initial Sepsis Screen: Does the patient meet any 2 criteria? No. Patient's initial sepsis screen is negative. Does the patient have a suspected source of infection? No. Patient's initial sepsis screen is negative. Risk Assessment: Do you want to hurt yourself or someone else? Patient reports no desire to harm self or others. Onset of symptoms was January 25, 2023. 12:23 Method Of Arrival: Ambulatory db 12:23 Acuity: ANKIT 3 db Triage Assessment: 12:24 General: Appears in no apparent distress. comfortable, Behavior is calm, cooperative. db Pain: Complains of pain in face and left eye. EENT:. Neuro: Level of Consciousness is awake, alert, obeys commands, Oriented to person, place, time, situation, Appropriate for age. Cardiovascular: Capillary refill < 3 seconds Patient's skin is warm and dry. Respiratory: Airway is patent Respiratory effort is even, unlabored, Respiratory pattern is regular, symmetrical. Derm: Abscess located on left eye is has no drainage. Historical: - Allergies: 12:24 Celexa; db 12:24 Risperdal; db 12:24 Zyprexa; db - Home Meds: 12:24 Abilify Oral [Active]; Prozac Oral [Active]; db - PMHx: 12:24 Anxiety; Bipolar disorder; Depression; Paranoid Delusions; PTSD; db - PSHx: 12:24 section; Ligation of fallopian tube; db - Immunization history:: Client reports having NOT received the Covid vaccine. - Social history:: Smoking status: Patient reports the use of cigarette tobacco products, smokes one-half pack cigarettes per day. Screenin:30 [facility] ED Fall Risk Assessment (Adult) Score/Fall Risk Level 0 - 2 = Low Risk. Abuse eh3 screen: Denies threats or abuse. Denies injuries from another. Nutritional screening: No deficits noted. Tuberculosis screening: No symptoms or risk factors identified. Assessment: 12:30 General: Appears in no apparent distress. uncomfortable, Behavior is cooperative, eh3 anxious. Pain: Complains of pain in left eye. Neuro: Level of Consciousness is awake, alert, obeys commands, Oriented to person, place, time, situation. Cardiovascular: Capillary refill < 3 seconds Patient's skin is warm and dry. Respiratory: Airway is patent Respiratory effort is even, unlabored, Respiratory pattern is regular, symmetrical. GI: Abdomen is round non-distended. Derm: Skin is pink, warm \\T\\ dry. Musculoskeletal: Circulation, motion, and sensation intact. 13:00 Reassessment: Patient appears in no apparent distress at this time. Patient and/or 3 family updated on plan of care and expected duration. Pain level reassessed. Patient is alert, oriented x 3, equal unlabored respirations, skin warm/dry/pink. 14:00 Reassessment: Patient appears in no apparent distress at this time. Patient and/or eh3 family updated on plan of care and expected duration. Pain level reassessed. Patient is alert, oriented x 3, equal unlabored respirations, skin warm/dry/pink. Vital Signs: 12:23 BP 125 / 84; Pulse 99; Resp 18; Temp 98.4(O); Pulse Ox 100% on R/A; Weight 72.57 kg db (M); Height 5 ft. 5 in. ; 13:00 BP 116 / 86; Pulse 90; Resp 18; Pulse Ox 100% on R/A; eh3 14:00 BP 118 / 89; Pulse 84; Resp 18; Pulse Ox 100% on R/A; eh3 12:23 Body Mass Index 26.63 (72.57 kg, 165.1 cm) db ED Course: 12:16 Patient arrived in ED. as 12:17 Ernesto Hancock DO is Private Physician. as 12:24 Triage completed. db 12:27 Arm band placed on Patient placed in an exam room. db 12:30 Patient has correct armband on for positive identification. Bed in low position. Call eh3 light in reach. Side rails up X2. Provided Education on: use of call kennedy. Pulse ox on. NIBP on. 12:40 Elizabeth Hernandez FNP-C is [facility]. snw 12:40 Asher Horton MD is Attending Physician. snw 13:09 Reena Diaz, KATIE is Primary Nurse. eh3 14:00 No provider procedures requiring assistance completed. Patient did not have IV access eh3 during this emergency room visit. Administered Medications: 13:34 Drug: clonazePAM PO 1 mg PO once Route: PO; eh3 14:00 Follow up: Response: No adverse reaction eh3 13:34 Drug: Trimethoprim-Sulfamethoxazole PO (160 mg-800 mg (DS) 1 tablet PO once Route: PO; eh3 14:00 Follow up: Response: No adverse reaction eh3 13:35 Drug: Hibiclens Topical Liquid 4 % 1 application Topical once Route: Topical; Site: 3 forehead; 13:35 Drug: Lidocaine Infiltration (1 %) 1 vials 20 ml Infiltration once; to bedside {Note: eh3 administered by GISELLE Shannon.} Volume: 20 ml; Route: Infiltration; 13:55 Drug: Rocephin (cefTRIAXone) IM 1 grams IM once Route: IM; Site: right deltoid; eh3 14:00 Follow up: Response: No adverse reaction eh3 13:55 Drug: HYDROcodone-acetaminophen PO 5 mg-325 mg 1 tabs PO once Route: PO; eh3 14:00 Follow up: Response: No adverse reaction eh3 Medication: 14:00 VIS not applicable for this client. eh3 Outcome: 13:34 Discharge ordered by . snw 14:00 Discharged to home ambulatory, eh3 14:00 Condition: stable 14:00 Discharge instructions given to patient, Instructed on discharge instructions, follow up and referral plans. medication usage, Demonstrated understanding of instructions, follow-up care, medications, Prescriptions given X 2, 14:10 Patient left the ED. 3 Signatures: Elizabeth Hernandez, THADDEUS-Nadia FIELD PROFESSIONAL-Tasneem Matos Erin, RN RN [facility] Alysha Wills, RN RN db Corrections: (The following items were deleted from the chart) 17:38 12:30 PSHx: "tubes tied"; [place] [id number]
--- NOTE | 2023-01-25 13:35 | EDPHYS ---
Physician Documentation [facility] Name: Jennifer Olivares Age: 32 yrs Sex: Female : 1990 Arrival Date: 01/25/2023 Time: 12:14 Bed 13 Private MD: Ernesto Hancock ED Physician Asher Horton HPI: 01/25 12:52 This 32 yrs old Black Female presents to ER via Ambulatory with complaints of Boil, snw Medication Refill. 12:52 Onset: The symptoms/episode began/occurred recurrent abscessed cyst to left lateral snw eyebrow. Request medication refill.. The patient has experienced similar episodes in the past, multiple times. The patient has not recently seen a physician. Historical: - Allergies: 12:24 Celexa; db 12:24 Risperdal; db 12:24 Zyprexa; db - Home Meds: 12:24 Abilify Oral [Active]; Prozac Oral [Active]; db - PMHx: 12:24 Anxiety; Bipolar disorder; Depression; Paranoid Delusions; PTSD; db - PSHx: 12:24 section; Ligation of fallopian tube; db - Immunization history:: Client reports having NOT received the Covid vaccine. - Social history:: Smoking status: Patient reports the use of cigarette tobacco products, smokes one-half pack cigarettes per day. ROS: 12:51 Constitutional: Negative for fever, chills, and weight loss, Eyes: Negative for injury, snw pain, redness, and discharge, ENT: Negative for injury, pain, and discharge, Neck: Negative for injury, pain, and swelling, Cardiovascular: Negative for chest pain, palpitations, and edema, Respiratory: Negative for shortness of breath, cough, wheezing, and pleuritic chest pain, Abdomen/GI: Negative for abdominal pain, nausea, vomiting, diarrhea, and constipation, Back: Negative for injury and pain, : Negative for injury, bleeding, discharge, and swelling, MS/Extremity: Negative for injury and deformity, Neuro: Negative for headache, weakness, numbness, tingling, and seizure, Psych: Negative for depression, anxiety, suicide ideation, homicidal ideation, and hallucinations, 12:51 Skin: Positive for abscess, swelling, of the left eye, Exam: 12:51 Constitutional: This is a well developed, well nourished patient who is awake, alert, snw and in no acute distress. Eyes: Pupils equal round and reactive to light, extra-ocular motions intact. Lids and lashes normal. Conjunctiva and sclera are non-icteric and not injected. Cornea within normal limits. Periorbital areas with no swelling, redness, or edema. ENT: Nares patent. No nasal discharge, no septal abnormalities noted. Tympanic membranes are normal and external auditory canals are clear. Oropharynx with no redness, swelling, or masses, exudates, or evidence of obstruction, uvula midline. Mucous membranes moist. Neck: Trachea midline, no thyromegaly or masses palpated, and no cervical lymphadenopathy. Supple, full range of motion without nuchal rigidity, or vertebral point tenderness. No Meningismus. Chest/axilla: Normal chest wall appearance and motion. Nontender with no deformity. No lesions are appreciated. Cardiovascular: Regular rate and rhythm with a normal S1 and S2. No gallops, murmurs, or rubs. Normal PMI, no JVD. No pulse deficits. Respiratory: Lungs have equal breath sounds bilaterally, clear to auscultation and percussion. No rales, rhonchi or wheezes noted. No increased work of breathing, no retractions or nasal flaring. Abdomen/GI: Soft, non-tender, with normal bowel sounds. No distension or tympany. No guarding or rebound. No evidence of tenderness throughout. Back: No spinal tenderness. No costovertebral tenderness. Full range of motion. Skin: Warm, dry with normal turgor. Normal color with no rashes, no lesions, and no evidence of cellulitis. MS/ Extremity: Pulses equal, no cyanosis. Neurovascular intact. Full, normal range of motion. Neuro: Awake and alert, GCS 15, oriented to person, place, time, and situation. Cranial nerves II-XII grossly intact. Motor strength 5/5 in all extremities. Sensory grossly intact. Cerebellar exam normal. Normal gait. Psych: Awake, alert, with orientation to person, place and time. Behavior, mood, and affect are within normal limits. 12:51 Head/face: Noted is no obvious of injury or deformity except cutaneous abscess to left lateral eyebrow. Vital Signs: 12:23 BP 125 / 84; Pulse 99; Resp 18; Temp 98.4(O); Pulse Ox 100% on R/A; Weight 72.57 kg db (M); Height 5 ft. 5 in. ; 13:00 BP 116 / 86; Pulse 90; Resp 18; Pulse Ox 100% on R/A; eh3 14:00 BP 118 / 89; Pulse 84; Resp 18; Pulse Ox 100% on R/A; eh3 12:23 Body Mass Index 26.63 (72.57 kg, 165.1 cm) db Procedures: 12:50 I \\T\\ D: Incision and drainage was performed for an abscess of the left lateral eyebrow snw Prepped with hibiclens. Anesthetized with 5 ml's 1% Lidocaine. Incised with #10 blade. Drained large amount the patient tolerated the procedure well. MDM: 12:41 Patient medically screened. snw 13:36 Differential diagnosis: viral Infection, bacterial infection. Data reviewed: vital snw signs, nurses notes. I considered the following discharge prescriptions or medication management in the emergency department Medications were administered in the Emergency Department. See MAR. Counseling: I had a detailed discussion with the patient and/or guardian regarding the historical points, exam findings, and any diagnostic results supporting the discharge/admit diagnosis, the need for outpatient follow up, for definitive care, to return to the emergency department if symptoms worsen or persist or if there are any questions or concerns that arise at home. Response to treatment: the patient's symptoms have markedly improved after treatment. Special discussion: Based on the history and exam findings, there is no indication for further emergent testing or inpatient evaluation. I discussed with the patient/guardian the need to see the general surgeon for further evaluation of the symptoms. I discussed with the patient/guardian the need to see the primary care provider for further evaluation of the symptoms. medication refill from the emergency dept. 01/25 12:54 Order name: Suture Tray Setup; Complete Time: 12:58 snw 01/25 12:54 Order name: Wound dressing; Complete Time: 13:35 snw Administered Medications: 13:34 Drug: clonazePAM PO 1 mg PO once Route: PO; 3 14:00 Follow up: Response: No adverse reaction 3 13:34 Drug: Trimethoprim-Sulfamethoxazole PO (160 mg-800 mg (DS) 1 tablet PO once Route: PO; 3 14:00 Follow up: Response: No adverse reaction 3 13:35 Drug: Hibiclens Topical Liquid 4 % 1 application Topical once Route: Topical; Site: 3 forehead; 13:35 Drug: Lidocaine Infiltration (1 %) 1 vials 20 ml Infiltration once; to bedside {Note: eh3 administered by GISELLE Shannon.} Volume: 20 ml; Route: Infiltration; 13:55 Drug: Rocephin (cefTRIAXone) IM 1 grams IM once Route: IM; Site: right deltoid; 3 14:00 Follow up: Response: No adverse reaction 3 13:55 Drug: HYDROcodone-acetaminophen PO 5 mg-325 mg 1 tabs PO once Route: PO; 3 14:00 Follow up: Response: No adverse reaction 3 Disposition Summary: 01/25/23 13:34 Discharge Ordered Notes: Location: Home snw Condition: Stable snw Diagnosis - Cutaneous abscess of face snw - Bipolar disorder, unspecified snw - Medication refill in the ED snw Followup: snw - With: Emergency Department - When: As needed - Reason: Worsening of condition Followup: snw - With: Private Physician - When: 2 - 3 days - Reason: Recheck today's complaints, Continuance of care, Re-evaluation by your physician Discharge Instructions: - Discharge Summary Sheet snw - Skin Abscess snw - Incision and Drainage snw - Incision and Drainage, Care After snw Forms: - Medication Reconciliation Form snw - Thank You Letter snw - Antibiotic Education snw - Prescription Opioid Use snw - Patient Portal Instructions snw - Leadership Thank You Letter snw Prescriptions: - Klonopin 1 mg Oral Tablet - take 1 tablet ORAL route every 12 hours As needed; 6 tablet; Refills: 0, snw Product Selection Permitted - Bactrim DS 800-160 mg Oral Tablet - take 1 tablet ORAL route every 12 hours for 10 days; 20 tablet; Refills: 0, snw Product Selection Permitted Signatures: Elizabeth Hernandez FNP-C FNP-Reena Gold RN RN [facility] Alysha Wills RN RN db Corrections: (The following items were deleted from the chart) 17:38 12:30 PSHx: "tubes tied"; [facility]
[2023-01-25] MEDS ORDERED: HYDROCODONE/APAP 5/325 MG TAB ONE (14:15)
[2023-01-25 14:23] VITALS: TEMP 98.4; O2SAT 100
[2023-01-25 14:26] VITALS: BP 118/89
== END 2023-01-25 14:10 | disposition home or self-care (01) ==
LOC: ER 12:14
PROC: 0H91XZZ Drainage of Face Skin, External Approach (ICD-10-PCS; principal; 2023-01-25)
DX: L02.01 Cutaneous abscess of face (principal); F31.9 Bipolar disorder, unspecified; Z76.0 Encounter for issue of repeat prescription; Z88.8 Allergy status to other drugs, medicaments and biological substances
CPT/HCPCS: 96372; 99284; 10060; J2001; J0696

== ENCOUNTER → 2023-03-01 | Emergency (ER) | payer OTHER ==
[~2023-03-01] MED LIST: AMOX/K CLAV 875 MG TAB ONE; HYDROCODONE/APAP 7.5/325 MG TAB ONE
--- NOTE | 2023-03-01 17:19 | EDPHYS ---
Physician Documentation [facility] Name: Jennifer Olivares Age: 32 yrs Sex: Female : 1990 Arrival Date: 03/01/2023 Time: 16:55 Bed DX4 Private MD: ED Physician Drew Whelan HPI: 03/01 18:19 This 32 yrs old Black Female presents to ER via Ambulatory with complaints of Facial kb Swelling. 18:19 Patient is a 32-year-old female who presents for left facial swelling that started 3 kb days ago. Was seen by dentist 2 days ago and put on amoxicillin. States she has an appointment for March 12 for tooth extraction. States the swelling has not gotten any better and the ibuprofen negative for pain is not helping that much so she came in to get a different pain medication.. Historical: - Allergies: 17:17 Celexa; tl4 17:17 Risperdal; tl4 17:17 Zyprexa; tl4 - Home Meds: 17:17 Abilify Oral [Active]; Prozac Oral [Active]; tl4 - PMHx: 17:17 Anxiety; Bipolar disorder; Depression; Paranoid Delusions; PTSD; tl4 - PSHx: 17:17 section; Ligation of fallopian tube; tl4 - Immunization history:: Adult Immunizations unknown. - Social history:: Smoking status: Patient reports the use of cigarette tobacco products, smokes one-half pack cigarettes per day. ROS: 18:17 Constitutional: Negative for fever, chills, and weight loss, kb 18:17 ENT: Positive for dental pain, facial swelling, 18:17 All other systems are negative, Exam: 18:17 Constitutional: This is a well developed, well nourished patient who is awake, alert, kb and in no acute distress. Head/Face: Normocephalic, atraumatic. Cardiovascular: Regular rate Respiratory: Respirations even and unlabored. No increased work of breathing. Talking in full sentences Skin: Warm, dry with normal turgor. Normal color. MS/ Extremity: Pulses equal, no cyanosis. Neurovascular intact. Full, normal range of motion. Neuro: Awake and alert, GCS 15, oriented to person, place, time, and situation. Moves all extremities. Normal gait. 18:17 ENT: Dental exam: gum swelling, that is mild, specifically in the upper left second bicuspid (#13) and upper left first molar (#14), pain, facial swelling to left cheek, Vital Signs: 17:14 BP 106 / 69; Pulse 108; Resp 16; Temp 98; Pulse Ox 100% ; Weight 73.48 kg; Height 5 ft. tl4 5 in. ; Pain 8/10; 17:14 Body Mass Index 26.96 (73.48 kg, 165.1 cm) tl4 17:14 Pain Scale: Adult tl4 MDM: 17:11 Patient medically screened. kb 18:18 Differential diagnosis: dental abscess, cellulitis, dental caries. Data reviewed: vital kb signs, nurses notes. Counseling: I had a detailed discussion with the patient and/or guardian regarding the historical points, exam findings, and any diagnostic results supporting the discharge/admit diagnosis, the need for outpatient follow up, a dentist, to return to the emergency department if symptoms worsen or persist or if there are any questions or concerns that arise at home. ED course: Pt has follow up with dentist to have tooth extracted on 03/12/23. Administered Medications: 17:50 Drug: Hydrocodone-Acetaminophen PO (7.5 mg-325 mg) 1 tabs PO once Route: PO; hb 17:50 Drug: Amoxicillin-Clavulanate PO 875 mg PO once Route: PO; hb Disposition: 03/02 08:56 Co-signature as Attending Physician, Drew Whelan MD I reviewed the patient's care rn provided by the Advanced Practice Provider and agree with the diagnosis and treatment plan. Disposition Summary: 03/01/23 17:18 Discharge Ordered Notes: Location: Home kb Condition: Stable kb Diagnosis - Periapical abscess without sinus kb Followup: kb - With: Emergency Department - When: As needed - Reason: Worsening of condition Followup: kb - With: Private Physician - When: 2 - 3 days - Reason: Recheck today's complaints, Continuance of care, Re-evaluation by your physician Discharge Instructions: - Discharge Summary Sheet kb - Dental Pain, [id number] kb - Dental Abscess, [id number] kb Forms: - Medication Reconciliation Form kb - Thank You Letter kb - Antibiotic Education kb - Prescription Opioid Use kb - Patient Portal Instructions kb - Leadership Thank You Letter kb Prescriptions: - Augmentin 875-125 mg Oral Tablet - take 1 tablet ORAL route every 12 hours for 10 days; 20 tablet; Refills: 0, kb Product Selection Permitted - Diclofenac Sodium 75 mg Oral tablet, delayed release (enteric coated) - take 1 tablet ORAL route 2 times per day As needed; 30 tablet; Refills: 0, kb Product Selection Permitted Signatures: Lesli Mi, CHICAC HEEL BUILDER-Drew Decker MD MD rn Baxter, Heather, RN RN Keron Clay tl4 Corrections: (The following items were deleted from the chart) 03/01 18:18 18:17 ENT: Dental exam: gum swelling, that is mild, specifically in the upper left kb second bicuspid (#13) and upper left first molar (#14), pain, kb
--- NOTE | 2023-03-01 17:19 | ER ---
Nurse's Notes [facility] Name: Jennifer Olivares Age: 32 yrs Sex: Female : 1990 Arrival Date: 03/01/2023 Time: 16:55 Bed DX4 Private MD: Diagnosis: Periapical abscess without sinus Presentation: 03/01 17:14 Chief complaint: Patient states: Pt c/o left side facial swelling x 3 days. Pt has tl4 dental caries on the left side that will be extracted. No relief with amoxicillin. Pt also c/o generalized muscle aches. Coronavirus screen: Vaccine status: Patient reports being unvaccinated. At this time, the client does not indicate any symptoms associated with coronavirus-19. Ebola Screen: Patient negative for fever greater than or equal to 101.5 degrees Fahrenheit, and additional compatible Ebola Virus Disease symptoms Patient denies exposure to infectious person. Patient denies travel to an Ebola-affected area in the 21 days before illness onset. No symptoms or risks identified at this time. Initial Sepsis Screen: Does the patient meet any 2 criteria? No. Patient's initial sepsis screen is negative. Does the patient have a suspected source of infection? No. Patient's initial sepsis screen is negative. Risk Assessment: Do you want to hurt yourself or someone else? Patient reports no desire to harm self or others. Onset of symptoms was February 26, 2023. 17:14 Method Of Arrival: Ambulatory tl4 17:14 Acuity: ANKIT 4 tl4 Triage Assessment: 17:18 General: Appears in no apparent distress. Behavior is calm, cooperative. Pain: tl4 Complains of pain in face. Historical: - Allergies: 17:17 Celexa; tl4 17:17 Risperdal; tl4 17:17 Zyprexa; tl4 - Home Meds: 17:17 Abilify Oral [Active]; Prozac Oral [Active]; tl4 - PMHx: 17:17 Anxiety; Bipolar disorder; Depression; Paranoid Delusions; PTSD; tl4 - PSHx: 17:17 section; Ligation of fallopian tube; tl4 - Immunization history:: Adult Immunizations unknown. - Social history:: Smoking status: Patient reports the use of cigarette tobacco products, smokes one-half pack cigarettes per day. Vital Signs: 17:14 BP 106 / 69; Pulse 108; Resp 16; Temp 98; Pulse Ox 100% ; Weight 73.48 kg; Height 5 ft. tl4 5 in. ; Pain 8/10; 17:14 Body Mass Index 26.96 (73.48 kg, 165.1 cm) tl4 17:14 Pain Scale: Adult tl4 ED Course: 16:58 Patient arrived in ED. ts1 17:03 Lesli Mi FNP-C is [facility]. kb 17:03 Drew Whelan MD is Attending Physician. kb 17:17 Triage completed. tl4 17:18 Arm band placed on right wrist. tl4 Administered Medications: 17:50 Drug: Hydrocodone-Acetaminophen PO (7.5 mg-325 mg) 1 tabs PO once Route: PO; hb 17:50 Drug: Amoxicillin-Clavulanate PO 875 mg PO once Route: PO; hb Outcome: 17:18 Discharge ordered by . kb 17:50 Patient left the ED. hb Signatures: Lesli Mi FNP-C FNP-Ckb Baxter, Heather, RN RN hb Angelia Burt, KVNG PAS ts1 [place], Keron tl4
[2023-03-01 17:58] VITALS: BP 106/69; TEMP 98; O2SAT 100
== END ==
LOC: ER 16:55
DX: K04.7 Periapical abscess without sinus (principal); F17.210 Nicotine dependence, cigarettes, uncomplicated; F31.9 Bipolar disorder, unspecified; Z88.8 Allergy status to other drugs, medicaments and biological substances
CPT/HCPCS: 99282

== ENCOUNTER → 2023-05-12 | Emergency (ER) | payer OTHER ==
[~2023-05-12] MED LIST changes: -AMOX/K CLAV 875 MG TAB ONE; +DIAZEPAM 2 MG TABLET ONE; -HYDROCODONE/APAP 7.5/325 MG TAB ONE; +IBUPROFEN 400 MG TAB ONE; +KETOROLAC 30 MG/ML INJ ONE
--- NOTE | 2023-05-12 15:06 | RAD REPORT ---
EXAM DESCRIPTION: RAD - Chest Single View - 05/12/2023 3:01 pm CLINICAL HISTORY: CHEST PAIN Chest pain. COMPARISON: Chest Single View dated 03/30/2022; Chest Pa And Lat (2 Views) dated 11/11/2020; Chest Sin gle View dated 08/05/2017; CHEST SINGLE VIEW dated 09/22/2009 FINDINGS: Portable technique limits examination quality. The lungs are grossly clear. The heart is normal in size. No displaced fractures. IMPRESSION: No acute intrathoracic process suspected.
--- NOTE | 2023-05-12 15:23 | EDPHYS ---
Physician Documentation [facility] Name: Jennifer Olivares Age: 32 yrs Sex: Female : 1990 Arrival Date: 05/12/2023 Time: 14:28 Bed 2 Private MD: ED Physician Drew Whelan HPI: 05/11 14:51 This 32 yrs old Black Female presents to ER via EMS with complaints of Chest Pain. rn 14:51 The patient or guardian reports chest pain that is located primarily in the chest rn diffusely. The pain does not radiate. Associated signs and symptoms: Pertinent negatives: abdominal pain, cough, diaphoresis, syncope. The chest pain is described as dull. Duration: The patient or guardian reports a single episode, that is still ongoing. Modifying factors: The symptoms are alleviated by nothing. the symptoms are aggravated by emotionally stressful situations. Severity of pain: At its worst the pain was moderate in the emergency department the pain has improved. The patient has experienced similar episodes in the past. Patient reports chest pain upon getting arrested, associated with shortness of breath, feels identical to previous panic attacks and anxiety episodes. Patient states prior to arrest and interaction with police chief deputy she was completely fine. No recent illness. No trauma. No history of cardiac or lung problems.. Historical: - Allergies: 14:37 Celexa; nj1 14:37 Risperdal; nj1 14:37 Zyprexa; nj1 - PMHx: 14:37 Anxiety; Bipolar disorder; Depression; Paranoid Delusions; PTSD; nj1 - PSHx: 14:37 section; Ligation of fallopian tube; Repair of abdominal hernia (Unknown); nj1 section; section; - Immunization history:: Client reports having NOT received the Covid vaccine. - Social history:: Smoking status: Patient reports the use of cigarette tobacco products, smokes one-half pack cigarettes per day. - Family history:: not pertinent. - Hospitalizations: : No recent hospitalization is reported. ROS: 14:51 Constitutional: Negative for fever, chills, and weight loss, Neck: Negative for injury, rn pain, and swelling, Cardiovascular: Positive for chest pain Respiratory: Positive for shortness of breath Abdomen/GI: Negative for abdominal pain, nausea, vomiting, diarrhea, and constipation, Back: Negative for injury and pain, MS/Extremity: Negative for injury and deformity, Skin: Negative for injury, rash, and discoloration, Neuro: Negative for headache, weakness, numbness, tingling, and seizure, Exam: 14:51 Constitutional: This is a well developed, well nourished patient who is awake, alert, rn tearful and crying Head/Face: Normocephalic, atraumatic. Cardiovascular: Regular rate and rhythm. No pulse deficits. Respiratory: No increased work of breathing, no retractions or nasal flaring. Abdomen/GI: Soft, non-tender MS/ Extremity: Pulses equal, no cyanosis. Neurovascular intact. Full, normal range of motion. Equal circumference. Neuro: Awake and alert, GCS 15 15:09 ECG was reviewed by the Attending Physician. rn Vital Signs: 14:27 BP 120 / 84; Pulse 89; Resp 14; Pulse Ox 100% on R/A; Weight 75.75 kg; Height 5 ft. 5 nj1 in. ; Pain 9/10; 15:36 BP 120 / 90; Pulse 92; Resp 18; Pulse Ox 97% on R/A; nj1 14:27 Body Mass Index 27.79 (75.75 kg, 165.1 cm) nj1 14:27 Pain Scale: Adult nj1 MDM: 14:33 Patient medically screened. rn 15:18 Differential diagnosis: anxiety, chest wall pain, costochondritis, pleurisy, rn pneumothorax. HEART Score: History: Slightly Suspicious (0), ECG: Normal (0), Age: < or = 45 years (0), Risk Factors: No Risk Factors Known (0). Data reviewed: vital signs, nurses notes, EKG, radiologic studies, plain films, and as a result, I will discharge patient. 15:21 Counseling: I had a detailed discussion with the patient and/or guardian regarding the rn historical points, exam findings, and any diagnostic results supporting the discharge/admit diagnosis, radiology results, the need for outpatient follow up, to return to the emergency department if symptoms worsen or persist or if there are any questions or concerns that arise at home. Special discussion: I discussed with the patient/guardian in detail that at this point there is no indication for admission to the hospital. It is understood, however, that if the symptoms persist or worsen the patient needs to return immediately for re-evaluation. ED course: Chest x-ray images negative for pneumothorax or acute problem. ECG without ischemia. Patient states this feels identical to previous panic attacks and anxiety episodes and did not begin until interaction with police chief deputy and emotional lability. Will discharge in care of police chief deputy. No oxygen requirement, normal vital signs.. 03 14:39 Order name: XRAY Chest (1 view) rn 05/11 15:07 Order name: RAD; Complete Time: 15:10 EDMS 05/11 14:39 Order name: EKG; Complete Time: 17:10 rn 05/11 14:39 Order name: EKG - Nurse/Tech; Complete Time: 14:58 rn EC:09 Rate is 92 beats/min. Rhythm is regular. QRS [place] is Normal. AL interval is normal. QRS rn interval is normal. QT interval is normal. No Q waves. T waves are Normal. No ST changes noted. Clinical impression: Normal ECG. Interpreted by me. Reviewed by me. Administered Medications: 14:53 Drug: Diazepam PO 2 mg PO once Route: PO; ap3 15:35 Follow up: Response: No adverse reaction nj1 14:59 Not Given (Patient Refused): [id number] mg PO once ap3 15:29 Drug: Ketorolac IM 30 mg IM once Route: IM; Site: left deltoid; nj1 Disposition Summary: 05/12/23 15:23 Discharge Ordered Notes: Location: Home rn Problem: an acute exacerbation rn Symptoms: have improved rn Condition: Stable rn Diagnosis - Chest pain, unspecified rn - Anxiety disorder, unspecified rn Followup: rn - With: Private Physician - When: As needed - Reason: Recheck today's complaints, Re-evaluation by your physician Discharge Instructions: - Discharge Summary Sheet rn - Panic Attack rn - Nonspecific Chest Pain, Adult rn - Generalized Anxiety Disorder, Adult rn - Managing Anxiety, Adult rn Forms: - Medication Reconciliation Form rn - Thank You Letter rn - Antibiotic internet marketing coordinator - Prescription Opioid Use rn - Patient Portal Instructions rn - Leadership Thank You Letter rn Signatures: Dispatcher [employer] Drew Dozier MD MD rn Prokisch, Amanda RN RN ap3 Jennifer Wayne RN RN nj1
--- NOTE | 2023-05-12 15:23 | ER ---
Nurse's Notes [facility] Name: Jennifer Olivares Age: 32 yrs Sex: Female : 1990 Arrival Date: 05/12/2023 Time: 14:28 Bed 2 Private MD: Diagnosis: Chest pain, unspecified;Anxiety disorder, unspecified Presentation: 05/11 14:27 Chief complaint: EMS states: Chest pain, was taken in custody by parent aide when pain nj1 started. Anxious. 14:27 Coronavirus screen: Vaccine status: Patient reports being unvaccinated. Ebola Screen: nj1 Patient denies travel to an Ebola-affected area in the 21 days before illness onset. Initial Sepsis Screen: Does the patient meet any 2 criteria? No. Patient's initial sepsis screen is negative. Does the patient have a suspected source of infection? No. Patient's initial sepsis screen is negative. Risk Assessment: Do you want to hurt yourself or someone else? Patient reports no desire to harm self or others. Onset of symptoms was May 12, 2023. 14:27 Method Of Arrival: EMS: [facility] 14:27 Acuity: ANKIT 3 nj1 Historical: - Allergies: 14:37 Celexa; nj1 14:37 Risperdal; nj1 14:37 Zyprexa; nj1 - PMHx: 14:37 Anxiety; Bipolar disorder; Depression; Paranoid Delusions; PTSD; nj1 - PSHx: 14:37 section; Ligation of fallopian tube; Repair of abdominal hernia (Unknown); nj1 section; section; - Immunization history:: Client reports having NOT received the Covid vaccine. - Social history:: Smoking status: Patient reports the use of cigarette tobacco products, smokes one-half pack cigarettes per day. - Family history:: not pertinent. - Hospitalizations: : No recent hospitalization is reported. Screenin:58 [facility] ED Fall Risk Assessment (Adult) History of falling in the last 3 months, ap3 including since admission No falls in past 3 months (0 pts) Confusion or Disorientation No (0 pts) Intoxicated or Sedated No (0 pts) Impaired Gait No (0 pts) Mobility Assist Device Used No (0 pt) Altered Elimination No (0 pt) Score/Fall Risk Level 0 - 2 = Low Risk Oriented to surroundings, Maintained a safe environment. Abuse screen: Denies threats or abuse. Denies injuries from another. Nutritional screening: No deficits noted. Tuberculosis screening: No symptoms or risk factors identified. Assessment: 14:58 General: Appears in no apparent distress. Behavior is cooperative, appropriate for age, nj1 anxious, crying. Pain: Complains of pain in chest Pain does not radiate. Pain currently is 9 out of 10 on a pain scale. Pain: Pain began suddenly. Neuro: Level of Consciousness is awake, alert, obeys commands, Oriented to person, place, time, situation. Cardiovascular: Patient's skin is warm and dry. Respiratory: Airway is patent Respiratory effort is even, unlabored. 15:36 Reassessment: Patient appears in no apparent distress at this time. Patient is alert, nj1 oriented x 3, equal unlabored respirations, skin warm/dry/pink. Patient states symptoms have improved. Vital Signs: 14:27 BP 120 / 84; Pulse 89; Resp 14; Pulse Ox 100% on R/A; Weight 75.75 kg; Height 5 ft. 5 nj1 in. ; Pain 9/10; 15:36 BP 120 / 90; Pulse 92; Resp 18; Pulse Ox 97% on R/A; nj1 14:27 Body Mass Index 27.79 (75.75 kg, 165.1 cm) nj1 14:27 Pain Scale: Adult nj ED Course: 14:32 Patient arrived in ED. nj1 14:33 Drew Whelan MD is Attending Physician. rn 14:37 Triage completed. nj1 14:39 Arm band placed on. nj1 14:52 Jennifer Wayne, KATIE is Primary Nurse. nj1 14:58 Patient has correct armband on for positive identification. Bed in low position. Call ap3 light in reach. Side rails up X 1. Client placed on continuous cardiac and pulse oximetry monitoring. NIBP monitoring applied. Warm blanket given. 14:58 EKG done, by ED staff. Patient maintains SpO2 saturation greater than 95% on room air. ap3 14:58 No provider procedures requiring assistance completed. ap3 15:37 Provided Education on: discharge instructions. nj1 15:37 Patient did not have IV access during this emergency room visit. nj1 Administered Medications: 14:53 Drug: Diazepam PO 2 mg PO once Route: PO; ap3 15:35 Follow up: Response: No adverse reaction nj1 14:59 Not Given (Patient Refused): [id number] mg PO once ap3 15:29 Drug: Ketorolac IM 30 mg IM once Route: IM; Site: left deltoid; nj1 Medication: 15:37 VIS not applicable for this client. nj1 Outcome: 15:23 Discharge ordered by . rn 15:36 Discharged to Law Enforcement nj1 15:36 Condition: stable 15:36 Discharge instructions given to patient, police, Instructed on discharge instructions, follow up and referral plans. Demonstrated understanding of instructions, follow-up care, 15:38 Patient left the ED. nj1 Signatures: Drew Whelan MD MD rn Prokisch, Amanda, RN RN ap3 Jennifer Wayne RN RN nj1
[2023-05-12 15:51] VITALS: BP 120/90; O2SAT 97
== END ==
LOC: ER 14:28
DX: F41.9 Anxiety disorder, unspecified (principal); F17.210 Nicotine dependence, cigarettes, uncomplicated; Z88.8 Allergy status to other drugs, medicaments and biological substances
CPT/HCPCS: 71045

== ENCOUNTER 2024-01-09 00:18 | Emergency (ER) | payer SELFPAY ==
--- NOTE | 2024-01-09 01:18 | EDPHYS ---
Physician Documentation [facility] Name: Jennifer Olivares Age: 33 yrs Sex: Female : 1990 Arrival Date: 01/09/2024 Time: 00:18 Bed 17 Private MD: ED Physician Montana Mata HPI: 01/08 01:20 This 33 yrs old Black Female presents to ER via Ambulatory with complaints of Rash. ec2 01:20 Patient arrives today for a rash on the bilateral upper and lower extremities. Patient ec2 reports that she has not taken any medications. No new allergens. Patient reports also that she has been out of her schizophrenia medications, states that she is on Abilify which she has not taken in several months. States that she hears voices however denies any suicidality or homicidality.. 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 - Infectious Disease History:: Denies. - Social history:: Smoking status: Patient reports the use of cigarette tobacco products, smokes one-half pack cigarettes per day, Patient/guardian denies using alcohol, street drugs. ROS: 01:20 Constitutional: as per hpi ec2 Exam: 01:20 Constitutional: GEN: NAD Head: atraumatic Eyes: EOMI Ears: External ears are ec2 normal. CV: regular rate LUNGS: no respiratory distress ABD: non-distended SKIN: Nonspecific rash on the bilateral upper and lower extremities MSK: no evidence of trauma. Psych: Cooperative individual who is not internally preoccupied who denies suicidality or homicidality Vital Signs: 00:50 BP 141 / 89; Pulse 94; Resp 17 S; Temp 97.8(O); Pulse Ox 100% on R/A; Weight 72.57 kg lg3 (R); Height 5 ft. 5 in. (R); 02:04 BP 132 / 84; Pulse 87; Resp 18; Pulse Ox 99% ; cp4 00:50 Body Mass Index 26.63 (72.57 kg, 165.1 cm) lg3 MDM: 00:58 Medical Screening Exam initiated ec2 01:20 Data reviewed: vital signs. ED course: Patient arrives today for evaluation of a rash ec2 as well as running out of her psychiatric medications. Will treat the patient with prednisone and Benadryl for her rash. Will give the patient Geodon for her auditory symptoms. Patient without any suicidality to indicate inpatient psychiatric management. Will discharge home. Return precautions given.. Administered Medications: 01:37 Drug: predniSONE PO 40 mg PO once Route: PO; cp4 02:05 Follow up: Response: No adverse reaction cp4 01:37 Drug: diphenhydrAMINE PO 50 mg PO once Route: PO; cp4 02:05 Follow up: Response: No adverse reaction cp4 01:37 Drug: Geodon IM 10 mg IM once Route: IM; Site: right ventrogluteal; cp4 02:05 Follow up: Response: No adverse reaction cp4 Disposition Summary: 01/09/24 01:18 Discharge Ordered Notes: Location: Home ec2 Condition: Stable ec2 Diagnosis - Rash and other nonspecific skin eruption ec2 - Schizophrenia, unspecified ec2 Followup: ec2 - With: Private Physician - When: - Reason: Re-evaluation by your physician Discharge Instructions: - Discharge Summary Sheet ec2 - Rash, Adult ec2 Forms: - Medication Reconciliation Form ec2 - Antibiotic Education ec2 - Prescription Opioid Use ec2 - Patient Portal Instructions ec2 - Leadership Thank You Letter ec2 Prescriptions: - Prednisone 20 mg Oral Tablet - take 1 tablet ORAL route once daily for 5 days; 5 tablet; Refills: 0, Product ec2 Selection Permitted Signatures: Suyapa Paris RN RN lg3 Montana Mata MD MD ec2 Naomi Wray cp4
--- NOTE | 2024-01-09 01:18 | ER ---
Nurse's Notes [facility] Name: Jennifer Olivares Age: 33 yrs Sex: Female : 1990 Arrival Date: 01/09/2024 Time: 00:18 Bed 17 Private MD: Diagnosis: Rash and other nonspecific skin eruption;Schizophrenia, unspecified Presentation: 01/08 00:50 Chief complaint: Patient states: i have a rash that started on my left arm and now its lg3 all over my body and i cant quit itching. im schizophrenic and bipolar and brandon been off my meds for a few weeks and need my meds. Coronavirus screen: Client denies travel out of the [place] in the last 14 days. At this time, the client does not indicate any symptoms associated with coronavirus-19. Ebola Screen: No symptoms or risks identified at this time. Initial Sepsis Screen: Does the patient meet any 2 criteria? No. Patient's initial sepsis screen is negative. Does the patient have a suspected source of infection? No. Patient's initial sepsis screen is negative. Risk Assessment: Do you want to hurt yourself or someone else? Patient reports no desire to harm self or others. Onset of symptoms is unknown. 00:50 Method Of Arrival: Ambulatory lg3 00:50 Acuity: ANKIT 4 lg3 Triage Assessment: 00:53 General: Appears in no apparent distress. comfortable, Behavior is cooperative, lg3 anxious. Pain: Complains of pain in all over. EENT: No deficits noted. No signs and/or symptoms were reported regarding the EENT system. Neuro: Horn Agitation-Sedation Scale (RASS): +1 Restless Level of Consciousness is awake, alert, obeys commands, Oriented to person, place, time, situation. Cardiovascular: No deficits noted. Denies chest pain, shortness of breath, Capillary refill < 3 seconds Clubbing of nail beds is absent JVD is absent Patient's skin is warm and dry. Respiratory: No deficits noted. Airway is patent Respiratory effort is even, unlabored, Respiratory pattern is regular, symmetrical. GI: No deficits noted. No signs and/or symptoms were reported involving the gastrointestinal system. : No signs and/or symptoms were reported regarding the genitourinary system. Derm: Skin is intact, is healthy with good turgor, Skin is dry, Skin is normal, Skin temperature is warm Rash noted that is itchy. Musculoskeletal: No deficits noted. No signs and/or symptoms reported regarding the musculoskeletal system. Circulation, motion, and sensation intact. Range of motion: intact in all extremities. 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 - Infectious Disease History:: Denies. - Social history:: Smoking status: Patient reports the use of cigarette tobacco products, smokes one-half pack cigarettes per day, Patient/guardian denies using alcohol, street drugs. Screenin:26 [facility] ED Fall Risk Assessment (Adult) History of falling in the last 3 months, cp4 including since admission No falls in past 3 months (0 pts) Confusion or Disorientation No (0 pts) Intoxicated or Sedated No (0 pts) Impaired Gait No (0 pts) Mobility Assist Device Used No (0 pt) Altered Elimination No (0 pt) Score/Fall Risk Level 0 - 2 = Low Risk Oriented to surroundings, Maintained a safe environment, Assessed \T\ reinforced patient's understanding of fall precautions, Hourly rounding (assess needs \T\ fall precautionary measures) done. Abuse screen: Denies threats or abuse. Nutritional screening: No deficits noted. Tuberculosis screening: No symptoms or risk factors identified. Assessment: 01:26 General: Appears in no apparent distress. uncomfortable, Behavior is calm, cooperative, cp4 appropriate for age. Pain: Denies pain. Neuro: Level of Consciousness is awake, alert, obeys commands, Oriented to person, place, time, situation. Cardiovascular: Patient's skin is warm and dry. Respiratory: Airway Respiratory effort is even, unlabored. GI: No signs and/or symptoms were reported involving the gastrointestinal system. : No signs and/or symptoms were reported regarding the genitourinary system. EENT: No signs and/or symptoms were reported regarding the EENT system. Derm: Reports rash. Musculoskeletal: No signs and/or symptoms reported regarding the musculoskeletal system. Vital Signs: 00:50 BP 141 / 89; Pulse 94; Resp 17 S; Temp 97.8(O); Pulse Ox 100% on R/A; Weight 72.57 kg lg3 (R); Height 5 ft. 5 in. (R); 02:04 BP 132 / 84; Pulse 87; Resp 18; Pulse Ox 99% ; cp4 00:50 Body Mass Index 26.63 (72.57 kg, 165.1 cm) lg3 ED Course: 00:42 Patient arrived in ED. gm2 00:53 Triage completed. lg3 00:53 Arm band placed on left wrist. lg3 00:55 Montana Mata MD is Attending Physician. ec2 01:25 Naomi Wray is Primary Nurse. cp4 01:26 Bed in low position. Call light in reach. Side rails up X 1. Provided Education on: cp4 rash. 01:26 No provider procedures requiring assistance completed. Patient did not have IV access cp4 during this emergency room visit. Administered Medications: 01:37 Drug: predniSONE PO 40 mg PO once Route: PO; cp4 02:05 Follow up: Response: No adverse reaction cp4 01:37 Drug: diphenhydrAMINE PO 50 mg PO once Route: PO; cp4 02:05 Follow up: Response: No adverse reaction cp4 01:37 Drug: Geodon IM 10 mg IM once Route: IM; Site: right ventrogluteal; cp4 02:05 Follow up: Response: No adverse reaction cp4 Medication: 01:26 VIS not applicable for this client. cp4 Outcome: 01:18 Discharge ordered by . ec2 02:05 Discharged to home ambulatory, cp4 02:05 Condition: stable 02:05 Discharge instructions given to patient, Instructed on discharge instructions, follow up and referral plans. Demonstrated understanding of instructions, follow-up care, medications, Prescriptions given X 1, 02:06 Patient left the ED. cp4 Signatures: Suyapa Paris RN RN lg3 Montana Mata MD MD ec2 Naomi Wray cp4 Clarice Jerome 2
[2024-01-09] MEDS ORDERED: predniSONE 20 MG TAB ONE (01:30)
[2024-01-09] MEDS ORDERED: WATER FOR INJ,STERILE 10 ML ONE (01:30)
[2024-01-09] MEDS ORDERED: ZIPRASIDONE MESYLA 20 MG/VIAL IM ONE (01:30)
[2024-01-09] MEDS ORDERED: DIPHENHYDRAMINE 25 MG TAB/CAP ONE (01:30)
[2024-01-09 02:12] VITALS: BP 132/84; TEMP 97.8; O2SAT 99
== END 2024-01-09 02:06 | disposition home or self-care (01) ==
LOC: ER 00:18
DX: R21 Rash and other nonspecific skin eruption (principal); F20.9 Schizophrenia, unspecified
CPT/HCPCS: 96372; 99284; J3486; J7512

== ENCOUNTER 2024-02-28 19:48 | Emergency (ER) | payer OTHER ==
--- NOTE | 2024-02-28 20:04 | EDPHYS ---
Physician Documentation [facility] Name: Jennifer Olivares Age: 33 yrs Sex: Female : 1990 Arrival Date: 02/28/2024 Time: 19:48 Bed IW2 Private MD: ED Physician Montana Mata HPI: 02/27 20:02 This 33 yrs old Black Female presents to ER via Ambulatory with complaints of Rash. kb 20:02 Pt is a 33 year old female who presents for rash to upper extremities, face and neck kb that started one week ago. Reports itching and burning to area. Denies fever, drainage. 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 - Infectious Disease History:: Denies. - Social history:: Smoking status: Patient reports the use of cigarette tobacco products, smokes one-half pack cigarettes per day. ROS: 19:59 Constitutional: As per HPI kb Exam: 19:59 Constitutional: This is a well developed, well nourished patient who is awake, alert, kb and in no acute distress. Head/Face: Normocephalic, atraumatic. ENT: Moist Mucous membranes Cardiovascular: Regular rate Respiratory: Respirations even and unlabored. No increased work of breathing. Talking in full sentences MS/ Extremity: Pulses equal, no cyanosis. Neurovascular intact. Full, normal range of motion. Neuro: Awake and alert, GCS 15, oriented to person, place, time, and situation. 19:59 Skin: consistent with contact dermatitis, on the face, right arm and left arm, Vital Signs: 19:53 BP 118 / 82; Pulse 116; Resp 19; Temp 98.1(O); Pulse Ox 97% on R/A; MAP 94 mmHg; Weight tm6 73.48 kg; Height 5 ft. 5 in. ; Pain 7/10; 19:53 Body Mass Index 26.96 (73.48 kg, 165.1 cm) tm6 19:53 Pain Scale: Adult tm6 MDM: 19:52 Medical Screening Exam initiated kb 20:03 Differential diagnosis: impetigo, allergic reaction, parasite infection. Data reviewed: kb vital signs, nurses notes. Counseling: I had a detailed discussion with the patient and/or guardian regarding the historical points, exam findings, and any diagnostic results supporting the discharge/admit diagnosis, the need for outpatient follow up, a family practitioner, to return to the emergency department if symptoms worsen or persist or if there are any questions or concerns that arise at home. Administered Medications: 20:23 Drug: MethylPREDNISolone Sodium Succinate IM 125 mg IM once Route: IM; Site: right tm6 gluteus; 20:23 Follow up: Response: Medication administered at discharge. tm6 20:23 Drug: Famotidine PO 20 mg PO once Route: PO; tm6 20:23 Follow up: Response: Medication administered at discharge. tm6 Disposition Summary: 02/28/24 20:04 Discharge Ordered Notes: Location: Home kb Condition: Stable kb Diagnosis - Rash and other nonspecific skin eruption kb Followup: kb - With: Emergency Department - When: As needed - Reason: Worsening of condition Followup: kb - With: Private Physician - When: 2 - 3 days - Reason: Recheck today's complaints, Continuance of care, Re-evaluation by your physician Discharge Instructions: - Discharge Summary Sheet kb - Rash, Adult, [id number] kb - Contact Dermatitis, [id number] kb Forms: - Medication Reconciliation Form kb - Antibiotic Education kb - Prescription Opioid Use kb - Patient Portal Instructions kb - Leadership Thank You Letter kb Prescriptions: - Pepcid 20 mg Oral Tablet - take 1 tablet ORAL route every 12 hours for 5 days; 10 tablet; Refills: 0, kb Product Selection Permitted - Medrol (Walter) 4 mg Oral Tablets, Dose Pack - take 1 tablet ORAL route as directed - follow package instructions; 1 packet; kb Refills: 0, Product Selection Permitted Addendum: 03/02/2024 16:19 I was immediately available for consultation during this patient's visit. I did not e c2 personally see the patient or discuss the patient with the REZA. . Signatures: Lesli Mi, THADDEUS-C SIGN MANUFACTURER-Ckb Montana Mata MD MD ec2 Freddy Arnold, RN RN tm6
--- NOTE | 2024-02-28 20:04 | ER ---
Nurse's Notes [facility] Name: Jennifer Olivares Age: 33 yrs Sex: Female : 1990 Arrival Date: 02/28/2024 Time: 19:48 Bed IW2 Private MD: Diagnosis: Rash and other nonspecific skin eruption Presentation: 02/27 19:55 Chief complaint: Patient states: rash x1 week, on arms, legs, and neck. Has been tm6 burning, cannot sleep due to the discomfort. Coronavirus screen: Client denies travel out of the [place] in the last 14 days. Ebola Screen: Patient negative for fever greater than or equal to 101.5 degrees Fahrenheit, and additional compatible Ebola Virus Disease symptoms Patient denies exposure to infectious person. Patient denies travel to an Ebola-affected area in the 21 days before illness onset. No symptoms or risks identified at this time. Initial Sepsis Screen: Does the patient meet any 2 criteria? No. Patient's initial sepsis screen is negative. Does the patient have a suspected source of infection? No. Patient's initial sepsis screen is negative. Risk Assessment: Do you want to hurt yourself or someone else? Patient reports no desire to harm self or others. Onset of symptoms was February 21, 2024. 19:55 Method Of Arrival: Ambulatory tm6 19:55 Acuity: ANKIT 4 tm6 Triage Assessment: 19:55 General: Appears in no apparent distress. Behavior is calm, cooperative. Pain: tm6 Complains of pain in right arm, left arm, right leg, left leg and neck Pain currently is 7 out of 10 on a pain scale. Quality of pain is described as burning, Pain began x1 week. EENT: No signs and/or symptoms were reported regarding the EENT system. Neuro: Level of Consciousness is awake, alert, obeys commands, Oriented to person, place, time, situation. Cardiovascular: Patient's skin is warm and dry. Respiratory: Airway is patent Respiratory effort is even, unlabored, Respiratory pattern is regular, symmetrical. GI: No signs and/or symptoms were reported involving the gastrointestinal system. Abdomen is flat, non-distended. : No signs and/or symptoms were reported regarding the genitourinary system. Derm: Reports burning, since x1 week. Musculoskeletal: No signs and/or symptoms reported regarding the musculoskeletal system. 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 - Infectious Disease History:: Denies. - Social history:: Smoking status: Patient reports the use of cigarette tobacco products, smokes one-half pack cigarettes per day. Screenin:23 [facility] ED Fall Risk Assessment (Adult) History of falling in the last 3 months, tm6 including since admission No falls in past 3 months (0 pts) Confusion or Disorientation No (0 pts) Intoxicated or Sedated No (0 pts) Impaired Gait No (0 pts) Mobility Assist Device Used No (0 pt) Altered Elimination No (0 pt) Score/Fall Risk Level 0 - 2 = Low Risk Oriented to surroundings, Maintained a safe environment, Educated pt \T\ family on fall prevention, incl call for assistance when getting out of bed. Abuse screen: Denies threats or abuse. Denies injuries from another. Nutritional screening: No deficits noted. Tuberculosis screening: No symptoms or risk factors identified. Assessment: 20:23 Reassessment: see triage assessment. tm6 Vital Signs: 19:53 BP 118 / 82; Pulse 116; Resp 19; Temp 98.1(O); Pulse Ox 97% on R/A; MAP 94 mmHg; Weight tm6 73.48 kg; Height 5 ft. 5 in. ; Pain 7/10; 19:53 Body Mass Index 26.96 (73.48 kg, 165.1 cm) tm6 19:53 Pain Scale: Adult tm6 ED Course: 19:50 Patient arrived in ED. jj6 19:52 Lesli Mi FNP-C is [facility]. kb 19:52 Montana Mata MD is Attending Physician. kb 19:55 Arm band placed on right wrist. tm6 19:56 Triage completed. tm6 20:23 Patient has correct armband on for positive identification. Provided Education on: use tm6 of prescription meds. 20:23 No provider procedures requiring assistance completed. Patient did not have IV access tm6 during this emergency room visit. Administered Medications: 20:23 Drug: MethylPREDNISolone Sodium Succinate IM 125 mg IM once Route: IM; Site: right tm6 gluteus; 20:23 Follow up: Response: Medication administered at discharge. tm6 20:23 Drug: Famotidine PO 20 mg PO once Route: PO; tm6 20:23 Follow up: Response: Medication administered at discharge. tm6 Medication: 20:23 VIS not applicable for this client. tm6 Outcome: 20:04 Discharge ordered by . shweta 20:23 Discharged to home ambulatory, tm6 20:23 Condition: stable 20:23 Discharge instructions given to patient, Instructed on discharge instructions, follow up and referral plans. medication usage, Demonstrated understanding of instructions, follow-up care, medications, Prescriptions given X 2, 20:24 Patient left the ED. tm6 Signatures: Lesli Mi FNP-C FNP-Antonia Heredia jj6 Freddy Arnold, RN RN tm6
[2024-02-28] MEDS ORDERED: METHYLPREDNISOLONE 125 MG INJ ONE (20:18)
[2024-02-28] MEDS ORDERED: FAMOTIDINE 20 MG TAB ONE (20:18)
[2024-02-28 21:17] VITALS: BP 118/82; TEMP 98.1; O2SAT 97
== END 2024-02-28 20:24 | disposition home or self-care (01) ==
LOC: ER 19:48
DX: R21 Rash and other nonspecific skin eruption (principal)
CPT/HCPCS: 96372; 99284; J2919

== ENCOUNTER 2024-04-02 19:45 | Inpatient (IN) | payer OTHER ==
[2024-04-02] MEDS ORDERED: MORPHINE 4 MG/ML SYR ONE (20:29)
[2024-04-02] MEDS ORDERED: FAMOTIDINE 20 MG/2 ML VIAL IV ONE (20:29)
[2024-04-02] MEDS ORDERED: ONDANSETRON 4 MG/2 ML VIAL ONE (20:29)
[2024-04-02] MEDS ORDERED: METOCLOPRAMIDE 10 MG/2mL INJ ONE (20:29)
[2024-04-02] MEDS ORDERED: NA CHLORIDE 0.9% 1,000 ML ONE (20:29)
[2024-04-02] MEDS ORDERED: KETOROLAC 30 MG/ML INJ ONE (20:29)
[2024-04-02 20:40] LABS: Absolute Basophils 0.1 K/uL (0-0.5); Absolute Eosinophils 0.1 K/uL (0-0.5); Absolute Monocytes 0.5 K/uL (0.1-1.3); Absolute Neutrophil 7.8 K/uL (1.8-8.0); Basophils % 1.2 % (0-1.3); Eosinophils % 1.1 % (0-4.4); Hematocrit 37.5 % (36.0-45.0); Hemoglobin 12.4 g/dL (12.0-15.0); Lymphocytes % 10.2 % (15.3-44.8); MCH 28.5 pg (27.0-35.0); MCV 86.4 fL (80-100); Monocytes % 5.3 % (3.3-12.3); Neutrophils % 82.2 % (41.7-73.7); Platelets 407 thou/uL (152-406); RBC Red Blood Cell Count 4.34 M/uL (3.86-4.86); Red Cell Distribution Width 15.3 % (12.1-15.2)
[2024-04-02 20:47] LABS: Specific Gravity > 1.030 (1.005-1.030)
[2024-04-02 20:48] LABS: Specific Gravity > 1.030 (1.005-1.030); Sqamous Epithelial <5 /HPF (None Seen); Urine Bacteria <20 /HPF (<20); Urine Bilirubin NEGATIVE (Negative); Urine Blood Negative (Negative); Urine Clarity Turbid (Clear); Urine Color Yellow (Yellow); Urine Crystals Unidentified Few /HPF (None Seen); Urine Culture Reflex Order NOT NEEDED; Urine Glucose NEGATIVE (Negative); Urine Ketones 2+ (Negative); Urine Microscopic Reflex YN ORDER UMIC; Urine Mucus 3+ /HPF (None Seen); Urine Nitrite NEGATIVE (Negative); Urine Protein 1+ (Negative); Urine RBC <5 /HPF (None Seen); Urine Urobilinogen 1+ (Normal); Urine WBC <5 /HPF (<5); Urine WBC Clump Rare /HPF (None Seen)
[2024-04-02 20:55] LABS: Albumin 3.7 g/dL (3.4-5.0); Albumin/Globulin Ratio 0.9 (1.1-1.8); Anion Gap 9.1 mEq/L (5.0-15.0); Bilirubin Total 0.8 mg/dL (0.2-1.0); Globulin 4.2 g/dL (2.3-3.5); Potassium 3.1 mEq/L (3.5-5.1); Protein, Total 7.9 g/dL (6.4-8.2)
--- NOTE | 2024-04-02 22:21 | RAD REPORT ---
EXAMINATION: CT Abdomen Pelvis W Contrast CLINICAL INDICATION: Female, 33 years old. ABD PAIN TECHNIQUE: CT abdomen and pelvis was performed, after the administration of IV contrast, as per depar tment protocol. Axial, sagittal and coronal reconstructions were obtained. One or more of the following dose reduction techniques were used: Automated exposure control, adjustment of the mA and k V according to patient size, and iterative reconstruction. Unless otherwise specified, incidental findings do not require dedicated imaging follow-up. COMPARISON: Abdominal ultrasound the same day. FINDINGS: LOWER CHEST: The visualized lung bases are clear. LIVER: Normal in size and contour. No focal lesion. BILIARY SYSTEM: Marked gallbladder distention with wall thickening and mucosal hyperenhancement. Chol esterol containing calculus at the gallbladder neck, measuring 11 mm. SPLEEN: Normal size. No focal lesion. PANCREAS: No mass, ductal dilation, or aidan-pancreatic fluid. ADRENALS: Normal; no mass. KIDNEYS: Normal size and contour. No hydronephrosis. URINARY BLADDER: Unremarkable. GASTROINTESTINAL TRACT: No evidence of free air, significant intra-abdominal free fluid, bowel obstru ction or abscess. APPENDIX: Normal appendix. LYMPH NODES: No lymphadenopathy. MUSCULOSKELETAL: No acute or suspicious osseous abnormality. ADDITIONAL FINDINGS: Trace free pelvic fluid, likely physiologic. Dominant right adnexal follicle lobo suring 2.3 cm. IMPRESSION: Marked gallbladder distention with wall thickening and cholesterol containing 11 mm calculus at the n rick. Findings are concerning for acute cholecystitis. Trace free pelvic fluid, likely physiologic.
--- NOTE | 2024-04-02 22:22 | RAD REPORT ---
EXAMINATION: US Abdomen Exam Limited CLINICAL HISTORY: [facility] MAIN N ABD PAIN Bed Name: 13 COMPARISON: CT abdomen and pelvis of the same day TECHNIQUE: Limited upper abdominal grayscale and color flow sonographic images. FINDINGS: Gallbladder: Markedly distended gallbladder. Wall thickness. Upper limit of normal. One CM echogenic shadowing gallstone near the neck. Positive sonographic Mejia's sign. Bile ducts: No intrahepatic or extrahepatic biliary dilatation. Common bile duct measures 0.3 mm. Liver: Visualized portions of the liver demonstrate normal echogenicity with no suspicious findings. Fluid: No ascites. IMPRESSION: Markedly distended gallbladder with findings suggesting acute cholecystitis. No intra or extrahepatic biliary ductal dilation.
--- NOTE | 2024-04-02 22:46 | EDPHYS ---
Physician Documentation [facility] Name: Jennifer Olivares Age: 33 yrs Sex: Female : 1990 Arrival Date: 04/02/2024 Time: 19:45 Bed 13 Private MD: ED Physician Rajat Morrison HPI: 04/02 19:52 This 33 yrs old Black Female presents to ER via Unassigned with complaints of Abdominal sp4 Pain, Back Pain, Nausea/Vomiting. 22:58 33-year-old female presents with acute onset right upper abdominal pain associated with sp4 5 episodes of vomiting starting 2 days ago intensifying today. Patient has history of gallbladder sludge. History of 7 prior pregnancies and history of 3 prior C-sections.. 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 - Infectious Disease History:: Denies. - Social history:: Smoking status: Patient reports the use of cigarette tobacco products, smokes 0.25 packs per day. - Family history:: not pertinent. ROS: 22:58 Constitutional: Negative for fever, chills, and weight loss, positive for RUQ pain, sp4 positive for vomiting 22:58 All other systems are negative, Exam: 22:58 Constitutional: This is a well developed, well nourished patient who is awake, alert, sp4 and in no acute distress. Head/Face: Normocephalic, atraumatic. Eyes: Pupils equal round and reactive to light, extra-ocular motions intact. Lids and lashes normal. Conjunctiva and sclera are not injected. Cornea within normal limits. Periorbital areas with no swelling, redness, or edema. ENT: Nares patent. No nasal discharge, no septal abnormalities noted. Tympanic membranes are normal and external auditory canals are clear. Oropharynx with no redness, swelling, or masses, exudates, or evidence of obstruction, uvula midline. Mucous membranes moist. Neck: Trachea midline, no thyromegaly or masses palpated, and no cervical lymphadenopathy. Supple, full range of motion without nuchal rigidity, or vertebral point tenderness. Chest/axilla: Normal chest wall appearance and motion. Nontender with no deformity. No lesions are appreciated. Cardiovascular: Regular rate and rhythm with a normal S1 and S2. No gallops, murmurs, or rubs. Normal PMI, no JVD. No pulse deficits. Respiratory: Lungs have equal breath sounds bilaterally, clear to auscultation and percussion. No rales, rhonchi or wheezes noted. No increased work of breathing, no retractions or nasal flaring. Abdomen/GI: Soft, with normal bowel sounds. No distension or tympany. No guarding or rebound. Positive for RUQ tenderness Back: No spinal tenderness. No costovertebral tenderness. Skin: Warm, dry with normal turgor. Normal color with no rashes, no lesions, and no evidence of cellulitis. MS/ Extremity: Pulses equal, no cyanosis. Neurovascular intact. Full, normal range of motion. Neuro: Awake and alert, GCS 15, oriented to person, place, time, and situation. Cranial nerves II-XII grossly intact. Motor strength 5/5 in all extremities. Sensory grossly intact. Psych: Awake, alert, with orientation to person, place and time. Behavior, mood, and affect are within normal limits Vital Signs: 20:03 BP 110 / 76; Pulse 126; Resp 17; Temp 98; Pulse Ox 97% on R/A; Weight 73.48 kg; Height cm10 5 ft. 5 in. ; Pain 5/10; 20:56 BP 119 / 83; Pulse 90; Resp 18; Pulse Ox 99% ; cp4 22:13 BP 108 / 70; Pulse 88; Resp 18; Pulse Ox 98% ; cp4 23:40 BP 105 / 70; Pulse 79; Resp 18; Pulse Ox 98% ; cp4 20:03 Body Mass Index 26.96 (73.48 kg, 165.1 cm) cm10 20:03 Pain Scale: Adult cm10 [place] Coma Score: 22:58 Eye Response: spontaneous(4). Motor Response: obeys commands(6). Verbal Response: sp4 oriented(5). Total: 15. MDM: 19:52 Medical Screening Exam initiated sp4 22:38 ED course: EXAMINATION: CTAbdomen Pelvis W Contrast CLINICAL INDICATION: Female, 33 sp4 years old. ABD PAIN TECHNIQUE: CT abdomen and pelvis was performed, after the administration of IV contrast, as per department protocol. Axial, sagittal and coronal reconstructions were obtained. One or more of the following dose reduction techniques were used: Automated exposure control, adjustment of the mA and kV according to patient size, and iterative reconstruction. Unless otherwise specified, incidental findings do not require dedicated imaging follow-up. COMPARISON: Abdominal ultrasound the same day. FINDINGS: LOWER CHEST: The visualized lung bases are clear. LIVER: Normal in size and contour. No focal lesion. BILIARYSYSTEM: Marked gallbladder distention with wall thickening and mucosal hyperenhancement. Cholesterol containing calculus at the gallbladder neck, measuring 11 mm. SPLEEN: Normal size. No focal lesion. PANCREAS: No mass, ductal dilation, or aidan-pancreatic fluid. ADRENALS: Normal; no mass. KIDNEYS: Normal size and contour. No hydronephrosis. URINARYBLADDER: Unremarkable. GASTROINTESTINAL TRACT: No evidence of free air, significant intra-abdominal free fluid, bowel obstruction or abscess. APPENDIX: Normal appendix. LYMPH NODES: No lymphadenopathy. MUSCULOSKELETAL: No acute or suspicious osseous abnormality. ADDITIONAL FINDINGS: Trace free pelvic fluid, likely physiologic. Dominant right adnexal follicle measuring 2.3 cm. IMPRESSION: Marked gallbladder distention with wall thickening and cholesterol containing 11 mm calculus at the neck. Findings are concerning for acute cholecystitis. Trace free pelvic fluid, likely physiologic. 22:40 ED course: EXAMINATION: US Abdomen Exam Limited CLINICAL HISTORY: [facility] MAIN N ABD PAIN sp4 Bed Name: 13 COMPARISON: CT abdomen and pelvis of the same day TECHNIQUE: Limited upper abdominal grayscale and color flow sonographic images. FINDINGS: Gallbladder: Markedly distended gallbladder. Wall thickness. Upper limit of normal. One CM echogenic shadowing gallstone near the neck. Positive sonographic Mejia's sign. Bile ducts: No intrahepatic or extrahepatic biliary dilatation. Common bile duct measures 0.3 mm. Liver: Visualized portions of the liver demonstrate normal echogenicity with no suspicious findings. Fluid: No ascites. IMPRESSION: Markedly distended gallbladder with findings suggesting acute cholecystitis. No intra or extrahepatic biliary ductal dilation. . 23:04 Differential diagnosis: arthritis, chronic back pain, Fatigue Fracture. Data reviewed: sp4 vital signs, nurses notes, radiologic studies, CT scan, ultrasound. Consideration of Admission/Observation Escalation of care including admission/observation considered. Management of patient was discussed with the following: Hospitalist: Alejo ORTEGA . Cafe Operator: Bandar ORTEGA . ED course: . ED course: Positive for acute cholecystitis . Admitted to the Hospitalist with consult to General Surgery . 04/02 20:01 Order name: Type And Screen; Complete Time: 21:56 sp4 04/02 20:02 Order name: CBC with Diff; Complete Time: 21:56 sp4 04/02 20:02 Order name: CMP; Complete Time: 21:56 sp4 04/02 20:02 Order name: Lipase; Complete Time: 21:56 sp4 04/02 20:02 Order name: Test, Urine; Complete Time: 21:56 sp4 04/02 20:02 Order name: Urinalysis w/ reflexes; Complete Time: 21:56 sp4 04/02 22:54 Order name: Lactate w/ 2H reflex if indic. EDCT 04/02 22:54 Order name: Magnesium; Complete Time: 23:44 EDCT 04/02 22:54 Order name: Phosphorus; Complete Time: 23:44 EDCT 04/02 22:54 Order name: Urinalysis w/ reflexes EDCT 04/02 22:54 Order name: Basic Metabolic Panel EDCT 04/02 22:54 Order name: Basic Metabolic Panel EDCT 04/02 22:54 Order name: Comprehensive Metabolic Panel EDCT 04/02 22:54 Order name: Comprehensive Metabolic Panel EDCT 04/03 08:31 Order name: Phosphorus EDCT 04/03 08:31 Order name: Magnesium EDCT 04/02 20:02 Order name: CT Abd/Pelvis - IV Contrast Only; Complete Time: 22:37 sp4 04/02 20:02 Order name: US Abdomen Limited; Complete Time: 22:37 sp4 04/02 20:02 Order name: IV Saline Lock; Complete Time: 20:34 sp4 04/02 20:02 Order name: Labs collected and sent; Complete Time: 20:34 sp4 04/02 22:47 Order name: NPO; Complete Time: 23:03 sp4 Administered Medications: 20:39 Drug: metoCLOPramide IVP 10 mg IVP once; over 1 to 2 minutes Route: IVP; Site: right cp4 antecubital; 21:21 Follow up: Response: No adverse reaction cp4 20:40 Drug: morphine IVP or IV 4 mg IVP once over 4 mins Route: IVP; Infused Over: 4 mins; cp4 Site: right antecubital; 21:21 Follow up: Response: No adverse reaction; Pain is decreased cp4 20:40 Drug: Famotidine IVP 20 mg IVP once; dilute with 10 mL 0.9% NaCl; give over 2 minutes cp4 Route: IVP; Site: right antecubital; 21:21 Follow up: Response: No adverse reaction cp4 20:40 Drug: Ondansetron IVP 4 mg IVP once; over 2 minutes Route: IVP; Site: right antecubital;cp4 21:21 Follow up: Response: No adverse reaction cp4 20:40 Drug: NS 0.9% IV 1000 ml IV at 1 bolus Per protocol; to be given as a bolus over 60 cp4 minutes Route: IV; Rate: 1 bolus; Site: right antecubital; 23:05 Follow up: IV Status: Completed infusion cp4 21:20 Drug: Ketorolac IVP 30 mg IVP once Route: IVP; Site: right antecubital; cp4 23:06 Follow up: Response: No adverse reaction cp4 23:39 Drug: Piperacillin-Tazobactam IVPB 3.375 grams IVPB once over 60 mins; (mix in NS 100 cp4 mL) Route: IVPB; Infused Over: 60 mins; Site: right antecubital; 04/03 01:40 Follow up: IV Status: Completed infusion cp4 04/02 23:59 Not Given (Physician Discretion; Ordered in [facility]): d5-1/2 ns with kcl20 meq/l 1000 cp4 ml IV at 125 ml/hr continuous Disposition Summary: 04/02/24 22:46 Hospitalization Ordered Notes: Hospitalization Status: Observation sp4 Provider: Prince scott Dhillon Condition: Stable sp4 Problem: new sp4 Symptoms: have improved sp4 Bed/Room Type: Standard sp4 Location: [facility] ER HOLD(04/03/24 00:25) cg Room Assignment: ERHOLD-(04/03/24 00:25) cg Diagnosis - Acute cholecystitis sp4 - Acute calculus cholecystitis. sp4 Forms: - Medication Reconciliation Form sp4 - SBAR form sp4 - Leadership Thank You Letter sp4 Signatures: Dispatcher [employer] Toma Henry RN RN Rajat Morrison MD MD sp4 Idalia Craft RN RN cm10 Naomi Wary 4 Corrections: (The following items were deleted from the chart) 20:02 20:02 CBC+H.LAB.BRZ ordered. EDMS EDMS 20:02 20:02 COMPREHENSIVE METABOLIC PANEL+C.LAB.BRZ ordered. EDMS EDMS 20:02 20:02 LIPASE+C.LAB.BRZ ordered. EDMS EDMS 20:02 20:02 Test, Urine+UC.LAB.BRZ ordered. EDMS EDMS 20:02 20:02 Urinalysis+U.LAB.BRZ ordered. EDMS EDMS 20:02 20:02 Abdomen Pelvis W Con+CT.RAD.BRZ ordered. EDMS EDMS 20:02 20:02 Abdomen Limited+US.RAD.BRZ ordered. EDMS EDMS 04/03 00:25 04/02 22:46 Telemetry/MedSurg (observation) sp4 04/03 00:25 04/02 22:46 sp4
--- NOTE | 2024-04-02 22:46 | ER ---
Nurse's Notes [facility] Name: Jennifer Olivares Age: 33 yrs Sex: Female : 1990 Arrival Date: 04/02/2024 Time: 19:45 Bed 13 Private MD: Diagnosis: Acute cholecystitis;Acute calculus cholecystitis. Presentation: 04/02 20:03 Chief complaint: Patient states: RUQ abdominal pain onset 3 days ago. pt reports nausea cm10 and vomiting. Coronavirus screen: Client denies travel out of the [place] in the last 14 days. Ebola Screen: Patient denies travel to an Ebola-affected area in the 21 days before illness onset. Initial Sepsis Screen: Does the patient meet any 2 criteria? HR > 90 bpm. Does the patient have a suspected source of infection? No. Patient's initial sepsis screen is negative. Risk Assessment: Do you want to hurt yourself or someone else? Patient reports no desire to harm self or others. Onset of symptoms was April 02, 2024. 20:03 Method Of Arrival: Ambulatory cm10 20:03 Acuity: ANKIT 3 cm10 Triage Assessment: 20:05 General: Appears in no apparent distress. uncomfortable, Behavior is calm, cooperative. cm10 Neuro: No deficits noted. Level of Consciousness is awake, alert, obeys commands, Oriented to person, place, time, situation, Appropriate for age. Respiratory: No deficits noted. Airway is patent Respiratory effort is even, unlabored, Respiratory pattern is regular, symmetrical. 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 - Infectious Disease History:: Denies. - Social history:: Smoking status: Patient reports the use of cigarette tobacco products, smokes 0.25 packs per day. - Family history:: not pertinent. Screenin:54 [facility] ED Fall Risk Assessment (Adult) History of falling in the last 3 months, cp4 including since admission No falls in past 3 months (0 pts) Confusion or Disorientation No (0 pts) Intoxicated or Sedated No (0 pts) Impaired Gait No (0 pts) Mobility Assist Device Used No (0 pt) Altered Elimination No (0 pt) Score/Fall Risk Level 0 - 2 = Low Risk Oriented to surroundings, Maintained a safe environment, Assessed \T\ reinforced patient's understanding of fall precautions, Hourly rounding (assess needs \T\ fall precautionary measures) done. Abuse screen: Denies threats or abuse. Denies injuries from another. Nutritional screening: No deficits noted. Tuberculosis screening: No symptoms or risk factors identified. Assessment: 20:54 General: Appears in no apparent distress. comfortable, Behavior is calm, cooperative, cp4 appropriate for age. Pain: Complains of pain in right upper quadrant Pain does not radiate. Pain currently is 8 out of 10 on a pain scale. Neuro: Level of Consciousness is awake, alert, obeys commands, Oriented to person, place, time, situation. Cardiovascular: Patient's skin is warm and dry. Respiratory: Airway is patent Respiratory effort is even, unlabored. GI: Abdomen is round non-distended, Bowel sounds present X 4 quads. Abd is soft and non tender X 4 quads. : No signs and/or symptoms were reported regarding the genitourinary system. EENT: No signs and/or symptoms were reported regarding the EENT system. Derm: No signs and/or symptoms reported regarding the dermatologic system. Musculoskeletal: No signs and/or symptoms reported regarding the musculoskeletal system. Vital Signs: 20:03 BP 110 / 76; Pulse 126; Resp 17; Temp 98; Pulse Ox 97% on R/A; Weight 73.48 kg; Height cm10 5 ft. 5 in. ; Pain 5/10; 20:56 BP 119 / 83; Pulse 90; Resp 18; Pulse Ox 99% ; cp4 22:13 BP 108 / 70; Pulse 88; Resp 18; Pulse Ox 98% ; cp4 23:40 BP 105 / 70; Pulse 79; Resp 18; Pulse Ox 98% ; cp4 20:03 Body Mass Index 26.96 (73.48 kg, 165.1 cm) cm10 20:03 Pain Scale: Adult cm10 [place] Coma Score: 22:58 Eye Response: spontaneous(4). Motor Response: obeys commands(6). Verbal Response: sp4 oriented(5). Total: 15. ED Course: 19:46 Patient arrived in ED. jj6 19:52 Rajat Morrison MD is Attending Physician. sp4 20:04 Triage completed. cm10 20:05 Arm band placed on right wrist. Patient placed in an exam room, on a stretcher. cm10 20:11 Naomi Wray is Primary Nurse. cp4 20:34 CBC with Diff Sent. vk 20:34 CMP Sent. vk 20:34 Lipase Sent. vk 20:34 Initial lab(s) drawn, by me, sent to lab. Inserted saline lock: 20 gauge in right vk antecubital area, using aseptic technique. Blood collected. Flushed with 10 mL NS. 20:35 T\T\S collected, blood band applied to patient. vk 20:36 Type And Screen Sent. vk 20:54 Bed in low position. Call light in reach. Side rails up X 1. cp4 20:54 No provider procedures requiring assistance completed. cp4 21:20 US Abdomen Limited In Process Unspecified. EDMS 21:37 CT Abd/Pelvis - IV Contrast Only In Process Unspecified. EDMS 22:45 Prince Dhillon MD is Hospitalizing Provider. sp4 23:40 Lactate w/ 2H reflex if indic. Sent. cp4 04/03 02:20 Provided Education on: admission. cp4 02:20 Patient admitted, IV remains in place. cp4 Administered Medications: 04/02 20:39 Drug: metoCLOPramide IVP 10 mg IVP once; over 1 to 2 minutes Route: IVP; Site: right cp4 antecubital; 21:21 Follow up: Response: No adverse reaction cp4 20:40 Drug: morphine IVP or IV 4 mg IVP once over 4 mins Route: IVP; Infused Over: 4 mins; cp4 Site: right antecubital; 21:21 Follow up: Response: No adverse reaction; Pain is decreased cp4 20:40 Drug: Famotidine IVP 20 mg IVP once; dilute with 10 mL 0.9% NaCl; give over 2 minutes cp4 Route: IVP; Site: right antecubital; 21:21 Follow up: Response: No adverse reaction cp4 20:40 Drug: Ondansetron IVP 4 mg IVP once; over 2 minutes Route: IVP; Site: right antecubital;cp4 21:21 Follow up: Response: No adverse reaction cp4 20:40 Drug: NS 0.9% IV 1000 ml IV at 1 bolus Per protocol; to be given as a bolus over 60 cp4 minutes Route: IV; Rate: 1 bolus; Site: right antecubital; 23:05 Follow up: IV Status: Completed infusion cp4 21:20 Drug: Ketorolac IVP 30 mg IVP once Route: IVP; Site: right antecubital; cp4 23:06 Follow up: Response: No adverse reaction cp4 23:39 Drug: Piperacillin-Tazobactam IVPB 3.375 grams IVPB once over 60 mins; (mix in NS 100 cp4 mL) Route: IVPB; Infused Over: 60 mins; Site: right antecubital; 04/03 01:40 Follow up: IV Status: Completed infusion cp4 04/02 23:59 Not Given (Physician Discretion; Ordered in [facility]): d5-1/2 ns with kcl20 meq/l 1000 cp4 ml IV at 125 ml/hr continuous Medication: 20:54 VIS not applicable for this client. cp4 Outcome: 22:46 Decision to Hospitalize by Provider. sp4 04/03 02:20 Admitted to ER Hold. Please see [facility] for further documentation. cp4 Condition: stable Instructed on the need for admit, 09:42 Patient left the ED. db Signatures: Dispatcher [employer] EDMS Antonia García jj6 Alysha Wills RN RN db Rajat Morrison MD MD sp4 Idalia Craft RN RN 10 Naomi Wray 4 Jacklyn Emerson
[2024-04-02] MEDS ORDERED: ONDANSETRON 4 MG/2 ML VIAL IV PRN (22:50)
[2024-04-02] MEDS ORDERED: ACETAMINOPHEN 325 MG TABLET PO PRN (22:50)
[2024-04-02] MEDS ORDERED: SODIUM CHLORIDE 0.9% 10ML INJ IV PRN (22:55)
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
[2024-04-02] MEDS: NA CHLORIDE 0.9% 1,000 ML IV SCH (23:00)
[2024-04-02] MEDS ORDERED: NA CHLORIDE 0.9% 100 ML ONE (23:14)
[2024-04-02] MEDS ORDERED: D5.45NS W/KCL 20MEQ 1,000 ML IV ONE (23:14)
[2024-04-02] MEDS ORDERED: PIPERACIL/TAZO 3.375 GM VIAL IV ONE (23:14)
[2024-04-02 23:36] LABS: Magnesium 1.9 mg/dL (1.6-2.4); Phosphorus 1.7 mg/dL (2.5-4.9)
[2024-04-02] MEDS: POTASSIUM CL 40 MEQ in NA CHLORIDE 0.9% 500 ML IV SCH (23:45)
[2024-04-03] MEDS ORDERED: PANTOPRAZOLE 40 MG INJ ONE (00:17)
[2024-04-03] MEDS ORDERED: KCL 20 MEQ/100 mL IVPB 200 ML IV ONE (00:18)
[2024-04-03] MEDS ORDERED: NA CHLORIDE 0.9% 1,000 ML ONE (00:18)
[2024-04-03] MEDS ORDERED: LORazepam 2 MG/ML VIAL ONE (00:26)
[2024-04-03] MEDS: LORazepam 2 MG/ML VIAL IV PRN (00:33)
[2024-04-03 06:56] LABS: Albumin/Globulin Ratio 0.9 (1.1-1.8); Anion Gap 7.7 mEq/L (5.0-15.0); Bilirubin Total 0.7 mg/dL (0.2-1.0); Globulin 3.4 g/dL (2.3-3.5); Potassium 3.7 mEq/L (3.5-5.1); Protein, Total 6.4 g/dL (6.4-8.2)
[2024-04-03 08:31] LABS: Magnesium 1.9 mg/dL (1.6-2.4); Phosphorus 2.3 mg/dL (2.5-4.9)
[2024-04-03] MEDS ORDERED: HYDROMORPHONE HCL 1 MG/ML INJ ONE (08:53)
[2024-04-03] MEDS: D5 0.45 NS 1,000 ML with POTASSIUM CL 30 MEQ IV SCH ×2 (09:00→13:34)
[2024-04-03] MEDS: HYDROMORPHONE HCL 1 MG/ML INJ IV PRN (09:05)
[2024-04-03] MEDS ORDERED: MIDAZOLAM HCL 2 MG/2 ML INJ ONE (09:09)
[2024-04-03] MEDS ORDERED: FENTANYL CITR 100 MCG/2 ML ONE (09:09)
[2024-04-03] MEDS ORDERED: propofoL 200 MG/20 ML VIAL IV ONE (09:09)
[2024-04-03] MEDS ORDERED: dexAMETHasone 4 MG/ML VIAL ONE (09:10)
[2024-04-03] MEDS ORDERED: KETOROLAC 30 MG/ML INJ ONE (09:10)
[2024-04-03] MEDS ORDERED: ONDANSETRON 4 MG/2 ML VIAL ONE (09:10)
[2024-04-03] MEDS ORDERED: LIDOCAINE 1% MPF 5 ML VIAL ONE (09:10)
[2024-04-03] MEDS ORDERED: ROCURONIUM 50 MG/5 ML VIAL IV ONE ×2 (09:10→10:24)
[2024-04-03] MEDS: Ringers Lactate 1,000 ML IV ONE (09:40)
[2024-04-03] MEDS: SUGAMMADEX SODIUM 200 MG/2 ML VIAL IV ONE (09:47)
[2024-04-03] MEDS: LIDOCAINE HCL/EPINEPHRINE 20 ML MDV ONE (10:02)
[2024-04-03] MEDS ORDERED: FLU (Fluarix Triv) TS24-25(6MOS UP)/PF 45 MCG/0.5 ML Syringe IM ONE (10:15)
[2024-04-03] MEDS ORDERED: EPHEDRINE SULF 50 MG/ML VIAL ONE (10:20)
--- NOTE | 2024-04-03 11:07 | P.OP ---
Preoperative diagnosis: Acute Calculous Cholecystitis Postoperative diagnosis: Acute Calculous Cholecystitis Primary procedure: Laparoscopic Cholecystectomy with ICG Cholangiography Anesthesia: GETA + Local Estimated blood loss: <10cc Specimen: Gallbladder Findings: Distended Gallbladder, oozing from hepatic fossa Complications: None Implants: Lang Hemostatic Powder Transferred to: Recovery Room Condition: Good
[2024-04-03] MEDS: MEPERIDINE HCL 25 MG/ML SYR ONE (11:08)
[2024-04-03] MEDS: HYDROMORPHONE HCL 1 MG/ML INJ ONE (11:38)
[2024-04-03 13:06] VITALS: O2SAT 99
--- NOTE | 2024-04-03 13:12 | OP ---
Date of Procedure: 04/03/2024 Surgeon: Erensto Portillo MD, Preoperative Diagnosis: Acute calculous cholecystitis. Postoperative Diagnosis: Acute calculous cholecystitis. Procedure: Laparoscopic cholecystectomy with indocyanine green cholangiography. Anesthesia: General endotracheal plus local with 1% lidocaine with epinephrine. Estimated Blood Loss: Less than 10 cc. Specimen: Gallbladder. Findings: Distended gallbladder and oozing from the hepatic fossa. Complications: None. Implants: Lang hemostatic powder. Disposition: The patient transferred to recovery room in good condition. Procedure In Detail: After informed consent was obtained, the patient was brought to the operating r oom, prepped and draped in the usual sterile fashion. After adequate anesthesia was achieved, I made a supraumbilical incision down to subcutaneous tissues. A 5 mm 0-degree optical trocar was introduc ed into the abdomen without incident or complication. Insufflation was obtained to 15 mmHg, at this time. There was no injury to vital structures upon entry into the abdomen. Two additional trocars w ere placed, one in the epigastrium, and one in the right upper quadrant. Both of these were similarl y anesthetized, sharply incised. A 5 mm trocar was placed under direct visualization without inciden t or complication. The umbilical trocar was then upsized to 12 mm under direct visualization without incident or complication. At this point, the patient was positioned head up right-side up position. Ratcheted grasper was used to attempt to grasp the patient's gallbladder. However, it was distende d and unable to be grasped. At this time, the decompression needle was brought in, used to decompres s the gallbladder, at this point, with good drainage of the gallbladder. I was then able to grasp th e gallbladder, placed it towards the patient's right shoulder. Dissection continued down the Crystal n pouch of the gallbladder. At this point, I identified 2 structures, identified both as cystic duct and cystic artery. Indocyanine green cholangiography confirmed the anatomic position of the cystic duct, common duct and junction and that confirmed that the critical view of safety was obtained. At this point, I placed double titanium clips doubly on the proximal side, singly on the distal side of both the cystic duct and cystic artery. These structures were ligated without incident or complicati on between the Endo Ivelisse. I then removed the gallbladder from the hepatic fossa. There was some o ozing from several spots of the hepatic fossa, which required additional fulguration. The gallbladde r was then placed in EndoCatch bag, removed through the umbilical trocar. There was no spillage of b owel throughout the procedure. After the gallbladder was sent off for pathologic examination, the ai r was re-insufflated. I copiously irrigated the entire subhepatic space. Minimal oozing was present from the mid portion and lateral portions circumferentially around the hepatic fossa. I fulgurated these areas with increased electrocautery at this point until all areas were completely dry. I then irrigated the area several times, checked and reduced pneumoperitoneum. There was no bleeding, at th is point. I then inspected the area one last time, suctioned out the remaining effluent. I then per formed indocyanine green angiography. This showed no leakage of bile that was present. At this poin t, I then sprayed Lang hemostatic powder into the subhepatic space and placed the patient back in n eutral position. I suctioned out the remaining effluent, at this point. No additional hemostatic ma neuvers were required. I then closed the 12 mm trocar site using a Levi-Francisco J suture passer wit h 0 Vicryl in an interrupted fashion with good approximation of tissues. The abdomen was desufflated under direct visualization without incident or complication. All trocars were removed. All skin in cisions were then copiously irrigated and closed with a 4-0 Monocryl in a running fashion. Dermabond was placed over top. The patient tolerated the procedure well without incident or complication and transferred to PACU in good condition. All counts were correct at the end of the case. MARIAH/MINAL Voice ID: [id number] Report ID: [id number]
--- NOTE | 2024-04-03 13:36 | P.PN ---
Subjective Date of Service: 04/03/24 Chief Complaint: Abdominal pain Subjective: Improving She just got out of the surgery. She stated she is doing fine, postoperative pain is tolerable, no nausea and vomiting, anxious to eat. Review of Systems Other: Consitutional; fever(-), chills (-), rigor(-), night sweat(-), unintentional weight loss(-), malaise (-) HEENT; diplopia (-), rhinorrhea (-), epistaxis (-), otorrhea (-), otalgia (-) Respiratory; shortness of breath (-), wheezing (-), cough (-), sputum (-), pleuritic chest pain (-) Cardiovascular; chest pain (-), peripheral edema (-), paroxysmal nocturnal dyspnea (-), orthopnea (-) Gastrointestinal; nausea (-), vomiting (-), abdominal pain (+), diarrhea (-), constipation (-), melena (-), hematochezia (-) Genitourinary; urinary frequency (-), dysuria (-), urgency (-), flank pain (-), gross hematuria (-), incontinence (-) Skin; rash (-), pruritus (-) 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 General: Not acutely ill looking, in no apparent distress,. HEENT: Normocephalic, atraumatic, nonicteric sclera, nonanemic conjunctive. Neck: Supple, without JVD or goiter or thyroid mass. Respiratory: Normal breathing effort, clear to auscultation bilaterally, no crackles no wheezing or rhonchi. Cardiovascular: Regular rate and rhythm, S1, S2 normal, no murmur no gallop. Gastrointestinal: Decreased but present bowel sounds, nondistended, mildly tender tender, dry clean laparoscopy operative wound, no ascites, , No masses, no hepatosplenomegaly. Extremities : No clubbing, No peripheral edema,. Integumentary: No rashes, petechia, suspected lesions. Lymphatics: No axilla or cervical lymphadenopathy. Neurology; alert awake oriented x3, no focal neurologic deficit, normal affection . mood and behavior. - Studies Laboratory Data (last 24 hrs) 04/02/24 04/02/24 04/02/24 20:30 20:30 20:30 WBC 9.40 Hgb 12.4 Hct 37.5 Plt Count 407 H Sodium 132 L Potassium 3.1 L BUN 12 Creatinine 0.83 Glucose 121 H Phosphorus 1.7 L Magnesium 1.9 Total Bilirubin 0.8 AST 16 ALT 24 Alkaline Phosphatase 57 Lipase 43 Assessment And Plan - Plan Patient is a 33-year -[place] femalea with history of anxiety, bipolar disorder, depression, schizophrenia and PTSD presenting to ER complaining of abdominal pain complicated by nausea and vomiting. Her vital signs were stable on arrival. CT abdomen pelvis revealed acute cholecystitis. She admitted on general medical floor after laparoscopic cholecystectomy today. #1 acute uncomplicated calculus cholecystitis. operative note reviewed, no immediate postoperative complication, oral diet started with IV fluid, pain control with [place] and IV Dilaudid as needed, I will discontinue empiric antibiotics today. #2 history of schizophrenia Psychiatrically stable, I will resume her antipsychotic medication Disposition; plan to discharge home tomorrow
[2024-04-03] MEDS: HYDROCODONE/APAP 5/325 MG TAB PO PRN (16:40)
--- NOTE | 2024-04-03 22:23 | P.DS ---
Admission Date: 04/03/24 Discharge Date: 04/04/24 Disposition: ROUTINE DISCHARGE Discharge Condition: GOOD Reason for Admission: Abdominal pain Brief History of Present Illness: Patient is a 33-year -[place] female with history of anxiety, bipolar disorder, depression, paranoid delusions and PTSD.presenting to ER complaining of abdominal pain complicated by nausea and vomiting. Her vital signs were stable on arrival. CT abdomen pelvis revealed acute cholecystitis. General surgery has been consulted for cholecystectomy. General: Alert, Acute distress HEENT: Atraumatic Neck: Supple Respiratory: Normal air movement Cardiovascular: No edema, Normal pulses, Regular rate/rhythm Gastrointestinal: Other RUQ tenderness Musculoskeletal: No clubbing, No swelling, No contractures Integumentary: No rashes Neurological: Normal speech Lymphatics: No axilla or inguinal lymphadenopathy Hospital Course: Patient is a 33-year -[place] female with history of anxiety, bipolar disorder, depression, paranoid delusions and PTSD.presenting to ER complaining of abdominal pain complicated by nausea and vomiting. She was noted to have calculous cholecystitis. She was seen by surgery. Her vital signs were stable on arrival. CT abdomen pelvis revealed acute cholecystitis. General surgery has been consulted for cholecystectomy. tolerating diet, stable to discharge home, follow up with surgery after discahrge, no heavy lifting over 10 lbs Discharge medications, antibiotics as directed until gone, as needed analgesics, Follow up with surgery after discharge call office for apt Assessment Acute calculus cholecystitis 2/2 staus post Laparoscopic Cholecystectomy with ICG Cholangiography by Dr Portillo Hypokalemia rfesolved, replaced while in patient Anxiety and depression resume home meds Bipolar disorder PTSD -DC IV and DC home -Follow-up with PCP in 1 to 2 weeks -Follow-up with GI in 1-2 weeks -Please call Dr. Hogue at [phone] if any questions regarding hospital stay -Please call nursing station at [phone] if any nursing or medication questions -Return to the emergency room if symptoms worsen Vital Signs/Physical Exam: Temp Pulse Resp BP Pulse Ox 98.5 F 82 16 91/54 L 97 04/03/24 20:00 04/03/24 20:00 04/03/24 20:00 04/03/24 20:00 04/03/24 20:00 Laboratory Data at Discharge: Home Medications: ARIPiprazole [Aripiprazole] 15 mg PO DAILY 04/03/24 Fluoxetine HCl 20 mg PO DAILY 04/03/24 Amox/Clavulanate [Augmentin 875-125 Tab] 1 each PO BID 7 Days #14 tab 04/04/24 Codeine/APAP [Tylenol W/Codeine #3 tab] 1 tab PO Q6HP PRN #15 tab 04/04/24 Codeine/APAP [Tylenol W/Codeine #3 tab] 1 tab PO Q6HP PRN 5 Days #15 tab 04/04/24 New Medications: Amox/Clavulanate [Augmentin 875-125 Tab] 1 each PO BID 7 Days #14 tab Codeine/APAP [Tylenol W/Codeine #3 tab] 1 tab PO Q6HP PRN 5 Days #15 tab PRN Reason: Pain Codeine/APAP [Tylenol W/Codeine #3 tab] 1 tab PO Q6HP PRN #15 tab PRN Reason: Pain Physician Discharge Instructions: Patient is a 33-year -[place] female with history of anxiety, bipolar disorder, depression, paranoid delusions and PTSD.presenting to ER complaining of abdominal pain complicated by nausea and vomiting. She was noted to have calculous cholecystitis. She was seen by surgery. Her vital signs were stable on arrival. CT abdomen pelvis revealed acute cholecystitis. General surgery has been consulted for cholecystectomy. tolerating diet, stable to discharge home, follow up with surgery after discahrge, no heavy lifting over 10 lbs Discharge medications, antibiotics as directed until gone, as needed analgesics, Follow up with surgery after discharge call office for apt Assessment Acute calculus cholecystitis 2/2 staus post Laparoscopic Cholecystectomy with ICG Cholangiography by Dr Portillo Hypokalemia rfesolved, replaced while in patient Anxiety and depression resume home meds Bipolar disorder PTSD -DC IV and DC home -Follow-up with PCP in 1 to 2 weeks -Follow-up with surgery after discharge -Please call Dr. Hogue at [phone] if any questions regarding hospital stay -Please call nursing station at [phone] if any nursing or medication questions -Return to the emergency room if symptoms worsen Diet: AHA Activity: No lifting more than 10 lbs Followup: Ernesto Portillo MD [ACTIVE - CAN ADMIT] - 1-2 Weeks Ernesto Hancock DO [Primary Care Provider] - 1-2 Weeks Time spent managing pt's care (in minutes): 45
[2024-04-03] MEDS ORDERED: PIPER TAZO 3.375 GM in NA CHLORIDE 0.9% 100 ML IV SCH (22:55)
[2024-04-03] MEDS ORDERED: PANTOPRAZOLE 40 MG INJ IVP SCH (22:55)
[2024-04-04 01:00] VITALS: BMI 26.8
[2024-04-04 05:59] LABS: Absolute Eosinophils 0.1 K/uL (0-0.5); Absolute Lymphocytes (CBC) 1.6 K/uL (0.7-4.9); Absolute Monocytes 0.6 K/uL (0.1-1.3); Absolute Neutrophil 3.7 K/uL (1.8-8.0); Basophils % 0.5 % (0-1.3); Eosinophils % 1.3 % (0-4.4); Hematocrit 29.9 % (36.0-45.0); Hemoglobin 9.9 g/dL (12.0-15.0); Lymphocytes % 26.8 % (15.3-44.8); MCH 28.6 pg (27.0-35.0); MCHC 33.1 g/dL (32.0-36.0); MCV 86.5 fL (80-100); MPV 7.5 fL (7.6-11.3); Monocytes % 9.9 % (3.3-12.3); Neutrophils % 61.5 % (41.7-73.7); Nucleated Red Blood Cells % 0.2 % (0-0); Platelets 285 thou/uL (152-406); RBC Red Blood Cell Count 3.45 M/uL (3.86-4.86); Red Cell Distribution Width 14.9 % (12.1-15.2)
[2024-04-04 06:12] LABS: Albumin 2.7 g/dL (3.4-5.0); Albumin/Globulin Ratio 0.8 (1.1-1.8); Anion Gap 6.8 mEq/L (5.0-15.0); Bilirubin Total 0.5 mg/dL (0.2-1.0); Globulin 3.3 g/dL (2.3-3.5); Potassium 3.8 mEq/L (3.5-5.1)
[2024-04-04] MEDS: FLUOXETINE 20 MG CAP PO SCH (07:35)
[2024-04-04] MEDS: POTASSIUM CL SA 10 MEQ TAB PO ONE (07:35)
[2024-04-04] MEDS ORDERED: ARIPIPRAZOLE 15 MG PO SCH (09:00)
[2024-04-04] MEDS ORDERED: HOME MED 1 EA UNK (Fluoxetine Hcl [Fluoxetine Hcl] 20 MG Tablet) PO SCH (09:00)
[2024-04-04 09:34] VITALS: BP 96/52; TEMP 97.6
[2024-04-04] MEDS ORDERED: D5 0.45 NS 1,000 ML with POTASSIUM CL 30 MEQ IV SCH (14:30)
== END 2024-04-04 12:59 | disposition home or self-care (01) | DRG 419 ==
LOC: ER 19:45 → ERHOLD 22:50 → 2ND 04-03 12:20 → OBSVTOIN 04-03 17:05
PROVIDERS: ADMIT Internal Medicine; ATTEND Hospitalist
PROC: BF52200 Other Imaging of Gallbladder using Fluorescing Agent, Indocyanine Green Dye, Intraoperative (ICD-10-PCS; 2024-04-03)
PROC: 0FT44ZZ Resection of Gallbladder, Percutaneous Endoscopic Approach (ICD-10-PCS; principal; 2024-04-03 09:30)
DX: K80.00 Calculus of gallbladder with acute cholecystitis without obstruction (principal); F20.9 Schizophrenia, unspecified; F43.10 Post-traumatic stress disorder, unspecified; E87.6 Hypokalemia; F31.9 Bipolar disorder, unspecified; E03.9 Hypothyroidism, unspecified; F41.9 Anxiety disorder, unspecified; F17.210 Nicotine dependence, cigarettes, uncomplicated; Z88.5 Allergy status to narcotic agent; Z88.1 Allergy status to other antibiotic agents; Z98.51 Tubal ligation status; Z79.899 Other long term (current) drug therapy
CPT/HCPCS: 36415; 74177; 76705; 80053; 81001; 81025; 83605; 83690; 83735; 84100; 85025; 86850; 86900; 86901; 88304; 96361; 96365; 96366; 96375; 99285; G0378; J1100; J1171; J2003; J2175; J2250; J2405; J2470; J2543; J2704; J2765; J3010; J3480; J7030; J7040; J7120; J7799; Q9967